=== PATIENT | female | born 1945 | race Caucasian/White ===

== ENCOUNTER 2019-04-06 12:36 | Outpatient (CLI) | payer MEDICARE, SELFPAY ==
--- NOTE | ~2019-04-06 | MM_ITS ---
EXAMINATION: MM screening cornell BI w noah HISTORY: Screening mammogram TECHNIQUE: Craniocaudal and mediolateral oblique 3-D tomosynthesis images were obtained and synthetic 2-D images were generated. CAD analysis was submitted and interpreted. COMPARISON: 09/08/2017, 09/05/2016, 07/05/2013 bilateral digital screening mammogram examinations BREAST PARENCHYMAL COMPOSITION: The breasts are heterogeneously dense, which may obscure small masses . FINDINGS: There is no evidence of suspicious mass, calcification, or architectural distortion to sugg est malignancy in either breast. There has been no suspicious interval change. IMPRESSION: 1. No mammographic evidence of malignancy. 2. Recommend routine screening mammography in one year. BI-RADS Category 1: Negative Reviewed, dictated and finalized at location A. [employer]ER
== END 2019-04-06 12:37 | disposition home or self-care (01) ==
LOC: CHSIMG 12:36
PROVIDERS: PCP Internal Medicine; Visit Provider Internal Medicine
DX: Z12.31 Encounter for screening mammogram for malignant neoplasm of breast (principal)
CPT/HCPCS: 77063; 77067

== ENCOUNTER 2019-04-14 10:18 | Outpatient (CLI) | payer MEDICARE, SELFPAY ==
[2019-04-14 10:40] LABS: Basophils Absolute Auto 0.08 K/mm3 (0.00-0.10); Basophils Percent Auto 1.3 % (0.0-1.0); Eosinophils Absolute Auto 0.52 K/mm3 (0.02-0.50); Eosinophils Percent Auto 8.5 % (1.0-6.0); Hematocrit 34.4 % (35.0-42.0); Immature Granulocyte Absolute 0.01 K/mm3 (0.00-0.00); Immature Granulocyte Percent A 0.2 % (0.0-0.0); Lymphocytes Absolute Auto 1.22 K/mm3 (1.10-4.50); Mean Corpuscular Hemoglobin 26.1 pg (27.0-31.0); Mean Corpuscular Volume 81.7 fL (78.0-102.0); Mean Platelet Volume 8.9 fl (9.2-11.8); Monocytes Absolute Auto 0.53 K/mm3 (0.10-0.90); Monocytes Percent Auto 8.7 % (2.0-11.0); Neutrophils Absolute Auto 3.7 K/mm3 (1.7-7.2); Neutrophils Percent Auto 61.3 % (50.0-70.0); Platelet Count Result 288 K/mm3 (150-420); Red Blood Count 4.21 M/mm3 (4.20-5.40); Red Cell Distribution Width 15.1 % (11.6-14.4); White Blood Count 6.1 K/mm3 (4.8-10.8)
[2019-04-14 12:36] LABS: Thyroid Stimulating Hormone 0.07 uIU/mL (0.36-3.74)
== END 2019-04-14 10:19 | disposition home or self-care (01) ==
LOC: CHSLAB 10:19
PROVIDERS: PCP Internal Medicine; Visit Provider Internal Medicine
DX: D64.9 Anemia, unspecified (principal); E03.9 Hypothyroidism, unspecified
CPT/HCPCS: 36415; 84443; 85025

== ENCOUNTER 2019-05-16 14:24 | Outpatient (CLI) | payer MEDICARE, SELFPAY ==
[2019-05-16 14:37] LABS: Basophils Absolute Auto 0.07 K/mm3 (0.00-0.10); Basophils Percent Auto 1.2 % (0.0-1.0); Eosinophils Absolute Auto 0.56 K/mm3 (0.02-0.50); Eosinophils Percent Auto 9.4 % (1.0-6.0); Hematocrit 32.3 % (35.0-42.0); Hemoglobin 10.6 g/dL (11.7-13.8); Immature Granulocyte Absolute 0.01 K/mm3 (0.00-0.00); Immature Granulocyte Percent A 0.2 % (0.0-0.0); Lymphocytes Absolute Auto 1.82 K/mm3 (1.10-4.50); Lymphocytes Percent Auto 30.6 % (18.0-42.0); Mean Corpuscular HGB Conc 32.8 g/dL (32.0-36.0); Mean Corpuscular Hemoglobin 26.4 pg (27.0-31.0); Mean Corpuscular Volume 80.3 fL (78.0-102.0); Mean Platelet Volume 8.6 fl (9.2-11.8); Monocytes Absolute Auto 0.52 K/mm3 (0.10-0.90); Monocytes Percent Auto 8.8 % (2.0-11.0); Neutrophils Percent Auto 49.8 % (50.0-70.0); Platelet Count Result 276 K/mm3 (150-420); Red Blood Count 4.02 M/mm3 (4.20-5.40); Red Cell Distribution Width 14.9 % (11.6-14.4); White Blood Count 5.9 K/mm3 (4.8-10.8)
[2019-05-16 15:25] LABS: CRP < 0.2 mg/dL (0.0-0.9)
[2019-05-16 15:38] LABS: Erythrocyte Sedimentation Rate 16 mm/hr (0-20)
== END 2019-05-16 14:25 | disposition home or self-care (01) ==
PROVIDERS: PCP Internal Medicine; Visit Provider Anesthesiology
DX: Z79.01 Long term (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 of 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 (principal); I25.10 Atherosclerotic heart disease of native coronary artery without angina pectoris; M54.16 Radiculopathy, lumbar region; R07.89 Other chest pain; Z00.00 Encounter for general adult medical examination without abnormal findings
CPT/HCPCS: 36415; 85025; 85652; 86140

== ENCOUNTER 2019-08-02 11:41 | Outpatient (CLI) | payer MEDICARE, SELFPAY ==
[2019-08-02 12:00] LABS: Basophils Percent Auto 1.5 % (0.0-1.0); Eosinophils Percent Auto 9.2 % (1.0-6.0); Hematocrit 30.7 % (35.0-42.0); Immature Granulocyte Absolute 0.03 K/mm3 (0.00-0.00); Immature Granulocyte Percent A 0.5 % (0.0-0.0); Lymphocytes Absolute Auto 1.82 K/mm3 (1.10-4.50); Mean Corpuscular HGB Conc 32.6 g/dL (32.0-36.0); Mean Corpuscular Volume 79.7 fL (78.0-102.0); Mean Platelet Volume 8.4 fl (9.2-11.8); Monocytes Absolute Auto 0.55 K/mm3 (0.10-0.90); Monocytes Percent Auto 8.5 % (2.0-11.0); Neutrophils Absolute Auto 3.4 K/mm3 (1.7-7.2); Neutrophils Percent Auto 52.3 % (50.0-70.0); Platelet Count Result 280 K/mm3 (150-420); Red Blood Count 3.85 M/mm3 (4.20-5.40); Red Cell Distribution Width 16.9 % (11.6-14.4); White Blood Count 6.5 K/mm3 (4.8-10.8)
[2019-08-02 12:05] LABS: Add Urine Microscopic? NO; Appearance Urine Clear (Clear); Bilirubin Urine Negative (Negative); Blood Urine Negative (Negative); Color Urine Yellow (Yellow); Glucose Urine UA Negative (Negative); Ketones Urine Negative (Negative); Leukocyte Esterase Ur Negative (Negative); Nitrate Urine Negative (Negative); Protein Urine Negative (Negative); Specific Grav Ur <= 1.005 (1.010-1.020); Urobilinogen Urine 0.2 mg/dL (0.2-1.0)
[2019-08-02 12:20] LABS: Partial Thromboplastin Time 29.3 SEC (22.3-31.6)
[2019-08-02 12:33] LABS: Anion Gap 11.8 mmol/L (7-16); Blood Urea Nitrogen 9 mg/dL (7-18); CRP < 0.2 mg/dL (0.0-0.9); Calcium 8.5 mg/dL (8.5-10.1); Carbon Dioxide 29 mmol/L (21-32); Chloride 93 mmol/L (98-108); Estimated Glomerular Filt Rate 48; Glucose 81 mg/dL (70-99); Osmolality Calculated 265 mOsm/kg (285-295); Potassium 4.8 mmol/L (3.5-5.1); Sodium 129 mmol/L (136-145)
[2019-08-02 13:02] LABS: Erythrocyte Sedimentation Rate 14 mm/hr (0-20)
== END 2019-08-02 11:42 | disposition home or self-care (01) ==
LOC: CHSLAB 11:44
PROVIDERS: PCP Internal Medicine; Visit Provider Anesthesiology
DX: Z79.01 Long term (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 of 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 (principal); I25.10 Atherosclerotic heart disease of native coronary artery without angina pectoris; M54.16 Radiculopathy, lumbar region; R07.89 Other chest pain; Z01.818 Encounter for other preprocedural examination
CPT/HCPCS: 36415; 80048; 81003; 85025; 85610; 85652; 85730; 86140

== ENCOUNTER 2019-08-12 10:37 | Outpatient (CLI) | payer MEDICARE, SELFPAY ==
--- NOTE | ~2019-08-12 | CT_ITS ---
EXAMINATION: CT lung screening DATE: 08/12/2019 11:05 INDICATION: Personal history of tobacco use, prior smoker with 35 pack year history TECHNIQUE: Computed tomography (CT) of the chest was performed without intravenous contrast. The dose -length product (DLP) was 59.69 mGy-cm. Automated exposure control and iterative reconstruction techn ique were employed. COMPARISON: 06/14/2010 FINDINGS: There is moderate emphysema. Nodules measuring 5 mm and 4 mm are present in the right upper lobe on image 48. The lungs are free of acute opacities. There is no pleural effusion or pneumothora x. No pathologically enlarged thoracic lymph nodes are identified. The heart size is normal. Calcifie d coronary artery atherosclerosis is noted. There is mild thoracic spondylosis. IMPRESSION: 1. Lung-RADS category 2: Benign appearance or behavior. Continue annual screening with noncontrast lo w-dose chest CT in 12 months. Reviewed, dictated and finalized at location A. IMPRESSION: 1. Lung-RADS category 2: Benign appearance or behavior. Continue annual screeni ng with noncontrast low-dose chest CT in 12 months.
== END 2019-08-12 10:38 | disposition home or self-care (01) ==
LOC: CHSIMG 10:38
PROVIDERS: PCP Internal Medicine; Visit Provider Internal Medicine
DX: Z12.2 Encounter for screening for malignant neoplasm of respiratory organs (principal); Z87.891 Personal history of nicotine dependence
CPT/HCPCS: G0297

== ENCOUNTER 2019-10-13 13:22 | Outpatient (CLI) | payer MEDICARE, SELFPAY ==
--- NOTE | 2019-10-13 13:26 | ECHO_ITS ---
Patient Info Name: aRdha Andrade Age: 74 years : 1945 Gender: Female Ht: 62 in Wt: 152 lbs BSA: 1.76 m2 HR: 63 bpm BP: 145 / 52 mmHg Heart Rhythm: Sinus Rhythm Technical Quality: Good Exam Date: 10/13/2019 1:35 PM Exam Location: [facility] Patient Status: Outpatient Admit Date: 10/13/2019 Staff Ordering Physician: Edgar Stephenson DO Director Telemetry: Vonnie Salgado RDCS Attending Provider: Edgar Stephenson DO Referring Physician: Sachin DUBON; Exam Type: CA echo dop color flow w con Study Info Indications I25.10 - Atherosclerotic heart disease of [place] coronary artery without angina pectoris Complete two-dimensional, color flow and Doppler transthoracic echocardiogram is performed. Strain analysis performed. History/Risk Factors Hypertension: Yes Dyslipidemia: Yes Congenital Heart Disease (CHD): No Peripheral Arterial Disease (PAD): No Myocardial Infarction (NE): No Chronic Lung Disease: No Obesity: No Renal Disease: No Coronary Artery Disease (CAD) Yes Congestive Heart Failure (CHF): No Cardiomyopathy/LV Systolic Dysfunction: No Diabetes Mellitus: No COPD: On Meds Tobacco Use: Former Cerebrovascular Disease: No Family History: Coronary Artery Disease Deep Vein Thrombosis (DVT): None Dialysis: None Frailty Scale (CSHA): 3: Managing Well Cardiac Arrest: No Summary 1. Left ventricular chamber dimension is normal. 2. Left ventricular systolic function is normal, estimated at 65-70%. 3. The left ventricular diastolic function is normal. 4. Tissue doppler is not performed. 5. There is mild mitral valve regurgitation. Left Ventricle Tissue doppler is not performed. Left ventricular chamber dimension is normal. Left ventricular systolic function is normal, estimated at 65-70%. The left ventricular diastolic function is normal. Right Ventricle Right ventricular chamber dimension is normal. Right ventricular systolic function is normal. Left Atria Left atrial chamber dimension is normal. Right Atria Right atrial chamber dimension is normal. Aortic Valve The aortic valve is trileaflet. There is no aortic valve stenosis. There is no aortic valve regurgitation. Pulmonic Valve There is no pulmonic regurgitation. Mitral Valve There is no mitral valve stenosis. There is mild mitral valve regurgitation. Tricuspid Valve There is no tricuspid valve regurgitation. Pericardium/Pleural There is no pericardial effusion. Inferior Vena Cava Normal inferior vena cava with >50% collapse upon inspiration consistent with normal right atrial pressure, 5 mmHg. Aorta The aortic root size at the sinus of Valsalva is normal. Left Ventricular Outflow Tract Name Value Normal LVOT 2D LVOT Diameter 1.78 cm LVOT Doppler LVOT Peak Velocity 95.88 cm/s LVOT Peak Gradient 4 mmHg LVOT Mean Gradient 2 mmHg LVOT VTI 26.53 cm LVOT VTI/AV VTI Ratio 0.76
== END 2019-10-13 13:23 | disposition home or self-care (01) ==
LOC: CHSIMG 13:23
PROVIDERS: PCP Internal Medicine; Visit Provider Internal Medicine Cardiovascular Disease
DX: I25.10 Atherosclerotic heart disease of native coronary artery without angina pectoris (principal)
CPT/HCPCS: C8929

== ENCOUNTER 2019-11-09 13:20 | Outpatient (CLI) | payer MEDICARE, SELFPAY ==
--- NOTE | ~2019-11-09 | DEXA_ITS ---
BMD(1) Young-Adult(2) Age-Matched(3) Region (g/cm2) T-score Z-score WHO Classification L1 1.430 2.4 4.0 Normal L2 1.584 3.1 4.8 Normal L3 1.749 4.3 5.9 Normal L4 1.581 2.8 4.5 Normal L1-L4 1.593 3.2 4.9 Normal Trend: L1-L4 Change vs Change vs Measured Age BMD(1) Baseline Previous Date (years) (g/cm2) (%) (%) 11/09/2019 [age] 1.593 10.9* 10.0* 09/05/2016 [age] 1.448 0.8 -0.3 10[age]24/2011 [age] 1.89 1.2 1.2 09/10/2009 [age] 1.436 baseline - * - Indicates significant change based on 95% confidence interval. 1 - Statistically 68% of repeat scans fall within 1SD (+- 0.010 g/cm2 for AP Spine L1-L4) 2 - [place] (Combined NHANES (ages 20-30) / PhishMe (ages 20-40)) AP Spine Reference Population (v112) 3 - Matched for Age, Weight (females 25-100 kg), Ethnic 11 - World Health Organization - Definition of Osteoporosis and Osteopenia for Women: Normal = T-score at or above -1.0 SD; Osteopenia = T-score between -1.0 and -2.5 SD; Osteoporosis = T-score at or below -2.5 SD; (WHO definitions only apply when a young healthy Women reference database is used to determine T-scores.) Printed: 11/09/2019 1:59:18 PM (13.60)76:3.00:50.00:12.0 0.00:9.54 0.60x1.05 19.7:%Fat=30.9% 0.00:0.00 0.00:0.00 Verify bone is centered and there is sufficient tissue next to bone. Filename: [id number].dfx Scan Mode: Standard;OneScan 37.0 Purple[employer] [id number] BMD(1) Young-Adult(2,7) Age-Matched(3) Region (g/cm2) T-score Z-score WHO Classification Neck Left 0.996 -0.3 1.6 Normal Right 1.010 -0.2 1.7 Normal Mean 1.003 -0.3 1.6 Normal Difference 0.014 0.1 0.1 - Total Left 1.082 0.6 2.3 Normal Right 1.097 0.7 2.4 Normal Mean 1.090 0.6 2.3 Normal Difference 0.014 0.1 0.1 - Hip [place] Length Comparison (mm) BAKARI chart results unavailable Trend: Total Mean Change vs Change vs Measured Age BMD(1) Baseline Previous Date (years) (g/cm2) (%) (%) 11/09/2019 [age] 1.090 1.2 2.3 10[age]24/2011 66.1 1.066 -1.0 -1.0 09/10/2009 [age] 1.077 baseline - 1 - Statistically 68% of repeat scans fall within 1SD (+- 0.010 g/cm2 for DualFemur Total) 2 - [place] (Combined NHANES (ages 20-30) / PhishMe (ages 20-40)) Femur Reference Population (v112) 3 - Matched for Age, Weight (females 25-100 kg), Ethnic 7 - DualFemur Total T-score difference is 0.1. Asymmetry is None. 11 - World Health Organization - Definition of Osteoporosis and Osteopenia for Women: Normal = T-score at or above -1.0 SD; Osteopenia = T-score between -1.0 and -2.5 SD; Osteoporosis = T-score at or below -2.5 SD; (WHO definitions only apply when a young healthy Women reference database is used to determine T-scores.) Printed: 11/09/2019 1:59:19 PM (13.60); Filename: [id number].dfx; Right Femur; 17.3:%Fat=35.0%; Neck Angle (deg)= 73; Scan Mode: Standard 37.0 uGy; Left Femur; 17.0:%Fat=35.5%; Neck Angle (deg)= 67; Scan Mode: Standard 37.0 uGy [employer] [id number] Dear Bhanu Hinojosa, Your patient Radha Andrade completed a BMD test on 11/09/2019 using the [employer] DXA System (analysis version: 13.60) manufactured by [employer]. The following summarizes the results of our evaluation. PATIENT BIOGRAPHICAL
== END 2019-11-09 13:21 | disposition home or self-care (01) ==
LOC: CHSIMG 13:22
PROVIDERS: PCP Internal Medicine; Visit Provider Internal Medicine
DX: M81.0 Age-related osteoporosis without current pathological fracture (principal)
CPT/HCPCS: 77080

== ENCOUNTER 2020-05-28 12:20 | Outpatient (CLI) | payer MEDICARE, SELFPAY ==
--- NOTE | ~2020-05-28 | CT_ITS ---
EXAMINATION: CT lumbar spine wo con EXAM DATE: 05/28/2020 12:38 INDICATION: Radiculopathy lumbar region Chronic LBP that radiates down both legs, surg 4 and 1 yrs ag o . TECHNIQUE: Spiral CT of the lumbar spine was performed without contrast. Axial, coronal and sagittal images were reviewed. The dose-length product (DLP) for this examination was 478.70 mGy-cm. The e xposure was tailored according to patient size (auto mA exposure control), and iterative reconstructi on (ASIR) was used as additional dose reduction technique. Correlation is made to lumbar spine MR 09/23. FINDINGS: There is spine stimulator pack, leads entering posterior epidural space at the L1-2 level. There is 5 mm anterolisthesis L4 on L5 without spondylolysis. The vertebral bodies are otherwise alig willie. Mild to moderate disc disease L3-4 and L4-5 otherwise only mild disc disease present. Minimal th oracolumbar dextroscoliosis. Sacroiliac joints are intact. Level by level evaluation: T12-L1: Disc does not extend beyond the endplate margin. Facet arthropathy: Minimal. Neural foraminal stenosis: No stenosis. Central canal stenosis: No stenosis. L1-L2: There is a mild diffuse disc bulge. Facet arthropathy: Mild. Neural foraminal stenosis: No stenosis. Central canal stenosis: No stenosis. L2-L3: There is a mild diffuse disc bulge. Facet arthropathy: Moderate. Neural foraminal stenosis: Mild to moderate left, mild right. Central canal stenosis: Moderate. L3-L4: There is a moderate diffuse disc bulge. Facet arthropathy: Severe left, moderate right. Neural foraminal stenosis: Mild to moderate bilateral. Central canal stenosis: Moderate. L4-L5: There is a moderate diffuse disc bulge. Facet arthropathy: Severe. Neural foraminal stenosis: Moderate bilateral, right greater than left. Central canal stenosis: Moderate. L5-S1: There is a mild diffuse disc bulge. Facet arthropathy: Severe. Neural foraminal stenosis: Mild bilateral. Central canal stenosis: Mild. IMPRESSION: 1. L4-5 grade 1 anterolisthesis. 2. Moderate central canal stenosis L2-L5 disc spaces. 3. Advanced facet arthropathy. Reviewed, dictated and finalized at location A.
== END 2020-05-28 12:21 | disposition home or self-care (01) ==
LOC: CHSIMG 12:21
PROVIDERS: PCP Internal Medicine; Visit Provider Anesthesiology
DX: M54.16 Radiculopathy, lumbar region (principal)
CPT/HCPCS: 72131

== ENCOUNTER 2020-07-24 12:20 | Outpatient (CLI) | payer MEDICARE, SELFPAY ==
--- NOTE | ~2020-07-24 | MM_ITS ---
EXAMINATION: MM screening cornell BI w noah HISTORY: Screening TECHNIQUE: Craniocaudal and mediolateral oblique 3-D tomosynthesis images were obtained and synthetic 2-D images were generated. CAD analysis was submitted and interpreted. COMPARISON: Comparison to multiple prior studies sequentially, with oldest reviewed study dated 08/2011. BREAST PARENCHYMAL COMPOSITION: The breasts are heterogeneously dense, which may obscure small masses . FINDINGS: There is no evidence of suspicious mass, calcification, or architectural distortion to sugg est malignancy in either breast. There has been no suspicious interval change. IMPRESSION: 1. No mammographic evidence of malignancy. 2. Recommend routine screening mammography in one year. BI-RADS Category 1: Negative Reviewed, dictated and finalized at location A.
== END 2020-07-24 12:21 | disposition home or self-care (01) ==
LOC: CHSIMG 12:22
PROVIDERS: PCP Internal Medicine; Visit Provider Internal Medicine
DX: Z12.31 Encounter for screening mammogram for malignant neoplasm of breast (principal)
CPT/HCPCS: 77063; 77067

== ENCOUNTER 2021-04-24 14:51 | Outpatient (CLI) | payer MEDICARE, SELFPAY ==
--- NOTE | ~2021-04-24 | CT_ITS ---
EXAMINATION: CT cervical spine wo con DATE: 04/24/2021 15:17 INDICATION: Left neck pain. TECHNIQUE: Computed tomography (CT) of the cervical spine was performed without intravenous contrast. Automated exposure control and iterative reconstruction technique were employed. The dose-length pro duct was 235.07 mGy-cm. COMPARISON: None FINDINGS: The visualized portions of the lung apices demonstrate emphysema and mild scarring. There i s kyphosis of cervical spine. There is 3 mm anterolisthesis of C3 and C4 and 2 mm anterolisthesis of C4 on C5. Vertebral body heights are normal. There is mildly decreased disc height at C3-C4, moderate ly decreased disc height at C4-C5, and severely decreased disc height at C5-C6 and C6-C7 with endplat e remodeling. The following disc levels are specifically discussed: C2-C3: There is mild bilateral uncovertebral joint osteoarthritis. There is mild right and severe lef t facet joint osteoarthritis. There is mild left neural foraminal stenosis. There is no central canal stenosis. C3-C4: There is mild right uncovertebral joint osteoarthritis. There is severe bilateral facet joint osteoarthritis. There is mild bilateral neural foraminal stenosis. There is mild central canal stenos is. C4-C5: There is mild bilateral uncovertebral joint osteoarthritis. There is severe bilateral facet shana int osteoarthritis. There is mild bilateral neural foraminal stenosis. There is mild central canal st enosis. C5-C6: There is severe bilateral uncovertebral joint osteoarthritis. There is severe bilateral facet joint osteoarthritis. There is mild bilateral neural foraminal stenosis. There is mild central canal stenosis. C6-C7: There is severe bilateral uncovertebral joint osteoarthritis. There is severe bilateral facet joint osteoarthritis. There is mild bilateral neural foraminal stenosis. There is mild central canal stenosis. C7-T1: There is no uncovertebral joint osteoarthritis. There is severe bilateral facet joint osteoart hritis. There is mild bilateral neural foraminal stenosis. There is no central canal stenosis. IMPRESSION: 1. Severe cervical spondylosis. Reviewed, dictated and finalized at location A. 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
[2021-04-24 15:32] LABS: Hematocrit 31.3 % (35.0-42.0); Hemoglobin 9.7 g/dL (11.7-13.8); Mean Corpuscular Volume 77.5 fL (78.0-102.0); Mean Platelet Volume 8.4 fl (9.2-11.8); Platelet Count Result 322 K/mm3 (150-420); Red Blood Count 4.04 M/mm3 (4.20-5.40); Red Cell Distribution Width 17.2 % (11.6-14.4); White Blood Count 8.2 K/mm3 (4.8-10.8)
[2021-04-24 16:08] LABS: Band Neutrophils Percent 0 % (0-6); Basophils Percent Manual 0 % (0-1); Eosinophils Absolute Manual 0.73 K/mm3 (0.02-0.5); Eosinophils Percent Manual 9 % (1-6); Lymphocytes Absolute Manual 1.88 K/mm3 (1.1-4.5); Lymphocytes Percent Manual 23 % (18-44); Monocytes Absolute Manual 0.82 K/mm3 (0.1-0.90); Monocytes Percent Manual 10 % (3-9); Neutrophils Absolute Manual 4.75 K/mm3 (1.7-7.2); Neutrophils Percent Manual 58 % (46-73); Platelet Estimate Adequate (Adequate); Total Cells Counted 100
[2021-04-24 16:19] LABS: Alanine Aminotransferase 29 U/L (14-59); Albumin Level 3.8 g/dL (3.4-5.0); Alkaline Phosphatase 90 U/L (46-116); Anion Gap 4 mmol/L (8-16); Aspartate Amino Transferase 17 U/L (15-37); Bilirubin,Total 0.3 mg/dL (0.00-1.00); Blood Urea Nitrogen 13 mg/dL (7-18); Calcium 8.8 mg/dL (8.5-10.1); Carbon Dioxide 32 mmol/L (21-32); Chloride 99 mmol/L (98-108); Estimated Glomerular Filt Rate 45; Glucose 96 mg/dL (70-99); Osmolality Calculated 280 mOsm/kg (285-295); Potassium 4.9 mmol/L (3.5-5.1); Sodium 135 mmol/L (136-145); Thyroid Stimulating Hormone 4.75 uIU/mL (0.36-3.74)
== END 2021-04-24 14:52 | disposition home or self-care (01) ==
PROVIDERS: PCP Internal Medicine; Visit Provider Anesthesiology
DX: E03.9 Hypothyroidism, unspecified (principal); I10 Essential (primary) hypertension; J44.9 Chronic obstructive pulmonary disease, unspecified; M54.12 Radiculopathy, cervical region
CPT/HCPCS: 36415; 72125; 80053; 84443; 85025

== ENCOUNTER 2021-05-10 09:19 | Outpatient (CLI) | payer MEDICARE, SELFPAY ==
[2021-05-10 09:31] LABS: Hematocrit 33.6 % (35.0-42.0); Hemoglobin 10.3 g/dL (11.7-13.8); Immature Reticulocyte Fraction 29.3 % (2.0-16.52); Mean Corpuscular HGB Conc 30.7 g/dL (32.0-36.0); Mean Corpuscular Hemoglobin 23.8 pg (27.0-31.0); Mean Corpuscular Volume 77.6 fL (78.0-102.0); Mean Platelet Volume 8.9 fl (9.2-11.8); Platelet Count Result 331 K/mm3 (150-420); Red Blood Count 4.33 M/mm3 (4.20-5.40); Red Cell Distribution Width 16.7 % (11.6-14.4); Reticulocyte Hemoglobin Conten 26.7 pg (28.0-35.0); Reticulocyte Percent 1.14 % (0.50-1.50); Reticulocytes Absolute 0.05 M/mm3 (0.02-0.1); White Blood Count 5.8 K/mm3 (4.8-10.8)
[2021-05-10 09:50] LABS: Band Neutrophils Percent 0 % (0-6); Basophils Absolute Manual 0.05 K/mm3 (0-0.1); Basophils Percent Manual 1 % (0-1); Eosinophils Absolute Manual 0.75 K/mm3 (0.02-0.5); Eosinophils Percent Manual 13 % (1-6); Lymphocytes Absolute Manual 2.26 K/mm3 (1.1-4.5); Lymphocytes Percent Manual 39 % (18-44); Monocytes Absolute Manual 0.17 K/mm3 (0.1-0.90); Monocytes Percent Manual 3 % (3-9); Neutrophils Absolute Manual 2.55 K/mm3 (1.7-7.2); Neutrophils Percent Manual 44 % (46-73); Platelet Estimate Adequate (Adequate); Total Cells Counted 100
[2021-05-10 10:27] LABS: Cholesterol 163 mg/dL (0-200); Ferritin 7 ng/mL (8-252); HDL Direct 92 mg/dL (40-60); Iron 34 ug/dL (50-170); LDL Cholesterol Calculated 56 mg/dL (<130); Percent Iron Saturation 7 % (12-57); Triglycerides 73 mg/dL (0-150)
== END 2021-05-10 09:20 | disposition home or self-care (01) ==
LOC: CHSLAB 09:22
PROVIDERS: PCP Internal Medicine; Visit Provider Internal Medicine Cardiovascular Disease
DX: E78.5 Hyperlipidemia, unspecified (principal); D50.9 Iron deficiency anemia, unspecified
CPT/HCPCS: 36415; 80061; 82728; 83540; 83550; 85025; 85046

== ENCOUNTER 2021-07-15 00:33 | Day surgery (SDC) | payer MEDICARE, SELFPAY ==
[2021-07-01 15:14] VITALS: BMI 28.4
--- NOTE | 2021-07-15 06:54 | WPDANESEPPF ---
Anes - Initial Pre Proc Eval Procedure: Operation Date: 07/15/21 08:00 Proposed Procedures p Esophagogastroduodenoscopy & Colonoscopy - William Wells MD Date/Time: 07/15/21 06:54 Surgeon: William Wells MD Pre Op Diagnosis: microcytic anemia Patient Data Age: 75 Gender: F Height: 1.57 m Weight: 70.45 kg Allergies Allergy/AdvReac Type Severity Reaction Status Date / Time iodine Allergy Severe Hives / Verified 07/15/21 07:01 Red Face amlodipine Allergy Unknown Unknown Verified 07/15/21 07:01 clindamycin Allergy Unknown Nausea Verified 07/15/21 07:01 diltiazem Allergy Unknown Unknown Verified 07/15/21 07:01 Iodine and Iodide Containing Allergy Unknown Unknown Verified 07/15/21 07:01 Produc nickel Allergy Unknown Rash Verified 07/15/21 07:01 Penicillins Allergy Unknown Unknown Verified 07/15/21 07:01 SHELLFISH Allergy Severe Vomiting Uncoded 05/06/21 13:27 Home Medications Medication Instructions Recorded Confirmed Type albuterol sulfate 90 mcg/actuation 2 puff inhalation Q4H PRN 04/01/19 07/01/21 History aerosol inhaler (Ventolin HFA) Shortness Of Breath aspirin 325 mg tablet 325 mg PO DAILY 04/01/19 07/01/21 History cholecalciferol (vitamin D3) 25 25 mcg PO DAILY 04/01/19 07/01/21 History mcg (1,000 unit) tablet esomeprazole magnesium 40 mg 40 mg PO DAILY 04/01/19 07/01/21 History capsule,delayed release evening primrose oil-linoleic 1 cap PO DAILY 04/01/19 07/01/21 History acid-gamolenic acid 1,000 mg capsule (Sutter Oil) levothyroxine 50 mcg tablet 75 mcg PO DAILY 04/01/19 07/01/21 History meclizine 25 mg tablet 25 mg PO TID PRN Vertigo 04/01/19 07/01/21 History nitroglycerin 0.4 mg sublingual 0.4 mg sublingual Q5M PRN Chest 04/01/19 07/01/21 History tablet Pain umeclidinium 62.5 mcg-vilanterol 1 inhalation inhalation DAILY 04/01/19 07/01/21 History 25 mcg/actuation powdr for inhalation (Anoro Ellipta) valacyclovir 500 mg tablet 500 mg PO DAILY PRN Rash 04/04/19 07/01/21 History oxycodone-acetaminophen 10 mg-325 1 tablet PO Q6H PRN Pain 10/03/19 07/01/21 History mg tablet hydralazine 25 mg tablet 25 mg PO BID #60 tabs 10/07/19 07/01/21 Rx omega-3 acid ethyl esters 1 gram See Rx Instructions .Route 02/09/20 07/01/21 Rx capsule .COMPLEX #180 caps ramipril 10 mg capsule See Rx Instructions .Route 05/25/20 07/01/21 Rx .COMPLEX #180 caps fluoxetine 10 mg capsule 20 mg PO DAILY 11/05/20 07/01/21 History propranolol 60 mg capsule,24 See Rx Instructions .Route 11/13/20 07/01/21 Rx hr,extended release .COMPLEX #180 caps rosuvastatin 20 mg tablet See Rx Instructions .Route 01/08/21 07/01/21 Rx .COMPLEX #90 tabs Patient hx anesthesia problems: none Family hx anesthesia problems: none Results Review: All pre-operative results and documents have been reviewed as part of the pre-operative evaluation. [facility] Past Medical History Medical History (Updated 07/15/21 @ 07:53 by William Wells MD) CAD in [place] artery Chest pain at rest Chronic obstructive pulmonary disease, unspecified Chronic, continuous use of opioids Dyslipidemia Essential hypertension Family history of colon cancer in mother Hypothyroidism Iron deficiency anemia Surgical History Surgical History History of appendectomy History of hysterectomy History of tonsillectomy Hx of heart artery stent Status post insertion of spinal cord stimulator Family History Family History Father Family history of coronary artery disease Family history of sudden Social History Social History Smoking status: Former smoker Tobacco type: cigarettes Alcohol intake: never Substance use: never Substance use type: does not use Living arrangements: alone Spiritual care concerns:
[2021-07-15 07:01] VITALS: BP 152/65; PULSE 80; RESP 20; TEMP 36.3; O2SAT 93; BMI 27.6
[2021-07-15] MEDS: LACTATED RINGERS 1,000 ML 150 ML IV CONT (07:17)
--- NOTE | 2021-07-15 07:52 | PM.HPGS ---
History of Present Illness History of Present Illness Consent: Risks, benefits, and alternatives have been discussed and questions answered. Patient agrees to proceed with procedure. Chief complaint: microcytic anemia Narrative: Radha Andrade is a 75 year old female with [place], hb ~ 10, denies overt gib, never had EGD but uses nexium. Her last colonoscopy about 10 years ago, mother had colon cancer. Review of Systems Constitutional: Constitutional: Denies headache(s) and Denies weakness Eyes: Eyes: Denies blurry vision ENT: Reports Normal hearing present, Denies headache(s) and Denies neck pain Cardiovascular: Cardiovascular: Denies chest pain and Denies dyspnea Respiratory: Respiratory: Denies dyspnea Gastrointestinal: Gastrointestinal: Reports no additional gastrointestinal complaints Genitourinary: Genitourinary: Denies dysuria Musculoskeletal: Musculoskeletal: Denies neck pain Integumentary/Breasts: Skin/Breast: Denies dry skin Neurologic: Reports Normal hearing present, Denies headache(s) and Denies weakness Psychiatric: Psychiatric: Denies anxiety Endocrine: Endocrine: Denies change in body appearance Hematologic/Lymphatic: Hematologic/Lymphatic: Denies easy bleeding Allergic/Immunologic: Allergic/Immunologic: Denies urticaria PMFSH Past Medical History Medical History (Updated 07/15/21 @ 07:53 by William Wells MD) CAD in [place] artery Chest pain at rest Chronic obstructive pulmonary disease, unspecified Chronic, continuous use of opioids Dyslipidemia Essential hypertension Family history of colon cancer in mother Hypothyroidism Iron deficiency anemia Surgical History Surgical History History of appendectomy History of hysterectomy History of tonsillectomy Hx of heart artery stent Status post insertion of spinal cord stimulator Family History Family History Father Family history of coronary artery disease Family history of sudden Social History Social History Smoking status: Former smoker Tobacco type: cigarettes Alcohol intake: never Substance use: never Substance use type: does not use Living arrangements: alone Spiritual care concerns: No Meds Home Medications and Allergies Home Medications Medication Instructions Recorded Confirmed Type albuterol sulfate 90 mcg/actuation 2 puff INHALATION Q4H PRN gm 04/01/19 07/01/21 History aerosol inhaler aspirin 325 mg tablet 325 mg PO DAILY 04/01/19 07/01/21 History cholecalciferol (vitamin D3) 25 25 mcg PO DAILY 04/01/19 07/01/21 History mcg (1,000 unit) tablet esomeprazole magnesium 40 mg 40 mg PO DAILY 04/01/19 07/01/21 History capsule,delayed release evening primrose oil-linoleic 1 cap PO DAILY cap 04/01/19 07/01/21 History acid-gamolenic acid 1,000 mg capsule levothyroxine 50 mcg tablet 75 mcg PO DAILY 04/01/19 07/01/21 History meclizine 25 mg tablet 25 mg PO TID PRN 04/01/19 07/01/21 History nitroglycerin 0.4 mg sublingual 0.4 mg SUBLINGUAL Q5M PRN 04/01/19 07/01/21 History tablet umeclidinium 62.5 mcg-vilanterol 1 inhalation INHALATION DAILY 04/01/19 07/01/21 History 25 mcg/actuation powdr for inhalation valacyclovir 500 mg tablet 500 mg PO DAILY PRN 04/04/19 07/01/21 History oxycodone-acetaminophen 10 mg-325 1 tablet PO Q6H PRN tablet 10/03/19 07/01/21 History mg tablet hydralazine 25 mg tablet 25 mg PO BID #60 tablet 10/07/19 07/01/21 Rx omega-3 acid ethyl esters 1 gram See Rx Instructions .ROUTE 02/09/20 07/01/21 Rx capsule .COMPLEX #180 cap ramipril 10 mg capsule See Rx Instructions .ROUTE 05/25/20 07/01/21 Rx .COMPLEX #180 cap fluoxetine 10 mg capsule 20 mg PO DAILY cap 11/05/20 07/01/21 History propranolol 60 mg capsule,24 See Rx Instructions .ROUTE 11/13/20 07/01/21 Rx hr,extende
--- NOTE | 2021-07-15 08:22 | SUR.OPER ---
EGD START 801, END 805 COLONOSCOPY START 809, END 821
[2021-07-15 08:24] VITALS: BP 133/57; PULSE 62; RESP 20; O2SAT 100
[2021-07-15 08:34] VITALS: BP 121/57; PULSE 62; RESP 20; O2SAT 100
[2021-07-15 08:44] VITALS: BP 130/78; PULSE 73; RESP 20; O2SAT 100
== END 2021-07-15 08:51 | disposition home or self-care (01) ==
PROVIDERS: PCP Internal Medicine; Visit Provider Internal Medicine Gastroenterology
PROC: 0DJ08ZZ Inspection of Upper Intestinal Tract, Via Natural or Artificial Opening Endoscopic (ICD-10-PCS; CPT 43235; principal; 2021-07-15 08:00)
DX: D50.9 Iron deficiency anemia, unspecified (principal); K64.8 Other hemorrhoids; K62.3 Rectal prolapse; Z80.0 Family history of malignant neoplasm of digestive organs; K21.9 Gastro-esophageal reflux disease without esophagitis; K29.70 Gastritis, unspecified, without bleeding; I25.10 Atherosclerotic heart disease of native coronary artery without angina pectoris; J44.9 Chronic obstructive pulmonary disease, unspecified; I10 Essential (primary) hypertension; E78.5 Hyperlipidemia, unspecified; E03.9 Hypothyroidism, unspecified; Z79.891 Long term (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 of opiate analgesic; Z87.891 Personal history of nicotine dependence; Z79.51 Long term (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 of inhaled steroids; Z79.82 Long term (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 of aspirin; Z95.5 Presence of coronary angioplasty implant and graft
CPT/HCPCS: 45378; 43239; 88305; J2704; J7120

== ENCOUNTER 2021-07-29 11:52 | Outpatient (CLI) | payer MEDICARE, SELFPAY ==
--- NOTE | ~2021-07-29 | MM_ITS ---
EXAMINATION: MM screening cornell BI w noah HISTORY: Screening mammogram, family history of breast cancer in her daughter. TECHNIQUE: Craniocaudal and mediolateral oblique 3-D tomosynthesis images were obtained and synthetic 2-D images were generated. CAD analysis was submitted and interpreted. COMPARISON: 07/24/2020, 04/06/2019, 09/08/2017 BREAST PARENCHYMAL COMPOSITION: The breasts are heterogeneously dense, which may obscure small masses . FINDINGS: There is no suspicious mass, calcification, or architectural distortion to suggest malignan cy in either breast. There has been no suspicious interval change. IMPRESSION: 1. No mammographic evidence of malignancy. 2. Recommend routine screening mammography in one year. BI-RADS Category 1: Negative Reviewed, dictated and finalized at location A.
== END 2021-07-29 11:53 | disposition home or self-care (01) ==
LOC: CHSIMG 11:54
PROVIDERS: PCP Internal Medicine; Visit Provider Internal Medicine
DX: Z12.31 Encounter for screening mammogram for malignant neoplasm of breast (principal)
CPT/HCPCS: 77063; 77067

== ENCOUNTER 2021-11-04 13:37 | Emergency (ER) | payer MEDICARE, SELFPAY ==
--- NOTE | ~2021-11-04 | XR_ITS ---
EXAMINATION: XR chest 1V portable Exam Date/Time: 11/04/2021 14:00 CDT HISTORY: epigastric chest pain/ indigestion/ pressure x 3days Comparison: 02/03/2019. RESULT: Lines, tubes, and devices: Stimulator leads project over the mid thoracic spine. Lungs and pleura: No focal consolidation. Senescent changes. Bibasilar atelectasis/scar. Cardiomediastinal silhouette: Stable. Other: No acute osseous or upper abdominal finding. IMPRESSION: No acute cardiopulmonary process. Reviewed, dictated and finalized at location K.
--- NOTE | 2021-11-04 13:45 | ECG_ITS ---
Measurements Intervals [place] Rate: 72 P: 85 NV: 172 QRS: 83 QRSD: 157 T: 52 QT: 419 QTc: 459 Interpretive Statements SINUS RHYTHM RIGHT BUNDLE BRANCH BLOCK BASELINE ARTIFACT- I, II, III, AVR, AVL, AVF, V3-V6 ABNORMAL ECG COMPARED TO ECG 02/03/2019 08:25:47 NO SIGNIFICANT CHANGES Electronically Signed On 11-04-2021 14:30:34 CDT by Edgar Stephenson D.O.
[2021-11-04 13:53] VITALS: BP 172/79; PULSE 77; RESP 16; TEMP 36.1; O2SAT 94
--- NOTE | 2021-11-04 13:53 | ED.CHESTPAIN ---
HPI - Chest Pain General Chief Complaint: Chest Pain Stated Complaint: chest pain, high BP, sent by Dr. Stephenson Time Seen by Provider: 11/04/21 13:52 Source: patient History of Present Illness HPI narrative: 76-year-old female ex-smoker with history of hypertension, dyslipidemia, hypothyroidism, COPD, coronary artery disease status post stent in the proximal RCA in 2007, negative stress test on 05/12/2016 presented to her [employer] this morning for -- hypertension -- anterior chest pain. the pain is lower substernal in location and radiates to the neck. The pain is intermittent and lasts 5 minutes with spontaneous resolution. this pain is similar to her prior episode of chest pain when she had a stent placement. this pain came on at rest. No worsening shortness of breath. No lightheadedness. -- Chronic low back pain. MD complaint: chest pain Pertinent past history: coronary artery disease Onset (ago): day(s) ( Started 2 days ago) Timing of current episode: episodic Prior episodes: Yes Onset: during rest Pain location: substernal Pain radiation: neck Severity: mild Quality: aching Relieving factors: nothing Exacerbating factors: nothing Associated symptoms: nausea Treatment prior to arrival: none Risk Factors Coronary artery disease risk factors: smoking history, hyperlipidemia and hypertension Thoracic aortic dissection risk factors: longstanding hypertension Related Data On Oral Contraceptives: No Home Medications Medication Instructions Recorded Confirmed albuterol sulfate 90 mcg/actuation 2 puff inhalation Q4H PRN 04/01/19 11/04/21 aerosol inhaler (Ventolin HFA) Shortness Of Breath aspirin 325 mg tablet 325 mg PO DAILY 04/01/19 11/04/21 cholecalciferol (vitamin D3) 25 25 mcg PO DAILY 04/01/19 11/04/21 mcg (1,000 unit) tablet esomeprazole magnesium 40 mg 40 mg PO DAILY 04/01/19 11/04/21 capsule,delayed release evening primrose oil-linoleic 1 cap PO DAILY 04/01/19 11/04/21 acid-gamolenic acid 1,000 mg capsule ([place] Oil) levothyroxine 50 mcg tablet 75 mcg PO DAILY 04/01/19 11/04/21 meclizine 25 mg tablet 25 mg PO TID PRN Vertigo 04/01/19 11/04/21 nitroglycerin 0.4 mg sublingual 0.4 mg sublingual Q5M PRN Chest 04/01/19 11/04/21 tablet Pain valacyclovir 500 mg tablet 500 mg PO DAILY PRN Rash 04/04/19 11/04/21 oxycodone-acetaminophen 10 mg-325 1 tablet PO Q6H PRN Pain 10/03/19 11/04/21 mg tablet fluoxetine 10 mg capsule 40 mg PO DAILY 11/05/20 11/04/21 fluticasone fur. 100 mcg-umeclid 1 inh inhalation DAILY 11/04/21 11/04/21 62.5 mcg-vilant 25 mcg inhalat.powder (Trelegy Ellipta) Allergies Allergy/AdvReac Type Severity Reaction Status Date / Time iodine Allergy Severe Hives / Verified 11/04/21 13:57 Red Face amlodipine Allergy Unknown Unknown Verified 11/04/21 13:57 clindamycin Allergy Unknown Nausea Verified 11/04/21 13:57 diltiazem Allergy Unknown Unknown Verified 11/04/21 13:57 Iodine and Iodide Containing Allergy Unknown Unknown Verified 11/04/21 13:57 Produc nickel Allergy Unknown Rash Verified 11/04/21 13:57 Penicillins Allergy Unknown Unknown Verified 11/04/21 13:57 SHELLFISH Allergy Severe Vomiting Uncoded 11/04/21 13:57 Review of Systems Review of Systems: All systems reviewed & are unremarkable except as noted in HPI and below Constitutional: Constitutional: Reports as per HPI and Reports no additional constitutional complaints Eyes: Eyes: Reports as per HPI and Reports no additional eye complaints ENT: Reports system reviewed and no additional complaints, except as documented and Reports as per HPI Cardiovascular: Cardiovascular: Reports as per HPI, Reports no additional cardiovascular complaints and Reports chest pain Respiratory: Respiratory: Reports as per HPI and Reports no additional respiratory complaints Gastrointestinal: Gastrointestinal: Reports as per HPI, Reports no additional gastrointestinal complaints and Reports nausea Genitourinary: Genitourinary:
[2021-11-04 14:19] LABS: Basophils Absolute Auto 0.07 K/mm3 (0.00-0.10); Eosinophils Absolute Auto 0.39 K/mm3 (0.02-0.50); Eosinophils Percent Auto 5.7 % (1.0-6.0); Hematocrit 29.1 % (35.0-42.0); Hemoglobin 8.9 g/dL (11.7-13.8); Immature Granulocyte Absolute 0.02 K/mm3 (0.00-0.00); Immature Granulocyte Percent A 0.3 % (0.0-0.0); Lymphocytes Absolute Auto 0.97 K/mm3 (1.10-4.50); Lymphocytes Percent Auto 14.2 % (18.0-42.0); Mean Corpuscular HGB Conc 30.6 g/dL (32.0-36.0); Mean Corpuscular Hemoglobin 22.3 pg (27.0-31.0); Mean Corpuscular Volume 72.8 fL (78.0-102.0); Mean Platelet Volume 8.4 fl (9.2-11.8); Monocytes Absolute Auto 0.49 K/mm3 (0.10-0.90); Monocytes Percent Auto 7.2 % (2.0-11.0); Neutrophils Absolute Auto 4.9 K/mm3 (1.7-7.2); Neutrophils Percent Auto 71.6 % (50.0-70.0); Platelet Count Result 417 K/mm3 (150-420); Red Cell Distribution Width 17.5 % (11.6-14.4); White Blood Count 6.8 K/mm3 (4.8-10.8)
[2021-11-04 14:32] LABS: INR 0.9; Partial Thromboplastin Time 34.5 SEC (23.90-30.70); Prothrombin Time 10.4 Seconds (9.50-12.10)
[2021-11-04] MEDS: ALBUTEROL SULFATE NEB 2.5 MG/3 ML INH INHALATION (14:36)
[2021-11-04 14:37] VITALS: PULSE 65; RESP 20; O2SAT 88
[2021-11-04 14:42] LABS: Alanine Aminotransferase 15 U/L (14-59); Albumin Level 3.5 g/dL (3.4-5.0); Alkaline Phosphatase 106 U/L (46-116); Anion Gap 10 mmol/L (8-16); Aspartate Amino Transferase 18 U/L (15-37); Bilirubin,Total 0.3 mg/dL (0.00-1.00); Blood Urea Nitrogen 6 mg/dL (7-18); Calcium 9.1 mg/dL (8.5-10.1); Carbon Dioxide 25 mmol/L (21-32); Chloride 92 mmol/L (98-108); Estimated Glomerular Filt Rate 59; Glucose 99 mg/dL (70-99); NT Pro B Type Natriuretic Pept 214 pg/mL (0-450); Osmolality Calculated 261 mOsm/kg (285-295); Potassium 3.9 mmol/L (3.5-5.1); Sodium 127 mmol/L (136-145); Total Protein 7.5 g/dL (6.4-8.2); Troponin I 6.9 ng/L (0.00-60.4)
[2021-11-04 14:51] VITALS: PULSE 66; RESP 18; O2SAT 100
[2021-11-04 15:43] VITALS: BP 155/79; PULSE 70; RESP 16; TEMP 36.2; O2SAT 90
== END 2021-11-04 15:47 | disposition home or self-care (01) ==
PROVIDERS: Emergency Provider Internal Medicine Critical Care Medicine; PCP Internal Medicine
DX: R07.9 Chest pain, unspecified (principal); D50.9 Iron deficiency anemia, unspecified; E87.1 Hypo-osmolality and hyponatremia; E78.5 Hyperlipidemia, unspecified; I10 Essential (primary) hypertension; E03.9 Hypothyroidism, unspecified; Z87.891 Personal history of nicotine dependence
CPT/HCPCS: 36415; 71045; 80053; 83880; 84484; 85025; 85610; 85730; 93005; 94640; 99284

== ENCOUNTER 2021-11-20 14:13 | Outpatient (CLI) | payer MEDICARE, SELFPAY ==
[2021-11-20 14:27] LABS: Basophils Absolute Auto 0.03 K/mm3 (0.00-0.10); Basophils Percent Auto 0.3 % (0.0-1.0); Eosinophils Absolute Auto 0.18 K/mm3 (0.02-0.50); Eosinophils Percent Auto 1.8 % (1.0-6.0); Hematocrit 27.9 % (35.0-42.0); Hemoglobin 8.8 g/dL (11.7-13.8); Immature Granulocyte Absolute 0.03 K/mm3 (0.00-0.00); Immature Granulocyte Percent A 0.3 % (0.0-0.0); Immature Reticulocyte Fraction 31.7 % (2.0-16.52); Lymphocytes Absolute Auto 1.88 K/mm3 (1.10-4.50); Lymphocytes Percent Auto 18.7 % (18.0-42.0); Mean Corpuscular HGB Conc 31.5 g/dL (32.0-36.0); Mean Corpuscular Hemoglobin 22.3 pg (27.0-31.0); Mean Corpuscular Volume 70.6 fL (78.0-102.0); Mean Platelet Volume 8.4 fl (9.2-11.8); Monocytes Absolute Auto 0.72 K/mm3 (0.10-0.90); Monocytes Percent Auto 7.2 % (2.0-11.0); Neutrophils Absolute Auto 7.2 K/mm3 (1.7-7.2); Neutrophils Percent Auto 71.7 % (50.0-70.0); Platelet Count Result 327 K/mm3 (150-420); Red Blood Count 3.95 M/mm3 (4.20-5.40); Red Cell Distribution Width 17.4 % (11.6-14.4); Reticulocyte Hemoglobin Conten 24.2 pg (28.0-35.0); Reticulocyte Percent 1.62 % (0.50-1.50); Reticulocytes Absolute 0.06 M/mm3 (0.02-0.1)
[2021-11-20 15:01] LABS: Ferritin 6 ng/mL (8-252); Iron 15 ug/dL (50-170); Lactate Dehydrogenase 234 U/L (81-234); NT Pro B Type Natriuretic Pept 652 pg/mL (0-450); Percent Iron Saturation 3 % (12-57)
== END 2021-11-20 14:14 | disposition home or self-care (01) ==
LOC: CHSLAB 14:15
PROVIDERS: PCP Internal Medicine; Visit Provider Internal Medicine
DX: D50.9 Iron deficiency anemia, unspecified (principal); R06.00 Dyspnea, unspecified
CPT/HCPCS: 36415; 82728; 83540; 83550; 83615; 83880; 85025; 85046

== ENCOUNTER 2021-11-28 13:04 | Outpatient (CLI) | payer MEDICARE, SELFPAY ==
[2021-11-28] MEDS: IRON SUCROSE COMPLEX 250 MG in SODIUM CHLORIDE 0.9% IV 250 ML 125 MG IVPB (13:10)
[2021-11-28 13:20] VITALS: BP 122/56; PULSE 68; RESP 14; TEMP 36.4; O2SAT 92; BMI 27.4
--- NOTE | 2021-11-28 15:14 | PC.NURSE ---
Patient here for #1 of 4 IV Venofer infusions. Education given. No concerns voiced. IV Venofer administered. Tolerated well. Will return 12/05/21 at 1300 for #2. Safe exit of hospital.
== END 2021-11-28 13:05 | disposition home or self-care (01) ==
LOC: CHSTREATRM 13:06
PROVIDERS: PCP Internal Medicine; Visit Provider Internal Medicine
DX: D50.9 Iron deficiency anemia, unspecified (principal)
CPT/HCPCS: 96365; 96366; J1756; J7050

== ENCOUNTER 2021-12-05 12:59 | Outpatient (CLI) | payer MEDICARE, SELFPAY ==
[2021-12-05] MEDS: IRON SUCROSE COMPLEX 250 MG in SODIUM CHLORIDE 0.9% IV 250 ML 166.67 MG IVPB (13:05)
[2021-12-05 13:16] VITALS: BP 104/50; PULSE 70; RESP 14; TEMP 36.5; O2SAT 94
[2021-12-05 13:18] VITALS: BMI 27.4
--- NOTE | 2021-12-05 14:43 | PC.NURSE ---
Patient here for #2 of 4 IV Venofer infusion. Education given. No concerns voiced. Reports did ok with last weeks. IV Venofer administered. SEE MAR. Tolerated well. Safe exit of hospital. Will return 12/12/21 at 1300.
== END 2021-12-05 13:00 | disposition home or self-care (01) ==
LOC: CHSTREATRM 13:01
PROVIDERS: PCP Internal Medicine; Visit Provider Internal Medicine
DX: D50.9 Iron deficiency anemia, unspecified (principal)
CPT/HCPCS: 96365; 96366; J1756; J7050

== ENCOUNTER 2021-12-12 12:59 | Outpatient (CLI) | payer MEDICARE, SELFPAY ==
--- NOTE | 2021-12-12 13:20 | PC.NURSE ---
Pt to OP infusion amb per self. A&Ox3. Plan of care discussed. Pt has no questions or complaints. Oriented to area. Call oliveira in reach. Reminded to make needs known.
[2021-12-12] MEDS: IRON SUCROSE COMPLEX 250 MG in SODIUM CHLORIDE 0.9% IV 250 ML 166.67 MG IVPB (13:27)
--- NOTE | 2021-12-12 15:15 | PC.NURSE ---
Medication infused without difficulty. Pt tolerated well. Discharged to home amb per self.
== END 2021-12-12 13:00 | disposition home or self-care (01) ==
PROVIDERS: PCP Internal Medicine; Visit Provider Internal Medicine
DX: D50.9 Iron deficiency anemia, unspecified (principal)
CPT/HCPCS: 96365; J1756; J7050

== ENCOUNTER 2021-12-19 12:57 | Outpatient (CLI) | payer MEDICARE, SELFPAY ==
[2021-12-19] MEDS: IRON SUCROSE COMPLEX 250 MG in SODIUM CHLORIDE 0.9% IV 250 ML 166.67 MG IVPB (13:45)
[2021-12-19 13:52] VITALS: BP 131/70; PULSE 60; RESP 16; TEMP 36.3; O2SAT 97
--- NOTE | 2021-12-19 15:12 | PC.NURSE ---
Patient here for #4 of 4 IV Venofer infusion. No concerns voiced. Education given. IV Venofer administered. See MAR. Tolerated well. Safe exit of hospital. Will follow up with labs in few weeks and with Dr. Hinojosa.
== END 2021-12-19 12:58 | disposition home or self-care (01) ==
LOC: CHSTREATRM 13:01
PROVIDERS: PCP Internal Medicine; Visit Provider Internal Medicine
DX: D50.9 Iron deficiency anemia, unspecified (principal)
CPT/HCPCS: 96365; 96366; J1756; J7050

== ENCOUNTER 2022-01-23 13:42 | Outpatient (CLI) | payer MEDICARE, SELFPAY ==
[2022-01-23 13:57] LABS: Basophils Absolute Auto 0.06 K/mm3 (0.00-0.10); Eosinophils Absolute Auto 0.38 K/mm3 (0.02-0.50); Eosinophils Percent Auto 6.4 % (1.0-6.0); Hematocrit 36.7 % (35.0-42.0); Hemoglobin 11.7 g/dL (11.7-13.8); Immature Granulocyte Absolute 0.02 K/mm3 (0.00-0.00); Immature Granulocyte Percent A 0.3 % (0.0-0.0); Immature Platelet Fraction Pct 1.1 % (1.0-7.0); Immature Reticulocyte Fraction 15.8 % (2.0-16.52); Lymphocytes Percent Auto 21.9 % (18.0-42.0); Mean Corpuscular HGB Conc 31.9 g/dL (32.0-36.0); Mean Corpuscular Volume 81.6 fL (78.0-102.0); Mean Platelet Volume 8.7 fl (9.2-11.8); Monocytes Absolute Auto 0.52 K/mm3 (0.10-0.90); Monocytes Percent Auto 8.8 % (2.0-11.0); Neutrophils Absolute Auto 3.7 K/mm3 (1.7-7.2); Neutrophils Percent Auto 61.6 % (50.0-70.0); Platelet Count Result 338 K/mm3 (150-420); Reticulocyte Hemoglobin Conten 32.8 pg (28.0-35.0); Reticulocyte Percent 1.41 % (0.50-1.50); Reticulocytes Absolute 0.06 M/mm3 (0.02-0.1); White Blood Count 5.9 K/mm3 (4.8-10.8)
[2022-01-23 13:58] LABS: Occult Blood Negative (Negative)
[2022-01-23 15:19] LABS: Ferritin 120 ng/mL (8-252)
== END 2022-01-23 13:43 | disposition home or self-care (01) ==
LOC: CHSLAB 13:43
PROVIDERS: PCP Internal Medicine; Visit Provider Internal Medicine
DX: D50.9 Iron deficiency anemia, unspecified (principal)
CPT/HCPCS: 36415; 82728; 85025; 85046; 85055

== ENCOUNTER 2022-06-29 08:50 | Emergency (ER) | payer MEDICARE, SELFPAY ==
--- NOTE | ~2022-06-29 | CT_ITS ---
EXAMINATION: CT cervical spine wo con DATE: 06/29/2022 09:51 INDICATION: Neck pain. TECHNIQUE: Computed tomography (CT) of the cervical spine was performed without intravenous contrast. Automated exposure control and iterative reconstruction technique were employed. The dose-length pro duct was 196.71 mGy-cm. COMPARISON: CT cervical spine 04/24/2021, chest CT 08/12/2019 FINDINGS: The visualized portions of the lung apices demonstrate emphysema. There are airspace opacit ies in the upper lobes, left worse than right. There is kyphosis of cervical spine. There is 3 mm ant erolisthesis of C3 on C4. Vertebral body heights are normal. There is moderately decreased disc heigh t at C3-C4 and C4 on C5 and severely decreased disc height at C5-C6 and C6-C7 with endplate remodelin g. The following disc levels are specifically discussed: C2-C3: There is mild bilateral uncovertebral joint osteoarthritis. There is moderate right and severe left facet joint osteoarthritis. There is mild left neural foraminal stenosis. There is no central c anal stenosis. C3-C4: There is mild bilateral uncovertebral joint osteoarthritis. There is severe bilateral facet shana int osteoarthritis. There is mild bilateral neural foraminal stenosis. There is mild central canal st enosis. C4-C5: There is mild bilateral uncovertebral joint osteoarthritis. There is severe bilateral facet shana int osteoarthritis. There is mild bilateral neural foraminal stenosis. There is mild central canal st enosis. C5-C6: There is severe bilateral uncovertebral joint osteoarthritis. There is severe bilateral facet joint osteoarthritis. There is mild bilateral neural foraminal stenosis. There is mild central canal stenosis. C6-C7: There is severe bilateral uncovertebral joint osteoarthritis. There is severe bilateral facet joint osteoarthritis. There is mild bilateral neural foraminal stenosis. There is mild central canal stenosis. C7-T1: There is no uncovertebral joint osteoarthritis. There is severe bilateral facet joint osteoart hritis. There is mild bilateral neural foraminal stenosis. There is no central canal stenosis. IMPRESSION: 1. No fracture. 2. Severe cervical spondylosis. 3. Emphysema. 4. Airspace opacities in the upper lobes, left worse than right, consistent with pneumonia. Reviewed, dictated and finalized at location A. IMPRESSION: 1. No fracture. 2. Severe cervical spondylosis. 3. Emphysema. 4. Airspace opacities in the upper lobes, left worse than right, consistent wit h pneumonia.
--- NOTE | ~2022-06-29 | CT_ITS ---
EXAMINATION: CT brain wo con DATE: 06/29/2022 09:51 INDICATION: Right hemiparesis. TECHNIQUE: Computed tomography (CT) of the head was performed without intravenous contrast. The mA wa s adjusted according to patient size. Iterative reconstruction technique was employed. The dose-lengt h product was 605.33 mGy-cm. COMPARISON: None FINDINGS: There are scattered areas of low attenuation in the cerebral white matter. There is no intr acranial hemorrhage, acute infarction, or abnormal intracranial mass lesion. The ventricles are kai l in size. The orbits are normal. There is near complete opacification of right sphenoid sinus with t hickening and sclerosis of the sinus araujo, consistent with chronic sinusitis. There is a trace left mastoid effusion. IMPRESSION: 1. Moderate nonspecific cerebral white matter disease, which likely represents chronic small vessel i schemic disease. 2. Chronic sinusitis. Reviewed, dictated and finalized at location A. IMPRESSION: 1. Moderate nonspecific cerebral white matter disease, which likely represents chronic small vessel ischemic disease. 2. Chronic sinusitis.
[2022-06-29 09:10] VITALS: BP 167/80; PULSE 75; RESP 19; TEMP 36.3; O2SAT 92
--- NOTE | 2022-06-29 09:18 | ECG_ITS ---
Measurements Intervals [place] Rate: 70 P: 82 IL: 178 QRS: 92 QRSD: 153 T: 60 QT: 403 QTc: 437 Interpretive Statements SINUS RHYTHM RIGHT BUNDLE BRANCH BLOCK BASELINE ARTIFACT- I, II, III, AVR, AVL ABNORMAL ECG COMPARED TO ECG 11/04/2021 13:59:24 NO SIGNIFICANT CHANGES Electronically Signed On 06-29-2022 13:00:28 CDT by Edgar Stephenson D.O.
--- NOTE | 2022-06-29 09:19 | ED.GENADULT ---
HPI - General Adult General Chief complaint: Weakness Stated complaint: stroke symptoms pain in neck and shoulders Time Seen by Provider: 06/29/22 09:15 History of Present Illness HPI narrative: Radha is a 76F with a PMH of chronic low back pain, HLD, HTN, and CAD that presented to the ED with right sided weakness for 6 days. It waxes and wanes but it is generally worse in the evening. It has caused her to have multiple falls. There was no reported slurred speech or head trauma. There is no CP, lightheadedness, N/V or abdominal pain. Related Data Home Medications Medication Instructions Recorded Confirmed albuterol sulfate 90 mcg/actuation 2 puff inhalation Q4H PRN 04/01/19 06/29/22 aerosol inhaler (Ventolin HFA) Shortness Of Breath aspirin 325 mg tablet 325 mg PO DAILY 04/01/19 06/29/22 cholecalciferol (vitamin D3) 25 25 mcg PO DAILY 04/01/19 06/29/22 mcg (1,000 unit) tablet esomeprazole magnesium 40 mg 40 mg PO DAILY 04/01/19 06/29/22 capsule,delayed release evening primrose oil-linoleic 1 cap PO DAILY 04/01/19 06/29/22 acid-gamolenic acid 1,000 mg capsule ([place] Oil) levothyroxine 50 mcg tablet 75 mcg PO DAILY 04/01/19 06/29/22 meclizine 25 mg tablet 25 mg PO TID PRN Vertigo 04/01/19 06/29/22 nitroglycerin 0.4 mg sublingual 0.4 mg sublingual Q5M PRN Chest 04/01/19 06/29/22 tablet Pain valacyclovir 500 mg tablet 500 mg PO DAILY PRN Rash 04/04/19 06/29/22 oxycodone-acetaminophen 10 mg-325 1 tablet PO Q6H PRN Pain 10/03/19 06/29/22 mg tablet fluoxetine 10 mg capsule 40 mg PO DAILY 11/05/20 06/29/22 fluticasone fur. 100 mcg-umeclid 1 inh inhalation DAILY 11/04/21 06/29/22 62.5 mcg-vilant 25 mcg inhalat.powder (Trelegy Ellipta) Allergies Allergy/AdvReac Type Severity Reaction Status Date / Time iodine Allergy Severe Hives / Verified 06/29/22 09:18 Red Face amlodipine Allergy Unknown Unknown Verified 06/29/22 09:18 clindamycin Allergy Unknown Nausea Verified 06/29/22 09:18 diltiazem Allergy Unknown Unknown Verified 06/29/22 09:18 Iodine and Iodide Containing Allergy Unknown Unknown Verified 06/29/22 09:18 Produc nickel Allergy Unknown Rash Verified 06/29/22 09:18 Penicillins Allergy Unknown Unknown Verified 06/29/22 09:18 SHELLFISH Allergy Severe Vomiting Uncoded 06/29/22 09:18 Review of Systems Review of Systems: All systems reviewed & are unremarkable except as noted in HPI and below Constitutional: Constitutional: Reports no additional constitutional complaints Eyes: Eyes: Reports no additional eye complaints ON LICENSE OF [facility] Past Medical History Medical History CAD in [place] artery Chest pain at rest Chronic obstructive pulmonary disease, unspecified Chronic, continuous use of opioids Dyslipidemia Essential hypertension Family history of colon cancer in mother Hypothyroidism Iron deficiency anemia Surgical History Surgical History History of appendectomy History of hysterectomy History of tonsillectomy Hx of heart artery stent Status post insertion of spinal cord stimulator Family History Family History Father Family history of coronary artery disease Family history of sudden Social History Social History Smoking status: Former smoker Tobacco type: cigarettes Alcohol intake: never Substance use: never Substance use type: does not use Living arrangements: alone Spiritual care concerns: No Exam Const: General: healthy appearing and no acute distress Nutritional Appearance: well nourished Orientation/consciousness: patient oriented x3 Limitations: no limitations HENMT: Head: normal to inspection Ears: external ears normal Face/Nose/Sinus: Normal external nose present Eyes: Conjunctivae: conjunctivae normal Pupils: Equal, round
--- NOTE | 2022-06-29 09:39 | PC.NURSE ---
Pt ambulatory to exam room with a walker, no neuro deficits observed, pt's main complaint is pain to her neck and shoulders, states she has chronic back pain.
[2022-06-29 10:26] VITALS: BP 158/73; PULSE 72; RESP 18; O2SAT 93
[2022-06-29 10:28] LABS: Basophils Absolute Auto 0.04 K/mm3 (0.00-0.10); Basophils Percent Auto 0.5 % (0.0-1.0); Eosinophils Percent Auto 4.1 % (1.0-6.0); Hematocrit 41.6 % (35.0-42.0); Hemoglobin 13.5 g/dL (11.7-13.8); Immature Granulocyte Absolute 0.03 K/mm3 (0.00-0.00); Immature Granulocyte Percent A 0.4 % (0.0-0.0); Lymphocytes Percent Auto 13.7 % (18.0-42.0); Mean Corpuscular HGB Conc 32.5 g/dL (32.0-36.0); Mean Corpuscular Hemoglobin 28.7 pg (27.0-31.0); Mean Corpuscular Volume 88.3 fL (78.0-102.0); Mean Platelet Volume 8.5 fl (9.2-11.8); Monocytes Absolute Auto 0.51 K/mm3 (0.10-0.90); Neutrophils Absolute Auto 5.4 K/mm3 (1.7-7.2); Neutrophils Percent Auto 74.3 % (50.0-70.0); Platelet Count Result 233 K/mm3 (150-420); Red Blood Count 4.71 M/mm3 (4.20-5.40); Red Cell Distribution Width 14.2 % (11.6-14.4); White Blood Count 7.3 K/mm3 (4.8-10.8)
[2022-06-29 10:38] LABS: Amphetamine Screen Urine Negative (Negative); Barbiturate Screen Urine Negative (Negative); Benzodiazepines Screen Urine Negative (Negative); Cannabinoid Screen Urine Negative (Negative); Cocaine Screen Urine Negative (Negative); Methadone Screen Urine Negative (Negative); Opiate Screen Urine Positive (Negative); Phencyclidine Screen Urine Negative (Negative)
[2022-06-29 10:40] LABS: Prothrombin Time 10.6 Seconds (9.50-12.10)
[2022-06-29 10:42] LABS: Appearance Urine Clear (Clear); Bilirubin Urine Negative (Negative); Blood Urine Negative (Negative); Color Urine Light Yellow (Yellow); Glucose Urine UA Negative (Negative); Ketones Urine Negative (Negative); Leukocyte Esterase Ur 1+ LEU/UL (Negative); Nitrate Urine Negative (Negative); Protein Urine Negative (Negative); Urobilinogen Urine 0.2 mg/dL (0.2-1.0); pH Urine 6.5 (5.0-8.0)
[2022-06-29 10:43] LABS: Add Urine Microscopic? YES
[2022-06-29 10:45] LABS: Alanine Aminotransferase 22 U/L (14-59); Albumin Level 3.8 g/dL (3.4-5.0); Alkaline Phosphatase 111 U/L (46-116); Anion Gap 9 mmol/L (8-16); Aspartate Amino Transferase 21 U/L (15-37); Bilirubin,Total 0.6 mg/dL (0.00-1.00); Blood Urea Nitrogen 10 mg/dL (7-18); Calcium 9.1 mg/dL (8.5-10.1); Carbon Dioxide 31 mmol/L (21-32); Chloride 92 mmol/L (98-108); Estimated Glomerular Filt Rate 60; Ethanol < 3 mg/dL (0-6); Glucose 104 mg/dL (70-99); Magnesium 1.4 mg/dL (1.8-2.4); Osmolality Calculated 273 mOsm/kg (285-295); Potassium 3.9 mmol/L (3.5-5.1); Sodium 132 mmol/L (136-145); Total Protein 8.4 g/dL (6.4-8.2); Troponin I 6.2 ng/L (0.00-60.4)
[2022-06-29 10:50] LABS: Amorphous Sediment Urine Few; Bacteria Urine 2+ /hpf; Squamous Epithelial Cell Urine Moderate /hpf (Few); WBC Clumps Urine Present /hpf
[2022-06-29 11:16] LABS: Influenza A QL RT-PCR Negative (Negative); Influenza B QL RT-PCR Negative (Negative); RSV RNA, RT-PCR Negative (Negative); SARS-CoV-2 RNA PCR Negative (Negative)
[2022-06-29] MEDS: MAGNESIUM OXIDE 400 MG TABLET PO (11:37)
[2022-06-29 11:43] VITALS: BP 182/74; PULSE 75; RESP 18; O2SAT 92
--- NOTE | 2022-07-01 14:39 | PC.NURSE ---
DR MEEHAN CONTACTED PT AND ORDERED MACROBID FOR FINAL URINE CULTURE RESULT OF ISOLATE 1: GREATER THAN 100,000 CFU/ML E COLI.
== END 2022-06-29 11:47 | disposition home or self-care (01) ==
PROVIDERS: Emergency Provider Family Medicine; PCP Internal Medicine
DX: E83.42 Hypomagnesemia (principal); E87.1 Hypo-osmolality and hyponatremia; I25.10 Atherosclerotic heart disease of native coronary artery without angina pectoris; E78.5 Hyperlipidemia, unspecified; Z79.82 Long term (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 of aspirin; E03.9 Hypothyroidism, unspecified; I10 Essential (primary) hypertension; Z87.891 Personal history of nicotine dependence; Z20.822 Contact with and (suspected) exposure to COVID-19; Z79.899 Other long term (current) drug therapy
CPT/HCPCS: 36415; 70450; 72125; 80053; 80307; 81001; 83735; 84484; 85025; 85610; 87077; 87086; 87088; 87186; 87637; 93005; 99284; A9270

== ENCOUNTER 2022-08-11 19:41 | Observation (INO) | payer MEDICARE, SELFPAY ==
[2022-08-11] VITALS (7 sets, daily range): BP systolic 151–173; BP diastolic 73–90; PULSE 75–101; RESP 16–19; TEMP 37; O2SAT 89–96
--- NOTE | ~2022-08-11 | XR_ITS ---
XR abdomen/kub 1V 08/13/2022 10:19 INDICATION: Constipation TECHNIQUE: KUB COMPARISON: None FINDINGS: Bowel gas pattern is normal. There is no evidence of free air, mass, organomegaly, ascites or obstruction. No abnormal calculi are seen. The bones appear intact. There is a stimulator devic e overlying the pelvis with leads extending into the thoracic spine, partially visualized. IMPRESSION: 1: No acute abdominal abnormality identified. Reviewed, dictated and finalized at location []
--- NOTE | ~2022-08-11 | CT_ITS ---
EXAMINATION: CT chest abdomen pelvis wo con DATE: 08/11/2022 22:03 INDICATION: urinary retention, vaginal wall nodule . TECHNIQUE: Computed tomography (CT) of the chest, abdomen, and pelvis was performed with 100 mL Omnip aque-350 intravenous contrast. Automated exposure control and iterative reconstruction technique were employed. The dose-length product was 441.81 mGy-cm. COMPARISON: CT lung screening 08/12/2019 FINDINGS: CHEST: Thoracic aorta: No significant dilation or calcification. Lung parenchyma and airways: Increased biapical scarring. Multiple, spiculated nodular opacities in t he left upper lobe, largest measuring 1.8 cm, new since the prior study. Emphysematous change. Lingul ar and bibasilar scar/atelectasis increased since the prior study. Intraoperative septal thickening. Small focus of infectious/inflammatory change in the medial right lower lobe. Thoracic inlet, axillae and chest wall: No thyroid or soft tissue mass. No axillary lymphadenopathy. Mediastinum: No mass. Enlarged pretracheal lymph node. Prominent central pulmonary arteries as can be seen with pulmonary arterial hypertension. Heart and pericardium: Normal heart size. No pericardial effusion. Coronary artery calcifications: Moderate. Pleura: No effusion or mass. Thoracic bones: No acute osseous finding in the chest. ABDOMEN/PELVIS: Liver: Normal. Biliary/Gallbladder: Gallbladder is normal. No bile duct dilation. Pancreas: No mass or duct dilation. Spleen: Normal. Adrenals:No mass. Kidneys: No mass, stone, or hydronephrosis. GI tract: The rectum is dilated to 6.1 cm by formed stool, with adjacent wall thickening and inflamma tory change/fluid involving the rectum and distal sigmoid. No small bowel dilation. Appendix not visu alized. Mesentery/Peritoneum: No ascites, mass, or free air. Retroperitoneum: No mass Atherosclerotic abdominal aortic and/or arterial calcifications. Pelvis: Absent uterus. Urinary bladder decompressed by a Carter catheter. Soft Tissues: Soft tissues and body wall unremarkable. Right-sided stimulator pack with leads termina ting over the midthoracic spine. Abdominopelvic bones: No acute osseous finding in the abdomen/pelvis. IMPRESSION: 1. Multiple spiculated pulmonary nodules in the left upper lobe, largest measuring up to 1.8 cm, nabeel mmend follow-up low-dose noncontrast CT of the chest in 3 months, PET/CT, or tissue sampling. 2. Small infectious/inflammatory focus in the right medial lower lobe. 3. Mild pulmonary edema overlying moderate emphysematous change. 4. Mediastinal lymphadenopathy. 5. Fecal impaction with findings concerning for stercoral colitis of the distal sigmoid and rectum. Reviewed, dictated and finalized at [facility] K. IMPRESSION: 1. Multiple spiculated pulmonary nodules in the left upper lobe, largest measur ing up to 1.8 cm, recommend follow-up low-dose noncontrast CT of the chest in 3 months, PET/CT, or tissue sampling. 2. Small infectious/inflammatory focus in the right medial lower lobe. 3. Mild pulmonary edema overlying moderate emphysematous change. 4. Mediastinal lymphadenopathy. 5. Fecal impaction with findings concerning for stercoral colitis of the distal sigmoid and rectum.
--- NOTE | 2022-08-11 21:40 | PC.NURSE ---
pt received 1000ml NS that was started by [facility].
--- NOTE | 2022-08-11 22:11 | ED.GENADULT ---
HPI - General Adult General Chief complaint: Weakness Stated complaint: Weakness Source: patient and family Mode of arrival: ambulatory Limitations: no limitations History of Present Illness HPI narrative: 76-year-old white female presents with difficulty passing her urine intermittently over the past couple of weeks. She has now been having able to pass any significant urine at 1 time, reports she discounted dribbles some, sits, has to strain, just gets a little out, and yet she has intense feeling of her bladder being too full and intensely painful. Two weeks ago she was diagnosis have any UTI, was on antibiotics for about 1 week. That really did not help. She denies any high fever, chills, sinus drainage, sore throat, cough, chest pain, shortness a breath, palpitations, near-syncope or syncope. Denies nausea vomiting, diarrhea, does report long history of constipation, and reports that has been getting worse over the past few weeks, and she has not passed any significant stool for 5 days. Related Data Home Medications Medication Instructions Recorded Confirmed albuterol sulfate 90 mcg/actuation 2 puff inhalation Q4H PRN 04/01/19 08/11/22 aerosol inhaler (Ventolin HFA) Shortness Of Breath aspirin 325 mg tablet 325 mg PO DAILY 04/01/19 08/11/22 cholecalciferol (vitamin D3) 25 25 mcg PO DAILY 04/01/19 08/11/22 mcg (1,000 unit) tablet esomeprazole magnesium 40 mg 40 mg PO DAILY 04/01/19 08/11/22 capsule,delayed release evening primrose oil-linoleic 1 cap PO DAILY 04/01/19 08/11/22 acid-gamolenic acid 1,000 mg capsule ([place] Oil) levothyroxine 50 mcg tablet 75 mcg PO DAILY 04/01/19 08/11/22 meclizine 25 mg tablet 25 mg PO TID PRN Vertigo 04/01/19 08/11/22 valacyclovir 500 mg tablet 500 mg PO DAILY PRN Rash 04/04/19 08/11/22 oxycodone-acetaminophen 10 mg-325 1 tablet PO Q6H PRN Pain 10/03/19 08/11/22 mg tablet fluoxetine 10 mg capsule 40 mg PO DAILY 11/05/20 08/11/22 fluticasone fur. 100 mcg-umeclid 1 inh inhalation DAILY 11/04/21 08/11/22 62.5 mcg-vilant 25 mcg inhalat.powder (Trelegy Ellipta) hydroxyzine HCl 25 mg tablet 25 mg PO TID PRN Allergy Symptoms 07/31/22 08/11/22 montelukast 10 mg tablet 10 mg PO DAILY 07/31/22 08/11/22 omega-3 acid ethyl esters 1 gram 1 cap PO DAILY 07/31/22 08/11/22 capsule Allergies Allergy/AdvReac Type Severity Reaction Status Date / Time iodine Allergy Severe Hives / Verified 08/11/22 21:47 Red Face amlodipine Allergy Unknown Unknown Verified 08/11/22 21:47 clindamycin Allergy Unknown Nausea Verified 08/11/22 21:47 diltiazem Allergy Unknown Unknown Verified 08/11/22 21:47 Iodine and Iodide Containing Allergy Unknown Unknown Verified 08/11/22 21:47 Produc nickel Allergy Unknown Rash Verified 08/11/22 21:47 Penicillins Allergy Unknown Unknown Verified 08/11/22 21:47 SHELLFISH Allergy Severe Vomiting Uncoded 07/31/22 14:54 Review of Systems Review of Systems: All systems reviewed & are unremarkable except as noted in HPI and below (HPI) [facility] Past Medical History Medical History CAD in [place] artery Chest pain at rest Chronic obstructive pulmonary disease, unspecified Chronic, continuous use of opioids Dyslipidemia Essential hypertension Family history of colon cancer in mother Hypothyroidism Iron deficiency anemia Surgical History Surgical History History of appendectomy History of hysterectomy History of tonsillectomy Hx of heart artery stent Status post insertion of spinal cord stimulator Family History Family History Father Family history of coronary artery disease Family history of sudden Social History Social History Smoking status: Former smoker Tobacco type: cigarettes Second hand tobacco smoke exposure
[2022-08-11 23:56] LABS: Basophils Absolute Auto 0.05 K/mm3 (0.00-0.10); Basophils Percent Auto 0.5 % (0.0-1.0); Eosinophils Absolute Auto 0.39 K/mm3 (0.02-0.50); Eosinophils Percent Auto 3.6 % (1.0-6.0); Hematocrit 38.5 % (35.0-42.0); Hemoglobin 12.7 g/dL (11.7-13.8); Immature Granulocyte Absolute 0.03 K/mm3 (0.00-0.00); Immature Granulocyte Percent A 0.3 % (0.0-0.0); Lymphocytes Absolute Auto 0.96 K/mm3 (1.10-4.50); Mean Corpuscular Hemoglobin 28.5 pg (27.0-31.0); Mean Corpuscular Volume 86.3 fL (78.0-102.0); Mean Platelet Volume 8.7 fl (9.2-11.8); Monocytes Percent Auto 4.7 % (2.0-11.0); Neutrophils Absolute Auto 8.8 K/mm3 (1.7-7.2); Neutrophils Percent Auto 81.9 % (50.0-70.0); Platelet Count Result 264 K/mm3 (150-420); Red Blood Count 4.46 M/mm3 (4.20-5.40); Red Cell Distribution Width 14.6 % (11.6-14.4); White Blood Count 10.7 K/mm3 (4.8-10.8)
[2022-08-11 23:57] LABS: Appearance Urine Clear (Clear); Bilirubin Urine Negative (Negative); Blood Urine Negative (Negative); Color Urine Yellow (Yellow); Glucose Urine UA Negative (Negative); Ketones Urine Trace (Negative); Leukocyte Esterase Ur Negative LEU/UL (Negative); Nitrate Urine Positive (Negative); Protein Urine Negative (Negative); Urobilinogen Urine 0.2 mg/dL (0.2-1.0); pH Urine 6.5 (5.0-8.0)
[2022-08-12] VITALS: BP 151/71; PULSE 80; RESP 16; O2SAT 94
[2022-08-12 00:03] LABS: Add Urine Microscopic? YES; Bacteria Urine 2+ /hpf; RBC Urine 0-2 /hpf (0-2); Squamous Epithelial Cell Urine None seen /hpf (Few); WBC Urine 0-3 /hpf (0-3)
[2022-08-12 00:13] LABS: Alanine Aminotransferase 20 U/L (14-59); Albumin Level 2.9 g/dL (3.4-5.0); Alkaline Phosphatase 93 U/L (46-116); Anion Gap 9 mmol/L (8-16); Aspartate Amino Transferase 22 U/L (15-37); Bilirubin Direct 0.2 mg/dL (0-0.2); Bilirubin,Total 0.6 mg/dL (0.00-1.00); Blood Urea Nitrogen 7 mg/dL (7-18); Calcium 8.6 mg/dL (8.5-10.1); Carbon Dioxide 27 mmol/L (21-32); Chloride 97 mmol/L (98-108); Estimated CRCL calculation 56 ml/min; Estimated Glomerular Filt Rate > 60; Glucose 122 mg/dL (70-99); Lipase 36 U/L (16-77); Osmolality Calculated 275 mOsm/kg (285-295); Potassium 3.6 mmol/L (3.5-5.1); Sodium 133 mmol/L (136-145); Total Protein 6.6 g/dL (6.4-8.2)
--- NOTE | 2022-08-12 00:45 | PC.NURSE ---
Message left for ALLI Venegas concerning pt admission.
[2022-08-12 01:00] VITALS: BP 161/72; PULSE 73; RESP 17; O2SAT 94
--- NOTE | 2022-08-12 01:38 | PC.NURSE ---
pt to be admitted as observation pt into room 210
[2022-08-12 01:39] VITALS: BP 163/68; PULSE 73; RESP 17; TEMP 37.9; O2SAT 95
--- NOTE | 2022-08-12 01:54 | PC.NURSE ---
Patient admitted to room 210 per stretcher from the ER, is alert and oriented and no complaints of pain.
[2022-08-12 01:57] VITALS: BMI 25.2
[2022-08-12] MEDS: DEXTROSE 5%/LACTATED RINGERS 1,000 ML 100 ML IV CONT ×2 (02:49→16:58)
[2022-08-12] MEDS: HYDROcodone/acetaminophen (*CRX) 5-325 MG TABLET 1 TAB PO ×2 (02:49→19:40)
[2022-08-12] MEDS: metroNIDAZOLE 500 MG/ISO 100ML 500 MG/100 ML BAG 100 MG IVPB ×2 (02:50→08:43)
[2022-08-12] MEDS: GENTAMICIN SULFATE INJ 315 MG in DEXTROSE 5% 100 ML 99.65 MG IVPB (04:24)
[2022-08-12 05:34] VITALS: O2SAT 92
[2022-08-12 07:18] LABS: Basophils Absolute Auto 0.05 K/mm3 (0.00-0.10); Basophils Percent Auto 0.6 % (0.0-1.0); Eosinophils Percent Auto 5.6 % (1.0-6.0); Hematocrit 37.9 % (35.0-42.0); Hemoglobin 12.5 g/dL (11.7-13.8); Immature Granulocyte Absolute 0.03 K/mm3 (0.00-0.00); Immature Granulocyte Percent A 0.3 % (0.0-0.0); Lymphocytes Absolute Auto 1.27 K/mm3 (1.10-4.50); Lymphocytes Percent Auto 14.2 % (18.0-42.0); Mean Corpuscular Hemoglobin 28.3 pg (27.0-31.0); Mean Corpuscular Volume 85.9 fL (78.0-102.0); Mean Platelet Volume 8.7 fl (9.2-11.8); Monocytes Absolute Auto 0.59 K/mm3 (0.10-0.90); Monocytes Percent Auto 6.6 % (2.0-11.0); Neutrophils Absolute Auto 6.5 K/mm3 (1.7-7.2); Neutrophils Percent Auto 72.7 % (50.0-70.0); Platelet Count Result 242 K/mm3 (150-420); Red Blood Count 4.41 M/mm3 (4.20-5.40); Red Cell Distribution Width 14.7 % (11.6-14.4)
[2022-08-12 07:27] LABS: Anion Gap 9 mmol/L (8-16); Blood Urea Nitrogen 6 mg/dL (7-18); Calcium 8.6 mg/dL (8.5-10.1); Carbon Dioxide 27 mmol/L (21-32); Chloride 99 mmol/L (98-108); Estimated CRCL calculation 50 ml/min; Estimated Glomerular Filt Rate > 60; Glucose 137 mg/dL (70-99); Osmolality Calculated 279 mOsm/kg (285-295); Potassium 3.4 mmol/L (3.5-5.1); Sodium 135 mmol/L (136-145)
[2022-08-12] MEDS: ENOXAPARIN 40 MG/0.4 ML SYRINGE SUB-Q (08:40)
--- NOTE | 2022-08-12 09:44 | PM.IMHP ---
H&P: HPI History of Present Illness Date/Time: 08/12/22 09:44 Chief Complaint: Dysuria Narrative: Patient is a 76-year-old female with a past medical history of COPD, hypothyroidism, hypertension, hyperlipidemia, CAD who presented to the ED with complaints of inability to pass urine. Patient is noted to have multiple and frequent UTIs. patient stated all of this started about 3-4 months ago. She had fallen and Was noted to have a low sodium low magnesium. Patient was treated and was recovering. Later on then she developed some abnormal swelling in bilateral lower extremities. 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 Stephenson who was going to put her on a water pill however she could Not have it due to her sodium being so low. patient stated that she had fallen again. when she followed up with her physician she was noted to have a UTI. She was placed on antibiotics and took them however when she went to follow-up with her primary care provider they said that she still had UTI any put her back on antibiotics. She stated she has never really had any symptoms of a UTI until recently. She stated that she was having some urgency and frequency however when she was sit on the toilet she was unable to go. She stated that she would strain to try to get it to come out however would take some time. When she came in she was noted to have fecal impaction along with colitis along with urinary tension. She stated that her urinary tension all started 2 days ago and the constipation started about 4 days ago. She did state that she has been on her pain medications for greater than 10 years and that she has never had constipation in the past from her pain medicine. Currently she does have some chronic pain and she know she needs back surgery however she is awaiting further suggestions from that. Right now she is comfortable and denies any chest pain, shortness of breath, nausea, vomiting, diarrhea constipation. CT of the chest abdomen and pelvis did show that the patient was fluid overloaded with pulmonary edema, right middle lobe pneumonia, colitis, fecal impaction. WBCs 9.0 today H&H is stable. Renal function is 6/0.64. Sodium and potassium are 135/134. Blood pressure seems to be a little elevated 163/68 and fever 100.3 Blood cultures have been ordered and obtained. Will continue trend labs. patient is being admitted to the hospitalist service under observation Review of Systems Review of Systems: 12 systems reviewed and are negative unless otherwise noted in the HPI [facility] Past Medical History Medical History CAD in [place] artery Chest pain at rest Chronic obstructive pulmonary disease, unspecified Chronic, continuous use of opioids Dyslipidemia Essential hypertension Family history of colon cancer in mother Hypothyroidism Iron deficiency anemia Surgical History Surgical History History of appendectomy History of hysterectomy History of tonsillectomy Hx of heart artery stent Status post insertion of spinal cord stimulator Family History Family History Father Family history of coronary artery disease Family history of sudden Social History Social History Social History: Patient elects her daughter to be her surrogate. 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
[2022-08-12] MEDS: DOCUSATE SODIUM 100 MG CAPSULE PO ×2 (09:50→16:46)
[2022-08-12] MEDS: TAMSULOSIN HCL 0.4 MG CAPSULE PO (09:50)
[2022-08-12 10:50] LABS: NT Pro B Type Natriuretic Pept 1599 pg/mL (0-450)
[2022-08-12] MEDS: FLUTICASONE/UMECLIDIN/VILANTER 100-62.5-25 MCG ELLIPTA 1 PUFF INHALATION (12:12)
[2022-08-12] MEDS: METHYLNALTREXONE 12 MG/0.6 ML VIAL SUB-Q (12:12)
[2022-08-12 12:13] VITALS: PULSE 78
[2022-08-12] MEDS: PROPRANOLOL HCL 60 MG CAPSULE CR PO (12:13)
[2022-08-12] MEDS: FLUoxetine HCL 10 MG CAPSULE 40 MG PO (12:14)
[2022-08-12] MEDS: hydrALAZINE HCL 25 MG TABLET PO ×2 (12:15→16:46)
[2022-08-12] MEDS: LEVOTHYROXINE SODIUM 75 MCG TABLET PO (12:15)
[2022-08-12] MEDS: CHOLECALCIFEROL 1,000 UNITS TABLET 1000 UNITS PO (12:15)
[2022-08-12] MEDS: MONTELUKAST SODIUM 10 MG TABLET PO (12:15)
[2022-08-12] MEDS: oxyCODONE/ACETAMINOPHEN (*CRX) 10-325 MG TABLET 1 TAB PO ×2 (12:56→21:28)
[2022-08-12] MEDS: metroNIDAZOLE 250 MG TABLET 500 MG PO ×2 (12:57→21:28)
--- NOTE | 2022-08-12 14:13 | PC.NURSE ---
1000 patient c/o she is unable to defecate. manually checked and large hard formed removed before first and 2nd sse. 2 sse given. will not retain. lg amt liquid brown. did have large hard stool on the to bsc.
[2022-08-12 16:09] VITALS: BP 100/46; PULSE 70; RESP 20; TEMP 36.3; O2SAT 91
[2022-08-12] MEDS: polyethylene glycoL 3350 17 GM POWD.PACK PO (16:46)
[2022-08-12] MEDS: NYSTATIN 100,000 UNITS/ML SUSP 5 ML ORAL.SUSP 1 ML PO ×2 (16:47→21:28)
[2022-08-13] VITALS: BP 120/59; PULSE 68; RESP 20; TEMP 36.4; O2SAT 92
--- NOTE | 2022-08-13 00:05 | PC.NURSE ---
Pt resting quietly in bed and doesnt voice any c/o discomfort at this time. Oxygen placed on pt at 2 liters per nasal cannula due to SAO2 being 85% on room air. SAO2 increased to 92% with oxygen on at 2 liters; Pt denies c/o shortness of breath.
--- NOTE | 2022-08-13 01:13 | PC.NURSE ---
Pt asleep and no signs of discomfort noted.
--- NOTE | 2022-08-13 03:15 | PC.NURSE ---
New bag of IV fluid infusing as ordered. Pt asleep and no signs of discomfort noted.
[2022-08-13] MEDS: DEXTROSE 5%/LACTATED RINGERS 1,000 ML 100 ML IV CONT (03:26)
[2022-08-13 05:30] VITALS: O2SAT 92
[2022-08-13 05:36] LABS: Basophils Absolute Auto 0.02 K/mm3 (0.00-0.10); Basophils Percent Auto 0.3 % (0.0-1.0); Eosinophils Absolute Auto 0.62 K/mm3 (0.02-0.50); Eosinophils Percent Auto 8.9 % (1.0-6.0); Hematocrit 35.9 % (35.0-42.0); Hemoglobin 11.9 g/dL (11.7-13.8); Immature Granulocyte Absolute 0.02 K/mm3 (0.00-0.00); Immature Granulocyte Percent A 0.3 % (0.0-0.0); Lymphocytes Absolute Auto 0.98 K/mm3 (1.10-4.50); Mean Corpuscular HGB Conc 33.1 g/dL (32.0-36.0); Mean Corpuscular Hemoglobin 28.4 pg (27.0-31.0); Mean Corpuscular Volume 85.7 fL (78.0-102.0); Monocytes Absolute Auto 0.53 K/mm3 (0.10-0.90); Monocytes Percent Auto 7.6 % (2.0-11.0); Neutrophils Absolute Auto 4.8 K/mm3 (1.7-7.2); Neutrophils Percent Auto 68.9 % (50.0-70.0); Platelet Count Result 237 K/mm3 (150-420); Red Blood Count 4.19 M/mm3 (4.20-5.40); Red Cell Distribution Width 14.9 % (11.6-14.4)
[2022-08-13 05:51] LABS: Alanine Aminotransferase 15 U/L (14-59); Albumin Level 2.4 g/dL (3.4-5.0); Alkaline Phosphatase 77 U/L (46-116); Anion Gap 7 mmol/L (8-16); Aspartate Amino Transferase 13 U/L (15-37); Bilirubin,Total 0.6 mg/dL (0.00-1.00); Blood Urea Nitrogen 6 mg/dL (7-18); Calcium 8.6 mg/dL (8.5-10.1); Carbon Dioxide 29 mmol/L (21-32); Chloride 99 mmol/L (98-108); Estimated CRCL calculation 48 ml/min; Estimated Glomerular Filt Rate > 60; Glucose 132 mg/dL (70-99); Magnesium 1.3 mg/dL (1.8-2.4); Osmolality Calculated 279 mOsm/kg (285-295); Potassium 3.3 mmol/L (3.5-5.1); Sodium 135 mmol/L (136-145); Total Protein 5.8 g/dL (6.4-8.2)
[2022-08-13] MEDS: metroNIDAZOLE 250 MG TABLET 500 MG PO ×3 (05:54→21:21)
--- NOTE | 2022-08-13 06:00 | PC.NURSE ---
Pt given flagyl 500 mg PO as ordered.
[2022-08-13 08:00] VITALS: BP 155/59; PULSE 72; RESP 16; TEMP 36.5; O2SAT 91
[2022-08-13] MEDS: ENOXAPARIN 40 MG/0.4 ML SYRINGE SUB-Q (09:08)
[2022-08-13] MEDS: ROSUVASTATIN 10 MG TABLET 20 MG PO (09:14)
[2022-08-13] MEDS: SENNA/DOCUSATE SODIUM TABLET 1 TAB PO (09:15)
[2022-08-13] MEDS: TAMSULOSIN HCL 0.4 MG CAPSULE PO (09:15)
[2022-08-13] MEDS: ASPIRIN 325 MG ENTERIC TABLET PO (09:15)
[2022-08-13] MEDS: DOCUSATE SODIUM 100 MG CAPSULE PO (09:15)
[2022-08-13] MEDS: HYDROcodone/acetaminophen (*CRX) 5-325 MG TABLET 1 TAB PO ×2 (09:16→17:12)
[2022-08-13] MEDS: MONTELUKAST SODIUM 10 MG TABLET PO (09:16)
[2022-08-13] MEDS: hydrALAZINE HCL 25 MG TABLET PO ×2 (09:17→17:12)
[2022-08-13] MEDS: CHOLECALCIFEROL 1,000 UNITS TABLET 1000 UNITS PO (09:17)
[2022-08-13] MEDS: LEVOTHYROXINE SODIUM 75 MCG TABLET PO (09:17)
[2022-08-13] MEDS: FLUoxetine HCL 10 MG CAPSULE 40 MG PO (09:18)
[2022-08-13 09:19] VITALS: PULSE 76
[2022-08-13] MEDS: PROPRANOLOL HCL 60 MG CAPSULE CR PO (09:19)
[2022-08-13] MEDS: ramipriL 5 MG CAPSULE 10 MG PO (09:19)
[2022-08-13] MEDS: FLUTICASONE/UMECLIDIN/VILANTER 100-62.5-25 MCG ELLIPTA 1 PUFF INHALATION (09:20)
[2022-08-13] MEDS: NYSTATIN 100,000 UNITS/ML SUSP 5 ML ORAL.SUSP 1 ML PO ×4 (09:21→21:22)
--- NOTE | 2022-08-13 11:45 | WPDPN ---
Progress Note: A&P Assessment and Plan (1) Pneumonia: Qualifiers: Pneumonia type: due to unspecified organism Laterality: right Lung location: middle lobe of lung Qualified Code(s): J18.9 - Pneumonia, unspecified organism Code(s): J18.9 - Pneumonia, unspecified organism Status: Acute Assessment and Plan: IV antibiotic Oxygen as indicated check Pulse ox breathing treatment as indicated (2) Congestive heart failure: Qualifiers: Heart failure type: diastolic Heart failure chronicity: acute on chronic Qualified Code(s): I50.33 - Acute on chronic diastolic (congestive) heart failure Code(s): I50.9 - Heart failure, unspecified Status: Acute Assessment and Plan: monitor daily weights monitor BNP Discontinue IVFs (3) Fecal impaction in rectum: Code(s): K56.41 - Fecal impaction Status: Acute Assessment and Plan: Stool softners Enemas yesterday Manual disimpaction yesterday KUB - negative today for impaction Plenty of fluids (4) Chronic obstructive pulmonary disease, unspecified: Qualifiers: COPD type: COPD with acute lower respiratory infection Qualified Code(s): J44.0 - Chronic obstructive pulmonary disease with (acute) lower respiratory infection Code(s): J44.9 - Chronic obstructive pulmonary disease, unspecified Status: Acute Assessment and Plan: monitor for symptoms Apply oxygen as indciated IV antibiotic for Pneumonia tomorrow a walk study Subjective Date/time seen: 08/13/22 11:45 Interval history: Patient had enema and was manually disimpacted yesterday with Today KUB showing no impaction. Patient is showing improvement and we will continue to monitor. Patient is getting IVF that will be discontinued. We will discontinue carrillo to see if patient is able to urinate on her own. Patient denies having much pain but states she is feeling better than yesterday but not her normal self. Patient had a low saturation we will plan on a home walk study to be completed. Exam Const: General: cooperative, healthy appearing, comfortable, alert, awake and Physically active HENMT: Head: normal to inspection Eyes: General: appearance normal, both eyes and all related structures GI: Inspection: normal to inspection Urinary Catheter: Urinary Catheter: patent and draining Back/Spine/Pelvis: Back: no CVA tenderness Neuro: General: oriented to person, oriented to place, oriented to time and patient oriented x3 Extrem: General: normal to inspection Psych: Appearance: well kempt Speech and movement: Normal speech and movement present Affect: normal affect Objective Data Vital Signs Vital Signs: Vital Signs - 24 hr 08/12/22 12:13 08/12/22 16:09 08/13/22 00:00 Temperature 97.3 F L 97.6 F Pulse Rate 78 70 68 Respiratory Rate 20 20 Blood Pressure 100/46 L 120/59 L Pulse Oximetry 91 92 Oxygen Delivery Room Air Nasal Cannula Oxygen Flow Rate 2 08/13/22 08:00 08/13/22 09:19 Temperature 97.7 F Pulse Rate 72 76 Respiratory Rate 16 Blood Pressure 155/59 H Pulse Oximetry 91 Oxygen Delivery Room Air Oxygen Flow Rate Intake/Output Intake/Output: Intake & Output 08/10/22 08/11/22 08/12/22 08/13/22 23:59 23:59 23:59 23:59 Intake Total 5496.013 9120.700 Output Total 900 1525 550 Balance -900 731.949 5320.700 Meds/Results Medications: Active Medications Generic Name Dose Route Start Last Admin Trade Name Freq PRN Reason Stop Dose Admin Acetaminophen 650 mg 08/12/22 01:14 Acetaminophen 325 Mg Tablet PO Q4H PRN Mild Pain (1-3) or Fever Hydrocodone Bitart/Acetaminophen 1 tab 08/12/22 02:33 08/13/22 09:16 Hydrocodone/Acetaminophen (*Crx) 5-325 Mg Tablet PO 1 tab Q4H PRN Administration Moderate Pain (4-6) Al Hydrox/Mg Hydrox/Simethicone 30 ml 08/12/22 01:14 Mag Hydrox/Al Hydrox/Simeth 30 Ml Udc PO QID
[2022-08-13] MEDS: oxyCODONE/ACETAMINOPHEN (*CRX) 10-325 MG TABLET 1 TAB PO ×2 (13:18→21:22)
[2022-08-13] MEDS: MAGNESIUM SULF 4 GM/WATER100ML 4 GM/100 ML BAG IVPB (15:23)
[2022-08-13 16:00] VITALS: BP 122/58; PULSE 66; RESP 16; TEMP 36.6; O2SAT 93
--- NOTE | 2022-08-13 18:42 | PC.NURSE ---
Patient has not urinated since bladder scan at 1100. bladder scan shows 73 ml present
[2022-08-13 23:04] VITALS: BP 142/66; PULSE 66; RESP 17; TEMP 36.6; O2SAT 92
[2022-08-14] MEDS: HYDROcodone/acetaminophen (*CRX) 5-325 MG TABLET 1 TAB PO (02:44)
[2022-08-14 05:16] LABS: Mean Corpuscular HGB Conc 32.4 g/dL (32.0-36.0); Mean Corpuscular Hemoglobin 28.6 pg (27.0-31.0); Mean Corpuscular Volume 88.5 fL (78.0-102.0); Platelet Count Result 237 K/mm3 (150-420); Red Blood Count 3.84 M/mm3 (4.20-5.40); Red Cell Distribution Width 15.1 % (11.6-14.4)
[2022-08-14 05:26] LABS: Anion Gap 6 mmol/L (8-16); Blood Urea Nitrogen 5 mg/dL (7-18); Calcium 8.2 mg/dL (8.5-10.1); Carbon Dioxide 27 mmol/L (21-32); Chloride 99 mmol/L (98-108); Estimated CRCL calculation 50 ml/min; Estimated Glomerular Filt Rate > 60; Glucose 113 mg/dL (70-99); Osmolality Calculated 272 mOsm/kg (285-295); Potassium 3.2 mmol/L (3.5-5.1); Sodium 132 mmol/L (136-145)
[2022-08-14 05:49] LABS: Magnesium 1.8 mg/dL (1.8-2.4)
[2022-08-14] MEDS: POTASSIUM CHLORIDE 20 MEQ ER TABLET 40 MEQ PO (06:06)
[2022-08-14] MEDS: metroNIDAZOLE 250 MG TABLET 500 MG PO (06:06)
[2022-08-14 08:00] VITALS: BP 135/57; PULSE 72; RESP 18; TEMP 36.3; O2SAT 91
[2022-08-14] MEDS: ramipriL 5 MG CAPSULE 10 MG PO (09:40)
[2022-08-14] MEDS: NYSTATIN 100,000 UNITS/ML SUSP 5 ML ORAL.SUSP 1 ML PO (09:40)
[2022-08-14] MEDS: PROPRANOLOL HCL 60 MG CAPSULE CR PO (09:40)
[2022-08-14] MEDS: ENOXAPARIN 40 MG/0.4 ML SYRINGE SUB-Q (09:40)
[2022-08-14] MEDS: oxyCODONE/ACETAMINOPHEN (*CRX) 10-325 MG TABLET 1 TAB PO (09:41)
[2022-08-14] MEDS: MONTELUKAST SODIUM 10 MG TABLET PO (09:41)
[2022-08-14] MEDS: FLUoxetine HCL 10 MG CAPSULE 40 MG PO (09:41)
[2022-08-14] MEDS: CHOLECALCIFEROL 1,000 UNITS TABLET 1000 UNITS PO (09:41)
[2022-08-14] MEDS: ASPIRIN 325 MG ENTERIC TABLET PO (09:41)
[2022-08-14] MEDS: FLUTICASONE/UMECLIDIN/VILANTER 100-62.5-25 MCG ELLIPTA 1 PUFF INHALATION (09:42)
[2022-08-14] MEDS: LEVOTHYROXINE SODIUM 75 MCG TABLET PO (09:42)
[2022-08-14] MEDS: TAMSULOSIN HCL 0.4 MG CAPSULE PO (09:42)
[2022-08-14] MEDS: ROSUVASTATIN 10 MG TABLET 20 MG PO (09:42)
[2022-08-14] MEDS: hydrALAZINE HCL 25 MG TABLET PO (09:42)
--- NOTE | 2022-08-14 09:49 | PM.DS ---
DS: Admitting Diagnosis Discharge Date 08/14/2022 Admitting Diagnosis UTI, WEakness, Constipation DS: Discharge Diagnosis Discharge Diagnosis (1) Pneumonia: Qualifiers: Pneumonia type: due to unspecified organism Laterality: right Lung location: middle lobe of lung Qualified Code(s): J18.9 - Pneumonia, unspecified organism Code(s): J18.9 - Pneumonia, unspecified organism Status: Acute Assessment and Plan: IV antibiotic Oxygen as indicated check Pulse ox breathing treatment as indicated (2) Congestive heart failure: Qualifiers: Heart failure type: diastolic Heart failure chronicity: acute on chronic Qualified Code(s): I50.33 - Acute on chronic diastolic (congestive) heart failure Code(s): I50.9 - Heart failure, unspecified Status: Acute Assessment and Plan: monitor daily weights monitor BNP Discontinue IVFs (3) Fecal impaction in rectum: Code(s): K56.41 - Fecal impaction Status: Acute Assessment and Plan: Stool softners Enemas yesterday Manual disimpaction yesterday KUB - negative today for impaction Plenty of fluids (4) Chronic obstructive pulmonary disease, unspecified: Qualifiers: COPD type: COPD with acute lower respiratory infection Qualified Code(s): J44.0 - Chronic obstructive pulmonary disease with (acute) lower respiratory infection Code(s): J44.9 - Chronic obstructive pulmonary disease, unspecified Status: Acute Assessment and Plan: monitor for symptoms Apply oxygen as indciated IV antibiotic for Pneumonia tomorrow a walk study Plan UTI - Last dose of antibiotic today Weakness will transition to swing bed. DS: Summary Hospital Course Reason for hospitalization: UTI, weakness, constipatio,pneumonia Hospital Course: this is a 76-year-old female comes in who was admitted for urinary tract infection was found to have some constipation who needed to be impacted with some stool softeners she had not cardiac induced impaction. Patient was treated with IV Rocephin, IV fluids was given some MiraLax, some Colace with senna Carter catheter was initially paced due to retention. Patient received some IV antibiotics after the impaction was removed patient the Carter catheter was removed and patient was able to urinate without any difficulty T she received 3 days worth of IV Rocephin and although she is feeling somewhat better we will go ahead and transition her to a swing bed. We will discontinue all IV medication and follow-up patient to discharge patient still is requiring 2 L of oxygen I will go ahead and put her on some oral antibiotics due to possible pneumonia in the lungs. Time Spent with Patient Time attestation: Total time spent providing and/or coordinating discharge services: Exam Narrative: patient appears uncomfortable, pleasant, well-oriented, looks younger than his stated age, does not appear toxic Const: General: cooperative, healthy appearing, comfortable, no acute distress, alert, awake, Physically active and well nourished Nutritional Appearance: well nourished Orientation/consciousness: oriented to person, oriented to place, oriented to time and patient oriented x3 Limitations: no limitations HENMT: Head: normal to inspection Ears: external ears normal Face/Nose/Sinus: Normal external nose present and normal facial exam Face and sinus: normal facial exam Mouth: Yes Normal oral and palatal mucosa present Teeth and gingiva: dentition normal Throat: posterior oropharynx normal Eyes: General: appearance normal, both eyes and all related structures Conjunctivae: conjunctivae normal Pupils: Equal, round and reactive pupils present EOM: EOMs intact bilaterally Neck: Neck: normal visual inspection and no meningeal signs Chest: Chest palpation & inspection: normal inspection of the chest Resp: Effort & Inspection: normal respiratory effort Au
--- NOTE | 2022-08-14 10:50 | PC.NURSE ---
Pt transitioning to swing bed.
== END 2022-08-14 10:49 | disposition swing bed (61) ==
LOC: CHSED 08-12 01:06 → CHS2ND 08-12 01:21
PROVIDERS: Nurse Practitioner; Nurse Practitioner Family; Admitting Provider Internal Medicine; Emergency Provider Emergency Medicine; PCP Internal Medicine; Visit Provider Internal Medicine
DX: K56.41 Fecal impaction (principal); K52.89 Other specified noninfective gastroenteritis and colitis; N39.0 Urinary tract infection, site not specified; J44.0 Chronic obstructive pulmonary disease with (acute) lower respiratory infection; J18.9 Pneumonia, unspecified organism; I25.10 Atherosclerotic heart disease of native coronary artery without angina pectoris; I10 Essential (primary) hypertension; D50.9 Iron deficiency anemia, unspecified; E78.5 Hyperlipidemia, unspecified; E03.9 Hypothyroidism, unspecified; R91.1 Solitary pulmonary nodule; R33.9 Retention of urine, unspecified; Z79.891 Long term (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 of opiate analgesic; Z80.0 Family history of malignant neoplasm of digestive organs; Z87.891 Personal history of nicotine dependence
CPT/HCPCS: 36415; 71250; 74018; 74176; 80048; 80053; 81001; 82248; 83690; 83735; 83880; 85025; 85027; 87040; 87086; 96361; 96365; 96366; 96367; 96372; 97110; 97161; 97165; 97535; 99285; A9270; G0378; J0696; J1650; J2212; J3475; J7121

== ENCOUNTER 2022-08-14 10:50 | Inpatient (IN) | payer MEDICARE, SELFPAY ==
--- NOTE | 2022-08-14 10:50 | ADMGEN ---
This patient, Radha Andrade, was admitted to 2nd Floor Room 210-2 as a skilled swing bed patient from inpatient status. Patient/family oriented to hospital policies and general routines including ID bracelet, bed and alarms, visiting hours, pain management, procedures, bathroom and other care routines, personal items, smoking policy, room service/diet, and visiting hours. Information on how to activate the Rapid Response Team has been discussed. Patient/Family are encouraged to report perceived risks to care and to ask questions if they do not understand what they are told or what they should do.
[2022-08-14 11:35] VITALS: O2SAT 98; BMI 25.9
--- NOTE | 2022-08-14 11:40 | PM.IMHP ---
H&P: HPI History of Present Illness Date/Time: 08/14/22 11:40 Chief Complaint: Weakness, UTI , Constipation , Chronic pain Narrative: This is a 76-year-old that was admitted previously with constipation or impaction a urinary tract infection as the impaction was blocking or pressing against her kidney and weakness. Patient was treated with a manual disimpaction IV fluids electrolytes replenished stool softeners IV antibiotics for 3 days and she was seen by Physical therapy currently at this time patient will swing have rehab for a few days and then plan on discharging back to home we will continue to monitor her lecture life labs and vitals at this time. Patient has remained afebrile eating and drinking without any difficulties no diarrhea no nausea no vomiting. Review of Systems Review of Systems: weakness, back pain All systems reviewed & are unremarkable except as noted in HPI and below PMFSH Past Medical History Medical History CAD in [place] artery Chest pain at rest Chronic obstructive pulmonary disease, unspecified Chronic, continuous use of opioids Dyslipidemia Essential hypertension Family history of colon cancer in mother Hypothyroidism Iron deficiency anemia Surgical History Surgical History History of appendectomy History of hysterectomy History of tonsillectomy Hx of heart artery stent Status post insertion of spinal cord stimulator Family History Family History Father Family history of coronary artery disease Family history of sudden Social History Social History Social History: Patient elects her daughter to be her surrogate. 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 Smoking packs per day: 1 Smoking cigarettes per day: 20.0 Years smoked: 40 Smoking pack-years: 40.00 Smoking status: Never smoker Tobacco type: cigarettes Second hand tobacco smoke exposure: No Alcohol intake: never Substance use: never Substance use type: does not use Lack of Transportation: No Lack of Food: Never True Current Housing: I Have Housing Concerned About Future Housing: No Difficulty Paying Gas/Electric Bills: No Difficulty Paying for Meds: No Currently Unemployed: No Education: Decline to Answer Difficulty w/ Childcare or Family Care: No Living arrangements: alone 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 Gender identity (if verbalized by the patient): Female Sexual Orientation (if Verbalized by the Patient): Straight or Heterosexual Spiritual care concerns: No Agree to blood products: Yes Meds Home Medications and Allergies Home Medications Medication Instructions Recorded Confirmed Type albuterol sulfate 90 mcg/actuation 2 puff inhalation Q4H PRN 04/01/19 08/14/22 History aerosol inhaler (Ventolin HFA) Shortness Of Breath aspirin 325 mg tablet 325 mg PO DAILY 04/01/19 08/14/22 History cholecalciferol (vitamin D3) 25 25 mcg PO DAILY 04/01/19 08/14/22 History mcg (1,000 unit) tablet esomeprazole magnesium 40 mg 40 mg PO DAILY 04/01/19 08/14/22 History capsule,delayed release evening primrose oil-linoleic 1 cap PO DAILY 04/01/19 08/14/22 History acid-gamolenic acid 1,000 mg capsule (Delphia Oil) levothyroxine 50 mcg tablet 75 mcg PO DAILY 04/01/19 08/14/22 History meclizine 25 mg tablet 25 mg PO TID PRN Vertigo 04/01/19 08/14/22 History valacyclovir 500 mg tablet 500 mg PO DAILY PRN Rash 04/04/19 08/14/22 History oxycodone-acetaminophen 10 mg-325 1 tablet PO Q6H PRN Pain 10/03/19 08/14/22 History mg tablet fluoxetine 10 mg capsule 40 mg PO DAILY 11/05/20 08/14/22 History omega-3 acid ethyl esters 1 gram See Rx Instructions .Route 08/25/21 08/14/22 Rx
[2022-08-14] MEDS: traMADol HCL (*CRX) 50 MG TABLET PO ×2 (13:29→20:20)
[2022-08-14] MEDS: metroNIDAZOLE 250 MG TABLET 500 MG PO ×2 (13:29→21:05)
[2022-08-14 16:00] VITALS: BP 156/64; PULSE 67; RESP 17; TEMP 36.4; O2SAT 93
[2022-08-14] MEDS: hydrALAZINE HCL 25 MG TABLET PO (17:01)
[2022-08-14] MEDS: oxyCODONE/ACETAMINOPHEN (*CRX) 10-325 MG TABLET 1 TAB PO (17:01)
[2022-08-14 23:02] VITALS: BP 142/64; PULSE 62; RESP 17; TEMP 36.2; O2SAT 90
[2022-08-15] MEDS: oxyCODONE/ACETAMINOPHEN (*CRX) 10-325 MG TABLET 1 TAB PO ×4 (00:30→19:33)
[2022-08-15] MEDS: metroNIDAZOLE 250 MG TABLET 500 MG PO ×3 (06:14→22:14)
[2022-08-15] MEDS: LEVOTHYROXINE SODIUM 75 MCG TABLET PO (06:14)
[2022-08-15 08:00] VITALS: BP 145/60; PULSE 64; RESP 14; TEMP 36.6; O2SAT 94
[2022-08-15] MEDS: FLUTICASONE/UMECLIDIN/VILANTER 100-62.5-25 MCG ELLIPTA 1 PUFF INHALATION (09:31)
[2022-08-15] MEDS: FLUoxetine HCL 10 MG CAPSULE 40 MG PO (09:31)
[2022-08-15] MEDS: ASPIRIN 325 MG ENTERIC TABLET PO (09:31)
[2022-08-15] MEDS: CHOLECALCIFEROL 1,000 UNITS TABLET 1000 UNITS PO (09:31)
[2022-08-15] MEDS: ROSUVASTATIN 10 MG TABLET 20 MG BY MOUTH (09:32)
[2022-08-15] MEDS: TAMSULOSIN HCL 0.4 MG CAPSULE PO (09:32)
[2022-08-15] MEDS: PANTOPRAZOLE 40 MG TABLET PO (09:32)
[2022-08-15 09:33] VITALS: PULSE 65
[2022-08-15] MEDS: PROPRANOLOL HCL 60 MG CAPSULE CR BY MOUTH (09:33)
[2022-08-15] MEDS: ramipriL 5 MG CAPSULE 10 MG BY MOUTH (09:33)
[2022-08-15] MEDS: MONTELUKAST SODIUM 10 MG TABLET PO (09:33)
[2022-08-15] MEDS: hydrALAZINE HCL 25 MG TABLET PO ×2 (09:33→17:22)
[2022-08-15 16:30] VITALS: BP 164/59; PULSE 66; RESP 18; TEMP 36.3; O2SAT 99
[2022-08-16] VITALS: BP 149/62; PULSE 69; RESP 16; TEMP 36.4; O2SAT 98
[2022-08-16] MEDS: metroNIDAZOLE 250 MG TABLET 500 MG PO ×3 (06:21→21:46)
[2022-08-16] MEDS: LEVOTHYROXINE SODIUM 75 MCG TABLET PO (06:22)
[2022-08-16 08:00] VITALS: BP 180/72; PULSE 94; RESP 16; TEMP 36.4; O2SAT 90
[2022-08-16] MEDS: ACETAMINOPHEN 325 MG TABLET 650 MG PO (09:00)
[2022-08-16] MEDS: FLUoxetine HCL 10 MG CAPSULE 40 MG PO (09:01)
[2022-08-16] MEDS: FLUTICASONE/UMECLIDIN/VILANTER 100-62.5-25 MCG ELLIPTA 1 PUFF INHALATION (09:02)
[2022-08-16] MEDS: TAMSULOSIN HCL 0.4 MG CAPSULE PO (09:03)
[2022-08-16] MEDS: ROSUVASTATIN 10 MG TABLET 20 MG BY MOUTH (09:03)
[2022-08-16] MEDS: MONTELUKAST SODIUM 10 MG TABLET PO (09:03)
[2022-08-16] MEDS: CHOLECALCIFEROL 1,000 UNITS TABLET 1000 UNITS PO (09:03)
[2022-08-16] MEDS: PANTOPRAZOLE 40 MG TABLET PO (09:04)
[2022-08-16] MEDS: hydrALAZINE HCL 25 MG TABLET PO ×2 (09:04→17:00)
[2022-08-16] MEDS: ASPIRIN 325 MG ENTERIC TABLET PO (09:04)
[2022-08-16 09:05] VITALS: PULSE 94
[2022-08-16] MEDS: PROPRANOLOL HCL 60 MG CAPSULE CR BY MOUTH (09:05)
[2022-08-16] MEDS: ramipriL 5 MG CAPSULE 10 MG BY MOUTH (09:06)
[2022-08-16] MEDS: oxyCODONE/ACETAMINOPHEN (*CRX) 10-325 MG TABLET 1 TAB PO ×3 (10:05→22:54)
[2022-08-16 16:00] VITALS: BP 139/65; PULSE 71; RESP 16; TEMP 36.4; O2SAT 93
[2022-08-16 20:00] VITALS: PULSE 68; RESP 18; O2SAT 95
--- NOTE | 2022-08-16 20:00 | PC.NURSE ---
Upon assessment, pt sitting in chair watching TV, she is A&O x3. Pt assisted c walker and gait belt X1 c SBA to walk to BR. Pt walked back to her chair s difficulty. She reports minimal pain in her back, call oliveira at pt side, she states she will call when she is ready for bed.
[2022-08-16 23:43] VITALS: BP 137/60; PULSE 68; RESP 20; TEMP 36.6; O2SAT 95
[2022-08-17] MEDS: metroNIDAZOLE 250 MG TABLET 500 MG PO ×3 (05:37→21:04)
[2022-08-17] MEDS: oxyCODONE/ACETAMINOPHEN (*CRX) 10-325 MG TABLET 1 TAB PO ×3 (05:37→17:45)
[2022-08-17] MEDS: LEVOTHYROXINE SODIUM 75 MCG TABLET PO (06:27)
[2022-08-17 08:00] VITALS: BP 148/69; PULSE 77; RESP 18; TEMP 36.6; O2SAT 90
[2022-08-17] MEDS: FLUTICASONE/UMECLIDIN/VILANTER 100-62.5-25 MCG ELLIPTA 1 PUFF INHALATION (08:28)
[2022-08-17] MEDS: ramipriL 5 MG CAPSULE 10 MG BY MOUTH (08:29)
[2022-08-17] MEDS: ROSUVASTATIN 10 MG TABLET 20 MG BY MOUTH (08:30)
[2022-08-17] MEDS: ASPIRIN 325 MG ENTERIC TABLET PO (08:31)
[2022-08-17] MEDS: CHOLECALCIFEROL 1,000 UNITS TABLET 1000 UNITS PO (08:31)
[2022-08-17] MEDS: FLUoxetine HCL 10 MG CAPSULE 40 MG PO (08:31)
[2022-08-17] MEDS: TAMSULOSIN HCL 0.4 MG CAPSULE PO (08:31)
[2022-08-17] MEDS: hydrALAZINE HCL 25 MG TABLET PO ×2 (08:32→17:46)
[2022-08-17] MEDS: PANTOPRAZOLE 40 MG TABLET PO (08:32)
[2022-08-17] MEDS: MONTELUKAST SODIUM 10 MG TABLET PO (08:32)
[2022-08-17 09:00] VITALS: PULSE 77
[2022-08-17] MEDS: PROPRANOLOL HCL 60 MG CAPSULE CR BY MOUTH (09:00)
--- NOTE | 2022-08-17 13:16 | PC.NURSE ---
Property Staff Accountant noticed two separate times when patient got back from the bathroom, that she looks out of breath. Property Staff Accountant checked SPO2 and found patient's O2 was at 86% the first time and 87% the second time she ambulated back from the bathroom. Patient's SPO2 quickly recovered to 90% with rest and a few deep breaths.
[2022-08-17 16:00] VITALS: BP 170/74; PULSE 68; RESP 16; TEMP 36.2; O2SAT 91
[2022-08-17 20:00] VITALS: PULSE 68; RESP 16; O2SAT 91
[2022-08-17] MEDS: traMADol HCL (*CRX) 50 MG TABLET PO (21:04)
[2022-08-18] VITALS: BP 149/63; PULSE 65; RESP 17; TEMP 36.4; O2SAT 93
[2022-08-18] MEDS: oxyCODONE/ACETAMINOPHEN (*CRX) 10-325 MG TABLET 1 TAB PO ×4 (02:50→21:04)
[2022-08-18] MEDS: metroNIDAZOLE 250 MG TABLET 500 MG PO ×3 (06:14→21:04)
[2022-08-18] MEDS: LEVOTHYROXINE SODIUM 75 MCG TABLET PO (06:14)
[2022-08-18] MEDS: traMADol HCL (*CRX) 50 MG TABLET PO (06:15)
[2022-08-18 08:00] VITALS: BP 175/73; PULSE 75; RESP 16; TEMP 36.4; O2SAT 93
[2022-08-18] MEDS: ROSUVASTATIN 10 MG TABLET 20 MG BY MOUTH (08:58)
[2022-08-18] MEDS: hydrALAZINE HCL 25 MG TABLET PO ×2 (08:59→16:43)
[2022-08-18] MEDS: PANTOPRAZOLE 40 MG TABLET PO (08:59)
[2022-08-18] MEDS: TAMSULOSIN HCL 0.4 MG CAPSULE PO (09:00)
[2022-08-18] MEDS: FLUoxetine HCL 10 MG CAPSULE 40 MG PO (09:00)
[2022-08-18] MEDS: MONTELUKAST SODIUM 10 MG TABLET PO (09:00)
[2022-08-18] MEDS: ASPIRIN 325 MG ENTERIC TABLET PO (09:01)
[2022-08-18] MEDS: FLUTICASONE/UMECLIDIN/VILANTER 100-62.5-25 MCG ELLIPTA 1 PUFF INHALATION (09:01)
[2022-08-18] MEDS: CHOLECALCIFEROL 1,000 UNITS TABLET 1000 UNITS PO (09:01)
[2022-08-18 09:02] VITALS: PULSE 74
[2022-08-18] MEDS: ramipriL 5 MG CAPSULE 10 MG BY MOUTH (09:02)
[2022-08-18] MEDS: PROPRANOLOL HCL 60 MG CAPSULE CR BY MOUTH (09:02)
--- NOTE | 2022-08-18 09:35 | PM.EVENT ---
Event Note Event Note Event Note: Ms. Lupe barger currently is not needing anything at this time we have canceled patient's echocardiogram in which she will have done as outpatient on September 01 at 3:00 p.m. patient is aware order has been placed on her discharge. Patient denies any pain or needing anything she has remained afebrile no nausea vomiting and/or diarrhea at this time.
[2022-08-18 16:00] VITALS: BP 132/73; PULSE 64; RESP 16; TEMP 36.4; O2SAT 92
[2022-08-18 20:00] VITALS: PULSE 64; RESP 16; O2SAT 92
[2022-08-18] MEDS: DOCUSATE SODIUM 100 MG CAPSULE PO (21:04)
[2022-08-19] VITALS: BP 146/63; PULSE 65; RESP 17; TEMP 36.3; O2SAT 93
[2022-08-19] MEDS: oxyCODONE/ACETAMINOPHEN (*CRX) 10-325 MG TABLET 1 TAB PO ×4 (03:41→22:18)
[2022-08-19] MEDS: metroNIDAZOLE 250 MG TABLET 500 MG PO ×3 (05:30→22:18)
[2022-08-19] MEDS: LEVOTHYROXINE SODIUM 75 MCG TABLET PO (05:31)
[2022-08-19] MEDS: traMADol HCL (*CRX) 50 MG TABLET PO ×2 (05:31→13:49)
[2022-08-19 08:00] VITALS: BP 136/63; PULSE 81; RESP 17; TEMP 36; O2SAT 93
[2022-08-19] MEDS: FLUTICASONE/UMECLIDIN/VILANTER 100-62.5-25 MCG ELLIPTA 1 PUFF INHALATION (09:50)
[2022-08-19] MEDS: ramipriL 5 MG CAPSULE 10 MG BY MOUTH (09:50)
[2022-08-19 09:51] VITALS: PULSE 88
[2022-08-19] MEDS: FLUoxetine HCL 10 MG CAPSULE 40 MG PO (09:51)
[2022-08-19] MEDS: ASPIRIN 325 MG ENTERIC TABLET PO (09:51)
[2022-08-19] MEDS: PANTOPRAZOLE 40 MG TABLET PO (09:51)
[2022-08-19] MEDS: PROPRANOLOL HCL 60 MG CAPSULE CR BY MOUTH (09:51)
[2022-08-19] MEDS: hydrALAZINE HCL 25 MG TABLET PO ×2 (09:52→16:15)
[2022-08-19] MEDS: CHOLECALCIFEROL 1,000 UNITS TABLET 1000 UNITS PO (09:52)
[2022-08-19] MEDS: MONTELUKAST SODIUM 10 MG TABLET PO (09:52)
[2022-08-19] MEDS: TAMSULOSIN HCL 0.4 MG CAPSULE PO (09:52)
[2022-08-19] MEDS: ROSUVASTATIN 10 MG TABLET 20 MG BY MOUTH (09:52)
[2022-08-19 16:00] VITALS: BP 157/73; PULSE 72; RESP 17; TEMP 36.2; O2SAT 93
--- NOTE | 2022-08-19 17:07 | PC.NURSE ---
Patient states pain medication is helping and her level of pain has decreased.
--- NOTE | 2022-08-19 18:02 | PC.NURSE ---
Patient up in chair, fed self supper. Call light and belongings within reach. Denies pain.
--- NOTE | 2022-08-19 18:37 | PC.NURSE ---
Patient up to bathroom with gait belt, walker and stand by assist. Gait steady. Patient urinated clear yellow urine.
[2022-08-20] VITALS: BP 155/71; PULSE 68; RESP 20; TEMP 36.1; O2SAT 94
[2022-08-20] MEDS: LEVOTHYROXINE SODIUM 75 MCG TABLET PO (05:31)
[2022-08-20] MEDS: metroNIDAZOLE 250 MG TABLET 500 MG PO ×3 (05:31→21:42)
[2022-08-20] MEDS: oxyCODONE/ACETAMINOPHEN (*CRX) 10-325 MG TABLET 1 TAB PO ×4 (05:31→23:55)
--- NOTE | 2022-08-20 06:30 | PM.IMPN ---
Progress Note: A&P Assessment and Plan (1) Congestive heart failure: Qualifiers: Heart failure type: diastolic Heart failure chronicity: acute on chronic Qualified Code(s): I50.33 - Acute on chronic diastolic (congestive) heart failure Code(s): I50.9 - Heart failure, unspecified Status: Acute Assessment and Plan: Oral lasix monitor BNP K noted to be 3.2 on the repeat labs ordered Daily weights trend I&Os (2) Acute urinary retention: Code(s): R33.8 - Other retention of urine Status: Acute Assessment and Plan: resolved urinating without difficulties yellow urine Continue tamsulosin Trend urine output (3) Fecal impaction in rectum: Code(s): K56.41 - Fecal impaction Status: Acute Assessment and Plan: resolved stool softner KUB states resolved (4) Essential hypertension: Code(s): I10 - Essential (primary) hypertension Status: Acute Assessment and Plan: continue home medication monitor blood pressure BP stable at 155/71 (5) Weakness: Code(s): R53.1 - Weakness Status: Acute Assessment and Plan: physical therapy Doing well DC home Thursday Time Spent With Patient Time: 36 minutes Time with patient: Greater than 35 minutes Subjective Date/time seen: 08/20/22 0630 Interval history: Doing well sitting in the chair. No complaints, and stated that she feels good. She stated that she is ready to go home, and has the equipment to be successful. Denies any pain, chest pain, shortness of breath, fevers, sweats, and chills. She did state that she is having regular BMs, and is eating well. Plan is for DC home on Thursday. Review of Systems Review of Systems: All systems reviewed & are unremarkable except as noted in HPI and below Exam Narrative: General: well-nourished, well-appearing 76-year-old female, sitting up in bed, comfortable, NARD Neuro: awake, alert and oriented x4, speech clear, no focal neuro deficits noted HEENMT: normocephalic, atraumatic, EOMI, sclerae anicteric, moist oral mucosa Respiratory: Clear to auscultation bilaterally without crackles, rhonchi or wheezes, nonlabored breathing Cardio: regular rate, regular rhythm with S1-S2 Abdomen: nondistended, normoactive bowel sounds, soft, nontender to palpation Extremities: 2+ pitting edema bilateral lower extremities, No erythema, or tenderness to palpation, DP pulses 2+ bilaterally Skin: no rashes or lesions, warm and dry Psych: appropriate mood and affect, judgment and insight intact Objective Data Vital Signs Vital Signs: Vital Signs - 24 hr 08/19/22 08:00 08/19/22 08:00 08/19/22 09:51 Temperature 96.8 F L Pulse Rate 81 88 Respiratory Rate 17 Blood Pressure 136/63 Pulse Oximetry 93 Oxygen Delivery Room Air Room Air 08/19/22 16:00 08/20/22 00:00 Temperature 97.2 F L 97.0 F L Pulse Rate 72 68 Respiratory Rate 17 20 Blood Pressure 157/73 H 155/71 H Pulse Oximetry 93 94 Oxygen Delivery Room Air Room Air Intake/Output Intake/Output: Intake & Output 08/17/22 08/18/22 08/19/22 08/20/22 23:59 23:59 23:59 23:59 Intake Total 2430 1730 1750 500 Balance 2430 1730 1750 500 Meds/Results Medications: Active Medications Generic Name Dose Route Start Last Admin Trade Name Freq PRN Reason Stop Dose Admin Acetaminophen 650 mg 08/14/22 11:33 08/16/22 09:00 Acetaminophen 325 Mg Tablet PO 650 mg Q4H PRN Administration Mild Pain (1-3) or Fever Albuterol 2 puff 08/14/22 11:36 Albuterol Sulfate (*Sp) Inhaler INHALATION Q4H PRN Shortness Of Breath Aspirin 325 mg 08/15/22 09:00 08/19/22 09:51 Aspirin 325 Mg Enteric Tablet PO 325 mg QAM PASCUAL Administration Docusate Sodium 100 mg 08/14/22 11:40 08/18/22 21:04 Docusate Sodium 100 Mg Capsu
[2022-08-20] MEDS: traMADol HCL (*CRX) 50 MG TABLET PO ×2 (07:47→14:05)
[2022-08-20 07:57] VITALS: BP 156/65; PULSE 68; RESP 16; TEMP 36.2; O2SAT 93
[2022-08-20 08:08] LABS: Anion Gap 7 mmol/L (8-16); Blood Urea Nitrogen 10 mg/dL (7-18); Calcium 8.9 mg/dL (8.5-10.1); Carbon Dioxide 28 mmol/L (21-32); Chloride 100 mmol/L (98-108); Estimated CRCL calculation 45 ml/min; Estimated Glomerular Filt Rate > 60; Glucose 105 mg/dL (70-99); Osmolality Calculated 279 mOsm/kg (285-295); Potassium 3.9 mmol/L (3.5-5.1); Sodium 135 mmol/L (136-145)
[2022-08-20 09:51] VITALS: PULSE 70
[2022-08-20] MEDS: FLUoxetine HCL 10 MG CAPSULE 40 MG PO (09:51)
[2022-08-20] MEDS: PROPRANOLOL HCL 60 MG CAPSULE CR BY MOUTH (09:51)
[2022-08-20] MEDS: CHOLECALCIFEROL 1,000 UNITS TABLET 1000 UNITS PO (09:51)
[2022-08-20] MEDS: FLUTICASONE/UMECLIDIN/VILANTER 100-62.5-25 MCG ELLIPTA 1 PUFF INHALATION (09:51)
[2022-08-20] MEDS: ramipriL 5 MG CAPSULE 10 MG BY MOUTH (09:51)
[2022-08-20] MEDS: ROSUVASTATIN 10 MG TABLET 20 MG BY MOUTH (09:52)
[2022-08-20] MEDS: MONTELUKAST SODIUM 10 MG TABLET PO (09:52)
[2022-08-20] MEDS: PANTOPRAZOLE 40 MG TABLET PO (09:52)
[2022-08-20] MEDS: TAMSULOSIN HCL 0.4 MG CAPSULE PO (09:52)
[2022-08-20] MEDS: hydrALAZINE HCL 25 MG TABLET PO ×2 (09:52→17:32)
[2022-08-20] MEDS: ASPIRIN 325 MG ENTERIC TABLET PO (09:52)
[2022-08-20 16:00] VITALS: BP 143/72; PULSE 67; RESP 18; TEMP 35.6; O2SAT 94
[2022-08-21] VITALS: BP 159/82; PULSE 74; RESP 18; TEMP 36.1; O2SAT 93
[2022-08-21] MEDS: LEVOTHYROXINE SODIUM 75 MCG TABLET PO (05:58)
[2022-08-21] MEDS: oxyCODONE/ACETAMINOPHEN (*CRX) 10-325 MG TABLET 1 TAB PO ×3 (05:58→17:48)
[2022-08-21 08:00] VITALS: BP 117/67; PULSE 76; RESP 16; TEMP 36.4; O2SAT 93
[2022-08-21] MEDS: FLUoxetine HCL 10 MG CAPSULE 40 MG PO (08:30)
[2022-08-21] MEDS: CHOLECALCIFEROL 1,000 UNITS TABLET 1000 UNITS PO (08:31)
[2022-08-21] MEDS: MONTELUKAST SODIUM 10 MG TABLET PO (08:32)
[2022-08-21] MEDS: ROSUVASTATIN 10 MG TABLET 20 MG BY MOUTH (08:32)
[2022-08-21] MEDS: ASPIRIN 325 MG ENTERIC TABLET PO (08:32)
[2022-08-21] MEDS: TAMSULOSIN HCL 0.4 MG CAPSULE PO (08:32)
[2022-08-21] MEDS: hydrALAZINE HCL 25 MG TABLET PO ×2 (08:32→16:58)
[2022-08-21] MEDS: PANTOPRAZOLE 40 MG TABLET PO (08:32)
[2022-08-21 08:33] VITALS: PULSE 76
[2022-08-21] MEDS: ramipriL 5 MG CAPSULE 10 MG BY MOUTH (08:33)
[2022-08-21] MEDS: PROPRANOLOL HCL 60 MG CAPSULE CR BY MOUTH (08:33)
[2022-08-21] MEDS: FLUTICASONE/UMECLIDIN/VILANTER 100-62.5-25 MCG ELLIPTA 1 PUFF INHALATION (08:34)
--- NOTE | 2022-08-21 09:00 | PM.IMPN ---
Progress Note: A&P Assessment and Plan (1) Congestive heart failure: Qualifiers: Heart failure type: diastolic Heart failure chronicity: acute on chronic Qualified Code(s): I50.33 - Acute on chronic diastolic (congestive) heart failure Code(s): I50.9 - Heart failure, unspecified Status: Acute Assessment and Plan: Oral lasix monitor BNP K noted to be 3.2 on the nd Repeat was 3.9 repeat labs ordered Daily weights trend I&Os Stuart hose (2) Acute urinary retention: Code(s): R33.8 - Other retention of urine Status: Acute Assessment and Plan: resolved urinating without difficulties yellow urine Continue tamsulosin Trend urine output resolved (3) Fecal impaction in rectum: Code(s): K56.41 - Fecal impaction Status: Acute Assessment and Plan: resolved stool softner KUB states resolved (4) Essential hypertension: Code(s): I10 - Essential (primary) hypertension Status: Acute Assessment and Plan: continue home medication monitor blood pressure BP stable at 117/67 (5) Weakness: Code(s): R53.1 - Weakness Status: Acute Assessment and Plan: physical therapy Doing well DC home Thursday Time Spent With Patient Time: 39 minutes Time with patient: Greater than 35 minutes Subjective Date/time seen: 08/21/22 09:00 Interval history: patient is doing well this morning. She is sitting up in the chair. Patient denies any current chest pain, shortness of breath, nausea, vomiting, diarrhea constipation. Patient is stable at this time per labs and vital signs. Patient is stable for discharge in the a.m.. Review of Systems Review of Systems: All systems reviewed & are unremarkable except as noted in HPI and below Exam Narrative: General: well-nourished, well-appearing 76-year-old female, sitting up in bed, comfortable, NARD Neuro: awake, alert and oriented x4, speech clear, no focal neuro deficits noted HEENMT: normocephalic, atraumatic, EOMI, sclerae anicteric, moist oral mucosa Respiratory: Clear to auscultation bilaterally without crackles, rhonchi or wheezes, nonlabored breathing Cardio: regular rate, regular rhythm with S1-S2 Abdomen: nondistended, normoactive bowel sounds, soft, nontender to palpation Extremities: 2+ pitting edema bilateral ankles, No erythema, or tenderness to palpation, DP pulses 2+ bilaterally Skin: no rashes or lesions, warm and dry Psych: appropriate mood and affect, judgment and insight intact Objective Data Vital Signs Vital Signs: Vital Signs - 24 hr 08/20/22 09:51 08/20/22 16:00 08/21/22 00:00 Temperature 96.1 F L 96.9 F L Pulse Rate 70 67 74 Respiratory Rate 18 18 Blood Pressure 143/72 H 159/82 H Pulse Oximetry 94 93 Oxygen Delivery Room Air Room Air 08/21/22 08:33 08/21/22 08:00 Temperature 97.6 F Pulse Rate 76 76 Respiratory Rate 16 Blood Pressure 117/67 Pulse Oximetry 93 Oxygen Delivery Room Air Intake/Output Intake/Output: Intake & Output 08/18/22 08/19/22 08/20/22 08/21/22 23:59 23:59 23:59 23:59 Intake Total 1730 1750 1950 640 Balance 1730 1750 1950 640 Meds/Results Medications: Active Medications Generic Name Dose Route Start Last Admin Trade Name Jagdishq PRN Reason Stop Dose Admin Acetaminophen 650 mg 08/14/22 11:33 08/16/22 09:00 Acetaminophen 325 Mg Tablet PO 650 mg Q4H PRN Administration Mild Pain (1-3) or Fever Albuterol 2 puff 08/14/22 11:36 Albuterol Sulfate (*Sp) Inhaler INHALATION Q4H PRN Shortness Of Breath Aspirin 325 mg 08/15/22 09:00 08/21/22 08:32 Aspirin 325 Mg Enteric Tablet PO 325 mg QAM PASCUAL Administration Docusate Sodium 100 mg 08/14/22 11:40 08/18/22 21:04 Docusate Sodium 100 Mg Capsule PO 100 mg Q12H PRN Administration
--- NOTE | 2022-08-21 09:16 | PM.DS ---
DS: Admitting Diagnosis Discharge Date 08/22/22 Admitting Diagnosis Swing bed admission for strengthen, gait stability, better mobility and further management of severe constipation and CHF DS: Discharge Diagnosis Discharge Diagnosis (1) Congestive heart failure: Qualifiers: Heart failure type: diastolic Heart failure chronicity: acute on chronic Qualified Code(s): I50.33 - Acute on chronic diastolic (congestive) heart failure Code(s): I50.9 - Heart failure, unspecified Status: Acute Assessment and Plan: Oral lasix monitor BNP K noted to be 3.2 on the repeat labs ordered Daily weights trend I&Os (2) Acute urinary retention: Code(s): R33.8 - Other retention of urine Status: Acute Assessment and Plan: resolved urinating without difficulties yellow urine Continue tamsulosin Trend urine output (3) Fecal impaction in rectum: Code(s): K56.41 - Fecal impaction Status: Acute Assessment and Plan: resolved stool softner KUB states resolved (4) Essential hypertension: Code(s): I10 - Essential (primary) hypertension Status: Acute Assessment and Plan: continue home medication monitor blood pressure BP stable at 155/71 (5) Weakness: Code(s): R53.1 - Weakness Status: Acute Assessment and Plan: physical therapy Doing well DC home Thursday DS: Summary Hospital Course Hospital Course: patient is a 76-year-old female with a past medical history of urinary retention, hypertension, hyperlipidemia, COPD, who presented scented to the ED at [place] with complaints of urinary retention. Urinary catheter was inserted at time of admission with lots of drainage. Patient was also noted to have a UTI and to be impacted. Patient had stool softeners which did help relieve her impaction. She was also given IV and oral antibiotics. Patient did undergo a voiding trial and was able to urinate. She had been readmitted is a swing patient for further strengthening, mobility, gait training. Patient has done well with her PT OT and is stable for discharge at this time. Currently patient is not require any and oxygen. She is urinating okay and having regular bowel movements. She denies any current chest pain, shortness of breath, nausea, vomiting, diarrhea constipation. Did talk to her about needs at home which she denies any needs that she does have a walker, Rollator, and toilet riser. Patient is excited about being discharged and has done well through admission. Currently labs, vital signs are stable. Patient stated for discharge at this time. Status at Discharge Functional status at discharge: uses cane/walker Overall status at discharge: patient is progressing back to baseline Time Spent with Patient Time attestation: Total time spent providing and/or coordinating discharge services: 39 minutes Time spent: Greater than 30 minutes Specific discharge activities: Diagnostic testing, chart review, developing a treatment plan, education, care coordination documentation, physical exam, result review Exam Narrative: General: well-nourished, well-appearing 76-year-old female, sitting up in bed, comfortable, NARD Neuro: awake, alert and oriented x4, speech clear, no focal neuro deficits noted HEENMT: normocephalic, atraumatic, EOMI, sclerae anicteric, moist oral mucosa Respiratory: Clear to auscultation bilaterally without crackles, rhonchi or wheezes, nonlabored breathing Cardio: regular rate, regular rhythm with S1-S2 Abdomen: nondistended, normoactive bowel sounds, soft, nontender to palpation Extremities: 2+ pitting edema bilateral ankles, No erythema, or tenderness to palpation, DP pulses 2+ bilaterally Skin: no rashes or lesions, warm and dry Psych: appropriate mood and affect, judgment and i
[2022-08-21 16:00] VITALS: BP 166/70; PULSE 77; RESP 14; TEMP 36.4; O2SAT 90
[2022-08-21] MEDS: traMADol HCL (*CRX) 50 MG TABLET PO (19:59)
[2022-08-21 20:00] VITALS: PULSE 77; RESP 14; O2SAT 90
[2022-08-22] VITALS: BP 141/73; PULSE 75; RESP 16; TEMP 36.1; O2SAT 92
[2022-08-22] MEDS: oxyCODONE/ACETAMINOPHEN (*CRX) 10-325 MG TABLET 1 TAB PO ×2 (00:36→07:36)
[2022-08-22] MEDS: LEVOTHYROXINE SODIUM 75 MCG TABLET PO (06:02)
[2022-08-22 07:38] VITALS: BP 148/98; PULSE 78; RESP 18; TEMP 36.6; O2SAT 94
[2022-08-22] MEDS: CHOLECALCIFEROL 1,000 UNITS TABLET 1000 UNITS PO (08:40)
[2022-08-22] MEDS: ROSUVASTATIN 10 MG TABLET 20 MG BY MOUTH (08:40)
[2022-08-22 08:41] VITALS: PULSE 86
[2022-08-22] MEDS: ramipriL 5 MG CAPSULE 10 MG BY MOUTH (08:41)
[2022-08-22] MEDS: PROPRANOLOL HCL 60 MG CAPSULE CR BY MOUTH (08:41)
[2022-08-22] MEDS: hydrALAZINE HCL 25 MG TABLET PO (08:42)
[2022-08-22] MEDS: ASPIRIN 325 MG ENTERIC TABLET PO (08:42)
[2022-08-22] MEDS: PANTOPRAZOLE 40 MG TABLET PO (08:42)
[2022-08-22] MEDS: FLUoxetine HCL 10 MG CAPSULE 40 MG PO (08:42)
[2022-08-22] MEDS: TAMSULOSIN HCL 0.4 MG CAPSULE PO (08:42)
[2022-08-22] MEDS: FLUTICASONE/UMECLIDIN/VILANTER 100-62.5-25 MCG ELLIPTA 1 PUFF INHALATION (08:43)
[2022-08-22] MEDS: MONTELUKAST SODIUM 10 MG TABLET PO (08:43)
--- NOTE | 2022-08-22 09:26 | PM.DS ---
DS: Admitting Diagnosis Discharge Date 08/22/2022 Admitting Diagnosis REhab, weakness, Constipation, UTI DS: Summary Hospital Course Reason for hospitalization: urinary retention, impaction, UTI Hospital Course: this 76-year-old patient was initially going to be discharged previous day but stated the dish in a day to be monitored. Patient's urinary retention has since resolved due to the impaction has been relieved patient was being treated by physical therapy vitals upon discharge was 148/98, pulse was 86, respirations 18, temperature was 98?, patient is 94% on room air. Patient currently on 80 without any difficulties have regular bowel movements and she is anticipating discharge as she is back to her normal state and feeling a lot better. Below is previous discharge summary. ?patient is a 76-year-old female with a past medical history of urinary retention, hypertension, hyperlipidemia, COPD, who presented scented to the ED at [place] with complaints of urinary retention.? Urinary catheter was inserted at time of admission with lots of drainage.? Patient was also noted to have a UTI and to be impacted.? Patient had stool softeners which did help relieve her impaction.? She was also given IV and oral antibiotics.? Patient did undergo a voiding trial and was able to urinate.? She had been readmitted is a swing patient for further strengthening, mobility, gait training.? Patient has done well with her PT OT and is stable for discharge at this time.? Currently patient is not require any and oxygen.? She is urinating okay and having regular bowel movements.? She denies any current chest pain, shortness of breath, nausea, vomiting, diarrhea constipation.? Did talk to her about needs at home which she denies any needs that she does have a walker, Rollator, and toilet riser.? Patient is excited about being discharged and has done well through admission.? Currently labs, vital signs are stable.? Patient stated for discharge at this time. Time Spent with Patient Time attestation: Total time spent providing and/or coordinating discharge services: Exam Narrative: General: well-nourished, well-appearing 76-year-old female, sitting up in bed, comfortable, NARD Neuro: awake, alert and oriented x4, speech clear, no focal neuro deficits noted HEENMT: normocephalic, atraumatic, EOMI, sclerae anicteric, moist oral mucosa Respiratory: Clear to auscultation bilaterally without crackles, rhonchi or wheezes, nonlabored breathing Cardio: regular rate, regular rhythm with S1-S2 Abdomen: nondistended, normoactive bowel sounds, soft, nontender to palpation Extremities: 2+ pitting edema bilateral ankles, No erythema, or tenderness to palpation, DP pulses 2+ bilaterally Skin: no rashes or lesions, warm and dry Psych: appropriate mood and affect, judgment and insight intact Discharge Plan Discharge Attending physician on discharge: Tremayne Morales Consulting providers: Oj Venegas; Edgar Esquivel Discharging Clinician: Oj Venegas Patient Disposition: Home Health Service Activity: may shower, unlimited and as tolerated Diet: heart healthy Discharge Instructions: Take medications as prescribed Maintain a cardiac diet, 2 g sodium, do not over hydrate Remain active Monitor urine output Daily weights, if you gain more than 3 lb within 1 day or 5 lb in 1 week notify your primary care provider If you develop chest pain, shortness breath, fever greater than 101, nausea, or vomiting notify a clinician or come to the emergency department Follow-up with primary care provider within 1-2 weeks Echocardiogram scheduled for September 01 at 3pm, if you cannot keep this appointment please call [phone] Trend urine output Avoid use of diapers and pads perform regular merrick care to avoid UTI Thank you for choosing [facility] for your healthcare needs. [facility] will provide you
--- NOTE | 2022-08-22 11:23 | PC.NURSE ---
1030 family here and dc instructions went over. both family and patient vocalizes an understanding. taken per wc to family auto.
--- NOTE | 2022-09-01 15:09 | PC.NURSE ---
Pt states she received and understood her discharge instructions. Pt states her care was wonderful .
== END 2022-08-22 10:30 | disposition home health service (06) | DRG 948 ==
PROVIDERS: Nurse Practitioner; Admitting Provider Internal Medicine; PCP Internal Medicine; Visit Provider Internal Medicine
DX: R53.1 Weakness (principal); I11.0 Hypertensive heart disease with heart failure; I50.9 Heart failure, unspecified; I25.10 Atherosclerotic heart disease of native coronary artery without angina pectoris; J44.9 Chronic obstructive pulmonary disease, unspecified; D50.9 Iron deficiency anemia, unspecified; E78.5 Hyperlipidemia, unspecified; E03.9 Hypothyroidism, unspecified; Z80.0 Family history of malignant neoplasm of digestive organs; Z79.891 Long term (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 of opiate analgesic; Z95.5 Presence of coronary angioplasty implant and graft; Z96.82 Presence of neurostimulator; Z79.82 Long term (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 of aspirin
CPT/HCPCS: 36415; 80048; 97110; 97161; 97165; 97530; 97535; A9270

== ENCOUNTER 2022-09-01 14:56 | Outpatient (CLI) | payer MEDICARE, SELFPAY ==
--- NOTE | 2022-09-01 15:04 | ECHO_ITS ---
Patient Info Name: Radha Andrade Age: 77 years : 1945 Gender: Female Ht: 62 in Wt: 135 lbs BSA: 1.65 m2 HR: 68 bpm BP: 140 / 72 mmHg Heart Rhythm: Sinus Rhythm Technical Quality: Good Exam Date: 09/01/2022 2:54 PM Exam Location: [facility] Patient Status: Outpatient Admit Date: 09/01/2022 Staff Ordering Physician: Edgar Stephenson DO Memory [facility] Program Director: Tasia Silva RDCS Attending Provider: Edgar Stephenson DO Referring Physician: Sachin DUBON; Exam Type: CA echo doppler color flow Study Info Complete two-dimensional, color flow and Doppler transthoracic echocardiogram is performed. History/Risk Factors Hypertension: Yes Dyslipidemia: Yes Congenital Heart Disease (CHD): No Peripheral Arterial Disease (PAD): No Myocardial Infarction (NM): No Chronic Lung Disease: No Obesity: No Renal Disease: No Coronary Artery Disease (CAD) Yes Congestive Heart Failure (CHF): No Cardiomyopathy/LV Systolic Dysfunction: No Diabetes Mellitus: No COPD: On Meds Tobacco Use: Former Cerebrovascular Disease: No Family History: Coronary Artery Disease Deep Vein Thrombosis (DVT): None Dialysis: None Frailty Scale (CSHA): 3: Managing Well Cardiac Arrest: No Summary 1. Complete two-dimensional, color flow and Doppler transthoracic echocardiogram is performed. 2. Left ventricular chamber dimension is normal. 3. Left ventricular systolic function is normal, estimated at 65-70%. 4. The left ventricular diastolic function is abnormal. 5. E/e' 15 is elevated. 6. There is mild aortic valve sclerosis. 7. There is mild mitral valve regurgitation. 8. There is trace tricuspid valve regurgitation. 9. No pulmonary hypertension, estimated pulmonary arterial systolic pressure is 17 mmHg. 10. There is trace pulmonic regurgitation. Left Ventricle E/e' 15 is elevated. Left ventricular chamber dimension is normal. Left ventricular systolic function is normal, estimated at 65-70%. The left ventricular diastolic function is abnormal. Right Ventricle Right ventricular systolic function is normal and with normal TAPSE 3.3 cm. Right ventricular chamber dimension is normal. Left Atria Left atrial chamber dimension is normal. Right Atria Right atrial chamber dimension is normal. Aortic Valve The aortic valve is trileaflet. There is mild aortic valve sclerosis. There is no aortic valve stenosis. There is no aortic valve regurgitation. Pulmonic Valve There is trace pulmonic regurgitation. Mitral Valve There is no mitral valve stenosis. There is mild mitral valve regurgitation. Tricuspid Valve There is trace tricuspid valve regurgitation. No pulmonary hypertension, estimated pulmonary arterial systolic pressure is 17 mmHg. Pericardium/Pleural There is no pericardial effusion. Inferior Vena Cava Normal inferior vena cava with >50% collapse upon inspiration consistent with normal right atrial pressure, 5 mmHg. Aorta The aortic root size at the sinus of Valsalva is normal. Left Ventricular Outflow Tract Name Value Normal LVOT 2D LVOT Diameter 2.0 cm LVOT Doppler LVOT Peak Velocity 107 cm/s LVOT Peak Gradient
== END 2022-09-01 14:57 | disposition home or self-care (01) ==
LOC: CHSIMG 14:57
PROVIDERS: PCP Internal Medicine; Visit Provider Internal Medicine Cardiovascular Disease
DX: R60.0 Localized edema (principal); I08.3 Combined rheumatic disorders of mitral, aortic and tricuspid valves
CPT/HCPCS: 93306

== ENCOUNTER 2022-09-15 11:24 | Outpatient (NON) | payer MEDICARE, SELFPAY ==
[2022-09-15 12:03] LABS: Alanine Aminotransferase 27 U/L (14-59); Albumin Level 3.6 g/dL (3.4-5.0); Alkaline Phosphatase 87 U/L (46-116); Anion Gap 7 mmol/L (8-16); Aspartate Amino Transferase 32 U/L (15-37); Bilirubin,Total 0.5 mg/dL (0.00-1.00); Blood Urea Nitrogen 14 mg/dL (7-18); Calcium 9.3 mg/dL (8.5-10.1); Carbon Dioxide 30 mmol/L (21-32); Chloride 92 mmol/L (98-108); Estimated Glomerular Filt Rate > 60; Glucose 112 mg/dL (70-99); Magnesium 1.6 mg/dL (1.8-2.4); NT Pro B Type Natriuretic Pept 198 pg/mL (0-450); Osmolality Calculated 269 mOsm/kg (285-295); Phosphorus 4.2 mg/dL (2.6-4.7); Potassium 4.2 mmol/L (3.5-5.1); Sodium 129 mmol/L (136-145); Total Protein 7.2 g/dL (6.4-8.2)
== END 2022-09-15 11:25 | disposition home or self-care (01) ==
LOC: CHSLAB 11:25
PROVIDERS: Visit Provider Internal Medicine
DX: I50.9 Heart failure, unspecified (principal); E87.6 Hypokalemia
CPT/HCPCS: 36415; 80053; 83735; 83880; 84100

== ENCOUNTER 2022-09-22 09:49 | Outpatient (NON) | payer MEDICARE, SELFPAY ==
[2022-09-22 10:20] LABS: Alanine Aminotransferase 26 U/L (14-59); Albumin Level 3.3 g/dL (3.4-5.0); Alkaline Phosphatase 104 U/L (46-116); Anion Gap 8 mmol/L (8-16); Aspartate Amino Transferase 23 U/L (15-37); Bilirubin,Total 0.5 mg/dL (0.00-1.00); Blood Urea Nitrogen 9 mg/dL (7-18); Calcium 8.9 mg/dL (8.5-10.1); Carbon Dioxide 28 mmol/L (21-32); Chloride 94 mmol/L (98-108); Estimated Glomerular Filt Rate > 60; Glucose 101 mg/dL (70-99); Osmolality Calculated 268 mOsm/kg (285-295); Potassium 4.2 mmol/L (3.5-5.1); Sodium 130 mmol/L (136-145); Total Protein 7.2 g/dL (6.4-8.2)
== END 2022-09-22 09:50 | disposition home or self-care (01) ==
LOC: CHSLAB 09:51
PROVIDERS: PCP Internal Medicine; Visit Provider Internal Medicine
DX: I11.0 Hypertensive heart disease with heart failure (principal); I50.33 Acute on chronic diastolic (congestive) heart failure; I50.31 Acute diastolic (congestive) heart failure; I10 Essential (primary) hypertension
CPT/HCPCS: 36415; 80053

== ENCOUNTER 2022-10-06 13:41 | Outpatient (CLI) | payer MEDICARE, SELFPAY ==
--- NOTE | 2022-10-09 14:07 | WPDPFTINT ---
PFT Procedure Performed PFT Procedure Performed Spirometry with Pre/Post Bronchodilator Plethysmography (Lung Vol) Diffusing Cap (DLCO) Flow Vol Loop PFT Interpretation DOS: 10/06/2022 REQUESTING: Lynette Garvey. REASON FOR TESTING: COPD PULMONARY FUNCTION TESTS Results are reliable and reproducible. Spirometry: FEV1 is 0.87 L, 47% predicted, severely decreased. FVC is 1.99 L, 85%, normal. FEV1/ FVC ratio was 44%, reduced consistent with airflow obstruction. After bronchodilator, there is a 1% increase in the FEV1 and a 5% increase in the FVC, not statistically significant. Post bronchodilator FEV1/ FVC ratio is 42%, severely reduced. Lung volumes: Total lung capacity is 5.5 L, 127% consistent with mild hyperinflation. Residual volume is 2.98 L, 162% consistent with severe air trapping RV/TLC is 54%, elevated consistent with air trapping. Elevated airway resistance, 7.33 cm H20/L/second, 496% predicted. Diffusion: DLCO is 8.1, 50%, moderately decreased. DLCO/VA is 2.43, 72%, corrects for alveolar volume. Flow volume loop: Severe coving of the expiratory limb consistent with obstruction. IMPRESSION: This study shows a severe obstructive ventilatory impairment without response to bronchodilator, mild hyperinflation, severe air trapping, moderate diffusion impairment with partial correction when adjusted for alveolar volume. Lack of response to bronchodilator should not preclude use if clinically indicated. No prior study is available for comparison Lynette Garvey MD
== END 2022-10-06 13:42 | disposition home or self-care (01) ==
LOC: CHSCARD 13:43
PROVIDERS: PCP Internal Medicine; Visit Provider Internal Medicine Critical Care Medicine
DX: J44.9 Chronic obstructive pulmonary disease, unspecified (principal)
CPT/HCPCS: 94060; 94726; 94729

== ENCOUNTER 2022-10-10 20:38 | Inpatient (IN) | payer MEDICARE, SELFPAY ==
[2022-10-10] VITALS (11 sets, daily range): BP systolic 134–156; BP diastolic 60–78; PULSE 77–98; RESP 20–32; TEMP 38.8–39.3; O2SAT 88–94
--- NOTE | ~2022-10-10 | CT_ITS ---
EXAMINATION: CTA chest PE protocol DATE: 10/11/2022 23:41 INDICATION: Hypoxia. TECHNIQUE: Computed tomography angiography (CTA) of the chest was performed with 100 mL Omnipaque-350 intravenous contrast timed to evaluate the pulmonary arteries. Coronal maximum intensity projection 3D-reconstructions were created by the technologist. Automated exposure control and iterative reconst ruction technique were employed. The dose-length product was 194.48 mGy-cm. COMPARISON: Chest CT 08/11/2022, 08/12/19 FINDINGS: There is mild emphysema. There is mild atelectasis bilaterally. There is mild scarring at t he lung apices. There are nodules in the upper lobes. There are peripheral airspace opacities in left lower lobe with heterogeneous enhancement, consistent with pneumonia. There is mucous plugging in le ft lower lobe. Cardiomegaly is noted. There are calcifications of the coronary arteries. No pericardi al effusion. There is no pulmonary embolus. There is mild mediastinal and bilateral hilar lymphadenop athy. Calcified mediastinal lymph nodes are consistent with old granulomatous disease. Aortic atheros clerosis is noted. There are epicardial electrodes in thoracic spine. There is severe thoracic spondy losis. IMPRESSION: 1. No pulmonary embolus. 2. Left lower lobe pneumonia. 3. Nodules in the upper lobes with worsening on the right and improvement on the left, likely infecti on. Noncontrast low-dose chest CT is recommended in 3 months. 4. Mild mediastinal and bilateral hilar lymphadenopathy, likely reactive. Reviewed, dictated and finalized at location A. IMPRESSION: 1. No pulmonary embolus. 2. Left lower lobe pneumonia. 3. Nodules in the upper lobes with worsening on the right and improvement on th e left, likely infection. Noncontrast low-dose chest CT is recommended in 3 mon ths. 4. Mild mediastinal and bilateral hilar lymphadenopathy, likely reactive.
--- NOTE | ~2022-10-10 | XR_ITS ---
EXAMINATION: XR chest 2V Exam Date/Time: 10/10/2022 21:30 CDT HISTORY: SHORTNESS OF BREATH. Comparison: 11/04/2021; CT CAP 08/11/2022. RESULT: Lines, tubes, and devices: Stimulator leads terminate over the midthoracic spine. Lungs and pleura: Biapical pleural scarring. Senescent and emphysematous changes. Increased mild dif fuse reticular opacities. Cuffing. Bibasilar scar/atelectasis. Cardiomediastinal silhouette: Stable. Other: No acute osseous or upper abdominal finding. IMPRESSION: Mild interstitial edema. Reviewed, dictated and finalized at location K. IMPRESSION: Mild interstitial edema.
--- NOTE | 2022-10-10 20:53 | ED.SOB ---
HPI - SOB/Dyspnea General Chief Complaint: Shortness of Breath/Dyspnea Stated Complaint: SOB Time Seen by Provider: 10/10/22 20:53 Source: patient, EMS and RN notes reviewed Mode of arrival: EMS Limitations: no limitations History of Present Illness MD elicited complaint: shortness of breath and cough Pertinent past history: COPD Onset (ago): week(s) (1) Timing: constant and progressively worsening Exacerbating factors: exertion and coughing Relieving factors: oxygen Known history of: COPD and congestive heart failure Associated symptoms: fever Related Data Home oxygen amount: none Home Medications Medication Instructions Recorded Confirmed albuterol sulfate 90 mcg/actuation 2 puff inhalation Q4H PRN 04/01/19 10/10/22 aerosol inhaler (Ventolin HFA) Shortness Of Breath aspirin 325 mg tablet 325 mg PO DAILY 04/01/19 10/10/22 esomeprazole magnesium 40 mg 40 mg PO DAILY 04/01/19 10/10/22 capsule,delayed release evening primrose oil-linoleic 1 cap PO DAILY 04/01/19 10/10/22 acid-gamolenic acid 1,000 mg capsule ([employer] Oil) levothyroxine 50 mcg tablet 75 mcg PO DAILY 04/01/19 10/10/22 meclizine 25 mg tablet 25 mg PO TID PRN Vertigo 04/01/19 10/10/22 oxycodone-acetaminophen 10 mg-325 1 tablet PO Q6H PRN Pain 10/03/19 10/10/22 mg tablet fluoxetine 10 mg capsule 40 mg PO DAILY 11/05/20 10/10/22 fluticasone fur. 100 mcg-umeclid 1 inh inhalation DAILY 11/04/21 10/10/22 62.5 mcg-vilant 25 mcg inhalat.powder (Trelegy Ellipta) hydroxyzine HCl 25 mg tablet 25 mg PO TID PRN Allergy Symptoms 07/31/22 10/10/22 montelukast 10 mg tablet 10 mg PO DAILY 07/31/22 10/10/22 cholecalciferol (vitamin D3) 25 25 mcg PO DAILY 10/10/22 10/10/22 mcg (1,000 unit) tablet (Vitamin D3) multivitamin 1 tablet PO DAILY 10/10/22 10/10/22 oxycodone-acetaminophen 10 mg-325 1 tablet PO PRN PRN Pain 10/10/22 10/10/22 mg tablet rosuvastatin 20 mg tablet 20 mg PO DAILY 10/10/22 10/10/22 Allergies Allergy/AdvReac Type Severity Reaction Status Date / Time iodine Allergy Severe Hives / Verified 09/22/22 13:10 Red Face amlodipine Allergy Unknown Unknown Verified 09/22/22 13:10 clindamycin Allergy Unknown Nausea Verified 09/22/22 13:10 diltiazem Allergy Unknown Unknown Verified 09/22/22 13:10 Iodine and Iodide Containing Allergy Unknown Unknown Verified 09/22/22 13:10 Produc nickel Allergy Unknown Rash Verified 09/22/22 13:10 Penicillins Allergy Unknown Unknown Verified 09/22/22 13:10 SHELLFISH Allergy Severe Vomiting Uncoded 09/22/22 13:10 [facility] Past Medical History Medical History (Updated 10/10/22 @ 22:10 by Vick Witt MD) CAD in tunica[place]biloxi artery Chest pain at rest Chronic obstructive pulmonary disease, unspecified Chronic, continuous use of opioids Congestive heart failure Dyslipidemia Essential hypertension Family history of colon cancer in mother Hypothyroidism Iron deficiency anemia Pneumonia Surgical History Surgical History History of appendectomy History of hysterectomy History of tonsillectomy Hx of heart artery stent Status post insertion of spinal cord stimulator Family History Family History (Updated 09/22/22 @ 13:16 by Carmel Foley [facility]) Father , Heart attack @ 74 Family history of coronary artery disease Family history of sudden Mother , Cancer @ 74 Colon cancer Liver cancer Uterine cancer Unknown , Maternal family long line of cancer Paternal family long line of heart disease No problems noted. Social History Social History (Updated 10/10/22 @ 21:01 by Vick Witt MD) Social History: Patient elects her daughter to be her surrogate. 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
[2022-10-10] MEDS: IBUPROFEN 600 MG TABLET PO (21:06)
[2022-10-10 21:20] LABS: Basophils Absolute Auto 0.04 K/mm3 (0.00-0.10); Basophils Percent Auto 0.3 % (0.0-1.0); Eosinophils Absolute Auto 0.06 K/mm3 (0.02-0.50); Eosinophils Percent Auto 0.5 % (1.0-6.0); Hematocrit 38.5 % (35.0-42.0); Hemoglobin 12.9 g/dL (11.7-13.8); Immature Granulocyte Absolute 0.09 K/mm3 (0.00-0.00); Immature Granulocyte Percent A 0.7 % (0.0-0.0); Lymphocytes Absolute Auto 0.79 K/mm3 (1.10-4.50); Lymphocytes Percent Auto 6.2 % (18.0-42.0); Mean Corpuscular HGB Conc 33.5 g/dL (32.0-36.0); Mean Corpuscular Hemoglobin 28.5 pg (27.0-31.0); Mean Corpuscular Volume 85.2 fL (78.0-102.0); Mean Platelet Volume 8.6 fl (9.2-11.8); Monocytes Absolute Auto 0.41 K/mm3 (0.10-0.90); Monocytes Percent Auto 3.2 % (2.0-11.0); Neutrophils Absolute Auto 11.4 K/mm3 (1.7-7.2); Neutrophils Percent Auto 89.1 % (50.0-70.0); Platelet Count Result 258 K/mm3 (150-420); Red Blood Count 4.52 M/mm3 (4.20-5.40); Red Cell Distribution Width 15.2 % (11.6-14.4); White Blood Count 12.8 K/mm3 (4.8-10.8)
[2022-10-10 21:39] LABS: Alanine Aminotransferase 17 U/L (14-59); Albumin Level 3.6 g/dL (3.4-5.0); Alkaline Phosphatase 122 U/L (46-116); Anion Gap 12 mmol/L (8-16); Aspartate Amino Transferase 19 U/L (15-37); Bilirubin,Total 0.9 mg/dL (0.00-1.00); Blood Urea Nitrogen 17 mg/dL (7-18); Calcium 9.4 mg/dL (8.5-10.1); Carbon Dioxide 26 mmol/L (21-32); Chloride 93 mmol/L (98-108); Estimated CRCL calculation 35 ml/min; Estimated Glomerular Filt Rate 52; Glucose 133 mg/dL (70-99); Magnesium 1.3 mg/dL (1.8-2.4); NT Pro B Type Natriuretic Pept 826 pg/mL (0-450); Osmolality Calculated 275 mOsm/kg (285-295); Potassium 3.5 mmol/L (3.5-5.1); Sodium 131 mmol/L (136-145); Total Protein 7.7 g/dL (6.4-8.2)
[2022-10-10] MEDS: IPRATROPIUM 0.5 MG/ALBUTEROL SULFATE 2.5 MG AMPUL.NEB 3 ML INHALATION ×2 (21:50→23:48)
--- NOTE | 2022-10-10 22:01 | PC.NURSE ---
Pt is resting comfortably p neb tx, RR even anon nonlabored, she is still on 5-6 L NC O2 and SPO2 is at 91%. Cough present at times is loose and nonproductive. She is resting c eyes closed, call oliveira at side awaiting return of some pending labs. Family informed on wait time for covid testing.
[2022-10-10 22:03] LABS: Influenza A QL RT-PCR Negative (Negative); Influenza B QL RT-PCR Negative (Negative); SARS-CoV-2 RNA PCR Negative (Negative)
[2022-10-10 22:04] LABS: RSV RNA, RT-PCR Negative (Negative)
--- NOTE | 2022-10-10 22:31 | PC.NURSE ---
Pt resting c eyes closed, family at bedside, POC discussed for 23 hr obs. Pt will go to Rm 207.
[2022-10-10] MEDS: FUROSEMIDE INJ 40 MG/4 ML VIAL IV PUSH (22:41)
[2022-10-10] MEDS: MAGNESIUM SULF 2 GM/WATER 50ML 2 GM/50 ML BAG IVPB (22:42)
--- NOTE | 2022-10-10 23:58 | PC.NURSE ---
Patient admitted to room 206, is alert and oriented, very weak, no c/o pain, declines carrillo catheter at this time.
[2022-10-11] VITALS (17 sets, daily range): BP systolic 113–136; BP diastolic 42–76; PULSE 65–79; RESP 16–20; TEMP 36.1–36.8; O2SAT 90–97; BMI 24.1
--- NOTE | 2022-10-11 00:31 | PC.NURSE ---
On 10/11/22, the BRIM STITCHER, [Marlin Gilman ], provided care and completed [employer] documentation on this patient. I have reviewed the BRIM STITCHER's documentation and agree with the findings.
[2022-10-11] MEDS: ACETAMINOPHEN 325 MG TABLET 650 MG PO (02:43)
[2022-10-11 05:19] LABS: Basophils Absolute Auto 0.03 K/mm3 (0.00-0.10); Basophils Percent Auto 0.2 % (0.0-1.0); Hematocrit 37.7 % (35.0-42.0); Hemoglobin 12.7 g/dL (11.7-13.8); Immature Granulocyte Absolute 0.13 K/mm3 (0.00-0.00); Immature Granulocyte Percent A 0.7 % (0.0-0.0); Lymphocytes Absolute Auto 0.85 K/mm3 (1.10-4.50); Lymphocytes Percent Auto 4.3 % (18.0-42.0); Mean Corpuscular HGB Conc 33.7 g/dL (32.0-36.0); Mean Corpuscular Hemoglobin 28.6 pg (27.0-31.0); Mean Corpuscular Volume 84.9 fL (78.0-102.0); Mean Platelet Volume 8.9 fl (9.2-11.8); Neutrophils Absolute Auto 18.6 K/mm3 (1.7-7.2); Neutrophils Percent Auto 92.8 % (50.0-70.0); Platelet Count Result 252 K/mm3 (150-420); Red Blood Count 4.44 M/mm3 (4.20-5.40); Red Cell Distribution Width 15.4 % (11.6-14.4)
--- NOTE | 2022-10-11 05:22 | PC.NURSE ---
Lab called to report a critical WBC of 20.0.
[2022-10-11 05:25] LABS: Anion Gap 13 mmol/L (8-16); Blood Urea Nitrogen 17 mg/dL (7-18); Calcium 9.1 mg/dL (8.5-10.1); Carbon Dioxide 28 mmol/L (21-32); Chloride 92 mmol/L (98-108); Estimated CRCL calculation 31 ml/min; Estimated Glomerular Filt Rate 51; Glucose 177 mg/dL (70-99); Magnesium 1.8 mg/dL (1.8-2.4); Osmolality Calculated 281 mOsm/kg (285-295); Potassium 2.9 mmol/L (3.5-5.1); Sodium 133 mmol/L (136-145)
[2022-10-11] MEDS: IPRATROPIUM 0.5 MG/ALBUTEROL SULFATE 2.5 MG AMPUL.NEB 3 ML INHALATION ×4 (05:33→23:47)
--- NOTE | 2022-10-11 07:35 | PM.IMHP ---
H&P: HPI History of Present Illness Date/Time: 10/11/22 07:35 Chief Complaint: weakness and dyspnea Narrative: A 77-year-old female patient with history of COPD and CHF who presented to the emergency department via EMS last night due to profound weakness and found to be in respiratory distress. Patient noted to require significant amount of supplemental oxygenation and was saturating 88% on 6 L nasal cannula. Since diuresis, IV steroids and IV magnesium patient is now on 4.5 liters/minute. Patient found to be febrile in the emergency department which improved with Tylenol. Blood cultures were drawn and patient was started on ceftriaxone but urine sample was never collected before initiation of antibiotics. Patient has a past history of urinary tract infections. Renal function remains preserved. Patient reports severe low back pain and bilateral leg pain related to chronic severe spinal stenosis. She takes 10 mg hydrocodone Q6H at home and has missed several doses. She reports her pain is 10/10 right now. Patient denies chest pain, abdominal pain, nausea, vomiting, diarrhea, constipation or any bleeding. Review of Systems Review of Systems: All systems reviewed & are unremarkable except as noted in HPI and below PMFSH Past Medical History Medical History CAD in [place] artery Chest pain at rest Chronic obstructive pulmonary disease, unspecified Chronic, continuous use of opioids Congestive heart failure Dyslipidemia Essential hypertension Family history of colon cancer in mother Hypothyroidism Iron deficiency anemia Pneumonia Surgical History Surgical History History of appendectomy History of hysterectomy History of tonsillectomy Hx of heart artery stent Status post insertion of spinal cord stimulator Family History Family History Father , Heart attack @ 74 Family history of coronary artery disease Family history of sudden Mother , Cancer @ 74 Colon cancer Liver cancer Uterine cancer Unknown , Maternal family long line of cancer Paternal family long line of heart disease No problems noted. Social History Social History Social History: Patient elects her daughter to be her surrogate. 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cco smoke exposure: No Smoking end date: 04/24/07 Alcohol intake: never Substance use: never Substance use type: does not use Lack of Transportation: No Lack of Food: Never True Current Housing: I Have Housing Concerned About Future Housing: No Difficulty Paying Gas/Electric Bills: No Difficulty Paying for Meds: No Currently Unemployed: No Education: Associate Degree Difficulty w/ Childcare or Family Care: No Living arrangements: alone 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 Gender identity (if verbalized by the patient): Female Sexual Orientation (if Verbalized by the Patient): Straight or Heterosexual Spiritual care concerns: No Agree to blood products: Yes Meds Home Medications and Allergies Home Medications Medication Instructions Recorded Confirmed Type albuterol sulfate 90 mcg/actuation 2 puff inhalation Q4H PRN 04/01/19 10/10/22 History aerosol inhaler (Ventolin HFA) Shortness Of Breath aspirin 325 mg tablet 325 mg PO DAILY 04/01/19 10/10/22 History esomeprazole magnesium 40 mg 40 mg PO DAILY 04/01/19 10/10/22 History capsule,delayed release evening primrose oil-linoleic 1 cap PO DAILY 04/01/19
[2022-10-11] MEDS: oxyCODONE/ACETAMINOPHEN (*CRX) 10-325 MG TABLET 1 TAB PO ×3 (07:55→20:12)
[2022-10-11] MEDS: POTASSIUM CHLORIDE 20 MEQ ER TABLET 40 MEQ PO (07:56)
[2022-10-11] MEDS: LEVOTHYROXINE SODIUM 75 MCG TABLET PO (07:57)
[2022-10-11] MEDS: cefTRIAXone 2 GM/NS 100 ML 2 GM/100 ML BAG IVPB (08:00)
[2022-10-11 08:38] LABS: Appearance Urine Clear (Clear); Bilirubin Urine Negative (Negative); Blood Urine Negative (Negative); Color Urine Light Yellow (Yellow); Glucose Urine UA Negative (Negative); Ketones Urine Trace (Negative); Leukocyte Esterase Ur Negative LEU/UL (Negative); Nitrate Urine Positive (Negative); Protein Urine Negative (Negative); Specific Grav Ur 1.015 (1.010-1.020); Urobilinogen Urine 0.2 mg/dL (0.2-1.0)
[2022-10-11 08:41] LABS: Add Urine Microscopic? YES; Bacteria Urine 3+ /hpf; RBC Urine None seen /hpf (0-2); Squamous Epithelial Cell Urine Few /hpf (Few); WBC Urine 0-3 /hpf (0-3)
[2022-10-11] MEDS: AZITHROMYCIN 500 MG/NS 250 ML 500 MG/250 ML BAG 250 MG IVPB (08:48)
[2022-10-11] MEDS: ENOXAPARIN 40 MG/0.4 ML SYRINGE SUB-Q (08:54)
[2022-10-11] MEDS: ramipriL 5 MG CAPSULE 10 MG BY MOUTH (08:56)
[2022-10-11] MEDS: FLUoxetine HCL 10 MG CAPSULE 40 MG PO (08:56)
[2022-10-11] MEDS: ASPIRIN 325 MG ENTERIC TABLET PO (08:58)
[2022-10-11] MEDS: CHOLECALCIFEROL 1,000 UNITS TABLET 1000 UNITS PO (08:58)
[2022-10-11] MEDS: TAMSULOSIN HCL 0.4 MG CAPSULE PO (09:00)
[2022-10-11] MEDS: PROPRANOLOL HCL 60 MG CAPSULE CR BY MOUTH ×2 (09:00→20:12)
[2022-10-11] MEDS: hydrALAZINE HCL 25 MG TABLET PO ×2 (09:00→17:07)
[2022-10-11] MEDS: MULTIVITAMINS THERAPEUTIC TAB (*BKC) 1 TABLET PO (09:01)
[2022-10-11] MEDS: ROSUVASTATIN 10 MG TABLET 20 MG PO (09:01)
[2022-10-11] MEDS: FUROSEMIDE 20 MG TABLET PO (09:02)
[2022-10-11] MEDS: methylPREDNISolone SOD SUCC 125 MG VIAL IV PUSH (09:02)
[2022-10-11] MEDS: MONTELUKAST SODIUM 10 MG TABLET PO (09:02)
[2022-10-11] MEDS: PANTOPRAZOLE 40 MG TABLET PO (09:11)
[2022-10-11] MEDS: FLUTICASONE/UMECLIDIN/VILANTER 100-62.5-25 MCG ELLIPTA 1 PUFF INHALATION (09:11)
[2022-10-11 09:34] LABS: D Dimer 1.61 mg/L (0.19-0.50)
--- NOTE | 2022-10-11 09:36 | PC.NURSE ---
Patient on continuous SPO2 monitoring.
--- NOTE | 2022-10-11 09:38 | PC.NURSE ---
Patient has positive d-dimer. 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
[2022-10-11] MEDS: ENOXAPARIN 60 MG/0.6 ML SYRINGE 20 MG SUB-Q (10:40)
[2022-10-11] MEDS: HYDROCORTISONE SODIUM SUCCINATE 100 MG/2 ML VIAL 200 MG IV PUSH ×3 (10:51→22:29)
--- NOTE | 2022-10-11 11:47 | PC.NURSE ---
Decreased O2 from 5L n/c to 4L n/c. Patient SPO2 at 94 at this time.
--- NOTE | 2022-10-11 12:20 | PC.NURSE ---
Patient changed from observation to inpatient status.
[2022-10-11] MEDS: HYDROCORTISONE SODIUM SUCCINATE 100 MG/2 ML VIAL 200 MG (15:50)
--- NOTE | 2022-10-11 16:33 | PC.NURSE ---
Patient's SPO2 at 90% on 4 L via n/c.
[2022-10-11] MEDS: ENOXAPARIN 60 MG/0.6 ML SYRINGE SUB-Q (20:14)
[2022-10-11] MEDS: diphenhydrAMINE HCl INJ 50 MG/ML VIAL IV PUSH (22:29)
--- NOTE | 2022-10-11 23:20 | PC.NURSE ---
Pt off unit at this time for CTA with contrast, transported via w/c, accompanied by Deshawn from Radiology.
--- NOTE | 2022-10-11 23:45 | PC.NURSE ---
Pt returned to unit at this time from CTA, transported via w/c, accompanied by Deshawn of Radiology, procedure tolerated well, no adverse reactions noted from contrast.
[2022-10-12] VITALS (9 sets, daily range): BP systolic 128–140; BP diastolic 45–63; PULSE 60–77; RESP 16–20; TEMP 36.4–36.6; O2SAT 91–98
[2022-10-12] MEDS: oxyCODONE/ACETAMINOPHEN (*CRX) 10-325 MG TABLET 1 TAB PO ×2 (02:10→08:25)
[2022-10-12] MEDS: IPRATROPIUM 0.5 MG/ALBUTEROL SULFATE 2.5 MG AMPUL.NEB 3 ML INHALATION (04:57)
[2022-10-12] MEDS: LEVOTHYROXINE SODIUM 75 MCG TABLET PO (05:11)
[2022-10-12 05:32] LABS: Hematocrit 34.9 % (35.0-42.0); Hemoglobin 11.9 g/dL (11.7-13.8); Mean Corpuscular HGB Conc 34.1 g/dL (32.0-36.0); Mean Corpuscular Hemoglobin 28.7 pg (27.0-31.0); Mean Corpuscular Volume 84.1 fL (78.0-102.0); Mean Platelet Volume 8.9 fl (9.2-11.8); Platelet Count Result 245 K/mm3 (150-420); Red Blood Count 4.15 M/mm3 (4.20-5.40); Red Cell Distribution Width 15.5 % (11.6-14.4)
[2022-10-12 05:38] LABS: White Blood Count 21.3 K/mm3 (4.8-10.8)
[2022-10-12 05:50] LABS: Alanine Aminotransferase 24 U/L (14-59); Albumin Level 2.9 g/dL (3.4-5.0); Alkaline Phosphatase 92 U/L (46-116); Anion Gap 9 mmol/L (8-16); Aspartate Amino Transferase 19 U/L (15-37); Bilirubin,Total 0.4 mg/dL (0.00-1.00); Blood Urea Nitrogen 19 mg/dL (7-18); Calcium 9.3 mg/dL (8.5-10.1); Carbon Dioxide 28 mmol/L (21-32); Chloride 94 mmol/L (98-108); Estimated CRCL calculation 39 ml/min; Estimated Glomerular Filt Rate > 60; Glucose 138 mg/dL (70-99); Magnesium 1.8 mg/dL (1.8-2.4); Osmolality Calculated 276 mOsm/kg (285-295); Potassium 3.5 mmol/L (3.5-5.1); Sodium 131 mmol/L (136-145); Total Protein 7.1 g/dL (6.4-8.2)
[2022-10-12 05:52] LABS: Band Neutrophils Percent 2 % (0-6); Neutrophils Percent Manual 91 % (46-73); Total Cells Counted 100
[2022-10-12 05:53] LABS: Lymphocytes Absolute Manual 0.85 K/mm3 (1.1-4.5); Lymphocytes Percent Manual 4 % (18-44); Monocytes Absolute Manual 0.63 K/mm3 (0.1-0.90); Monocytes Percent Manual 3 % (3-9); Platelet Estimate Adequate (Adequate); Schistocytes None Seen (NORMAL)
--- NOTE | 2022-10-12 07:06 | PC.NURSE ---
Rajan Oscar NP contacted re: CTA of chest results, indicating no Pulmonary Embolism, Left lower lobe extensive atelectasis and endobronchial occlusion, recommend bronchoscopy; correlate for aspiration or pneumonia; otherwise no acute abnormality; similar pulmonary nodules requiring follow-up. Also, WBC critical varinder of 21.3, up fro, 20.0 yesterday.
[2022-10-12] MEDS: cefTRIAXone 2 GM/NS 100 ML 2 GM/100 ML BAG IVPB (08:14)
[2022-10-12] MEDS: ENOXAPARIN 60 MG/0.6 ML SYRINGE SUB-Q (08:14)
[2022-10-12] MEDS: methylPREDNISolone SOD SUCC 125 MG VIAL IV PUSH (08:16)
[2022-10-12] MEDS: MONTELUKAST SODIUM 10 MG TABLET PO (08:19)
[2022-10-12] MEDS: MULTIVITAMINS THERAPEUTIC TAB (*BKC) 1 TABLET PO (08:19)
[2022-10-12] MEDS: FLUoxetine HCL 10 MG CAPSULE 40 MG PO (08:20)
[2022-10-12] MEDS: ASPIRIN 325 MG ENTERIC TABLET PO (08:21)
[2022-10-12] MEDS: FUROSEMIDE 20 MG TABLET PO (08:21)
[2022-10-12] MEDS: CHOLECALCIFEROL 1,000 UNITS TABLET 1000 UNITS PO (08:21)
[2022-10-12] MEDS: POTASSIUM CHLORIDE 10 MEQ ER TABLET PO (08:22)
[2022-10-12] MEDS: ROSUVASTATIN 10 MG TABLET 20 MG PO (08:22)
[2022-10-12] MEDS: TAMSULOSIN HCL 0.4 MG CAPSULE PO (08:22)
[2022-10-12] MEDS: hydrALAZINE HCL 25 MG TABLET PO (08:22)
[2022-10-12] MEDS: PANTOPRAZOLE 40 MG TABLET PO (08:23)
[2022-10-12] MEDS: ramipriL 5 MG CAPSULE 10 MG BY MOUTH (08:25)
[2022-10-12] MEDS: PROPRANOLOL HCL 60 MG CAPSULE CR BY MOUTH (08:26)
[2022-10-12] MEDS: FLUTICASONE/UMECLIDIN/VILANTER 100-62.5-25 MCG ELLIPTA 1 PUFF INHALATION (08:27)
--- NOTE | 2022-10-12 08:55 | PM.TDS ---
Transfer Discharge Sum: Prov Provider Date of admission: 10/11/22 20:34 Primary care physician: Bhanu Hinojosa MD Admitting clinician: Teddy Morales MD Attending physician on admission: Tremayne Morales Attending physician on discharge: Tremayne Morales Discharging clinician: Luis Oscar Anticipated date of transfer: 10/12/22 Receiving physician/facility: [facility] Dr. Radha Felder DS: Admitting Diagnosis Discharge Date 10/12/2022 Admitting Diagnosis Sepsis unspecified organism COPD with acute exacerbation Congestive heart Acute respiratory failure with hypoxia Hypokalemia Essential hypertension Hyponatremia, chronic Hypo magnesemia DS: Discharge Diagnosis Discharge Diagnosis (1) Acute respiratory failure with hypoxia: Code(s): J96.01 - Acute respiratory failure with hypoxia Status: Acute (2) Sepsis: Code(s): A41.9 - Sepsis, unspecified organism Status: Acute (3) Bronchial obstruction: Code(s): J98.09 - Other diseases of bronchus, not elsewhere classified Status: Acute (4) Pneumonia: Qualifiers: Pneumonia type: due to unspecified organism Laterality: right Lung location: middle lobe of lung Qualified Code(s): J18.9 - Pneumonia, unspecified organism Code(s): J18.9 - Pneumonia, unspecified organism Status: Acute (5) UTI (urinary tract infection): Code(s): N39.0 - Urinary tract infection, site not specified Status: Acute (6) Chronic obstructive pulmonary disease, unspecified: Qualifiers: COPD type: COPD with acute exacerbation Qualified Code(s): J44.1 - Chronic obstructive pulmonary disease with (acute) exacerbation Code(s): J44.9 - Chronic obstructive pulmonary disease, unspecified Status: Acute (7) Hyponatremia: Code(s): E87.1 - Hypo-osmolality and hyponatremia Status: Chronic (8) Congestive heart failure: Qualifiers: Heart failure type: diastolic Heart failure chronicity: acute on chronic Qualified Code(s): I50.33 - Acute on chronic diastolic (congestive) heart failure Code(s): I50.9 - Heart failure, unspecified Status: Acute (9) Essential hypertension: Code(s): I10 - Essential (primary) hypertension Status: Acute Plan Transfer to higher level of care capable of bronchoscopy. Transfer Discharge Sum: Med Medications Active and Home Medications: Home Medications albuterol sulfate 90 mcg/actuation aerosol inhaler (Ventolin HFA) 2 puff inhalation Q4H PRN Shortness Of Breath 04/01/19 [History Confirmed 10/10/22] aspirin 325 mg tablet 325 mg PO DAILY 04/01/19 [History Confirmed 10/10/22] esomeprazole magnesium 40 mg capsule,delayed release 40 mg PO DAILY 04/01/19 [History Confirmed 10/10/22] evening primrose oil-linoleic acid-gamolenic acid 1,000 mg capsule ([place] Oil) 1 cap PO DAILY 04/01/19 [History Confirmed 10/10/22] levothyroxine 50 mcg tablet 75 mcg PO DAILY 04/01/19 [History Confirmed 10/10/22] meclizine 25 mg tablet 25 mg PO TID PRN Vertigo 04/01/19 [History Confirmed 10/10/22] oxycodone-acetaminophen 10 mg-325 mg tablet 1 tablet PO Q6H PRN Pain 10/03/19 [History Confirmed 10/10/22] fluoxetine 10 mg capsule 40 mg PO DAILY 11/05/20 [History Confirmed 10/10/22] omega-3 acid ethyl esters 1 gram capsule See Rx Instructions .Route .COMPLEX #180 caps 08/25/21 [Rx Confirmed 10/10/22] fluticasone fur. 100 mcg-umeclid 62.5 mcg-vilant 25 mcg inhalat.powder (Trelegy Ellipta) 1 inh inhalation DAILY 11/04/21 [History Confirmed 10/10/22] hydralazine 25 mg tablet 25 mg PO BID #60 tabs 05/20/22 [Rx Confirmed 10/10/22] ramipril 10 mg capsule See Rx Instructions .Route .COMPLEX #90 caps 06/10/22 [Rx Confirmed 10/10/22] hydroxyzine HCl 25 mg tablet 25 mg PO TID PRN Allergy Symptoms 07/31/22 [History Confirmed 10/10/22] montelukast 10 mg tablet 10 mg PO DAILY 07/31/22 [History Confirmed 10/10/22] comp.stocking,knee,long,medium #6 ea 08/04/22 [Rx
[2022-10-12] MEDS: AZITHROMYCIN 500 MG/NS 250 ML 500 MG/250 ML BAG 250 MG IVPB (09:06)
--- NOTE | 2022-10-12 09:13 | PC.NURSE ---
RETROFIT INSTALLER plan was to transfer patient to [place]. Patient refuses to go to [place], stating that she will only go to [place]. RETROFIT INSTALLER aware of patient's concerns. Awaiting RETROFIT INSTALLER arrival to speak to patient.
--- NOTE | 2022-10-12 09:29 | PC.NURSE ---
Report given to DOMENIC Sarah at [facility] in anticipation of discharge. Patient's daughter in patient's room right now, encouraging patient to go to [place] if [facility]NER is able to send her there. Still awaiting [facility]CEL[facility] TURNER to speak to patient.
--- NOTE | 2022-10-12 12:35 | PC.NURSE ---
[facility] here to pick patient up and transfer to [facility] in [place]. Telemetry and O2 switched over to ambulance equipment. Report had been called to DOMENIC Sarah at [facility].
== END 2022-10-12 12:35 | disposition short-term general hospital (02) | DRG 871 ==
LOC: CHSED 22:10 → CHS2ND 22:32
PROVIDERS: Nurse Practitioner; Admitting Provider Internal Medicine; Emergency Provider Emergency Medicine; PCP Internal Medicine; Visit Provider Internal Medicine
DX: A41.9 Sepsis, unspecified organism (principal); I50.33 Acute on chronic diastolic (congestive) heart failure; J18.9 Pneumonia, unspecified organism; J96.01 Acute respiratory failure with hypoxia; J44.0 Chronic obstructive pulmonary disease with (acute) lower respiratory infection; J44.1 Chronic obstructive pulmonary disease with (acute) exacerbation; E87.1 Hypo-osmolality and hyponatremia; N39.0 Urinary tract infection, site not specified; I11.0 Hypertensive heart disease with heart failure; I25.10 Atherosclerotic heart disease of native coronary artery without angina pectoris; E87.6 Hypokalemia; E83.42 Hypomagnesemia; E78.5 Hyperlipidemia, unspecified; E03.9 Hypothyroidism, unspecified; J98.09 Other diseases of bronchus, not elsewhere classified; D50.9 Iron deficiency anemia, unspecified; Z66 Do not resuscitate; Z80.0 Family history of malignant neoplasm of digestive organs; Z95.5 Presence of coronary angioplasty implant and graft; Z96.82 Presence of neurostimulator; Z79.82 Long term (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 of aspirin; Z79.891 Long term (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 of opiate analgesic; Z87.891 Personal history of nicotine dependence
CPT/HCPCS: 36415; 71046; 71275; 80048; 80053; 81001; 83605; 83735; 83880; 85025; 85380; 87040; 87077; 87086; 87088; 87186; 87637; 94640; 96365; 96367; 96372; 96375; 99285; A9270; G0378; J0456; J0696; J1200; J1650; J1720; J1940; J2930; J3475; Q9967

== ENCOUNTER 2022-10-28 10:35 | Outpatient (CLI) | payer MEDICARE, SELFPAY ==
[2022-10-28 10:50] LABS: Basophils Absolute Auto 0.06 K/mm3 (0.00-0.10); Eosinophils Absolute Auto 0.22 K/mm3 (0.02-0.50); Eosinophils Percent Auto 3.8 % (1.0-6.0); Hematocrit 34.3 % (35.0-42.0); Hemoglobin 11.6 g/dL (11.7-13.8); Immature Granulocyte Absolute 0.01 K/mm3 (0.00-0.00); Immature Granulocyte Percent A 0.2 % (0.0-0.0); Lymphocytes Absolute Auto 1.32 K/mm3 (1.10-4.50); Lymphocytes Percent Auto 22.8 % (18.0-42.0); Mean Corpuscular HGB Conc 33.8 g/dL (32.0-36.0); Mean Corpuscular Hemoglobin 29.4 pg (27.0-31.0); Mean Corpuscular Volume 86.8 fL (78.0-102.0); Mean Platelet Volume 8.6 fl (9.2-11.8); Monocytes Absolute Auto 0.52 K/mm3 (0.10-0.90); Neutrophils Absolute Auto 3.7 K/mm3 (1.7-7.2); Neutrophils Percent Auto 63.2 % (50.0-70.0); Platelet Count Result 199 K/mm3 (150-420); Red Blood Count 3.95 M/mm3 (4.20-5.40); Red Cell Distribution Width 14.9 % (11.6-14.4); White Blood Count 5.8 K/mm3 (4.8-10.8)
[2022-10-28 11:24] LABS: Alanine Aminotransferase 24 U/L (14-59); Albumin Level 3.3 g/dL (3.4-5.0); Alkaline Phosphatase 101 U/L (46-116); Anion Gap 2 mmol/L (8-16); Aspartate Amino Transferase 21 U/L (15-37); Bilirubin,Total 0.6 mg/dL (0.00-1.00); Blood Urea Nitrogen 14 mg/dL (7-18); Calcium 9.1 mg/dL (8.5-10.1); Carbon Dioxide 34 mmol/L (21-32); Chloride 91 mmol/L (98-108); Estimated Glomerular Filt Rate > 60; Glucose 103 mg/dL (70-99); Osmolality Calculated 264 mOsm/kg (285-295); Potassium 4.6 mmol/L (3.5-5.1); Sodium 127 mmol/L (136-145); Total Protein 6.3 g/dL (6.4-8.2)
== END 2022-10-28 10:36 | disposition home or self-care (01) ==
PROVIDERS: PCP Internal Medicine; Visit Provider Internal Medicine
DX: J18.9 Pneumonia, unspecified organism (principal); J44.9 Chronic obstructive pulmonary disease, unspecified
CPT/HCPCS: 36415; 80053; 85025

== ENCOUNTER 2022-12-01 12:16 | Outpatient (NON) | payer MEDICARE, SELFPAY ==
[2022-12-01 13:01] LABS: Basophils Absolute Auto 0.06 K/mm3 (0.00-0.10); Basophils Percent Auto 0.7 % (0.0-1.0); Eosinophils Absolute Auto 0.63 K/mm3 (0.02-0.50); Eosinophils Percent Auto 7.8 % (1.0-6.0); Hematocrit 37.5 % (35.0-42.0); Hemoglobin 12.5 g/dL (11.7-13.8); Immature Granulocyte Absolute 0.02 K/mm3 (0.00-0.00); Immature Granulocyte Percent A 0.2 % (0.0-0.0); Lymphocytes Absolute Auto 0.89 K/mm3 (1.10-4.50); Mean Corpuscular HGB Conc 33.3 g/dL (32.0-36.0); Mean Corpuscular Hemoglobin 29.5 pg (27.0-31.0); Mean Corpuscular Volume 88.4 fL (78.0-102.0); Monocytes Absolute Auto 0.64 K/mm3 (0.10-0.90); Monocytes Percent Auto 7.9 % (2.0-11.0); Neutrophils Absolute Auto 5.9 K/mm3 (1.7-7.2); Neutrophils Percent Auto 72.4 % (50.0-70.0); Platelet Count Result 241 K/mm3 (150-420); Red Blood Count 4.24 M/mm3 (4.20-5.40); Red Cell Distribution Width 15.2 % (11.6-14.4); White Blood Count 8.1 K/mm3 (4.8-10.8)
[2022-12-01 13:20] LABS: Alanine Aminotransferase 23 U/L (14-59); Albumin Level 3.4 g/dL (3.4-5.0); Alkaline Phosphatase 113 U/L (46-116); Anion Gap 9 mmol/L (8-16); Aspartate Amino Transferase 17 U/L (15-37); Bilirubin,Total 0.5 mg/dL (0.00-1.00); Blood Urea Nitrogen 12 mg/dL (7-18); Calcium 9.2 mg/dL (8.5-10.1); Carbon Dioxide 28 mmol/L (21-32); Chloride 97 mmol/L (98-108); Estimated Glomerular Filt Rate > 60; Glucose 95 mg/dL (70-99); Osmolality Calculated 277 mOsm/kg (285-295); Potassium 4.4 mmol/L (3.5-5.1); Sodium 134 mmol/L (136-145); Total Protein 6.7 g/dL (6.4-8.2)
== END 2022-12-01 12:17 | disposition home or self-care (01) ==
LOC: CHSLAB 12:17
PROVIDERS: Visit Provider Internal Medicine
DX: E87.1 Hypo-osmolality and hyponatremia (principal)
CPT/HCPCS: 36415; 80053; 85025

== ENCOUNTER 2022-12-15 12:36 | Outpatient (CLI) | payer MEDICARE, SELFPAY ==
--- NOTE | ~2022-12-15 | CT_ITS ---
EXAMINATION: CT cervical spine wo con DATE: 12/15/2022 13:07 INDICATION: Cervical radiculopathy. Right hand tingling. TECHNIQUE: Computed tomography (CT) of the cervical spine was performed without intravenous contrast. Automated exposure control and iterative reconstruction technique were employed. The dose-length pro duct was 150.28 mGy-cm. COMPARISON: Cervical spine CT 06/29/2022 FINDINGS: There is mild scarring at the lung apices. There is 5 degrees dextrocurvature of cervical s pine. There is kyphosis of cervical spine. There is 3 mm anterolisthesis of C3 on C4. Vertebral body heights are normal. There is mildly decreased disc height at C3-C4 and C4-C5 and severely decreased d isc height at C5-C6 and C6-C7. The following disc levels are specifically discussed: C2-C3: There is mild bilateral uncovertebral joint osteoarthritis. There is moderate right and severe left facet joint osteoarthritis. There is mild left neural foraminal stenosis. There is no central c anal stenosis. C3-C4: There is mild bilateral uncovertebral joint osteoarthritis. There is severe bilateral facet shana int osteoarthritis. There is mild bilateral neural foraminal stenosis. There is mild central canal st enosis. C4-C5: There is mild bilateral uncovertebral joint osteoarthritis. There is severe bilateral facet shana int osteoarthritis. There is mild bilateral neural foraminal stenosis. There is mild central canal st enosis. C5-C6: There is severe bilateral uncovertebral joint osteoarthritis. There is severe bilateral facet joint osteoarthritis. There is mild bilateral neural foraminal stenosis. There is mild central canal stenosis. C6-C7: There is severe bilateral uncovertebral joint osteoarthritis. There is severe bilateral facet joint osteoarthritis. There is mild bilateral neural foraminal stenosis. There is mild central canal stenosis. C7-T1: There is no uncovertebral joint osteoarthritis. There is severe bilateral facet joint osteoart hritis. There is mild bilateral neural foraminal stenosis. There is no central canal stenosis. IMPRESSION: 1. Severe cervical spondylosis, stable from 06/29/2022. Reviewed, dictated and finalized at location E.
== END 2022-12-15 12:37 | disposition home or self-care (01) ==
PROVIDERS: PCP Internal Medicine; Visit Provider Anesthesiology
DX: M54.12 Radiculopathy, cervical region (principal); M43.02 Spondylolysis, cervical region
CPT/HCPCS: 72125

== ENCOUNTER 2022-12-30 08:35 | Outpatient (CLI) | payer MEDICARE, SELFPAY ==
--- NOTE | ~2022-12-30 | PE_ITS ---
EXAMINATION: PET skull to mid thigh DATE: 12/30/2022 12:56 INDICATION: Pulmonary nodule TECHNIQUE: Blood glucose level was 109 mg/dL. 11.008 mCi of 18-fluorodeoxyglucose (18-FDG) was admini stered i.v. Low dose computed tomography (CT) images were acquired from the base of the brain to the proximal thighs for attenuation correction and anatomic localization. Positron emission tomography (P ET) images were acquired in the same distribution beginning 69 minutes after injection. Images includ ing fused PET/CT images were reconstructed in axial, coronal, and sagittal planes. Automated exposure control technique was employed. The dose-length product was 511.69mGy-cm. COMPARISON: CT dated 10/11/2022 and 08/11/2022 FINDINGS: Head/neck: There is symmetric increased activity in the oral cavity, palatine tonsils, laryngeal muscles and ocu lar muscles without CT correlate, likely physiologic. Additional likely physiologic mild increased up take in the posterior cervical paraspinal musculature, left greater than right, and without radiologi c correlate. Indeterminate small focus of mild increased uptake with maximal SUV of 3.8 along the pos terior margin of the right thyroid lobe without radiologic correlate. No pathologically enlarged cerv ical lymphadenopathy or suspicious foci of increased FDG uptake in the visualized head or neck. Chest: Chronic mild biapical pleural-parenchymal scarring. Continued decrease in small nodular opacities at the left upper lobe without evident increased FDG uptake most likely infectious/inflammatory in etiol ogy. Mild FDG uptake with maximal SUV of 2.7 associated with a new 7 mm nodular opacity in the right upper lobe on series 3, image 55 and with maximal SUV of 1.8/with a 6 mm right middle lobe nodule on image 93 which given the relatively rapid development favors an infectious/inflammatory etiology. Add itional increased FDG uptake associated with bandlike and small nodular opacities in the basilar left lower lobe with maximal SUV of 4.3. These are located at the site of more extensive consolidation on the study from 10/11/2022 which was itself new since study dated 08/11/2022. The relatively rapid waxi ng and waning chronologic pattern is again most consistent with infectious/inflammatory etiology. Inc reased atelectasis with progression of volume loss at the posterior basilar segment of the right lowe r lobe also without significant increased FDG uptake. No pleural effusion. Heart size is normal. No p ericardial effusion. Increased uptake at the left hilum with maximal SUV of 3.2 and subcarinal region with maximal SUV of 3.8, likely related to reactive lymphadenopathy although differential includes m etastatic disease. Assessment of lymph node size is limited by the absence of intravenous contrast wi th the reviewed separation of lymph nodes from adjacent pulmonary vasculature essentially indiscernib le. Abdomen/pelvis/proximal thighs: Physiologic renal accumulation and excretion of FDG activity in the kidneys, bladder and along portio ns of ureters. Normal degree and heterogenous pattern of increased uptake throughout the liver withou t radiologic correlate or dominant FDG avid lesion. The gallbladder, pancreas, spleen and bilateral a drenal glands are normal. Mild uptake scattered throughout the bowels without radiologic correlate, a lso likely physiologic. No other abnormal foci of increased FDG uptake or pathologically enlarged lym phadenopathy in the abdomen, pelvis or proximal thighs. Musculoskeletal: Severe cervical and thoracic and moderate lumbar spondylosis. No suspicious lytic, blastic or FDG daniele d bone lesions. There is a spinal stimulator power supply in the subcutaneous tissues overlying the r ight posterior iliac spine with leads extending to the central canal at level of T12-L1 and with dist al tip at the level of T7. Mild uptake without radiologic correlate at the bilateral ischial tuberosi tie
[2022-12-30 09:21] LABS: Glucose Point of Care 109 mg/dl (65-105)
== END 2022-12-30 08:36 | disposition home or self-care (01) ==
PROVIDERS: PCP Internal Medicine; Visit Provider Internal Medicine Critical Care Medicine
DX: R91.1 Solitary pulmonary nodule (principal); R91.8 Other nonspecific abnormal finding of lung field
CPT/HCPCS: 78815; A9552

== ENCOUNTER 2023-03-17 12:15 | Outpatient (CLI) | payer MEDICARE, SELFPAY ==
--- NOTE | ~2023-03-17 | US_ITS ---
EXAMINATION: US thyroid DATE: 03/17/2023 12:54 INDICATION: Thyroid nodule. TECHNIQUE: Multiple ultrasound images of the thyroid were obtained. COMPARISON: PET/CT 12/30/2022 FINDINGS: The right thyroid lobe measures 2.2 x 0.8 x 1.0 cm. The left thyroid lobe measures 2.0 x 0.8 x 0.7 c m. There is normal echotexture and echogenicity throughout the thyroid gland. No discrete nodules id entified. Normal vascular flow is present. Inferior to the right thyroid lobe, there is a 2.3 x 1.4 x 0.7 cm mass. IMPRESSION: 1. 2.3 cm mass inferior to right thyroid lobe with increased activity on the prior PET/CT. The differ ential diagnosis includes parathyroid adenoma and reactive lymph node. Correlate with laboratory exam ination for hyperparathyroidism. Reviewed, dictated and finalized at location E. NTEER ASSISTANT IMPRESSION: 1. 2.3 cm mass inferior to right thyroid lobe with increased activity on the pr ior PET/CT. The differential diagnosis includes parathyroid adenoma and reactiv e lymph node. Correlate with laboratory examination for hyperparathyroidism.
== END 2023-03-17 12:16 | disposition home or self-care (01) ==
LOC: CHSIMG 12:16
PROVIDERS: PCP Internal Medicine; Visit Provider Internal Medicine Critical Care Medicine
DX: R94.8 Abnormal results of function studies of other organs and systems (principal); E07.89 Other specified disorders of thyroid
CPT/HCPCS: 76536

== ENCOUNTER 2023-04-07 08:19 | Outpatient (CLI) | payer MEDICARE, SELFPAY ==
--- NOTE | ~2023-04-07 | CT_ITS ---
Clinical Indication: Lymphadenopathy CT Scan of the Chest with Contrast: Technique: Contiguous sections were acquired throughout the chest after intravenous administration of 75 cc of Omnipaque 350. Dose reduction technique was used on this scan by utilizing automated exposu re control and iterative reconstruction technique. The dose-length product (DLP) was 134.19 mGy-cm. COMPARISON: 10/11/2022 Findings: There is no evidence of any significant mediastinal, hilar or axillary lymphadenopathy. There is no f illing defect in the pulmonary arterial tree to suggest pulmonary embolus. There is no evidence of ao rtic dissection or aneurysm. There is no evidence of pleural or pericardial effusion. There is debris or fluid in the left lower lobe bronchi with left lobe consolidation which is similar to prior exam. There is increased consolidation in the medial right lung base/right lower lobe, thou gh somewhat wedge-shaped morphology. There is probable moderate emphysema and possible mild interstit ial pulmonary edema. Small nodule opacities the left lung apex are stable to mildly decreased. Images through the upper abdomen reveal no abnormalities. Impression: Chronic left lower lobe consolidation, likely chronic atelectasis. Coracoclavicular pneumonia. There is associated fluid or debris in left lower lobe bronchi. Probable atelectatic change at the right lung base, increased from prior exam, versus pneumonia. Small nodular opacities at the left lung apex are stable to mildly decreased from prior exam. Mild to moderate emphysema and suspected mild interstitial edema. Reviewed, dictated and finalized at [facility]. 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 Coracoclavic ular pneumonia. There is associated fluid or debris in left lower lobe bronchi. Probable atelectatic change at the right lung base, increased from prior exam, versus pneumonia. Small nodular opacities at the left lung apex are stable to mildly decreased fr om prior exam. Mild to moderate emphysema and suspected mild interstitial edema.
[2023-04-07 08:48] LABS: Estimated Glomerular Filt Rate > 60
[2023-04-07 08:53] LABS: Cholesterol 141 mg/dL (0-200); HDL Direct 61 mg/dL (40-60); LDL Cholesterol Calculated 72 mg/dL (<130); Triglycerides 40 mg/dL (0-150)
== END 2023-04-07 08:20 | disposition home or self-care (01) ==
LOC: CHSIMG 08:20
PROVIDERS: Internal Medicine Cardiovascular Disease; PCP Internal Medicine; Visit Provider Internal Medicine Critical Care Medicine
DX: E78.5 Hyperlipidemia, unspecified (principal); R91.8 Other nonspecific abnormal finding of lung field; J43.9 Emphysema, unspecified; J81.1 Chronic pulmonary edema
CPT/HCPCS: 71260; 80061; Q9967

== ENCOUNTER 2023-07-21 12:19 | Outpatient (CLI) | payer MEDICARE, SELFPAY ==
--- NOTE | ~2023-07-21 | US_ITS ---
EXAMINATION: US thyroid DATE: 07/21/2023 12:54 INDICATION: Right thyroid mass. TECHNIQUE: Multiple ultrasound images of the thyroid were obtained. COMPARISON: Thyroid ultrasound 03/17/2023, CT cervical spine 04/24/21, chest CT 10/11/22, 04/07/23, PET/CT 12/30/22 FINDINGS: The right thyroid lobe measures 2.5 x 0.7 x 1.3 cm. The left thyroid lobe measures 2.0 x 1.0 x 0.8 c m. There is normal echotexture and echogenicity throughout the thyroid gland. No discrete nodules id entified. Normal vascular flow is present. There is a 2.6 x 1.0 x 1.2 cm hypoechoic mass inferior to right thyroid lobe. IMPRESSION: 1. 2.6 cm mass inferior to right thyroid lobe with increased activity on prior PET/CT. This finding i s suspicious for a parathyroid adenoma. Reviewed, dictated and finalized at location A. IMPRESSION: 1. 2.6 cm mass inferior to right thyroid lobe with increased activity on prior PET/CT. This finding is suspicious for a parathyroid adenoma.
== END 2023-07-21 12:20 | disposition home or self-care (01) ==
LOC: CHSIMG 12:20
PROVIDERS: PCP Internal Medicine; Visit Provider Internal Medicine
DX: E07.9 Disorder of thyroid, unspecified (principal)
CPT/HCPCS: 76536

== ENCOUNTER 2023-10-15 11:54 | Outpatient (CLI) | payer MEDICARE, SELFPAY ==
--- NOTE | ~2023-10-15 | US_ITS ---
EXAMINATION: US FNA w image guidance DATE: 10/15/2023 13:59 INDICATION: Right thyroid nodule. TECHNIQUE: The procedure and its benefits and risks were discussed with the patient. Risks specifically discusse d included bleeding. The patient verbalized understanding of the risks and agreed to proceed. The nec k was prepped and draped in the usual sterile manner. 1% lidocaine was used for local anesthesia. 3 passes were made with a 25G needle into the lesion under ultrasound guidance. There were no immedia te complications. FINDINGS: Grayscale ultrasound images demonstrate needles advanced into a 2.2 x 1.0 cm mass inferior to right t hyroid lobe for biopsy. IMPRESSION: 1. Ultrasound-guided fine needle aspiration of a 2.2 x 1.0 cm mass inferior to right thyroid lobe. I nitial samples were nondiagnostic. Due to the size and depth of the nodule and proximity to the right common carotid artery, the biopsy was then terminated. Reviewed, dictated and finalized at location A. IMPRESSION: 1. Ultrasound-guided fine needle aspiration of a 2.2 x 1.0 cm mass inferior to right thyroid lobe. Initial samples were nondiagnostic. Due to the size and de pth of the nodule and proximity to the right common carotid artery, the biopsy was then terminated.
== END 2023-10-15 11:55 | disposition home or self-care (01) ==
PROVIDERS: PCP Internal Medicine; Visit Provider Otolaryngology
DX: E04.1 Nontoxic single thyroid nodule (principal)
CPT/HCPCS: 10005; 88172

== ENCOUNTER 2023-10-28 10:17 | Outpatient (CLI) | payer MEDICARE, SELFPAY ==
[2023-10-28 10:38] LABS: Basophils Absolute Auto 0.08 K/mm3 (0.00-0.10); Basophils Percent Auto 1.1 % (0.0-1.0); Eosinophils Absolute Auto 0.65 K/mm3 (0.02-0.50); Hematocrit 39.3 % (35.0-42.0); Hemoglobin 12.9 g/dL (11.7-13.8); Immature Granulocyte Absolute 0.03 K/mm3 (0.00-0.00); Immature Granulocyte Percent A 0.4 % (0.0-0.0); Lymphocytes Absolute Auto 1.45 K/mm3 (1.10-4.50); Lymphocytes Percent Auto 20.1 % (18.0-42.0); Mean Corpuscular HGB Conc 32.8 g/dL (32-36); Mean Corpuscular Hemoglobin 28.7 pg (27.0-31.0); Mean Corpuscular Volume 87.5 fL (78.0-102.0); Mean Platelet Volume 8.6 fl (9.2-11.8); Monocytes Absolute Auto 0.58 K/mm3 (0.10-0.90); Neutrophils Absolute Auto 4.42 K/mm3 (1.70-7.20); Neutrophils Percent Auto 61.4 % (50.0-70.0); Platelet Count Result 273 K/mm3 (150-420); Red Blood Count 4.49 M/mm3 (4.20-5.40); Red Cell Distribution Width 15.3 % (11.6-14.4); White Blood Count 7.2 K/mm3 (4.8-10.8)
[2023-10-30 10:15] LABS: Alanine Aminotransferase 10 U/L (6-35); Alkaline Phosphatase 116 U/L (38-126); Anion Gap 9 mmol/L (4-12); Aspartate Amino Transferase 21 U/L (14-36); Bilirubin,Total 0.3 mg/dL (0.2-1.3); Blood Urea Nitrogen 10 mg/dL (7-17); Calcium 9.3 mg/dL (8.4-10.2); Carbon Dioxide 32 mmol/L (22-30); Chloride 91 mmol/L (98-107); Cholesterol 151 mg/dL (0-200); Estimated Glomerular Filt Rate > 60; Glucose 90 mg/dL (65-110); HDL Direct 67 mg/dL; LDL Cholesterol Calculated 62 mg/dL (<130); Osmolality Calculated 273 mOsm/kg (285-295); Potassium 4.6 mmol/L (3.4-5.0); Sodium 132 mmol/L (137-145); Triglycerides 108 mg/dL (<150)
== END 2023-10-28 10:18 | disposition home or self-care (01) ==
PROVIDERS: PCP Internal Medicine; Visit Provider Internal Medicine
DX: R30.0 Dysuria (principal); E87.1 Hypo-osmolality and hyponatremia; I25.10 Atherosclerotic heart disease of native coronary artery without angina pectoris; E03.9 Hypothyroidism, unspecified
CPT/HCPCS: 36415; 80053; 80061; 84443; 85025; 87077; 87086; 87088; 87186

== ENCOUNTER 2024-04-20 08:24 | Emergency (ER) | payer MEDICARE, SELFPAY ==
[2024-04-20] VITALS (48 sets, daily range): BP systolic 160–207; BP diastolic 76–109; PULSE 56–83; RESP 14–59; TEMP 36.3–37; O2SAT 74–99
--- NOTE | ~2024-04-20 | CT_ITS ---
History: Headache PROCEDURE: CT head without contrast. COMPARISON: 06/29/2022 TECHNIQUE: Axial imaging of the head performed from the skull base to the vertex without IV contrast. Sagittal a nd coronal reformations obtained. DLP: 530 mGy-cm FINDINGS: The ventricles are enlarged. The dilatation of the ventricles is proportional to the degree of sulcal prominence, not uncommon in the senescent brain. Decreased attenuation is identified within the periventricular white matter, likely secondary to micr ovascular ischemic disease, in a patient of this age. There is no mass, mass effect or midline shift. There is no abnormal extra-axial fluid collection or intracranial hemorrhage. Opacification of the right sphenoid sinus, unchanged from 2022. Remaining paranasal sinuses are otherwise unremarkable. The mastoid air cells are well aerated. No acute displaced fractures within the overlying cranium. Impression: No acute intracranial hemorrhage or suspicious mass effect. Inflammatory sinus disease Reviewed, dictated and finalized at location A. ER OXYHYDROGEN Impression: No acute intracranial hemorrhage or suspicious mass effect. Inflammatory sinus disease
--- NOTE | ~2024-04-20 | XR_ITS ---
CHEST RADIOGRAPH CLINICAL HISTORY: shortness of breath . Headache COMPARISON: 11/04/2021 TECHNIQUE: Single portable view of the chest. FINDINGS The cardiomediastinal silhouette is unremarkable. The lungs are clear. Dorsal column stimulator device is noted. IMPRESSION: No focal infiltrate or effusion. Reviewed, dictated and finalized at location A. HAND
--- NOTE | ~2024-04-20 | NM_ITS ---
EXAMINATION: NM lung vent and perfusion DATE: 04/20/2024 13:23 INDICATION: Shortness of breath. TECHNIQUE: 35.0 mCi Tc-99m DTPA was given for ventilation images. 5.0 mCi Tc-99m MAA was administered intravenously for perfusion images. Scintigraphic images of the chest were obtained. COMPARISON: Chest single view 04/20/24, chest CT 04/07/2023 FINDINGS: There are matched moderate-sized and large defects in the lower lobes and anterior segment right uppe r lobe. IMPRESSION: 1. Intermediate probability for pulmonary embolism. Reviewed, dictated and finalized at location A. Y CHILDHOOD LEAD TEACHER
--- OUTSIDE RECORDS SUMMARY | 2024-04-20 08:38 | XMS_ITS | Patient Health Summary ---
Author Organization [facility] Address [address] [place] [address] Care Team Providers Care Outsole Molder Name Role Phone Unavailable Primary Care Provider Unavailabl e Note from [facility],non-owned Affiliates and Associated Physician Practices is amultiple site organization consisting of ambulatory clinics and hospital sitesin [place], [place], [place] and [place]. This disclosure is being madepursuant to the Care Everywhere program and may not contain all information available regarding this patient. Last updated 17.[facility] Social History Tobacco Use Types Packs/Day Years Used Date Smoking Tobacco: Never Assessed Sex and Gender Information Value Date Recorded Sex Assigned at Not on file Gender Identity Not on file Sexual Orientation Not on file Procedures * PLATELET COUNT AUTO(Performed 05/31/2007) Performed for Dizziness and Giddiness * ACT - POINT OF CARE(Performed 05/31/2007) Performed for Dizziness and Giddiness * ACT - POINT OF CARE(Performed 05/31/2007) Performed for Dizziness and Giddiness * BASIC METABOLIC PANEL (CALCIUM TOTAL)(Performed 05/31/2007) Performed for Dizziness and Giddiness * MAGNESIUM BLOOD(Performed 05/31/2007) Performed for Dizziness and Giddiness * CARDIAC CATH ORDER(Performed 05/31/2007) * CARDIAC CATH ORDER(Performed 05/31/2007) * POTASSIUM BLOOD(Performed 05/30/2007) Performed for Dizziness and Giddiness * MAGNESIUM BLOOD(Performed 05/30/2007) Performed for Dizziness and Giddiness * TROPONIN I(Performed 05/30/2007) Performed for Dizziness and Giddiness * URINALYSIS REFLEX TO MICROSCOPIC NO CULTURE(Performed 05/28/2007) Performed for Dizziness and Giddiness * MRI BRAIN WWO CONTRAST(Performed 05/28/2007) Performed for Dizziness and Giddiness * TSH RECEPTOR ANTIBODY(Performed 05/28/2007) Performed for Dizziness and Giddiness * CBC W AUTO DIFFERENTIAL(Performed 05/28/2007) Performed for Dizziness and Giddiness * COMPREHENSIVE METABOLIC PANEL(Performed 05/28/2007) Performed for Dizziness and Giddiness * LIPID PROFILE(Performed 05/28/2007) Performed for Dizziness and Giddiness * VASCULAR LAB ORDER(Performed 05/28/2007) * CARDIAC ECHOCARDIOGRAM COMPLETE ORDER(Performed 05/28/2007) * TROPONIN I(Performed 05/27/2007) Performed for Dizziness and Giddiness * TROPONIN I(Performed 05/26/2007) Performed for Dizziness and Giddiness * MYOGLOBIN BLOOD(Performed 05/26/2007) Performed for Dizziness and Giddiness * DRUG SCREEN TOX LIMITED BLOOD PANEL(Performed 05/26/2007) Performed for Dizziness and Giddiness * CBC W AUTO DIFFERENTIAL(Performed 05/26/2007) Performed for Dizziness and Giddiness * COMPREHENSIVE METABOLIC PANEL(Performed 05/26/2007) Performed for Dizziness and Giddiness * LIPASE BLOOD(Performed 05/26/2007) Performed for Dizziness and Giddiness * CK + CKMB PANEL(Performed 05/26/2007) Performed for Dizziness and Giddiness * PT PTT PANEL(Performed 05/26/2007) Performed for Dizziness and Giddiness * CT HEAD WO CONTRAST(Performed 05/26/2007) Performed for Dizziness and Giddiness * XR CHEST 1VW PORTABLE(Performed 05/26/2007) Performed for Dizziness and Giddiness Results * PLATELET COUNT AUTO (05/31/2007 4:02 PM CDT) Platelet Count 228 150 - 400 K/CUMM [facility] 05/31/2007 4:02 PM CDT Palma Yi MD LAB - HEMATOLOGY ORD ERABLES [facility] [address] [place] [address] * (ABNORMAL) ACT - POINT OF CARE (05/31/2007 1:45 PM CDT) Only the most recent of2 resultswithin the time period is included. ACT POCT 247(H) 125 - 187 seconds [facility] 05/31/2007 1:45 PM CDT Narrative [facility] - 05/31/2007 2:48 PM CDT CCL [id number] RESULT 247 Boni Ribeiro MD LAB - POINT OF CARE ORDERABLES Performing Organization Address [facility]/ZIP Co de Phone Number [facility] [address] [place] [address] * (ABNORMAL) BASIC METABOLIC PANEL (CALCIUM TOTAL) (05/31/2007 3:30 AM CDT) Glucose 110.(H) 65 - 105 mg/dL [facility] BUN 8. 7 - 18 mg/dL [facility] Creatinine .7 0.5 - 1.2 mg/dL [facility] BUN/Creatinine Ratio 11.9 [facility] Sodium 142. 137 - 145 mEq/L [facility] Potassium 4.2(DE) 3.6 - 5.0 mEq/L [facility] Chloride 107. 98 - 107 mEq/L [facility] CO2 28. 22 - 31 mEq/L [facility] Anion Gap 7. [facility] Calcium 9.3(DE) 8.4 - 10.6 mg/dL [facility] eGFR by MDRD >60 SEE BELOW ml/min/1.7 3 m2 [facility] Comment: >60 Normal Chronic Disease <60 Renal Failure <15 05/31/2007 3:30 AM CDT Palma Yi MD LAB - CHEMISTRY JAKY PACHECO Performing Organization Address [facility]/ZIP Co de Phone Number [facility] [address] [place] [address] * MAGNESIUM BLOOD (05/31/2007 3:30 AM CDT) Only the most recent of2 resultswithin the time period is included. Magnesium 1.6 1.4 - 1.8 mEq/L [facility] 05/31/2007 3:30 AM CDT Palma Yi MD LAB - CHEMISTRY JAKY PACHECO [facility] Organization Address City/State/ZIP Co de Phone Number [facility] [address] [place] [address] * CARDIAC CATH ORDER (05/31/2007 12:00 AM CDT) Only the most recent of2 resultswithin the time period is included. 05/31/2007 Narrative Procedure Note Boni Ribeiro MD - 05/31/2007 12[facility] [address] [facility] PATIENT NAME: LICHA MALAGON MR#: [id number] ROOM#: [id number] SEX: F PHYSICIAN: BONI RIBEIRO M.D. : 1945 AGE: 62 DATE: 05/31/2007 CASE #: CARDIAC CATHETERIZATION REPORT PROCEDURES: 1. Placement of bare-metal stent into proximal rightcoronary artery. 2. IV ReoPro infusion. 3. Vascular closure with Angio-Seal device. FORGING PRESS LEVER TENDER: Boni Ribeiro M.D. INDICATION: This 61-year-old female presents to [facility] with vertigo and recurrent epigastric pain. EKG abnormalities suggested myocardial ischemia. Diagnostic angiography on this date reveals asevere proximal right coronary artery stenosis. PROCEDURE: The right groin had been prepared in the usual sterile manner and local anesthesia had been obtained with 1% Xylocaine. The diagnostic sheath was removed from the right femoral artery and a 6-Barbadian sheathwas placed into this vessel. A 6-Barbadian Cordis JR4 guiding catheter was positioned in the right coronary ostium. A Luge wire was loaded into a4.0 mm Liberte stent, 20 mm length. The stent was positioned in the proximal right coronary artery and deployed at 14 atmospheres of pressure, 25 seconds duration. Next, a 4.0 mm Quantum balloon, 15 mm in length was positioned within the stent and inflated at 16 atmospheres of pressure,20 seconds duration. A 4.5 mm Quantum balloon, 15 mm in length waspositioned in this stent and inflated on two occasions at 14-15 atmospheres of pressure, 25-30 seconds duration. Satisfactory angiographic improvement was noted. Following appropriate oblique film angiography, a 6- Barbadian Angio-Seal device was deployed in the right groin with goodhemostasis. COMPLICATIONS: None. The patient tolerated the procedure well. RESULTS: At baseline the proximal dominant right coronary arterycontained an irregular 80% stenosis. Following deployment of an effective diameter4. 6 mm bare-metal stent, the residual stenosis was 0% and antegrade flow remained normal (MICHELLE 3). SUMMARY: Successful deployment of bare-metal stent into large right coronary artery with good angiographic results. PLAN: The treatment will include Aspirin, Plavix, and IV ReoPro as tolerated. This document has been reviewed and signed by BONI RIBEIRO Sign Date/Time: 05/31/2007 6:34PM Faizan OSEI T:mq - [id number] cc: Boni Ribeiro MD CARDIAC PIPE ORGAN INSTALLER ORD ERABLES * TROPONIN I (05/30/2007 3:20 AM CDT) Only the most recent of3 resultswithin the time period is included. Troponin I <0.07 SEE BELOW ng/mL [facility] Comment: <0.10 Normal 0.10-0.99 Indeterminate >=1.00 Abnormal 05/30/2007 3:20 AM CDT Boni Ribeiro MD LAB - CHEMISTRY JAKY PACHECO Performing Organization Address [facility] Co de Phone Number [facility] [address] [place] [address] * (ABNORMAL) POTASSIUM BLOOD (05/30/2007 3:20 AM CDT) Potassium 3.5(L) 3.6 - 5.0 mEq/L [facility] 05/30/2007 3:20 AM CDT Boni Ribeiro MD LAB - CHEMISTRY JAKY PACHECO Performing Organization Address [facility] Co de Phone Number [facility] [address] [place] [address] * (ABNORMAL) URINALYSIS ROUTINE AUTO (05/28/2007 1:00 PM CDT) Source clean catch [facility] Color UA Yellow [facility] Character UA Clear [facility] Specific [place] UA 1.010 1.002 - 1.030 [facility] pH UA 5.5 5.0 - 8.0 [facility] Protein UA NEGATIVE NEG [facility] Blood UA NEGATIVE NEG [facility] Leukocyte UA NEGATIVE NEG [facility] Nitrite UA NEGATIVE NEG [facility] Glucose UA NEGATIVE NEG [facility] Ketone UA 1+ NEG [facility] Bilirubin UA NEGATIVE NEG [facility] Urobilinogen UA 0.2 0.1 - 1.0 E.U./dl [facility] Epithelial Cell UA 2-3(H) 0 - 1 /HPF [facility] 05/28/2007 1:00 PM CDT Narrative [facility] - 05/28/2007 1:51 PM CDT VOID Palma Yi MD LAB - URINALYSIS ORD ERABLES [facility] [address] [place] [address] * MRI BRAIN WITH & WITHOUT CONTRAST (05/28/2007 11:30 AM CDT) Anatomical Region Laterality Modality Head Other 05/28/2007 11:3 0 AM CDT Narrative 05/28/2007 6:41 PM CDT MRI OF THE BRAIN WITH AND WITHOUT CONTRAST HISTORY- Severe vertigo. PROTOCOL- Sagittal T1 and axial T1, T2, FLAIR, diffusion-weighted, and ADC mapping views of the brain were obtained. Post-gadolinium views were obtained following intravenous administration of 12 cc Omniscan. Review of the images shows that there are no foci of abnormal signal intensity within the brain parenchyma. The seventh and eighth nerves bundles appear unremarkable. No inflammatory changes are seen within the middle ear cavities or mastoid processes. There is mild developmental asymmetry of the lateral ventricles. There is no hydrocephalus. There is no mass or midline shift. No intracranial hemorrhage is seen. There are no areas of abnormal enhancement on the postgadolinium views. The visualized vascular structures appear unremarkable. Incidental note is made of a 15 mm mucosal retention cyst in the base of the left maxillary sinus. IMPRESSION- NO ACUTE INTRACRANIAL ABNORMALITIES. RETENTION CYST WITHIN THE BASE OF THE LEFT MAXILLARY SINUS. Reading Sky GERARDO M.D. Releasing Sky GERARDO M.D. Released Date Time- 05/28/071840 [employer]- ANGELI - PALMA YI- PALMA YI REF- DENI- CHERI BOWMAN PCP- SCP- Procedure Note Rito Gerardo MD - 05/28/2007 MRI OF THE BRAIN WITH AND WITHOUT CONTRAST HISTORY- Severe vertigo. PROTOCOL- Sagittal T1 and axial T1, T2, FLAIR, diffusion-weighted, and ADC mapping views of the brain were obtained. Post-gadolinium views were obtained following intravenous administration of 12 cc Omniscan. Review of the images shows that there are no foci of abnormal signal intensity within the brain parenchyma. The seventh and eighth nerves bundles appear unremarkable. No inflammatory changes are seen within the middle ear cavities or mastoid processes. There is mild developmental asymmetry of the lateral ventricles. There is no hydrocephalus. There is no mass or midline shift. No intracranial hemorrhage is seen. There are no areas of abnormal enhancement on the postgadolinium views. The visualized vascular structures appear unremarkable. Incidental note is made of a 15 mm mucosal retention cyst in the base of the left maxillary sinus. IMPRESSION- NO ACUTE INTRACRANIAL ABNORMALITIES. RETENTION CYST WITHIN THE BASE OF THE LEFT MAXILLARY SINUS. Reading Sky GERARDO M.D. Releasing Sky GERARDO M.D. Released Date Time- 05/28/071840 [employer]- ANGELI - PALMA YI- PALMA YI REF- CHERI GAINES PCP- SCP- Palma Yi MD MR ORDERABLES * TSH RECEPTOR ANTIBODY (05/28/2007 4:20 AM CDT) Ref Lab Sendout See Ref Lab Report [facility] 05/28/2007 4:20 AM CDT Palma Yi MD LAB - CHEMISTRY JAKY PACHECO [facility] [address] [place] [address] * (ABNORMAL) CBC W AUTO DIFFERENTIAL (05/28/2007 4:20 AM CDT) Only the most recent of2 resultswithin the time period is included. [facility] WBC 8.3 4.0 - 11.0 K/CUMM [facility] RBC 3.96 3.80 - 5.30 M/CUMM [facility] Hemoglobin 12.4(DE) 11.7 - 15.5 gm/dL [facility] Hematocrit 36.8 36 - 46 % [facility] MCV 92.9 80 - 99 fL [facility] MCH 31.3 26 - 34 pg [facility] MCHC 33.7 32 - 36 gm/dL [facility] RDW 14.2 11.5 - 14.5 % [facility] Platelet Count 241 150 - 400 K/CUMM [facility] Granulocytes % 60.7 43 - 70 % [facility] Lymphocytes % 30.3 22 - 41 % [facility] Monocytes % 6.9 2 - 13 % [facility] Eosinophils % 1.7 0 - 6 % [facility] Basophils % 0.4 0 - 2 % [facility] Granulocytes Absolute 5.0 1.7 - 7.7 [facility] Lymphocytes Absolute 2.5 1.0 - 3.0 [facility] Monocytes Absolute 0.6 0.2 - 1.0 [facility] Eosinophils Absolute 0.1 0.0 - 0.4 [facility] Basophils Absolute 0.0 0.0 - 0.1 [facility] 05/28/2007 4:20 AM CDT Palma Yi MD LAB - HEMATOLOGY ORD ERABLES [facility] [address] [place] [address] * (ABNORMAL) COMPREHENSIVE METABOLIC PANEL (05/28/2007 4:20 AM CDT) Only the most recent of2 resultswithin the time period is included. Glucose 79. 65 - 105 mg/dL [facility] BUN 6.(DL) 7 - 18 mg/dL [facility] Creatinine .8 0.5 - 1.2 mg/dL [facility] BUN/Creatinine Ratio 8.0 [facility] Sodium 139. 137 - 145 mEq/L [facility] Potassium 3.7 3.6 - 5.0 mEq/L [facility] Chloride 108.(H) 98 - 107 mEq/L [facility] CO2 26. 22 - 31 mEq/L [facility] Anion Gap 4. [facility] Calcium 8.7 8.4 - 10.6 mg/dL [facility] Alkaline Phosphatase 133.(H) 38 - 126 U/L [facility] ALT 31. 7 - 56 U/L [facility] AST 24. 5 - 40 U/L [facility] Bilirubin Total < .1(L) 0.2 - 1.3 mg/dL [facility] Protein Total 5.4(DL) 6.3 - 8.2 gm/dL [facility] Albumin 3.1(L) 3.9 - 5.0 gm/dL [facility] eGFR by MDRD >60 SEE BELOW ml/min/1.7 3 m2 [facility] Comment: >60 Normal Chronic Disease <60 Renal Failure <15 05/28/2007 4:20 AM CDT Palma Yi MD LAB - CHEMISTRY JAKY PACHECO Performing Organization Address [facility] Co de Phone Number [facility] [address] [place] [address] * (ABNORMAL) LIPID PROFILE (05/28/2007 4:20 AM CDT) Cholesterol 154. SEE BELOW mg/dL [facility] Comment:120-200 Triglycerides 141.(H) SEE BELOW mg/dL [facility] Comment:35-135 HDL Cholesterol 45.(L) SEE BELOW mg/dL [facility] Comment:>55 CAD* LDL Calculated 81 SEE BELOW mg/dL [facility] Comment: 70-130 <100 CAD* Cholesterol Risk Factor 1.55 SEE BELOW [facility] Comment: Average=1.0 <1.0=Less Risk >1.0=More Risk Comment Lipid [facility] Comment: CAD* In Coronary Artery Disease patients, in whom nonpharmacological therapy has failed, the AHA recommends that drug therapy should be prescribed to lower the LDL cholesterol to < 100 mg/dL and may be instituted in patients with HDL <35 mg/dL. 05/28/2007 4:20 AM CDT Palma Yi MD LAB - CHEMISTRY JAKY PACHECO Performing Organization Address [facility] Co de Phone Number [facility] [address] [place] [address] * CARDIAC, ECHOCARDIOGRAM COMPLETE ORDER (05/28/2007 12:00 AM CDT) 05/28/2007 Unknown Trade Manager Provider EMBER PACHECO * VASCULAR LAB ORDER (05/28/2007 12:00 AM CDT) Anatomical Region Laterality Modality Other 05/28/2007 Narrative Procedure Note Jassi Weiss MD - 05/28/2007 12:[facility] [address] [facility] - Vascular Lab Report PATIENT NAME: LICHA MALAGON MR#: [id number] ROOM#: [id number] SEX: F ADMISSION DATE: 05/27/2007 : 1945 DATE: 05/28/2007 CAROTID DUPLEX EXAMINATION INDICATION: The patient is a 61-year-old with near syncope. DESCRIPTION: The extracranial carotid systems were examined bilaterally with duplex and color flow imaging as well as spectral Doppleranalysis. In the right extracranial carotid system, there are no significant atherosclerotic changes identified. The vessels appear widely patent. There is no turbulent flow or spectral broadening. The maximum velocityin the internal carotid artery is 121 cm/sec, and the ICA:CCA ratio is1.26. Normal is less than 1.5. In the left extracranial carotid system, there is again no significant atherosclerotic change. There is, perhaps, a small amount of denseplaque along the anterior wall of the proximal internal carotid artery but thisis very mild and creates no luminal narrowing. The vessels fill well with color flow imaging. There is no turbulent flow or spectral broadening. The maximum velocity in the internal carotid artery is 114 cm/sec, andthe ICA:CCA ratio is 1.19. Both the right and left vertebral arteries were identified and found palmer patent with antegrade flow. There is no significant gradient between the right and left brachialblood pressures, and the subclavian artery spectral Doppler waveforms are triphasic bilaterally. IMPRESSION: 1. There is no evidence of hemodynamically significantplaque or stenosis in either the right or left extracranial carotid systems by this exam. 2. Patent vertebral arteries with antegrade flow. 3. Physiologic subclavian artery flow. This document has been reviewed and signed by JASSI WEISS Sign Date/Time: 06/02/2007 12:09AM JASSI WEISS M.D. T N:mq - [id number] cc: PALMA YI M.D. Jassi Weiss MD VASCULAR LAB ORDERA BLES * DRUG SCREEN TOX LIMITED BLOOD PANEL (05/26/2007 11:15 PM CDT) [facility] Ethanol Not detected 10 mg/dL cutoff mg/dL [facility] Acetaminophen Not Detected 4 ug/mL Cutoff ug/mL [facility] Salicylate Not Detected 5 mg/dL Cutoff mg/dL [facility] Barbiturates Screen Possible Toxic Level 1000 ng/mL Cutoff ng/mL [facility] Benzodiazepines Screen Below Toxic Level 50 ng/mL Cutoff ng/mL [facility] Tricyclics Screen Below Toxic Level 300 ng/mL Cutoff ng/mL [facility] Legal Disclaimer This drug screen is designed for MEDICAL purposes only. It is not to be used for legal purposes including but not limited to workman's comp, police investigations, occupational issues, child custody. [facility] 05/26/2007 11:1 5 PM CDT Narrative [facility] - 05/27/2007 12:00 AM CDT M3 Adin Culver MD LAB - TOXICOLOGY ORD ERABLES Performing Organization Address City/[facility]/ZIP Co de Phone Number [facility] [address] [place] [address] * MYOGLOBIN BLOOD (05/26/2007 11:15 PM CDT) Myoglobin 21.6 <50.0 ng/mL [facility] 05/26/2007 11:1 5 PM CDT Narrative [facility] - 05/26/2007 11:49 PM CDT M3 Adin Culver MD LAB - CHEMISTRY ORDE RABFAZAL Performing Organization Address City/[facility]/ZIP Co de Phone Number [facility] [address] [place] [address] * PT PTT PANEL (05/26/2007 11:15 PM CDT) PT 10.0 9.3 - 11.4 seconds [facility] INR 1.0 SEE BELOW [facility] Comment: 0.9-1.2 Normal 2.0-3.0 Therapeutic 2.5-3.5 High Risk PTT 27.5 24.0 - 32.0 seconds [facility] Coumadin Dose Unknown [facility] Heparin Bolus Dose Unknown [facility] Heparin Infusion Rate Unknown [facility] 05/26/2007 11:1 5 PM CDT Narrative [facility] - 05/26/2007 11:38 PM CDT M3 Adin Culver MD LAB - COAGULATION OR DERABLES Performing Organization Address [facility] Co de Phone Number [facility] [address] [place] [address] * LIPASE BLOOD (05/26/2007 11:15 PM CDT) Lipase 132. 23 - 208 U/L [facility] 05/26/2007 11:1 5 PM CDT Narrative [facility] - 05/26/2007 11:40 PM CDT M3 Adin Culver MD LAB - CHEMISTRY JAKY PACHECO Performing Organization Address [facility] de Phone Number [facility] [address] [place] [address] * (ABNORMAL) CK + CKMB PANEL (05/26/2007 11:15 PM CDT) CK 37.(L) 38 - 174 U/L [facility] Interpretation CK-MB Absent Absent [facility] 05/26/2007 11:1 5 PM CDT [facility] - 05/26/2007 11:40 PM CDT M3 Adin Culver MD LAB - CHEMISTRY JAKY PACHECO Performing Organization Address [facility] Co nm Phone Number [facility] [address] [place] [address] * CT HEAD NON CONTRAST (05/26/2007 10:38 PM CDT) Anatomical Region Laterality Modality Head Other 05/26/2007 10:3 8 PM CDT Narrative 05/27/2007 8:09 AM CDT Examination- CT brain without contrast HISTORY- Dizziness Routine CT scan of the head was performed without the use of IV contrast. There are no prior studies available for comparison. The visualized paranasal sinuses, orbits and mastoid air cells appear unremarkable. The ventricular system is of normal size and configuration. No intra or extra-axial fluid collections are appreciated. There are no signs of edema, shift of the midline structures or mass effect noted. No signs of hemorrhage is seen. IMPRESSION- Unremarkable CT brain. Reading Sky ANNE MD Releasing Sky ANNE MD Released Date Time- 05/27/07808 Eddi WOLFE ADM- GOYLE,PALMA ATT- GOYLE,PALMA REF- CON- PCP- SCP- Procedure Note Marina Anne MD - 05/27/2007 Examination- CT brain without contrast HISTORY- Dizziness Routine CT scan of the head was performed without the use of IV contrast. There are no prior studies available for comparison. The visualized paranasal sinuses, orbits and mastoid air cells appear unremarkable. The ventricular system is of normal size and configuration. No intra or extra-axial fluid collections are appreciated. There are no signs of edema, shift of the midline structures or mass effect noted. No signs of hemorrhage is seen. IMPRESSION- Unremarkable CT brain. Reading Sky ANNE MD Releasing Sky ANNE MD Released Date Time- 05/27/07808 Eddi WOLFE ADM- GOYLE,PALMA ATT- GOYLE,PALMA REF- CON- PCP- SCP- Adin Culver MD CT ORDERABLES * XR CHEST 1VW PORTABLE (05/26/2007 10:17 PM CDT) Anatomical Region Laterality Modality Chest Other 05/26/2007 10:1 7 PM CDT Narrative 05/27/2007 8:02 AM CDT Summation- Portable chest HISTORY- Dizziness, headache, nausea No prior studies are available for comparison. No acute bony abnormalities are seen. The heart and mediastinum appear unremarkable. There are no focal infiltrates, effusion or discrete mass seen. No pneumothorax is noted. IMPRESSION- No active disease. Reading Sky ANNE MD Releasing Sky ANNE MD Released Date Time- 05/27/07801 Eddi WOLFE PALMA HARRIS ATT- GOOBIE,PALMA REF- CON- PCP- SCP- Procedure Note Marina Anne MD - 05/27/2007 Summation- Portable chest HISTORY- Dizziness, headache, nausea No prior studies are available for comparison. No acute bony abnormalities are seen. The heart and mediastinum appear unremarkable. There are no focal infiltrates, effusion or discrete mass seen. No pneumothorax is noted. IMPRESSION- No active disease. Reading Sky ANNE MD Releasing Sky ANNE MD Released Date Time- 05/27/07801 Eddi WOLFE - PALMA YI ATT- GOYLE,PALMA REF- CON- PCP- SCP- Adin Culver MD DIAGNOSTIC IMAGING O [place]
--- OUTSIDE RECORDS SUMMARY | 2024-04-20 08:38 | XMS_ITS | Data Portability ---
Author Organization [facility], Main Office Address [address] [place] [address] Care Team Providers Care Helminthology Teacher Name Role Phone AIMEE FLOWERS Primary Care Provider Assessment No assessment recorded. Plan of Treatment Reminders Order Date Submit Date Provider Last Modified By Organization Details Last Modified Time Details Appointments None record ed. Lab None record ed. Referral None record ed. Procedures None record ed. Surgeries None record ed. Imaging None record ed. Medication Orders None record ed. Patient TargetsNo targets recorded. Patient Instructions Encounter Date Encounter Id Patient Instructions Last Modified By Organization Details Last Modified Time 12/03/2023 [id number] uled out surgery and she will return for an ultrasound in [facility] Not available 12/03/2023 14:30:23 Reason for Referral None Reported. Results Created Date Observation Date Name Description Value Unit Range Abnormal Flag Note LastModifiedBy Organization Detail LastModifiedTime 09/04/19 24 US, thyro id No observ ation record ed. [email or web address] Not Available 2023 10:02:56 10/15/19 24 10/15/2023 fine needl e aspir ation , ultra sound guide d, thyro id (PROC ) No observ ation record ed. [address], [address], 10/15/2023 17:07:01 10/15/19 24 10/15/2023 fine needl e aspir ation , ultra sound guide d, thyro id (PROC ) No observ ation record ed. [address], [address], 10/15/2023 17:06:44 Result Notes None recorded. Problems Name Problem SNOMED Code Status Onset Date Resolution Date Notes Provider Name and Address Organization Details Recorded Time Thyroid nodule 459620040 Active 024 DOMENIC Patel, [facility] 12:12:12 Problem Notes None recorded. Procedures Surgical History Date Name Laterality Status Provider Name and Address Organization Details Recorded Time tonsillectomy completed So Kaba [facility] 08/25/2023 09:45:44 Imaging Results Imaging Date Name Status LastModified by Organiz ation Details LastModified Time 09/04/2023 US, thyroid completed [email or web address] Information n ot available 09/04/2023 10:02:56 10/15/2023 fine needle aspiration, ultrasound guided, thyroid (PROC) completed [address] [place] [address], [address], 10/15/2023 17:07:01 10/15/2023 fine needle aspiration, ultrasound guided, thyroid (PROC) completed [address], [address], 10/15/2023 17:06:44 Procedure Notes None recorded. Medical Equipment None Reported. Allergies Allergen ID Allergen Name Allergen Category Reaction Reaction Severity Criticality Documentation Date Start Date Code Code System Note Provider Name and Address Organization Details Recorded Time 49841 amlodipin e medicatio n edema Not available Not available 08/19/2023 87201 RxNorm DOMENIC Patel, [facility] 4 16:57:04 70196 diltiazem hydrochlo ride medicatio n edema Not available Not available 08/19/2023 52354 1 RxNorm DOMENIC Patel, [facility] 4 16:57:14 62558 iodine medicatio n Not available Not available Not available 08/19/2023 5933 RxNorm DOMENIC Patel, [facility] 16:57:23 63200 Product containin g penicilli n (product) medicatio n Not available Not available Not available 08/19/2023 99117 8001 SNOMED DOMENIC Patel, [facility] 4 16:57:31 53643 doxazosin medicatio n Not available Not available Not available 08/19/2023 82773 RxNorm weakn ess of lower limbs Yareli Stanton RN null, [facility] 4 16:57:45 Medications Name Sig Start Date Stop Date Status Note LastModified by Organization Details LastModified Time fluoxetine 40 mg capsule Take 1 capsule every day by oral route. active Not Available Not Available No t Available clotrimazol e 10 mg kristian TAKE 1 TABLET (10 MG) DISSOLVED SLOWLY IN THE MOUTH BY ORAL ROUTE 4 TIMES PER DAY active Not Available Not Available No t Available cetirizine 10 mg tablet Take 1 tablet every day by oral route. active Not Available Not Available No t Available aspirin 325 mg tablet Take 1 tablet every day by oral route. active Not Available Not Available No t Available valacyclovi r 1 gram tablet Take 1 tablet every 12 hours by oral route. active Not Available Not Available No t Available flurbiprofe n 0.03 % eye drops 1 DROP 3X PER DAY INTO SURGICAL EYE, STARTING AFTER SURGERY, CONTINUE FOR 3 WEEKS 12/02 completed Not Available Not Available Not Available prednisone 20 mg tablet 12/02 completed Not Available Not Available Not Available propranolol ER 60 mg capsule,24 hr,extended release TAKE 1 CAPSULE BY MOUTH TWICE A DAY active Not Available Not Available No t Available hydralazine 25 mg tablet Take 1 tablet twice a day by oral route. active Not Available Not Available No t Available potassium chloride ER 10 mEq tablet,exte nded release TAKE 1 TABLET BY MOUTH EVERY DAY active Not Available Not Available No t Available ciprofloxac in 250 mg tablet TAKE 1 TABLET BY MOUTH TWICE A DAY FOR 7 DAYS 12/02 completed Not Available Not Available Not Available levothyroxi ne 75 mcg tablet Take 1 tablet every day by oral route. active Not Available Not Available No t Available prednisolon e acetate 1 % eye drops,suspe nsion 1 DROP 3X PER DAY INTO SURGICAL EYE, STARTING 4 HOURS AFTER SURGERY, CONTINUIN G FOR 3 WEEKS. 12/02 completed Not Available Not Available Not Available oxycodone-a cetaminophe n 10 mg-325 mg tablet 1 TABLET NEEDED BY MOUTH UP TO 4X/DAY SEVERE PAIN 30 DAYS active Not Available Not Available No t Available tamsulosin 0.4 mg capsule Take 1 capsule every day by oral route. active Not Available Not Available No t Available doxycycline monohydrate 100 mg capsule TAKE 1 CAPSULE BY MOUTH TWICE A DAY 12/02 completed Not Available Not Available Not Available esomeprazol e magnesium 40 mg capsule,del ayed release TAKE 1 CAPSULE BY MOUTH EVERY DAY active Not Available Not Available No t Available prednisone 50 mg tablet PLEASE SEE ATTACHED FOR DETAILED DIRECTION S active Not Available Not Available No t Available montelukast 10 mg tablet TAKE 1 TABLET BY MOUTH EVERY DAY active Not Available Not Available No t Available hydroxyzine HCl 25 mg tablet Take 1 tablet 3 times a day by oral route. active Not Available Not Available No t Available furosemide 20 mg tablet Take 1 tablet every day by oral route. active Not Available Not Available No t Available levofloxaci n 500 mg tablet 12/02 completed Not Available Not Available Not Available cefdinir 300 mg capsule TAKE 1 CAPSULE BY MOUTH EVERY 12 HOURS 12/02 completed Not Available Not Available Not Available doxycycline hyclate 100 mg tablet active Not Available Not Available No t Available ramipril 5 mg capsule TAKE 1 CAPSULE BY MOUTH EVERY DAY active Not Available Not Available No t Available ramipril 10 mg capsule Take 1 capsule every day by oral route. active Not Available Not Available No t Available Ventolin HFA 90 mcg/actuati on aerosol inhaler Inhale 2 puffs every 4 hours by inhalatio n route. active Not Available Not Available No t Available moxifloxaci n 0.5 % eye drops 1 DROP 3 TIMES A DAY INTO SURGICAL EYE, STARTING 1 DAY PRIOR TO SURGERY, CONTINUIN G FOR 1 WEEK AFTER 12/02 completed Not Available Not Available Not Available rosuvastati n 20 mg tablet TAKE 1 TABLET BY MOUTH DAILY active Not Available Not Available No t Available Lovaza 1 gram capsule Take 2 capsules twice a day by oral route. active Not Available Not Available No t Available Vitamin D2 1,000 unit capsule Take by oral route. active Not Available Not Available No t Available naloxone 4 mg/actuatio n nasal spray PLEASE SEE ATTACHED FOR DETAILED DIRECTION S active Not Available Not Available No t Available Trelegy Ellipta 100 mcg-62.5 mcg-25 mcg powder for inhalation 1 INHALATIO N DAILY FOR 3 MONTHS active Not Available Not Available No t Available Magnesium Complex 300 mg magnesium tablet Take by oral route. active Not Available Not Available No t Available Vitals Date Recorded Body weight Body mass index (BMI) Body height Body temperature Provider Name and Address Organization Details Last Updated DateTime 08/26/2023 81512.89 g 22.8 kg/m2 157.48 cm 98 [degF] Yareli Stanton RN [facility] 08/26/2023 12:01:19 Date Recorded Body height Body temperature Provider N camila and Address Organization Details Last Updated DateTime 12/03/2023 157.48 cm 97.8 [degF] Yareli Stanton RN [facility] 12/03/2023 14:01:45 Social History Question Answer Notes LastModified by Organizat ion Details LastModified Time Tobacco Smoking Status Former Smoker QUIT IN 2007 Yareli Stanton RN [facility], [facility] 08/26/2023 12:00:07 What Is Your Level Of Alcohol Consumption? None Information not available 08/25/2023 Do You Or Have You Ever Used Smokeless Tobacco? Former Smokeless Tobacco User [email or web address] Information not available 08/25/2023 Do You Or Have You Ever Used Any Other Forms Of Tobacco Or Nicotine? Yes [email or web address] Information not available 08/25/2023 Sex: Unknown Functional Status None recorded. Mental Status None recorded. Family History Relationship Description Onset Age of this Age Resolved Age Notes LastModified by Organization Details LastModified Time Father No current problems or disability [email or web address] Not available 08/25 11:59:45 Mother No current problems or disability [email or web address] Not available 08/25 11:59:45 Notes:no ent Medical History Condition Response MRSA N BACK INJECTIONS N ALLERGIES/HAYFEVER N LUNG DISEASE/DISORDER N ESRD N HISTORY OF DRUG ABUSE N INSOMNIA N COPD Y RADIATION / CHEMOTHERAPY N HIGH CHOLESTEROL / HYPERLIPIDEMIA N HYPERTHYROIDISM N PVD N BLOOD DISEASES N EAR OR HEARING PROBLEMS N HYPOTHYROIDISM N SHINGLES N DEPRESSION (INCLUDING POST ) N BACK / NECK PROBLEMS N HAVE YOU BEEN HOSPITALIZED OR SEEN IN [facility] ER IN THE PAST YEAR ? N FAILED BACK SYNDROME N STROKE/TIA N POLYCYSTIC OVARIES N OBESITY N HISTORY WITH COMPLICATIONS WITH ANESTHES IA ? N ANEURYSM N Do you have Advance directive? N USE OF BLOOD THINNERS N NO SIGNIFICANT PAST MEDICAL HISTORY N DIABETES, TYPE N VON WILLIBRAND'S DISEASE N PARATHYROID DISEASE N ENT N SEASONAL ALLERGIES N HEARTBURN / REFLUX N POST LAMINECTOMY SYNDROME N HEPATITIS / LIVER DISEASE N SLEEP DISORDER N ARTERIAL INSUFFICIENCY N HEADACHES/MIGRAINES N SEIZURES/EPILEPSY N CHF Y PACEMAKER N DIZZINESS N HEART DISEASE/HEART PROBLEMS N AIDS/HIV N NEUROPSYCHOLOGICAL N HYPERTENSION Y CANCER: SPECIFY N TOURETTE'S N BLOOD TRANSFUSION N ANESTHESIA COMPLICATIONS N ANEMIA/BLOOD DISORDER N CHRONIC EAR INFECTIONS N ATRIAL FIBRILLATION N AUTOIMMUNE DISEASE N TUBERCULOSIS N Gynecological HistoryNo gynecological history recorded. Obstetrics History GPAL:G 0 P 0 0 0 0 Past Encounters Encounter ID Performer Location Encounter Start Date Encounter Closed Date Diagnosis/Indication Diagnosis SNOMED-CT Code Diagnosis ICD10 Code Diagnosis Note [id number] [facility] [address] [place] [id number] 08/26/2023 11:26:28 08/28/2023 11:11:12 Thyroid nodule 199401296 E04.1 [id number] [facility] [address] [place] [address] 12/03/2023 13:50:13 12/04/2023 10:48:58 Thyroid nodule 599160682 E04.1 Health Concerns Section Related Observation LastModified by Organization Detai ls LastModified Time None Recorded Concern Status LastModified by Organization Details LastModified Time None Recorded Advance Directives Directive None Recorded Payers Encounter Date Sequence Insurance Name Policy Number Policy Wu Covered Member ID Wu Member ID Guarantor Name 08/26/2023 1 [facility] [id number] Radha L Lupe [id number] Radha L Lupe 12/03/2023 1 [facility] [id number] Radha L Lupe [id number] Radha L Lupe Notes Date Note Type Note Provider Name and Address Organization Details Recorded Time 08/26/2023 text/html this patient was found to have a mass in the right thyroid on PET-CT. She then underwent a thyroid ultrasound which demonstrated a 2.6 cm right thyroid lobe nodule. The patient is supplemental oxygen dependent and is not a surgical candidate but we will proceed with needle biopsy Noman Britton MD [address] [place] [address], [address], [address], [facility] 08/26/2023 12:15:00 12/03/2023 text/html this patient johanna t for needle biopsy but the radiologist decided that the carotid artery was too close to the nodule and declined complete the biopsy. The patient reports she is having absolutely no trouble with the nodule and she is now on supplemental oxygen Noman Britton MD [address] [facility], [facility] [address], [place], [address], [facility] 12/03/2023 14:30:43 OBGyn Episode No OBEpisode recorded.
--- OUTSIDE RECORDS SUMMARY | 2024-04-20 08:38 | XMS_ITS ---
Author Organization [facility] Address [address] [place] [address] GUILLE Cifuentes [id number] Care Team Providers Care Documentation Consultant Name Role Phone MARIMAR LUGO [facility] Primary Care Provider Baltazar Rivas Unavailable [phone] ALLERGIES Allergen (clinical drug ingredient) Drug/Non Drug Allergy documented on EMR Reaction Allergy Type Onset Date Status amlodipine Amlodipine Besylate swelling of ankles and feet Drug Allergy Active diltiazem Diltiazem HCl swelling of ankles and feet Drug Allergy Active doxazosin Doxazosin Mesylate Unknown Drug Allergy Active Iodinated contrast media (substance) Iodinated Diagnostic Agents hives Drug Allergy Active Penicillin Unknown Drug Allergy Active Shellfish (FN) Shellfish-derived Products Unknown Drug Allergy Active REASON FOR VISIT FOLLOW UP MEDICATIONS Medication SIG (Take, Route, Frequency, Duration) Notes Start Date End Date Status FLUoxetine HCl 20 MG 1 capsule Orally Once a day for 30 day(s) Active Medrol 4 MG as directed Orally 05/13/2021 Active Montelukast Sodium 10 MG 1 tablet Oral Once a day Active Trelegy Ellipta 100-62.5-25 MCG/ACT 1 puff Inhalation Once a day Active Ventolin HFA 108 (90 Base) MCG/ACT 1 puff as needed Inhalation every 4 hrs Active Nrgdd-5-chbi Ethyl Esters 1 GM 2 capsules Oral Twice a day Active Esomeprazole Magnesium 40 MG 1 capsule Oral Once a day Active Propranolol HCl ER 60 MG 1 capsules orally twice a day Active Rosuvastatin Calcium 20 MG 1 tablet Oral Once a day Active Estradiol 2 MG 1 tablet Oral Once a day Active Anoro Ellipta 62.5-25 MCG/INH 1 puff Inhalation Once a day Active Levothyroxine Sodium 50 MCG 1 tablet on an empty stomach in the morning Orally Once a day Active Claritin 10 MG 1 tablet Orally Once a day Active Benadryl 25 MG 1 capsule as needed Orally every 8 hrs Active Aspirin EC 325 MG 1 tablet Orally Once a day Active Vitamin D 1000 UNIT 1 tablet Orally Once a day Active Albuterol Sulfate HFA 108 (90 Base) MCG/ACT 1 puff as needed Inhalation every 4 hrs Active Ramipril 10 MG 1 capsule Orally Twice a day Active hydrALAZINE HCl 25 MG 1 tablet with food Oral Four times a day Active valACYclovir HCl 1 GM 1 tablet Oral Once a day Active Percocet 10-325 MG 1 tablet as needed Orally up to 4x/day severe pain for 30 days MAY FILL 04/22/24 03/17/2024 Active Potassium Chloride ER 10 MEQ TAKE 1 TABLET BY MOUTH EVERY DAY Oral for 90 Active busPIRone HCl 10 MG 1 tablet Oral Twice a day Active Narcan 4 MG/0.1ML 1 actuation in one nostril x1, Nasally 2-3 minutes as needed until the patient is responsive or EMS arrives Active Furosemide 20 MG TAKE 1 TABLET BY MOUTH EVERY MORNING Oral for 90 Active SOCIAL HISTORY Tobacco Use: Social History Observation Description Date Details (start date - stop date) Former Smoker NA - NA Sex Assigned At : Social History Observation Description Sex Assigned At Unknown Tobacco Use/Smoking Question Answer Notes Are you a former smoker How long has it been since you last smoked? > 10 years Additional Findings: Tobacco Non-User Current no n-smoker Encounters Encounter Location Date Provider Diagnosis [facility] [address] [place] [id number] 04/12/2024 Baltazar Parada Radiculopathy, lumba r region M54.16 ; Sacroiliitis, not elsewhere classified M46.1 ; Radiculopathy, cervical region M54.12 ; Spondylosis without myelopathy or radiculopathy, lumbar region M47.816 ; Spinal stenosis, lumbar region with neurogenic claudication M48.062 ; Postlaminectomy syndrome, not elsewhere classified M96.1 ; Spondylosis without myelopathy or radiculopathy, cervical region M47.812 ; MCC (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.01 ; Other intervertebral disc degeneration, lumbar region M51.36 and MCC (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 of opiate analgesic Z79.891 ASSESSMENTS Encounter Date Diagnosis Assessment Notes Treatment Notes Treatment Clinical Notes 04/12/2024 Radiculopathy, lumbar region (ICD-10 - M54.16) The side effects of opioid analgesics including sedation, constipation potentially resulting in bowel obstruction, respiratory depression, tolerance, addiction, hyperalgesia, withdrawal after abrupt discontinuation, immunosuppression and endocrine abnormalities such as hypocortisolism and hypogonadism resulting in sexual dysfunction which may become permanent were discussed and the patient expressed an understanding of the above. The patient was advised to avoid driving, climbing ladders and operating dangerous machinery after taking this medication. The patient was advised to avoid consuming alcohol, illicit drugs and sedative/hypnotic drugs in conjunction with this medication due to the risk of profound respiratory depression and . The patient was directed to utilize the lowest effective dose possible. The importance of safe storage and keeping opioid medications locked up at all times in order to prevent theft and unintended consumption by friends, relatives or anyone else was discussed with the patient at length. The patient agrees to fully comply with the above. The [place] and were appropriate 04/12/2024 Sacroiliitis, not elsewhere classified (ICD-10 - M46.1) 04/12/2024 Radiculopathy, cervical region (ICD-10 - M54.12) 04/12/2024 Spondylosis without myelopathy or radiculopathy, 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.816) 04/12/2024 Spinal stenosis, lumbar region with neurogenic claudication (ICD-10 - M48.062) L4-L5 04/12/2024 Postlaminectomy syndrome, not elsewhere classified (ICD-10 - M96.1) Right L4 decompression 04/12/2024 Spondylosis without myelopathy or radiculopathy, 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) 04/12/2024 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 frame tender (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 of 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 (ICD-10 - Z79.01) 04/12/2024 Other intervertebral disc degeneration, lumbar region (ICD-10 - M51.36) 04/12/2024 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 frame tender (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 of opiate analgesic (ICD-10 - Z79.891) PLAN OF TREATMENT Medication Medication Name Sig Start Date Stop Date Notes Percocet 10-325 MG 1 tablet as needed O rally up to 4x/day severe pain for 30 days 03/17/2024 MAY FILL 04/22/24 Treatment Notes Assessment Notes Radiculopathy, lumbar region The side ef fects of opioid analgesics including sedation, constipation potentially resulting in bowel obstruction, respiratory depression, tolerance, addiction, hyperalgesia, withdrawal after abrupt discontinuation, immunosuppression and endocrine abnormalities such as hypocortisolism and hypogonadism resulting in sexual dysfunction which may become permanent were discussed and the patient expressed an understanding of the above. The patient was advised to avoid driving, climbing ladders and operating dangerous machinery after taking this medication. The patient was advised to avoid consuming alcohol, illicit drugs and sedative/hypnotic drugs in conjunction with this medication due to the risk of profound respiratory depression and . The patient was directed to utilize the lowest effective dose possible. The importance of safe storage and keeping opioid medications locked up at all times in order to prevent theft and unintended consumption by friends, relatives or anyone else was discussed with the patient at length. The patient agrees to fully comply with the above. The [place] were [place] and were appropriate Next Appt Details Provider Name:Batlazar Finn navarrete, 05/12/2024 09:30:00 AM, [address] [place], [address], Progress Notes * Examination Category Sub-Category Detail Notes Examination/ Pre-Anesthesia Assessment General: The patient is alert and artem ented X 3 in moderate distress secondary to pain HEENT: Normocephalic, atrau matic. PERRL. The oropharynx is clear Neck: There is limited ran ge of motion of the cervical spine to 60 degrees with extension and lateral rotation bilaterally. There is tenderness to palpation over the bilateral C3-4 through C7-T1 facet joints. Extension and lateral rotation of the cervical spine reproduces the patients typical axial neck pain. The axial loading test is positive. There is diffuse tenderness to palpation over the bilateral cervical paraspinal muscles and significant muscle spasm throughout. There are palpable myofascial trigger points within the body of the trapezius muscles bilaterally Heart: Regular rate and rhy thm Chest: Clear to auscultatio n bilaterally Abdomen: Soft and benign Musculoskeletal and Extremities: There i s tenderness to palpation over the bilateral L2-3 through L5-S1 facet joints. Extension and lateral rotation of the lumbar spine reproduces the patient's typical axial low back pain. Thigh thrust test, [place]'s and [place]'s are positive bilaterally. There is severe tenderness palpation over the Right sacroiliac joints. There is tenderness to palpation over the bilateral lumbar paraspinal muscles and palpable myofascial trigger points throughout. There is weakness and atrophy of the bilateral lumbar paraspinal muscles Neurological: There is positive st raight leg raising bilaterally, Spurling's sign is positive bilaterally Skin: Clean, dry and intac t. Midline low back and right buttock incision are well-healed Psychiatric: Mood and affect are normal History and Physical Notes * HPI (History of Present Illness) Category Sub-Category Detail Notes Pain Management Radiographic Imaging Lumbar spin e MRI without contrast 10/15/2015: L3-4: Bilateral neuroforaminal stenosis, L4-L5: Central stenosis and bilateral neuroforaminal s Cervical spine CT scan without contrast 04/24/21 2-3: Bilateral facet arthropathy. Mild right and severe left facet arthropathy. Mild left neuroforaminal stenosis. C3-4: Mild right uncovertebral joint posterior arthritis. Bilateral facet joint arthropathy. Mild bilateral neuroforaminal stenosis. Mild central canal stenosis. C 4-5: Mild bilateral symmetrical joint osteoarthritis. Severe bilateral facet arthropathy. Mild bilateral neuroforaminal stenosis. Mild central stenosis. C5-6: Severe bilateral uncovertebral joint osteoarthritis. Severe facet arthropathy bilaterally. Mild bilateral neuroforaminal. Mild central canal stenosis. C6-7: Severe bilateral facet joint osteoarthritis. Severe bilateral facet arthropathy. Mild bilateral neuroforaminal stenosis Lumbar spine MRI without contrast 10/15/2015: L3-4: Bilateral neuroforaminal stenosis, L4-L5: Central stenosis and bilateral neuroforaminal s Cervical spine CT scan without contrast 04/24/21 2-3: Bilateral facet arthropathy. Mild right and severe left facet arthropathy. Mild left neuroforaminal stenosis. C3-4: Mild right uncovertebral joint posterior arthritis. Bilateral facet joint arthropathy. Mild bilateral neuroforaminal stenosis. Mild central canal stenosis. C 4-5: Mild bilateral symmetrical joint osteoarthritis. Severe bilateral facet arthropathy. Mild bilateral neuroforaminal stenosis. Mild central stenosis. C5-6: Severe bilateral uncovertebral joint osteoarthritis. Severe facet arthropathy bilaterally. Mild bilateral neuroforaminal. Mild central canal stenosis. C6-7: Severe bilateral facet joint osteoarthritis. Severe bilateral facet arthropathy. Mild bilateral neuroforaminal stenosis Assessment and Follow-up: Follow-up Plan documen ellen:: Yes MIPS Quality 2020: MIPS Documented:: Compliant
--- OUTSIDE RECORDS SUMMARY | 2024-04-20 08:39 | XMS_ITS | Clinical Summary ---
Author Organization [facility] Address [address] [place] [address] Care Team Providers Care Transition Program Manager Name Role Phone Unavailable Primary Care Provider Unavailabl e Source Comments [facility],non-owned Affiliates and Associated Physician Practices is amultiple site organization consisting of ambulatory clinics and hospital sitesin [place], [place], [place] and [place]. This disclosure is being madepursuant to the Care Everywhere program and may not contain all information available regarding this patient. Last updated 17.[facility] Social History Tobacco Use Types Packs/Day Years Used Date Smoking Tobacco: Never Assessed Sex and Gender Information Value Date Recorded Sex Assigned at Not on file Gender Identity Not on file Sexual Orientation Not on file Plan of Treatment Health Maintenance Due Date Last Done Comments BONE DENSITY TESTING 1945 DTAP/TDAP/TD VACCINES (1 - Tdap) 09/01/1963 PNEUMOCOCCAL VACCINE 50+ (1 of 1 - PCV) 1994 ZOSTER VACCINE (1 of 2) 1994 Respiratory Syncytial Virus (RSV) Vaccine Pt: or over 60 yrs (1 - 1-dose 75+ series) 09/01/2019 COVID-19 VACCINE ( - 2023-2 5 season) 2023 INFLUENZA VACCINE (#1) 2023 DEPRESSION SCREENING 02/24/2024 MEDICARE AWV CALENDAR YEAR 2024 HEPATITIS B VACCINE Aged Out No longe r eligible based on patient's age to complete this topic HIB VACCINE Aged Out No longer eligi ble based on patient's age to complete this topic HPV VACCINE Aged Out No longer eligi ble based on patient's age to complete this topic MENINGOCOCCAL (Group B) VACCINE Aged Out No longer eligible based on patient's age to complete this topic MENINGOCOCCAL VACCINE Aged Out No cely alexandra eligible based on patient's age to complete this topic Licha Malagon Personal/Family Self [address] [place] [address] LICHA MALAGON Personal/Family Sp[place] [address] [place] [address]
--- OUTSIDE RECORDS SUMMARY | 2024-04-20 08:39 | XMS_ITS | Referral Summary ---
Author Organization [facility] Address [address] [place] [address] Care Team Providers Care Crop Research Scientist Name Role Phone Unavailable Primary Care Provider Unavailabl e Source Comments [facility],non-owned Affiliates and Associated Physician Practices is amultiple site organization consisting of ambulatory clinics and hospital sitesin [place], [place], [place] and [place]. This disclosure is being madepursuant to the Care Everywhere program and may not contain all information available regarding this patient. Last updated 17.[facility] Social History Tobacco Use Types Packs/Day Years Used Date Smoking Tobacco: Never Assessed Sex and Gender Information Value Date Recorded Sex Assigned at Not on file Gender Identity Not on file Sexual Orientation Not on file Plan of [place] [address] Licha Malagon Personal/Family Self 1945 [address] [place] [address] MANASLICHA Personal/Family Spouse [facility] [place] [address]
--- OUTSIDE RECORDS SUMMARY | 2024-04-20 08:39 | XMS_ITS | CONTINUITY OF CARE DOCUMENT ---
Author Name alec michael Address Unknown Organization [facility] Address [address] [place] [address] Phone [phone] Care Team Providers Care Pump House Operator Name Role Phone Tasia Mejia MD Unavailable AIMEE MINAYA MD Unavailable [phone] AIMEE MINAYA MD Unavailable [phone] PROBLEMS Condition Status Date Provider Notes HTN essential active Tasia Mejia MD CAD - S/P RCA Stent - Patent on cath in 2009 active Tasia Mejia MD COPD active Tasia Mejia MD Family History of Sudden Cardiac : active ? Tasia Mejia MD Hyperlipidemia active Tasia Mejia MD Hypercholesterolemia active Tasia Mejia MD GERD active Tasia Mejia MD Anxiety, situational active Tasia Mejia MD Vertigo active Tasia Mejia MD Hypothyroidism active Tasia Mejia MD ENCOUNTERS Date Type Provider Location Encounter Diag nosis 2 - 7 In-person encounter Office Visit [facility] 4 - 6 In-person encounter Office Visit [facility] HTN essentialCAD - S/P RCA Stent - Patent on cath in 2009COPDFamily History of Sudden Cardiac :HyperlipidemiaHypercholesterol emiaGERDAnxiety, situationalVertigoHypothyroidism VITAL SIGNS Date Observation Value Provider respiratory rate E&M 16 /min Ondina Mejia MD blood pressure, diastolic 88 mm[Hg] Mark Mejia MD blood pressure, systolic 160 mm[Hg] Maritza Mejia MD blood pressure, diastolic, left arm 76 mm [Hg] Tasia Mejia MD blood pressure, systolic, left arm 130 mm [Hg] Tasia Mejia MD blood pressure, diastolic, right arm 80 m m[Hg] Tasia Mejia MD blood pressure, systolic, right arm 138 m m[Hg] Tasia Mejia MD blood pressure, diastolic 80 mm[Hg] Mark Mejia MD blood pressure, systolic 138 mm[Hg] Maritza Mejia MD Body Mass Index (Ratio) 23.41 kg/m2 Char Mejia MD pulse rate 66 /min Tsaia Mejia MD oxygen saturation, oximetry 94 % Tasia Mejia MD respiratory rate E&M 16 /min Ondina Mejia MD weight E&M 128 [lb_av] Tasia Mejia MD height E&M 62 [in_i] Tasia Mejia MD ALLERGIES Allergy Name Onset Date Reaction Criticality Status IODNO High Criticality active HARD SHELL SEAFOOD High Criticality active PENICILIN High Criticality active DOXAZOASIN High Criticality active AMLODIPNE High Criticality active HISTORY OF MEDICATION USE Medication Status Instructions Dates Provider Indications Com ments LOVAZA 1 GM ORAL CAPSULE active Dispense as written. one tablet daily 2 Tasia Mejia MD SPIRONOLACTONE 25 MG ORAL TABLET active 1/2 TAB. DAILY 2 Tasia Mejia MD NEXIUM 40 MG ORAL CAPSULE DELAYED RELEASE active ONE TAB. DAILY 4 Tasia Mejia MD ALPRAZOLAM 0.5 MG ORAL TABLET active 4 Tasia Mejia MD VITAMIN D3 1000 UNIT ORAL TABLET active 1000 units once daily 4 Tasia Mejia MD RAMIPRIL 10 MG ORAL CAPSULE active two tablets daily 4 Tasia Mejia MD CRESTOR 20 MG ORAL TABLET active one tablet daily 4 Tasia Mejia MD PROPRANOLOL HCL ER 60 MG ORAL CAPSULE EXTENDED RELEASE 24 HOUR active one tablet daily 4 Tasia Mejia MD PREMARIN 0.625 MG ORAL TABLET active 4 Tasia Mejia MD LEVOTHYROXINE SODIUM 50 MCG ORAL TABLET active 1 tablet by mouth daily 4 Tasia Mejia MD SOCIAL HISTORY Date Observation Value Provider smoking status Unknown if ever smoked Maritza Mejia MD social history reviewed E&M revi ewed - no changes required Tasia Mejia MD social history E&M S moking History: U nknown if patient has ever smoked. Tasia Mejia MD smoking status Unknown if ever smoked Maritza Mejia MD social history reviewed E&M revi ewed - no changes required Tasia Mejia MD FAMILY HISTORY Family Member Condition Father Family History of Morel dden Cardiac : Father Family History of Co ronary Artery Disease: Father Family History of Co ronary Artery Disease: INSURANCE PROVIDERS Payer name Policy type / Coverage type [facility] [id number] Other [id number] [place] Medicare [id number] TREATMENT PLAN Date Name Performer Cardiology:On replacement therap y with levothyroxine. Tasia Mejia MD Cardiology:On Nexium (esomeprazo le). Tasia Mejia MD Cardiology:Blood pressure is lab ile. Tasia Mejia MD Cardiology:Chest pain free. Char Mejia MD Cardiology Tasia Kelly Cardiology:On Crestor and Lovaza . Tasia Mejia MD printed to [place]: On replacement therapy. Her updated medication list for this problem includes: Levothyroxine Sodium 50 Mcg Tabs (Levothyroxine sodium) ..... 1 tablet by mouth daily Tasia Mejia MD printed to [place]: H er updated medication list for this problem includes: Crestor 20 Mg Oral Tabs (Rosuvastatin calcium) Tasia Mejia MD printed to [place]: On Crestor. Her updated medication list for this problem includes: Crestor 20 Mg Oral Tabs (Rosuvastatin calcium) Tasia Mejia MD printed to [place]: Blood pressure control is satisfactory. H er updated medication list for this problem includes: Ramipril 10 Mg Oral Caps (Ramipril) ..... Two tablets daily Propranolol Hcl 60 Mg Oral Tabs (Propranolol hcl) Orders: 9 9205 HIGH Complex (CPT-94099) Tasia Mejia MD printed to [place]: On bronchodilators. O rders: 9 9205 HIGH Complex (CPT-[id number]) Tasia Mejia MD printed to [place]: S/P RCA Stent - Fairly asymptomatic. Continues on aspirin once a day. H er updated medication list for this problem includes: Ramipril 10 Mg Oral Caps (Ramipril) ..... Two tablets daily Propranolol Hcl 60 Mg Oral Tabs (Propranolol hcl) Orders: 9 9205 HIGH Complex (CPT-[id number]) Tasia Mejia MD Date Name BASIC METABOLIC PANE L W/EGFR Renal Artery Duplex HISTORY OF PROCEDURES Procedure Date Procedure Name Provider Procedure Notes S tatus SNOMED-CT: 767404457 [id number] Current Medications Documented Tasia Mejia MD completed SNOMED-CT: 533310485 Smoking Cessation Counseling Tasia Mejia MD completed SNOMED-CT: 31972327 Physical Exam, Performed: Pulse Exam of Foot Tasia Mejia MD completed
--- OUTSIDE RECORDS SUMMARY | 2024-04-20 08:39 | XMS_ITS ---
Author Organization [facility] Address [address] [place] [address] GUILLE Cifuentes [id number] Care Team Providers Care Refuge Worker Name Role Phone MARIMAR LUGO [facility] Primary Care Provider Baltazar Rivas Unavailable [phone] ALLERGIES Allergen (clinical drug ingredient) Drug/Non Drug [...] Unknown Drug Allergy Active REASON FOR VISIT BILAT DIAGNOSTIC SACROILIAC JOINT INJECTION (NO ASC COPAY) MEDICATIONS Medication SIG (Take, Route, Frequency, Duration) Notes Start Date End Date Status busPIRone HCl 10 MG 1 tablet Oral Twice a day Active Narcan 4 MG/0.1ML 1 actuation in one nostril x1, Nasally 2-3 minutes as needed until the patient is responsive or EMS arrives Active hydrALAZINE HCl 25 MG 1 tablet with food Oral Four times a day Active valACYclovir HCl 1 GM 1 tablet Oral Once a day Active Percocet 10-325 MG 1 tablet as needed Orally up to 4x/day severe pain for 30 days MAY FILL 03/24/24 03/17/2024 Active Trelegy Ellipta 100-62.5-25 MCG/ACT 1 puff Inhalation Once a day Active Montelukast Sodium 10 MG 1 tablet Oral Once a day Active Ventolin HFA 108 (90 Base) MCG/ACT 1 puff as needed Inhalation every 4 hrs Active Potassium Chloride ER 10 MEQ TAKE 1 TABLET BY MOUTH EVERY DAY Oral for 90 Active Furosemide 20 MG TAKE 1 TABLET BY MOUTH EVERY MORNING Oral for 90 Active Zeifk-3-lonx Ethyl Esters 1 GM 2 capsules Oral Twice a day Active FLUoxetine HCl 20 MG 1 capsule Orally Once a day for 30 day(s) Active Esomeprazole Magnesium 40 MG 1 capsule Oral Once a day Active Medrol 4 MG as directed Orally 05/13/2021 Active Rosuvastatin Calcium 20 MG 1 tablet Oral Once a day Active Levothyroxine Sodium 50 MCG 1 tablet on an empty stomach in the morning Orally Once a day Active Aspirin EC 325 MG 1 tablet Orally Once a day Active Estradiol 2 MG 1 tablet Oral Once a day Active Claritin 10 MG 1 tablet Orally Once a day Active Propranolol HCl ER 60 MG 1 capsules orally twice a day Active Vitamin D 1000 UNIT 1 tablet Orally Once a day Active Ramipril 10 MG 1 capsule Orally Twice a day Active Benadryl 25 MG 1 capsule as needed Orally every 8 hrs Active Anoro Ellipta 62.5-25 MCG/INH 1 puff Inhalation Once a day Active Albuterol Sulfate HFA 108 (90 Base) MCG/ACT 1 puff as needed Inhalation every 4 hrs Active Encounters Encounter Location Date Provider Diagnosis [facility] [address] [place] [id number] 04/20/2024 Baltazar Parada Sacroiliitis, not elsewhere classified M46.1 ASSESSMENTS Encounter Date Diagnosis Assessment Notes Treatment Notes Treatment Clinical Notes 04/20/2024 Sacroiliitis, not elsewhere classified (ICD-10 - M46.1) 04/20/2024 Other The patient voiced understanding of the treatment plan and all questions were addressed. Obtain informed consent: under fluoroscopy. Monitor pulse, blood pressure and SaO2 before, after and as needed during procedure. Verify if the patient is currently taking blood thinner. Verify patients is not currently on antibiotics for infection. Patient may drive home. CARE PLAN: Knowledge deficit: Will verbalize understanding of the proposed procedure, including risk of electrical burn, complications and benefits of the procedure? Will the patient exhibit understanding of the discharge instructions? Safety: The potential for injury related to surgery was assessed; Fire risk score determined, test completed if applicable. Risk for injury related to wrong patient, site, procedure. TIME OUT for safety of patient and includes patient name, , procedure site, side, level, allergies, blood thinners, antibiotics, surgical counts, consents correct and signed etc. Risk for infection: Implements aseptic technique, protects from cross-contamination, performs skin preparations. Pain/Discomfort: Patient verbalizes acceptable level of pain relief prior to discharge and the ability to engage in desired activity. I HAVE REVIEWED THE PATIENT'S MEDICATION LIST AND HAVE RECONCILED THE ABOVE MEDICATIONS. PATIENT GOALS AND SAFETY CONCERNS HAVE BEEN ADDRESSED. RN initials PLAN OF TREATMENT Treatment Notes Assessment Notes Other The patient voiced understanding of the treatment plan and all questions were addressed. Obtain informed consent: under fluoroscopy. Monitor pulse, blood pressure and SaO2 before, after and as needed during procedure. Verify if the patient is currently taking blood thinner. Verify patients is not currently on antibiotics for infection. Patient may drive home. CARE PLAN: Knowledge deficit: Will verbalize understanding of the proposed procedure, including risk of electrical burn, complications and benefits of the procedure? Will the patient exhibit understanding of the discharge instructions? Safety: The potential for injury related to surgery was assessed; Fire risk score determined, test completed if applicable. Risk for injury related to wrong patient, site, procedure. TIME OUT for safety of patient and includes patient name, , procedure site, side, level, allergies, blood thinners, antibiotics, surgical counts, consents correct and signed etc. Risk for infection: Implements aseptic technique, protects from cross-contamination, performs skin preparations. Pain/Discomfort: Patient verbalizes acceptable level of pain relief prior to discharge and the ability to engage in desired activity. I HAVE REVIEWED THE PATIENT'S MEDICATION LIST AND HAVE RECONCILED THE ABOVE MEDICATIONS. PATIENT GOALS AND SAFETY CONCERNS HAVE BEEN ADDRESSED. RN initials Next Appt Details Provider Name:Baltazar Finn navarrete, 05/12/2024 09:30:00 AM, [address] [place] [address], [phone], Procedure Notes * Category Sub-Category Detail Notes Sacroiliac Joint Injection w ith Arthrogram under Fluoroscopy Location Bilateral Anesthesia Local without IV sed ation Operative Technique After the risks, jorge efits, alternative treatments and potential complications related to the procedure were discussed and informed consent was obtained, the patient was placed in the prone position on the fluoroscopy table. Standard ASA monitors were applied. The lower back and buttocks were prepped and draped in the usual sterile fashion with chlorhexidine 2%/IPA 70%. The left, followed by the right, sacroiliac joint was identified under live x-ray. An AP view was obtained superimposing the inferior aspect of the anterior and posterior sacroiliac joint. A 23 gauge 3.5 inch spinal needle was inserted under fluoroscopic guidance towards the inferior aspect of the sacroiliac joint until periosteum was contacted. The subcutaneous structures were anesthetized with 3 mL of 1% Preservative-Free lidocaine during needle placement. The needle tip was advanced into the inferior most aspect of the sacroiliac joint. A lateral view was taken to ensure correct placement within the sacroiliac joint. An AP view was taken and after negative aspiration for blood, air and CSF, 2 mL of Omnipaque 240 contrast dye was injected into each joint under live fluoroscopy for an arthrogram demonstrating normal cephalad spread within the sacroiliac joint (except in cases of contrast allergy). No intravascular or perineural spread noted. There were no abnormalities in articular contour noted on the arthrogram. A solution of 10 mg of Preservative-Free Dexamethasone (10 mg/mL), plus 2 mL of 0.25% PF bupivacaine was mixed and after negative aspiration 1.5 mL of this solution was slowly injected into each (left followed by right) joint space. The needle was removed, the skin was cleaned and band-aids were placed over the puncture site. The patient tolerated the procedure well, was able to ambulate without difficulty and was monitored for 20 minutes. The patient remained hemodynamically and neurologically stable. No apparent complications were observed. Postoperative instructions were reviewed with the patient. The patient was then discharged home in good condition with a long haul truck driver. X-ray time: 8 seconds Safe Surgery Practices First Critical Point Roro ent identified by verbal and ID band. Surgical site marked. Assessement of allergies, airway and aspiration risk. Assessed if patient is on anticoagulant. Operataive Consent signed. Patient has discussed procedure with physician Second Critical Point TIME OUT: Confirm patient identity, procedure and surgical incision site. Patient in proper position and safety straps placed appropriately. ASA score: __ Fire Risk Score:__ . Alcohol based prep solution had significant time for fumes to dissipate. Confirm surgical cdl team truck driver and roles. Anticipated critical events. Essential imaging displayed as appropriate. Fluoroscopy precautions taken if applicable. Equipment and supplies in room. Verify patient is not if applicable Third Critical Point SAFE SURGERY PRACTI EFFIE-POST: Complete count of surgical instruments and accessories. Identify paulino patient concerns for recovery and management of the patient. Patient remains free from injury related to surgery. The patient tolerated the procedure well and there were no complications. The patient was taken to the recovery area. The patient remained in stable condition with no apparent complications. Vital signs stable. Injection/procedure/surgical site clean, dry and intact. Post procedure discharge instructions were give to the patient and a follow up appointment was confirmed. The patient was discharged with information on how to reach the clinic at anytime for questions or concerns. Patient discharged ambulatory. Patient denies complaints or questions Progress Notes * Examination Category Sub-Category Detail [...] axial low back pain. Thigh thrust test, Rockaway's and Gaenslen's are positive bilaterally. There is [...]
--- OUTSIDE RECORDS SUMMARY | 2024-04-20 08:39 | XMS_ITS | Clinical Summary ---
Author Organization [facility] Address [facility] [place] [address] Care Team Providers Care Business Development Officer Name Role Phone Bhanu Hinojosa MD Primary Care Provider [phone] Allergies Active Allergy Reactions Criticality Noted Date Comments Amlodipine Unknown 10/12/2022 Clindamycin Headache 10/12/2022 Diltiazem Unknown 10/12/2022 Iodine Hives 10/12/2022 Penicillins Hives 10/12/2022 Shellfish-Derived Products Nausea and Vomiting 10/12/2022 Medications albuterol sulfate HFA 108 (90 Base) MCG/ACT inhaler Inhale 2 puffs into the lungs every 4 (four) hours as needed. 2 Active FLUoxetine (PROZAC) 40 MG capsule Take 1 capsule (40 mg total) by mouth daily. 3 Active esomeprazole (NEXIUM) 40 MG capsule Take 1 capsule (40 mg total) by mouth daily. Active ASPIRIN 81 OR Take 81 mg by mouth daily. Active hydrALAZINE (APRESOLINE) 50 MG tablet Take 0.5 tablets (25 mg total) by mouth 2 (two) times daily. 2 Active hydrOXYzine (ATARAX) 25 MG tablet Take 1 tablet (25 mg total) by mouth every 8 (eight) hours as needed for Anxiety. 3 Active levothyroxine (SYNTHROID) 75 MCG tablet Take 1 tablet (75 mcg total) by mouth daily. 2 Active meclizine (ANTIVERT) 25 MG tablet Take 1 tablet (25 mg total) by mouth every 8 (eight) hours as needed. Active montelukast (SINGULAIR) 10 MG tablet Take 1 tablet (10 mg total) by mouth daily. 3 Active Multiple Vitamin (DAILY VITES) Tab Take 1 tablet by mouth daily. Active omega-3 acid (LOVAZA) 1 GM capsule Take 1 capsule (1 g total) by mouth 2 (two) times daily. Active oxyCODONE-acetam inophen (PERCOCET) 10-325 MG tablet Take 1 tablet by mouth every 6 (six) hours as needed. 3 Active propranolol LA (INDERAL LA) 60 MG 24 hr capsule Take 1 capsule (60 mg total) by mouth 2 (two) times daily. Active ramipril (ALTACE) 10 MG capsule Take 1 capsule (10 mg total) by mouth daily. Active rosuvastatin (CRESTOR) 20 MG tablet Take 1 tablet (20 mg total) by mouth daily. Active TRELEGY ELLIPTA 100-62.5-25 MCG/ACT AEROSOL POWDER, BREATH ACTIVATED Inhale 1 puff into the lungs daily. 3 Active tamsulosin (FLOMAX) 0.4 MG Cap Take 1 capsule (0.4 mg total) by mouth daily. 3 Active potassium chloride CR (K-TAB) 10 MEQ Tab CR tablet Take 1 tablet (10 mEq total) by mouth daily. 3 Active furosemide (LASIX) 20 MG tablet Take 1 tablet (20 mg total) by mouth every morning. 3 Active OXYGEN CONCENTRATOR SUPPLY, DME,Indications: COPD (chronic obstructive pulmonary disease) ([facility]),Hypoxia 1 Device by Nasal route continuous. Nasal cannula. 2L at rest and 3L with activity. Portable Oxygen Concentrator with Pulse Settings. Stationary Concentrator. 1 Device 3 Active Active Problems Problem Noted Date Diagnosed Date Pneumonia 10/12/2022 COPD exacerbation ([facility]) 10/12/2022 Social History Tobacco Use Types Packs/Day Years Used Date Smoking Tobacco: Former Cigarettes 1 30 1 978 - 2007 Smokeless Tobacco: Never Tobacco Cessation:Counseling Given: No Alcohol Use Standard Drinks/Week Comments Never 0 (1 standard drink = 0.6 oz pur e alcohol) Education Answer Date Recorded What is the highest level of school you have completed or the highest degree you have received? GED or equivalent Comments No Sex and Gender Information Value Date Recorded Sex Assigned at Not on file Legal Sex Female 4:27 PM CDT Gender Identity Not on file Sexual Orientation Not on file Last Filed Vital Signs Vital Sign Reading Time Taken Comments Blood Pressure 175/75 10/15/2022 7:51 AM CDT Pulse 76 10/15/2022 7:51 AM CDT Temperature 36.6 C (97.9 F) 10/15/2022 7:51 AM CDT Respiratory Rate 18 10/15/2022 7:51 AM CDT Oxygen Saturation 94% 10/15/2022 11:51 AM CDT Inhaled Oxygen Concentration - - Weight 59.9 kg (132 lb 0.9 oz) 10/12/2022 2:00 P M CDT Height 157.5 cm (5' 2 ) 10/12/2022 2:00 PM CDT Body Mass Index 24.15 10/12/2022 2:00 PM CDT Plan of Treatment Health Maintenance Due Date Last Done Comments Hepatitis C 1963 DTaP, Tdap and Td Vaccines (1 - Tdap) 09[birth year]01/1964 Annual Medicare Wellness Visit 2009 Dexa Scan (General) 2009 Zoster Vaccines (2 of 3) 03/07/2016 01/11/2016 RSV Immunization or 60+ Years (1 - 1-dose 75+ series) 09/01/2019 COVID-19 Vaccine (3 - season) 2023 06/15/2020, 05/18/2020 Influenza Adult (#1) 2023 12/03/2016, 12/06/2015, 11/28/2014, Additional history exists Pneumococcal Vaccine: 65+ Years Completed 10/29/2015, 05/25/2012 Meningococcal B Vaccine Aged Out No l onger eligible based on patient's age to complete this topic Meningococcal Vaccine Aged Out No cely alexandra eligible based on patient's age to complete this topic RSV Immunizations Under 20 Months Aged Out No longer eligible based on patient's age to complete this topic Goals Goal Patient Goal Type Associated Problems Recent Progress Patient-Stated? 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
--- OUTSIDE RECORDS SUMMARY | 2024-04-20 08:39 | XMS_ITS | Clinical Summary ---
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 Active omega-3 acid ethyl esters (LOVAZA) 1 gram Oral Cap Take 4 Gram by mouth daily. Active rosuvastatin (CRESTOR) 20 mg Oral tablet Take 20 mg by mouth daily at bedtime. Active propranolol SR 24 hour (INDERAL LA) 60 mg Oral Cs24 Take 60 mg by mouth daily. Active esomeprazole (NEXIUM) 40 mg Oral CpDR Take 40 mg by mouth daily before breakfast. Active conjugated estrogens (PREMARIN) 0.625 mg Oral tablet Take 0.625 mg by mouth daily. Active aspirin (NAKUL) 81 mg Oral Tab Take 81 mg by mouth daily. Active CALCIUM CARBONATE/VITAM IN D3 (CALCIUM + D ORAL) Take 1,200 mg by mouth daily. Active PSEUDOEPHEDRINE HCL (SINUS 12 HOUR ORAL) Take by mouth. Acti ve multivitamin (DAILY-DEN) Oral tablet Take 1 Tab by mouth daily. Active alprazolam (XANAX) 0.5 mg Oral tablet Take 0.5 mg by mouth nightly as needed for Anxiety. Active valacyclovir (VALTREX) 500 mg Oral tablet Take 500 mg by mouth 2 times daily. Active meclizine (ANTIVERT) 25 mg Oral tablet Take 25 mg by mouth 3 times daily as needed for Dizziness. Active hydrocodone-zane taminophen (NORCO) 10-325 mg Oral Tab Take 1 Tab by mouth every 4 hours as needed. Active tiotropium (SPIRIVA WITH HANDIHALER) 18 mcg Inhalation capsuleIndicati ons:Breast pain Take 18 mcg by inhalation daily. Active GENIE PRIM/LINOLEIC/G AMOLENIC AC (PRIMROSE OIL ORAL)Indication s:Breast pain Take by mouth 2 times daily. Active ramipril (ALTACE) 10 mg Oral capsule Take 10 mg by mouth daily. Active tiotropium (SPIRIVA WITH HANDIHALER) 18 mcg Inhalation capsule Take 18 mcg by inhalation daily. Active ALBUTEROL SULFATE (VENTOLIN INHALATION) Take by inhalation. 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 Gender Identity Not on file Sexual Orientation Not on file Last Filed Vital Signs Vital Sign Reading Time Taken Comments Blood Pressure 128/76 04/23/2010 1:18 PM PORCELAIN ENAMEL INSTALLER Pulse 64 04/23/2010 1:18 PM PORCELAIN ENAMEL INSTALLER Temperature 36.8 C (98.3 F) 04/23/2010 1:18 PM PORCELAIN ENAMEL INSTALLER Respiratory Rate 14 04/23/2010 1:18 PM PORCELAIN ENAMEL INSTALLER Oxygen Saturation - - Inhaled Oxygen Concentration - - Weight 64 kg (141 lb) 04/23/2010 1:18 PM PORCELAIN ENAMEL INSTALLER Height 157.5 cm (5' 2 ) 04/23/2010 1:18 PM PORCELAIN ENAMEL INSTALLER Body Mass Index 25.79 04/23/2010 1:18 PM PORCELAIN ENAMEL INSTALLER Plan of Treatment Health Maintenance Due Date Last Done Comments DTAP/TDAP/TD VACCINES (1 - Tdap) 09[birth year]01/1964 PNEUMOCOCCAL VACCINE 65+ YEARS (1 of 1 - PCV) 08/31/18 95 ZOSTER VACCINE (1 of 2) 1994 OSTEOPOROSIS SCREENING 2009 RSV VACCINE (60+ or ) (1 - 1-dose 75+ series) 09/01/2019 INFLUENZA VACCINE (#1) 2023 Insurance [facility] [place] [address] [id number] [facility] [id number] MEDICARE PART A AND B [facility] [place] [address] [place] [id number] Care Teams Tower Foreman Relationship Specialty Start Date End Date Bhanu Hinojosa MD [address] [place] [address] PCP - General 02/13/15
--- OUTSIDE RECORDS SUMMARY | 2024-04-20 08:39 | XMS_ITS ---
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 Name Role Phone MARIMAR LUGO [facility] Primary Care Provider Baltazar Rivas Unavailable [phone] ALLERGIES Allergen (clinical drug ingredient) Drug/Non Drug [...] Unknown Drug Allergy Active REASON FOR VISIT Follow Up, Right > Left Low Back Pain MEDICATIONS Medication SIG (Take, Route, Frequency, Duration) Notes Start Date End Date Status Propranolol HCl ER 60 MG 1 capsules orally twice a day Active Estradiol 2 MG 1 tablet Oral Once a day Active Esomeprazole Magnesium 40 MG 1 capsule Oral Once a day Active [id number] Ethyl Esters 1 GM 2 capsules Oral Twice a day Active Rosuvastatin Calcium 20 MG 1 tablet Oral Once a day Active Claritin 10 MG 1 tablet Orally Once a day Active Levothyroxine Sodium 50 MCG 1 tablet on an empty stomach in the morning Orally Once a day Active Aspirin EC 325 MG 1 tablet Orally Once a day Active Benadryl 25 MG 1 capsule as needed Orally every 8 hrs Active Anoro Ellipta 62.5-25 MCG/INH 1 puff Inhalation Once a day Active valACYclovir HCl 1 GM 1 tablet Oral Once a day Active Vitamin D 1000 UNIT 1 tablet Orally Once a day Active Ramipril 10 MG 1 capsule Orally Twice a day Active Albuterol Sulfate HFA 108 (90 Base) MCG/ACT 1 puff as needed Inhalation every 4 hrs Active hydrALAZINE HCl 25 MG 1 tablet with food Oral Four times a day Active busPIRone HCl 10 MG 1 tablet Oral Twice a day Active Potassium Chloride ER 10 MEQ TAKE 1 TABLET BY MOUTH EVERY DAY Oral for 90 Active Narcan 4 MG/0.1ML 1 actuation in one nostril x1, Nasally 2-3 minutes as needed until the patient is responsive or EMS arrives Active Furosemide 20 MG TAKE 1 TABLET BY MOUTH EVERY MORNING Oral for 90 Active Percocet 10-325 MG 1 tablet as needed Orally up to 4x/day severe pain for 30 days MAY FILL 04/22/24 04/14/2024 Active Medrol 4 MG as directed Orally 05/13/2021 Active FLUoxetine HCl 20 MG 1 capsule Orally Once a day for 30 day(s) Active Montelukast Sodium 10 MG 1 tablet Oral Once a day Active Ventolin HFA 108 (90 Base) MCG/ACT 1 puff as needed Inhalation every 4 hrs Active Trelegy Ellipta 100-62.5-25 MCG/ACT 1 puff Inhalation Once a day Active SOCIAL HISTORY Tobacco Use: Social History Observation Description Date Details (start date - stop date) Former Smoker NA - NA Sex Assigned At : Social History Observation Description Sex Assigned At Unknown Tobacco Use/Smoking Question Answer Notes Are you a former smoker How long has it been since you last smoked? > 10 years Additional Findings: Tobacco Non-User Current no n-smoker VITAL SIGNS Blood pressure systolic 188 mm Hg 04/14/19 25 Blood pressure diastolic 107 mm Hg 025 Heart Rate 86 /min 04/14/2024 Respiratory Rate 18 /min 04/14/2024 Height 62 in 04/14/2024 Weight 125 lbs 04/14/2024 BMI 22.86 kg/m2 04/14/2024 Encounters Encounter Location Date Provider Diagnosis [facility] [address] [facility] [place] [address] [place] [address] 04/14/2024 Baltazar Stynowick Radiculopathy, lumba r region M54.16 ; Sacroiliitis, not elsewhere classified M46.1 ; Radiculopathy, cervical region M54.12 ; Spondylosis without myelopathy or radiculopathy, lumbar region M47.816 ; Spinal stenosis, lumbar region with neurogenic claudication M48.062 ; Postlaminectomy syndrome, not elsewhere classified M96.1 ; Spondylosis without myelopathy or radiculopathy, cervical region M47.812 ; 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 The [place] and [place] PDMP were reviewed and were appropriate 04/14/2024 Sacroiliitis, not elsewhere classified (ICD-10 - M46.1) Schedule a bilateral sacroiliac joint injection. The risks of this procedure including pain, bleeding, infection, insomnia, hyperglycemia, hair loss, muscle atrophy, skin depigmentation, weight gain, fluid retention, adrenal suppression, immunosuppression, osteoporosis resulting in fractures, avascular necrosis of the hip, cataracts, bleeding gastric ulcer, worsening pain and failure to relieve pain were discussed and the patient is agreeable to proceeding at this time. 04/14/2024 Radiculopathy, cervical region (ICD-10 - M54.12) 04/14/2024 Spondylosis without myelopathy or radiculopathy, 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.816) 04/14/2024 Spinal stenosis, lumbar region with neurogenic claudication (ICD-10 - M48.062) L4-L5 04/14/2024 Postlaminectomy syndrome, not elsewhere classified (ICD-10 - M96.1) Right L4 decompression 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) 04/14/2024 group home (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 of 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 (ICD-10 - Z79.01) 04/14/2024 Other intervertebral disc degeneration, lumbar region (ICD-10 - M51.36) 04/14/2024 superintendent container terminal (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 of opiate analgesic (ICD-10 - Z79.891) 04/14/2024 Other The above-named patient was evaluated in conjunction with Dr. Parada. I have discussed and reviewed all of the pertinent history, physical examination findings and diagnostic imaging results with him. As a result of our discussion, Dr. Parada has determined the above assessment and directed the treatment plan. This note was dictated using voice recognition software and therefore inadvertent errors may have occurred. This note was dictated by TOPHER Uriostegui. Total Time Spent with Patient and Medical Decision Makin minutes PLAN OF TREATMENT Medication Medication Name Sig Start Date Stop Date Notes Percocet 10-325 MG 1 tablet as needed O rally up to 4x/day severe pain for 30 days 04/14/2024 MAY FILL 04/22/24 Treatment Notes Assessment Notes [...] to fully comply with the above. The [place] and [place] PDMP were reviewed and were appropriate Sacroiliitis, not elsewhere classified S chedule a bilateral sacroiliac joint injection. The risks of this procedure including pain, bleeding, infection, insomnia, hyperglycemia, hair loss, muscle atrophy, skin depigmentation, weight gain, fluid retention, adrenal suppression, immunosuppression, osteoporosis resulting in fractures, avascular necrosis of the hip, cataracts, bleeding gastric ulcer, worsening pain and failure to relieve pain were discussed and the patient is agreeable to proceeding at this time. Other The above-named patient was evaluated in conjunction with Dr. Parada. I have discussed and reviewed all of the pertinent history, physical examination findings and diagnostic imaging results with him. As a result of our discussion, Dr. Parada has determined the above assessment and directed the treatment plan. This note was dictated using voice recognition software and therefore inadvertent errors may have occurred. This note was dictated by TOPHER Uriostegui. Total Time Spent with Patient and Medical Decision Makin minutes Next Appt Details Follow Up: bilateral SIJ laura roid injection, Reason: Provider Name:Baltazarbhupinder navarrete, 05/12/2024 09:30:00 AM, [address] [place], [address], Progress Notes * Examination Category Sub-Category Detail [...] axial low back pain. Thigh thrust test, [place]'s and [place]'s are positive bilaterally. There is [...]
--- NOTE | 2024-04-20 08:42 | ED.GENADULT ---
HPI - General Adult General Chief complaint: Headache Stated complaint: hypertension Time Seen by Provider: 04/20/24 08:40 Source: patient Mode of arrival: ambulatory Limitations: no limitations History of Present Illness HPI narrative: 78-year-old female with a history of hypertension, dyslipidemia, hypothyroidism, chronic low back pain status post spinal cord stimulator and chronic opioids,CAD status post RCA stent in 2009, negative stress test in 2017, normal EF with diastolic dysfunction, COPD on home oxygen presents to the ED with -- headache for the past 2 weeks. headache is predominantly frontal. No blurred vision. No nausea /vomiting. -- hypertension with a current blood pressure of 194/104. blood pressure taken by me was noted to be 176/76. -- increasing leg swelling -- No worsening of her chronic shortness of breath. Onset (ago): week(s) ( Headache for the past 2 weeks) Location: head Radiation: non-radiation Relieving factors: none Exacerbating factors: none Associated symptoms: headaches and shortness of breath Related Data Home Medications ?Medication ?Instructions ?Recorded ?Confirmed ?Last Taken ?Type albuterol sulfate 90 mcg/actuation 2 puff inhalation Q4H PRN 04/01/19 02/08/24 Unknown History aerosol inhaler (Ventolin HFA) Shortness Of Breath aspirin 325 mg tablet 325 mg PO DAILY 04/01/19 02/08/24 08/14/22 09:41 History esomeprazole magnesium 40 mg 40 mg PO DAILY 04/01/19 02/08/24 Unknown History capsule,delayed release levothyroxine 50 mcg tablet 75 mcg PO DAILY 04/01/19 02/08/24 08/14/22 09:42 History meclizine 25 mg tablet 25 mg PO TID PRN Vertigo 04/01/19 02/08/24 Unknown History oxycodone-acetaminophen 10 mg-325 1 tablet PO Q6H PRN Pain 10/03/19 02/08/24 08/14/22 09:41 History mg tablet hydroxyzine HCl 25 mg tablet 25 mg PO TID PRN Allergy Symptoms 07/31/22 02/08/24 Unknown History cholecalciferol (vitamin D3) 25 25 mcg PO DAILY 10/10/22 02/08/24 Unknown History mcg (1,000 unit) tablet (Vitamin D3) multivitamin 1 tablet PO DAILY 10/10/22 02/08/24 Unknown History oxycodone-acetaminophen 10 mg-325 1 tablet PO PRN PRN Pain 10/10/22 02/08/24 Unknown History mg tablet ciprofloxacin HCl 250 mg tablet 250 mg PO DAILY 11/06/23 02/08/24 Unknown History Allergies Allergy/AdvReac Type Severity Reaction Status Date / Time iodine Allergy Severe Hives / Verified 04/20/24 08:55 Red Face amlodipine Allergy Unknown Unknown Verified 04/20/24 08:55 clindamycin Allergy Unknown Nausea Verified 04/20/24 08:55 diltiazem Allergy Unknown Unknown Verified 04/20/24 08:55 Iodine and Iodide Containing Allergy Unknown Unknown Verified 04/20/24 08:55 Produc nickel Allergy Unknown Rash Verified 04/20/24 08:55 Penicillins Allergy Unknown Unknown Verified 04/20/24 08:55 SHELLFISH Allergy Severe Vomiting Uncoded 04/20/24 08:55 Review of Systems Constitutional: Constitutional: Reports as per HPI and Reports no additional constitutional complaints Eyes: Eyes: Reports as per HPI and Reports no additional eye complaints ENT: Reports system reviewed and no additional complaints, except as documented and Reports as per HPI Cardiovascular: Cardiovascular: Reports as per HPI and Reports no additional cardiovascular complaints Respiratory: Respiratory: Reports as per HPI, Reports no additional respiratory complaints and Reports dyspnea Comments: No proximal nocturnal dyspnea. No orthopnea. Has dyspnea on exertio Gastrointestinal: Gastrointestinal: Reports as per HPI Genitourinary: Genitourinary: Reports no additional female genitourinary complaints and Reports as per HPI Musculoskeletal: Musculoskeletal: Reports no additional musculoskeletal complaints and Reports as per HPI Integumentary/Breasts: Skin/Breast: Reports system reviewed and no additional complaints, except as docu and Reports as per HPI Neurologic: Reports system reviewed and no additional complaints, except as documented and Reports as per HPI Psychiatric: Psychiatric: Reports no additional psychiatric complaints and Reports as per HPI Endocrine: Endocrine: Reports no additional endocrine complaints and Reports as per HPI Hematologic/Lymphatic: Hematologic/Lymphatic: Reports no additional hematologic/lymphatic complaints and Reports as per HPI Allergic/Immunologic: Allergic/Immunologic: Reports no additional allergic/immunologic complaints and Reports as per HPI [facility] Past Medical History Medical History Pneumonia Congestive heart failure Family history of colon cancer in mother Iron deficiency anemia Chronic, continuous use of opioids Hypothyroidism CAD in [place] artery Chest pain at rest Chronic obstructive pulmonary disease, unspecified Dyslipidemia Essential hypertension Surgical History Surgical History Status post insertion of spinal cord stimulator Hx of heart artery stent History of appendectomy History of hysterectomy History of tonsillectomy Family History Family History Father , Heart attack @ 74 Family history of coronary artery disease Family history of sudden Mother , Cancer @ 74 Colon cancer Liver cancer Uterine cancer Unknown , Maternal family long line of cancer Paternal family long line of heart disease No problems noted. Social History Social History Social History: Patient elects her daughter to be her surrogate. 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cco smoke exposure: No Smoking end date: 04/24/07 Alcohol intake: never Substance use: never Substance use type: does not use Lack of Transportation: No Lack of Food: Never True Current Housing: I Have Housing Concerned About Future Housing: No Difficulty Paying Gas/Electric Bills: No Difficulty Paying for Meds: No Currently Unemployed: No Education: Associate Degree Difficulty w/ Childcare or Family Care: No Living arrangements: alone 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 Const: General: no acute distress Orientation/consciousness: patient oriented x3 Limitations: no limitations HENMT: Head: normal to inspection Ears: external ears normal Face/Nose/Sinus: Normal external nose present Face and sinus: normal facial exam Mouth: Yes Normal oral and palatal mucosa present Throat: posterior oropharynx normal Eyes: Conjunctivae: conjunctivae normal Pupils: Equal, round and reactive pupils present EOM: EOMs intact bilaterally Direct Ophthalmoscopy: no photophobia Neck: Neck: normal visual inspection, no lymphadenopathy and no meningeal signs Chest: Chest palpation & inspection: normal inspection of the chest Resp: Effort & Inspection: normal respiratory effort Other: Bibasilar rales 1/4 of the chest Cardio: Rate: regular rate Rhythm: regular rhythm Other: S3 gallop noted GI: GI Palp: Yes Soft to palpation Auscultation: normal bowel sounds : General: Yes bladder normal to palpation and Yes no CVA tenderness Back/Spine/Pelvis: Back: no CVA tenderness Skin: General skin exam: normal color Rashes: no rashes Wounds: no wounds Neuro: General: patient oriented x3, moves all extremities, no meningeal signs, no focal motor deficits and CN's II-XI intact bilaterally Cranial nerves: Yes Nystagmus not present Speech: normal speech Extrem: General: normal to inspection and edema Psych: Mental Status: mental status grossly normal Affect: normal affect Course Course Emergency Course: headache-- CT of the head revealed chronic opacification of the sphenoid sinus without any involvement of other sinuses. CT of the head did not show any acute findings. shortness of breath-- a CHF appears to be fairly compensated. Her chest x-ray is negative. D-dimer was noted to be positive. V/Q CT scan was indeterminate. CTA of the head was negative for PE. The patient had bibasilar consolidation from prior scarring/ atelectasis, bilateral apical pleural thickening and emphysema. CHF with bilateral leg swelling and chronic shortness of breath. ProBNP is noted to be 1765. The patient is on Lasix, ramipril, propanolol. hypertension-- systolic hypertension. advised her to take blood pressure readings for 10 days and follow-up with a primary care physician. for now will give her the usual blood pressure medications. Hypo magnesemia will give IV magnesium. Vital Signs Vital signs: Vital Signs Temperature 36.3 C L 04/20/24 08:24 Pulse Rate 80 04/20/24 08:24 Respiratory Rate 20 04/20/24 08:24 Blood Pressure 197/87 H 04/20/24 08:24 Pulse Oximetry 92 04/20/24 08:24 Oxygen Delivery Nasal Cannula 04/20/24 08:24 Oxygen Flow Rate 3 04/20/24 08:24 Temperature 36.2 C L 04/21/24 04:43 Pulse Rate 64 04/21/24 04:43 Respiratory Rate 17 04/21/24 04:43 Blood Pressure 167/92 H 04/21/24 04:43 Pulse Oximetry 92 04/21/24 04:43 Oxygen Delivery Nasal Cannula 04/21/24 04:43 Oxygen Flow Rate 3 04/21/24 04:43 Medical Decision Making MDM Narrative Medical decision making narrative: headache CHF exacerbation with shortness of breath and bilateral leg swelling. Vital Signs Vital Signs: Vital Signs Temperature 36.3 C L 04/20/24 08:24 Pulse Rate 80 04/20/24 08:24 Respiratory Rate 20 04/20/24 08:24 Blood Pressure 197/87 H 04/20/24 08:24 Pulse Oximetry 92 04/20/24 08:24 Oxygen Delivery Nasal Cannula 04/20/24 08:24 Oxygen Flow Rate 3 04/20/24 08:24 Temperature 36.2 C L 04/21/24 04:43 Pulse Rate 64 04/21/24 04:43 Respiratory Rate 17 04/21/24 04:43 Blood Pressure 167/92 H 04/21/24 04:43 Pulse Oximetry 92 04/21/24 04:43 Oxygen Delivery Nasal Cannula 04/21/24 04:43 Oxygen Flow Rate 3 04/21/24 04:43 Lab Data 04/20/24 09:16 04/20/24 09:16 Labs: Lab Results 04/20/24 04/20/24 04/20/24 Range/Units 09:02 09:03 09:16 WBC 6.5 (4.8-10.8) K/mm3 RBC 4.53 (4.20-5.40) M/mm3 Hgb 12.5 (11.7-13.8) g/dL Hct 39.7 (35.0-42.0) % MCV 87.6 (78.0-102.0) fL MCH 27.6 (27.0-31.0) pg MCHC 31.5 L (32-36) g/dL RDW 15.2 H (11.6-14.4) % Plt Count 229 (150-420) K/mm3 MPV 9.4 (9.2-11.8) fl Immature Gran % (Auto) 0.3 H (0.0-0.0) % Neut % (Auto) 69.2 (50.0-70.0) % Lymph % (Auto) 19.2 (18.0-42.0) % [place] % (Auto) 5.6 (2.0-11.0) % Eos % (Auto) 4.8 (1.0-6.0) % Baso % (Auto) 0.9 (0.0-1.0) % Lymph # (Auto) 1.24 (1.10-4.50) K/mm3 [place] # (Auto) 0.36 (0.10-0.90) K/mm3 Eos # (Auto) 0.31 (0.02-0.50) K/mm3 Baso # (Auto) 0.06 (0.00-0.10) K/mm3 Abs Immat Gran (auto) 0.02 H (0.00-0.00) K/mm3 Absolute Neuts (auto) 4.48 (1.70-7.20) K/mm3 Absolute Nucleated RBC 0.00 (0.00-0.00) K/mm3 Nucleated RBC % 0.0 (0-0.0) % PT 11.2 (9.50-12.1) Seconds INR 1.0 APTT 28.2 (23.9-30.70) Sec D-Dimer 0.61 H* (0.19-0.50) mg/L Sodium 138 (136-145) mmol/L Potassium 4.1 (3.5-5.1) mmol/L Chloride 98 (98-108) mmol/L Carbon Dioxide 30 (21-32) mmol/L Anion Gap 10 (4-12) mmol/L BUN 15 (7-18) mg/dL Creatinine 0.81 (0.55-1.02) mg/dL Estim Creat Clear Calc 37 ml/min Estimated GFR > 60 (59 - ) Glucose 115 H (70-99) mg/dL Calculated Osmolality 287 (285-295) mOsm/kg Lactic Acid 1.4 (0.4-2.0) mmol/L Calcium 9.1 (8.5-10.1) mg/dL Magnesium 1.7 L (1.8-2.4) mg/dL Total Bilirubin 0.5 (0.00-1.00) mg/dL AST 16 (15-37) U/L ALT 15 (14-59) U/L Alkaline Phosphatase 138 H (46-116) U/L Troponin I 12.5 (0.00-60.4) ng/L NT-Pro-B Natriuret Pep 1765 H (0-450) pg/mL Total Protein 7.8 (6.4-8.2) g/dL Albumin 3.5 (3.4-5.0) g/dL Lipase 29 (16-77) U/L TSH 3.20 (0.36-3.74) uIU/mL Urine Color Light yellow (Yellow) Urine Appearance Clear (Clear) Urine pH 6.0 (5.0-8.0) Ur Specific [place] 1.010 (1.010-1.020) Urine Protein Negative (Negative) Urine Glucose (UA) Negative (Negative) Urine Ketones Negative (Negative) Ur Blood (Man) Negative (Negative) Urine Nitrate Negative (Negative) Urine Bilirubin Negative (Negative) Urine Urobilinogen 0.2 (0.2-1.0) mg/dL Leukocyte Esterase Rfl Negative (Negative) RACHEL/UL Influenza A (RT-PCR) Negative (Negative) Influenza B (RT-PCR) Negative (Negative) RSV (RT-PCR) Negative (Negative) SARS-CoV-2 RNA (RT-PCR) Negative (Negative) ECG Data EKG #1: ECG completion date: 04/20/24 ECG completion time: 09:18 Interpretation: normal sinus rhythm. Right bundle-branch block with left posterior fascicular block. T-wave inversion in anterior leads. No ST elevation noted. Discharge Plan Discharge Clinical Impression: Headache Qualifiers: Headache type: unspecified Headache chronicity pattern: unspecified pattern Intractability: not intractable Qualified Code(s): R51.9 - Headache, unspecified CHF exacerbation Qualifiers: Heart failure type: unspecified Qualified Code(s): I50.9 - Heart failure, unspecified Patient Disposition: Home, Self-Care Condition: Stable Instructions: Antibiotic Form, Heart Failure (ED), Acute Headache (ED) Additional Instructions: follow-up with cardiology Patient Language: Vietnamese Prescriptions: No Action oxycodone-acetaminophen 10-325 mg tablet 1 tablet PO PRN PRN (Reason: Pain) multivitamin Tablet 1 tablet PO DAILY cholecalciferol (vitamin D3) [Vitamin D3] 25 mcg (1,000 unit) Tablet 25 mcg PO DAILY hydroxyzine HCl 25 mg tablet 25 mg PO TID PRN (Reason: Allergy Symptoms) Rx Instructions: 0.5-1 tab TID prn (DME) comp.stocking,knee,long,medium Misc See Rx Instructions .Route Qty: 6 0RF Rx Instructions: 30mmHg to be worn during the day ciprofloxacin HCl 250 mg tablet 250 mg PO DAILY aspirin 325 mg tablet 325 mg PO DAILY esomeprazole magnesium 40 mg capsule,delayed release(DR/EC) 40 mg PO DAILY levothyroxine 50 mcg tablet 75 mcg PO DAILY meclizine 25 mg tablet 25 mg PO TID PRN (Reason: Vertigo) albuterol sulfate [Ventolin HFA] 90 mcg/actuation HFA aerosol inhaler 2 puff INHALATION Q4H PRN (Reason: Shortness Of Breath) oxycodone-acetaminophen 10-325 mg tablet 1 tablet PO Q6H PRN (Reason: Pain) furosemide 20 mg tablet See Rx Instructions .ROUTE .COMPLEX Qty: 90 2RF Dose Instruction: TAKE 1 TABLET BY MOUTH EVERY MORNING Rx Instructions: TAKE 1 TABLET BY MOUTH EVERY MORNING albuterol sulfate [Ventolin HFA] 90 mcg/actuation HFA aerosol inhaler 2 inh inhalation Q4-6H PRN (Reason: shortness of breath) 90 Days Qty: 8.5 3RF prednisone 50 mg tablet 50 mg PO DAILY Qty: 3 0RF Rx Instructions: FOR PREMEDICATION prior to CT w contrast; Take 1 tablet [address]; take 1 tablet [address]; take 1 tablet [address] along with 50 mg Benadryl with last tablet only. omega-3 acid ethyl esters 1 gram capsule See Rx Instructions .ROUTE .COMPLEX Qty: 180 2RF Dose Instruction: TAKE 1 CAPSULE BY MOUTH TWICE A DAY Rx Instructions: TAKE 1 CAPSULE BY MOUTH TWICE A DAY ramipril 5 mg capsule See Rx Instructions .ROUTE .COMPLEX Qty: 90 2RF Dose Instruction: TAKE 1 CAPSULE BY MOUTH EVERY DAY Rx Instructions: TAKE 1 CAPSULE BY MOUTH EVERY DAY propranolol 60 mg capsule,extended release 24 hr See Rx Instructions .ROUTE .COMPLEX Qty: 180 2RF Dose Instruction: TAKE 1 CAPSULE BY MOUTH TWICE A DAY Rx Instructions: TAKE 1 CAPSULE BY MOUTH TWICE A DAY rosuvastatin 20 mg tablet See Rx Instructions .ROUTE .COMPLEX Qty: 90 2RF Dose Instruction: TAKE 1 TABLET BY MOUTH DAILY Rx Instructions: TAKE 1 TABLET BY MOUTH DAILY Trelegy Ellipta 100-62.5-25 mcg blister with device 1 inh INHALATION DAILY 90 Days Qty: 180 3RF potassium chloride 10 mEq tablet extended release See Rx Instructions .ROUTE .COMPLEX Qty: 90 2RF Dose Instruction: TAKE 1 TABLET BY MOUTH EVERY DAY Rx Instructions: TAKE 1 TABLET BY MOUTH EVERY DAY Follow-up/Referrals: Bhanu Hinojosa MD [Primary Care Provider] - Time of Disposition: 06:49
--- NOTE | 2024-04-20 09:01 | ECG_ITS ---
Test Date: 2024-04-20 09:18:47 Measurements Intervals [place] Rate: 63 P: 87 IN: 176 QRS: 116 QRSD: 154 T: 65 QT: 451 QTc: 462 Interpretive Statements SINUS RHYTHM RIGHT BUNDLE BRANCH BLOCK LEFT POSTERIOR FASCICULAR BLOCK BASELINE ARTIFACT- I, II, III, AVR, AVL, AVF, V1-V3, V5 ABNORMAL ECG No previous ECG available for comparison Electronically Signed On 04-20-2024 09:23:32 APPRENTICE MACHINIST OUTSIDE by Edgar Stephenson D.O.
[2024-04-20 09:26] LABS: Basophils Absolute Auto 0.06 K/mm3 (0.00-0.10); Basophils Percent Auto 0.9 % (0.0-1.0); Eosinophils Absolute Auto 0.31 K/mm3 (0.02-0.50); Eosinophils Percent Auto 4.8 % (1.0-6.0); Hematocrit 39.7 % (35.0-42.0); Hemoglobin 12.5 g/dL (11.7-13.8); Immature Granulocyte Absolute 0.02 K/mm3 (0.00-0.00); Immature Granulocyte Percent A 0.3 % (0.0-0.0); Lymphocytes Absolute Auto 1.24 K/mm3 (1.10-4.50); Lymphocytes Percent Auto 19.2 % (18.0-42.0); Mean Corpuscular HGB Conc 31.5 g/dL (32-36); Mean Corpuscular Hemoglobin 27.6 pg (27.0-31.0); Mean Corpuscular Volume 87.6 fL (78.0-102.0); Mean Platelet Volume 9.4 fl (9.2-11.8); Monocytes Absolute Auto 0.36 K/mm3 (0.10-0.90); Monocytes Percent Auto 5.6 % (2.0-11.0); Neutrophils Absolute Auto 4.48 K/mm3 (1.70-7.20); Neutrophils Percent Auto 69.2 % (50.0-70.0); Platelet Count Result 229 K/mm3 (150-420); Red Blood Count 4.53 M/mm3 (4.20-5.40); Red Cell Distribution Width 15.2 % (11.6-14.4); White Blood Count 6.5 K/mm3 (4.8-10.8)
[2024-04-20 09:38] LABS: Partial Thromboplastin Time 28.2 Sec (23.9-30.70); Prothrombin Time 11.2 Seconds (9.50-12.1)
[2024-04-20 09:39] LABS: D Dimer 0.61 mg/L (0.19-0.50)
--- OUTSIDE RECORDS SUMMARY | 2024-04-20 09:44 | XMS_ITS | Patient Health Summary ---
Author Organization [facility] [place] Address [address] [place] [address] Care Team Providers Care Manual Lathe Operator Name Role Phone Unavailable Primary Care Provider Unavailabl e Note from [facility],non-owned Affiliates and Associated Physician Practices is amultiple site organization consisting of ambulatory clinics and hospital sitesin [place], [place], [place] and [place]. This disclosure is being madepursuant to the Care Everywhere program and may not contain all information available regarding this patient. Last updated 17.[facility] [place] Social History Tobacco Use Types Packs/Day Years [...] Platelet Count 228 150 - 400 K/CUMM [facility] 05/31/2007 4:02 PM CDT Palma Yi MD LAB - HEMATOLOGY ORD ERABLES [facility] [address] [place] [address] * (ABNORMAL) ACT - POINT OF CARE (05/31/2007 1:45 PM CDT) Only the most recent of2 resultswithin the time period is included. ACT POCT 247(H) 125 - 187 seconds [facility] 05/31/2007 1:45 PM CDT Narrative [facility] - 05/31/2007 2:48 PM CDT CCL 1345 RESULT 247 Boni Ribeiro MD LAB - POINT OF CARE ORDERABLES Performing Organization Address [facility]/ZIP Co de Phone Number [facility] [address] [place] [address] * (ABNORMAL) BASIC METABOLIC PANEL (CALCIUM TOTAL) (05/31/2007 3:30 AM CDT) Glucose 110.(H) 65 - 105 mg/dL [facility] BUN 8. 7 - 18 mg/dL [facility] Creatinine .7 0.5 - 1.2 mg/dL [facility] BUN/Creatinine Ratio 11.9 [facility] Sodium 142. 137 - 145 mEq/L [facility] Potassium 4.2(DE) 3.6 - 5.0 mEq/L [facility] Chloride 107. 98 - 107 mEq/L [facility] CO2 28. 22 - 31 mEq/L [facility] Anion Gap 7. [facility] Calcium 9.3(DE) 8.4 - 10.6 mg/dL [facility] eGFR by MDRD >60 SEE BELOW ml/min/1.7 3 m2 [facility] Comment: >60 Normal Chronic Disease <60 Renal Failure <15 05/31/2007 3:30 AM CDT Palma Yi MD LAB - CHEMISTRY JAKY PACHECO Performing Organization Address [facility]/ZIP Co de Phone Number [facility] [address] [place] [address] * MAGNESIUM BLOOD (05/31/2007 3:30 AM CDT) Only the most recent of2 resultswithin the time period is included. Magnesium 1.6 1.4 - 1.8 mEq/L [facility] 05/31/2007 3:30 AM CDT Palma Yi MD LAB - CHEMISTRY JAKY PACHECO [facility] Organization Address City/State/ZIP Co de Phone Number [facility] [address] [place] [address] * CARDIAC CATH ORDER (05/31/2007 12:00 AM CDT) Only the most recent of2 resultswithin the time period is included. 05/31/2007 Narrative Procedure Note Boni Ribeiro MD - [facility] PATIENT NAME: LICHA MALAGON MR#: [id number] ROOM#: [id number] SEX: F PHYSICIAN: BONI RIBEIRO M.D. : 1945 AGE: 62 DATE: 05/31/2007 CASE #: CARDIAC CATHETERIZATION REPORT PROCEDURES: 1. Placement of bare-metal stent into proximal rightcoronary artery. 2. IV ReoPro infusion. 3. Vascular closure with Angio-Seal device. ERISA ATTORNEY: Boni Ribeiro M.D. INDICATION: This 61-year-old female presents to [facility] with vertigo and recurrent epigastric pain. EKG abnormalities suggested myocardial ischemia. Diagnostic angiography on this date reveals asevere proximal right coronary artery stenosis. PROCEDURE: The right groin had been prepared in the usual sterile manner and local anesthesia had been obtained with 1% Xylocaine. The diagnostic sheath was removed from the right femoral artery and a 6-Djiboutian sheathwas placed into this vessel. A 6-Djiboutian Cordis JR4 guiding catheter was positioned in [...] Following appropriate oblique film angiography, a 6- [place]ib[place]ian Angio-Seal device was deployed in the right [...] Date/Time: 05/31/2007 6:34PM Faizan OSEI T:mq - [id number] cc: Boni Ribeiro MD CARDIAC ADMINISTRATIVE JOB TITLES ORD ERABLES * TROPONIN I (05/30/2007 3:20 AM CDT) Only the most recent of3 resultswithin the time period is included. Troponin I <0.07 SEE BELOW ng/mL [facility] Comment: <0.10 Normal 0.10-0.99 Indeterminate >=1.00 Abnormal 05/30/2007 3:20 AM CDT Boni Ribeiro MD LAB - CHEMISTRY JAKY PACHECO Performing Organization Address [facility] Co de Phone Number [facility] [address] [place] [address] * (ABNORMAL) POTASSIUM BLOOD (05/30/2007 3:20 AM CDT) Potassium 3.5(L) 3.6 - 5.0 mEq/L [facility] 05/30/2007 3:20 AM CDT Boni Ribeiro MD LAB - CHEMISTRY JAKY PACHECO Performing Organization Address [facility] Co de Phone Number [facility] [address] [place] [address] * (ABNORMAL) URINALYSIS ROUTINE AUTO (05/28/2007 1:00 PM CDT) Source clean catch [facility] Color UA Yellow [facility] Character UA Clear [facility] Specific [place] UA 1.010 1.002 - 1.030 [facility] pH UA 5.5 5.0 - 8.0 [facility] Protein UA NEGATIVE NEG [facility] Blood UA NEGATIVE NEG [facility] Leukocyte UA NEGATIVE NEG [facility] Nitrite UA NEGATIVE NEG [facility] Glucose UA NEGATIVE NEG [facility] Ketone UA 1+ NEG [facility] Bilirubin UA NEGATIVE NEG [facility] Urobilinogen UA 0.2 0.1 - 1.0 E.U./dl [facility] Epithelial Cell UA 2-3(H) 0 - 1 /HPF [facility] 05/28/2007 1:00 PM CDT Narrative [facility] - 05/28/2007 1:51 PM CDT VOID Palma Yi MD LAB - URINALYSIS ORD ERABLES [facility] [address] [place] [address] * MRI BRAIN WITH & WITHOUT CONTRAST [...] Sky GERARDO M.D. Released Date Time- 05/28/071840 Cardiograph Operator- ANGELI - PALMA YI- PALMA YI REF- [...] Sky GERARDO M.D. Released Date Time- 05/28/071840 Cardiograph Operator- ANGELI - PALMA YI- PALMA YI REF- CHERI GAINES PCP- SCP- Palma Yi MD MR ORDERABLES * TSH RECEPTOR ANTIBODY (05/28/2007 4:20 AM CDT) Ref Lab Sendout See Ref Lab Report [facility] 05/28/2007 4:20 AM CDT Palma Yi MD LAB - CHEMISTRY JAKY PACHECO [facility] [address] [place] [address] * (ABNORMAL) CBC W AUTO DIFFERENTIAL (05/28/2007 4:20 AM CDT) Only the most recent of2 resultswithin the time period is included. [facility] WBC 8.3 4.0 - 11.0 K/CUMM [facility] RBC 3.96 3.80 - 5.30 M/CUMM [facility] Hemoglobin 12.4(DE) 11.7 - 15.5 gm/dL [facility] Hematocrit 36.8 36 - 46 % [facility] MCV 92.9 80 - 99 fL [facility] MCH 31.3 26 - 34 pg [facility] MCHC 33.7 32 - 36 gm/dL [facility] RDW 14.2 11.5 - 14.5 % [facility] Platelet Count 241 150 - 400 K/CUMM [facility] Granulocytes % 60.7 43 - 70 % [facility] Lymphocytes % 30.3 22 - 41 % [facility] Monocytes % 6.9 2 - 13 % [facility] Eosinophils % 1.7 0 - 6 % [facility] Basophils % 0.4 0 - 2 % [facility] Granulocytes Absolute 5.0 1.7 - 7.7 [facility] Lymphocytes Absolute 2.5 1.0 - 3.0 [facility] Monocytes Absolute 0.6 0.2 - 1.0 [facility] Eosinophils Absolute 0.1 0.0 - 0.4 [facility] Basophils Absolute 0.0 0.0 - 0.1 [facility] 05/28/2007 4:20 AM CDT Palma Yi MD LAB - HEMATOLOGY ORD ERABLES [facility] [address] [place] [address] * (ABNORMAL) COMPREHENSIVE METABOLIC PANEL (05/28/2007 4:20 AM CDT) Only the most recent of2 resultswithin the time period is included. Glucose 79. 65 - 105 mg/dL [facility] BUN 6.(DL) 7 - 18 mg/dL [facility] Creatinine .8 0.5 - 1.2 mg/dL [facility] BUN/Creatinine Ratio 8.0 [facility] Sodium 139. 137 - 145 mEq/L [facility] Potassium 3.7 3.6 - 5.0 mEq/L [facility] Chloride 108.(H) 98 - 107 mEq/L [facility] CO2 26. 22 - 31 mEq/L [facility] Anion Gap 4. [facility] Calcium 8.7 8.4 - 10.6 mg/dL [facility] Alkaline Phosphatase 133.(H) 38 - 126 U/L [facility] ALT 31. 7 - 56 U/L [facility] AST 24. 5 - 40 U/L [facility] Bilirubin Total < .1(L) 0.2 - 1.3 mg/dL [facility] Protein Total 5.4(DL) 6.3 - 8.2 gm/dL [facility] Albumin 3.1(L) 3.9 - 5.0 gm/dL [facility] eGFR by MDRD >60 SEE BELOW ml/min/1.7 3 m2 [facility] Comment: >60 Normal Chronic Disease <60 Renal Failure <15 05/28/2007 4:20 AM CDT Palma Yi MD LAB - CHEMISTRY JAKY PACEHCO Performing Organization Address [facility] Co de Phone Number [facility] [address] [place] [address] * (ABNORMAL) LIPID PROFILE (05/28/2007 4:20 AM CDT) Cholesterol 154. SEE BELOW mg/dL [facility] Comment:120-200 Triglycerides 141.(H) SEE BELOW mg/dL [facility] Comment:35-135 HDL Cholesterol 45.(L) SEE BELOW mg/dL [facility] Comment:>55 CAD* LDL Calculated 81 SEE BELOW mg/dL [facility] Comment: 70-130 <100 CAD* Cholesterol Risk Factor 1.55 SEE BELOW [facility] Comment: Average=1.0 <1.0=Less Risk >1.0=More Risk Comment Lipid [facility] Comment: CAD* In Coronary Artery Disease patients, in whom nonpharmacological therapy has failed, the AHA recommends that drug therapy should be prescribed to lower the LDL cholesterol to < 100 mg/dL and may be instituted in patients with HDL <35 mg/dL. 05/28/2007 4:20 AM CDT Palma Yi MD LAB - CHEMISTRY JAKY PACHECO Performing Organization Address [facility] Co de Phone Number [facility] [address] [place] [address] * CARDIAC, ECHOCARDIOGRAM COMPLETE ORDER (05/28/2007 12:00 AM CDT) 05/28/2007 Unknown Lay Out Technician Provider EMBER PACHECO * VASCULAR LAB ORDER (05/28/2007 12:00 AM CDT) Anatomical Region Laterality Modality Other 05/28/2007 Narrative Procedure Note Jassi Weiss MD - 05/28/2007 [facility] Vascular Lab Report PATIENT NAME: LICHA MALAGON MR#: [id number] ROOM#: [id number] SEX: F ADMISSION DATE: 05/27/2007 [...] 12:09AM JASSI WEISS M.D. T N:mq - [id number] cc: PALMA YI M.D. Jassi Weiss MD VASCULAR LAB ORDERA BLES * DRUG SCREEN TOX LIMITED BLOOD PANEL (05/26/2007 11:15 PM CDT) [facility] Ethanol Not detected 10 mg/dL cutoff mg/dL [facility] Acetaminophen Not Detected 4 ug/mL Cutoff ug/mL [facility] Salicylate Not Detected 5 mg/dL Cutoff mg/dL [facility] Barbiturates Screen Possible Toxic Level 1000 ng/mL Cutoff ng/mL [facility] Benzodiazepines Screen Below Toxic Level 50 ng/mL Cutoff ng/mL [facility] Tricyclics Screen Below Toxic Level 300 ng/mL Cutoff ng/mL [facility] Legal Disclaimer This drug screen is designed for MEDICAL purposes only. It is not to be used for legal purposes including but not limited to workman's comp, police investigations, occupational issues, child custody. [facility] 05/26/2007 11:1 5 PM CDT Narrative [facility] - 05/27/2007 12:00 AM CDT M3 Adin Culver MD LAB - TOXICOLOGY ORD ERABLES Performing Organization Address City/[facility]/ZIP Co de Phone Number [facility] [address] [place] [address] * MYOGLOBIN BLOOD (05/26/2007 11:15 PM CDT) Myoglobin 21.6 <50.0 ng/mL [facility] 05/26/2007 11:1 5 PM CDT Narrative [facility] - 05/26/2007 11:49 PM CDT M3 Adin Culver MD LAB - CHEMISTRY ORDE RABFAZAL Performing Organization Address City/[facility]/ZIP Co de Phone Number [facility] [address] [place] [address] * PT PTT PANEL (05/26/2007 11:15 PM CDT) PT 10.0 9.3 - 11.4 seconds [facility] INR 1.0 SEE BELOW [facility] Comment: 0.9-1.2 Normal 2.0-3.0 Therapeutic 2.5-3.5 High Risk PTT 27.5 24.0 - 32.0 seconds [facility] Coumadin Dose Unknown [facility] Heparin Bolus Dose Unknown [facility] Heparin Infusion Rate Unknown [facility] 05/26/2007 11:1 5 PM CDT Narrative [facility] - 05/26/2007 11:38 PM CDT M3 Adin Cuvler MD LAB - COAGULATION OR DERABLES Performing Organization Address [facility] Co de Phone Number [facility] [address] [place] [address] * LIPASE BLOOD (05/26/2007 11:15 PM CDT) Lipase 132. 23 - 208 U/L [facility] 05/26/2007 11:1 5 PM CDT Narrative [facility] - 05/26/2007 11:40 PM CDT M3 Adin Culver MD LAB - CHEMISTRY JAKY PACHECO Performing Organization Address [facility] de Phone Number [facility] [address] [place] [address] * (ABNORMAL) CK + CKMB PANEL (05/26/2007 11:15 PM CDT) CK 37.(L) 38 - 174 U/L [facility] Interpretation CK-MB Absent Absent [facility] 05/26/2007 11:1 5 PM CDT [facility] - 05/26/2007 11:40 PM CDT M3 Adin Culver MD LAB - CHEMISTRY JAKY PACHECO Performing Organization Address [facility] Co nc Phone Number [facility] [address] [place] [address] * CT HEAD NON CONTRAST (05/26/2007 10:38 [...]
--- OUTSIDE RECORDS SUMMARY | 2024-04-20 09:44 | XMS_ITS | Patient Health Record ---
Author Organization [facility] Address [address] [place] [address] Care Team Providers Care Aircraft Communicator Name Role Phone MARIMAR LUGO, [facility] Primary Care Provider Baltazar Rivas Unavailable [phone] ALLERGIES Allergen (clinical drug ingredient) Drug/Non Drug [...] (FN) Shellfish-derived Products Unknown Drug Allergy Active RESULTS Component Value Reference Range Notes [facility] Results (Not yet reviewed by provider) Interpretation: Performing Lab:[id number] [facility], [address] [address] [facility] [address] Anali Gutiérrez MD Notes/Report: Codeine negative 1 ng/mL Morphine negative 1 ng/mL Hydrocodone negative 1 ng/mL Norhydrocodone Quantification negative 2 ng/mL Hydromorphone negative 1 ng/mL Oxycodone positive-345.421 1 ng/mL Noroxycodone Quantification positive-74.400 2 ng/mL Oxymorphone negative 1 ng/mL Buprenorphine Quantification negative 1 ng/mL Norbuprenorphine Quantification negative 2 ng/mL Fentanyl Quantification negative 0.2 ng/mL Norfentanyl Quantification negative 1 ng/mL Meperidine Quantification negative 1 ng/mL Normeperidine Quantification negative 2 ng/mL Methadone negative 2 ng/mL EDDP (Methadone metabolite) negative 2 ng/mL Tapentadol Quantification negative 5 ng/mL Tramadol Quantification negative 5 ng/mL R-Sfpkdxdys-Cwdmrque Quantification negative 5 ng/ mL Alprazolam negative 1 ng/mL Clonazepam negative 1 ng/mL Clonazepam Metabolite Quantification negative 1 ng /mL Diazepam negative 1 ng/mL Nordiazepam negative 1 ng/mL Lorazepam negative 1 ng/mL Oxazepam negative 2 ng/mL Temazepam negative 1 ng/mL Amphetamine negative 5 ng/mL Methylphenidate Quantification negative 1 ng/mL Ritalinic Acid Quantification negative 1 ng/mL Carisoprodol Quantification negative 5 ng/mL Meprobamate Quantification negative 5 ng/mL Dextromethorphan Quantification negative 1 ng/mL Levorphanol / Dextrorphan Quantification negative 1 ng/mL Gabapentin Quantification negative 10 ng/mL Naltrexone Quantification negative 1 ng/mL Naltrexol (Naltrexone metabo lite) Quantification negative 1 ng/mL Pregabalin Quantification negative 5 ng/mL Sertraline Quantification negative 1 ng/mL Zolpidem Quantification negative 1 ng/mL Methamphetamine negative 5 ng/mL Cocaine Quantification negative 2 ng/mL Cocaine Metabolite negative 2 ng/mL THC (Marijuana Component) negative 2 ng/mL MDMA negative 5 ng/mL 6-RADHA (Heroin metabolite) Quantification negative 1 ng/mL Phencyclidine negative 1 ng/mL [employer] Results (Not yet reviewed by provider) Interpretation: Performing Lab:[id number] [employer], [address] [address] [facility] [address] Anali Gutiérrez MD Notes/Report: Acetyl fentanyl: Fentanyl Negative. Acetyl norfentanyl: Fentanyl Negative. Acr yl fentanyl: Fentanyl Negative. Carfentanil: Fentanyl Negative. Para-fluorofent anyl: Fentanyl Negative. Codeine Quantification negative 50 ng/mL Morphine Quantification negative 50 ng/mL Hydrocodone Quantification negative 50 ng/mL Norhydrocodone Quantification negative 50 ng/mL Hydromorphone Quantification negative 50 ng/mL Oxycodone Quantification positive-1965.078 50 ng/mL Noroxycodone Quantification positive-4472.243 50 ng/mL Oxymorphone Quantification positive-157.572 50 ng/mL Fentanyl Quantification negative 1 ng/mL Norfentanyl Quantification negative 8 ng/mL Methadone Quantification negative 100 ng/mL EDDP (Methadone metabolite) Quantification negative 100 ng/mL Tramadol Quantification negative 100 ng/mL W-kotswknim-xpzngmyr Quantification negative 100 n g/mL B-Ishqzzpgf-Uiqjwgnk Quantification negative 100 n g/mL Alpha-Hydroxyalprazolam Quantification negative 20 ng/mL 2-Vxpts-Wovibludyq Quantification negative 20 ng/m L Lorazepam Quantification negative 40 ng/mL Nordiazepam Quantification negative 40 ng/mL Temazepam Quantification negative 50 ng/mL Oxazepam Quantification negative 40 ng/mL Amphetamine Quantification negative 100 ng/mL Methamphetamine Quantification negative 100 ng/mL Cocaine metabolite Quantification negative 50 ng/m L cTHC (Marijuana metabolite) Quantification negative 15 ng/mL 6-RADHA (Heroin metabolite) Quantification negative 10 ng/mL Acetyl fentanyl Quantification Fen Neg 2 ng/mL Acetyl norfentanyl Quantification Fen Neg 5 ng/mL Acryl fentanyl Quantification Fen Neg 1 ng/mL Carfentanil Quantification Fen Neg 2 ng/mL Para-fluorofentanyl Quantification Fen Neg 1 ng/m L Mitragynine (Kratom alkaloid) Quantification negative 1 ng/mL 5-AD-Iwbxusafeqk (Kratom alk aloid) Quantification negative 1 ng/mL Ethyl Glucuronide Quantification negative 500 ng/m L Ethyl Sulfate Quantification negative 500 ng/mL [employer] Results (Not yet reviewed by provider) Interpretation: Performing Lab:[id number] [employer], [address] [address] [facility] [address] Anali Gutiérrez MD Notes/Report: 4-ANPP: Fentanyl Negative. Acetyl fentanyl: Fentanyl Negative. Acetyl norfenta nyl: Fentanyl Negative. Acryl fentanyl: Fentanyl Negative. Carfentanil: Fentany l Negative. Para-fluorofentanyl: Fentanyl Negative. Codeine Quantification negative 50 ng/mL Morphine Quantification negative 50 ng/mL Hydrocodone Quantification negative 50 ng/mL Norhydrocodone Quantification negative 50 ng/mL Hydromorphone Quantification negative 50 ng/mL Oxycodone Quantification positive-3853.154 50 ng/mL Noroxycodone Quantification positive-> 6400 50 ng/mL Oxymorphone Quantification positive-468.671 50 ng/mL Buprenorphine Quantification negative 5 ng/mL Norbuprenorphine Quantification negative 20 ng/mL Fentanyl Quantification negative 1 ng/mL Norfentanyl Quantification negative 8 ng/mL Methadone Quantification negative 100 ng/mL EDDP (Methadone metabolite) Quantification negative 100 ng/mL Tramadol Quantification negative 100 ng/mL E-uydjsjwcl-bymcjqog Quantification negative 100 n g/mL J-Fbytwydzd-Ysckfhca Quantification negative 100 n g/mL Tapentadol Quantification negative 50 ng/mL Meperidine Quantification negative 50 ng/mL Normeperidine Quantification negative 50 ng/mL Alpha-Hydroxyalprazolam Quantification negative 20 ng/mL 6-Wwgxh-Ydjawebxun Quantification negative 20 ng/m L Lorazepam Quantification negative 40 ng/mL Nordiazepam Quantification negative 40 ng/mL Temazepam Quantification negative 50 ng/mL Oxazepam Quantification negative 40 ng/mL Amphetamine Quantification negative 100 ng/mL Methylphenidate Quantification negative 50 ng/mL Ritalinic Acid Quantification negative 50 ng/mL Citalopram/Escitalopram Quantification negative 25 ng/mL N-Desmethylcitalopram Quantification negative 25 n g/mL Hydroxybupropion Quantification negative 50 ng/mL Duloxetine Quantification negative 25 ng/mL Fluoxetine Quantification positive-778.059 25 ng/mL NorFluoxetine Quantification positive-1293.607 25 ng/m L Paroxetine Quantification negative 25 ng/mL Sertraline Quantification negative 10 ng/mL Trazodone Quantification negative 10 ng/mL Venlafaxine Quantification negative 100 ng/mL Desmethylvenlafaxine Quantification negative 100 n g/mL Aripipazole Quantification negative 5 ng/mL [id number]-[id number] Quantification negative 15 ng/mL Clozapine Quantification negative 25 ng/mL N-Desmethylclozapine Quantification negative 25 ng /mL Haloperidol Quantification negative 5 ng/mL Reduced Haloperidol Quantification negative 5 ng/m L Olanzapine Quantification negative 25 ng/mL Quetiapine Quantification negative 25 ng/mL Norquetiapine Quantification negative 25 ng/mL Risperidone Quantification negative 10 ng/mL Hydroxyrisperidone Quantification negative 25 ng/m L Gabapentin Quantification negative 1000 ng/mL Pregabalin Quantification negative 400 ng/mL Lamotrigine Quantification negative 50 ng/mL Ketamine Quantification negative 50 ng/mL Norketamine Quantification negative 50 ng/mL Naltrexone Quantification negative 10 ng/mL Naltrexol Quantification negative 10 ng/mL Naloxone Quantification negative 20 ng/mL cZolpidem Quantification negative 10 ng/mL Carisoprodol Quantification negative 100 ng/mL Meprobamate Quantification negative 100 ng/mL Pentobarbital Quantification negative 200 ng/mL Phenobarbital Quantification negative 200 ng/mL Secobarbital Quantification negative 200 ng/mL Butalbital Quantification negative 200 ng/mL Amitriptyline Quantification negative 50 ng/mL Nortriptyline Quantification negative 50 ng/mL Imipramine Quantification negative 50 ng/mL Desipramine Quantification negative 50 ng/mL Cyclobenzaprine Quantification negative 50 ng/mL Dextromethorphan negative 50 ng/mL Levorphanol / Dextrorphan Quantification negative 50 ng/mL Phentermine Quantification negative 50 ng/mL Methamphetamine Quantification negative 100 ng/mL Cocaine metabolite Quantification negative 50 ng/m L cTHC (Marijuana metabolite) Quantification negative 15 ng/mL MDMA Quantification negative 100 ng/mL 6-RADHA (Heroin metabolite) Quantification negative 10 ng/mL Phencyclidine Quantification negative 10 ng/mL 4-ANPP Quantification Fen Neg 2 ng/mL Acetyl fentanyl Quantification Fen Neg 2 ng/mL Acetyl norfentanyl Quantification Fen Neg 5 ng/mL Acryl fentanyl Quantification Fen Neg 1 ng/mL Carfentanil Quantification Fen Neg 2 ng/mL Para-fluorofentanyl Quantification Fen Neg 1 ng/m L 2-methyl AP-237 Quantification negative 10 ng/mL Brorphine Quantification negative 15 ng/mL Metonitazene Quantification negative 5 ng/mL 8-aminoclonazolam Quantification negative 10 ng/mL Etizolam Quantification negative 10 ng/mL Alpha-hydroxyetizolam Quantification negative 10 n g/mL Flualprazolam Quantification negative 10 ng/mL Flubromazolam Quantification negative 10 ng/mL [id number] metabolite Quantification negative 10 ng/mL GZA036 metabolite Quantification negative 10 ng/mL RCS4 metabolite Quantification negative 10 ng/mL XLR11/UR144 metabolite negative 10 ng/mL 5F-ADB-M7 negative 10 ng/mL JQ-LMQRYKCG-M8 negative 10 ng/mL RRNT-APRPKJCA-D8 negative 10 ng/mL Eutylone Quantification negative 10 ng/mL Methylone Quantification negative 3 ng/mL Xylazine Quantification negative 10 ng/mL 4-hydroxy Xylazine Quantification negative 10 ng/m L Mitragynine (Kratom alkaloid) Quantification negative 1 ng/mL 2-MC-Jsicnjxqcsb (Kratom alk aloid) Quantification negative 1 ng/mL ETHANOL negative 20 mg/dL mg/dL Ethyl Glucuronide Quantification negative 500 ng/m L Ethyl Sulfate Quantification negative 500 ng/mL CREATININE (CHEMICAL) normal-41.3 >20 mg/dL mg/dL OXIDANT normal-0 <200 ug/mL ug/mL PH normal-5.3 4.5 - 9.5 SPECIFIC GRAVITY normal-1.008 1.003 - 1.035 REASON FOR REFERRAL No Information MEDICATIONS Medication SIG (Take, Route, Frequency, Duration) Notes Start Date End Date Status Bmbod-7-usva Ethyl Esters 1 GM 2 capsules Oral Twice a day Active FLUoxetine HCl 20 MG 1 capsule Orally Once a day for 30 day(s) Active Esomeprazole Magnesium 40 MG 1 capsule Oral Once a day Active Trelegy Ellipta 100-62.5-25 MCG/ACT 1 puff Inhalation Once a day Active Medrol 4 MG as directed Orally 05/13/2021 Active Montelukast Sodium 10 MG 1 tablet Oral Once a day Active Ventolin HFA 108 (90 Base) MCG/ACT 1 puff as needed Inhalation every 4 hrs Active busPIRone HCl 10 MG 1 tablet [...] MOUTH EVERY MORNING Oral for 90 Active hydrALAZINE HCl 25 MG 1 tablet with food Oral Four times a day Active valACYclovir HCl 1 GM 1 tablet Oral Once a day Active Percocet 10-325 MG 1 tablet as needed Orally up to 4x/day severe pain for 30 days MAY FILL 03/24/24 03/17/2024 Active Albuterol Sulfate HFA 108 (90 Base) MCG/ACT 1 puff as needed Inhalation every 4 hrs Active Vitamin D 1000 UNIT 1 tablet [...] 1 tablet Orally Once a day Active Rosuvastatin Calcium 20 MG 1 tablet Oral Once a day Active Propranolol HCl ER 60 MG 1 capsules orally twice a day Active SOCIAL HISTORY Tobacco Use: [...] Additional Findings: Tobacco Non-User Current no n-smoker Alcohol Screen (Audit-C) Question Answer Notes Did you have a drink containing alcohol in the p ast year? 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) Active confirmed Localized, primary osteoarthritis of the pelvic region and thigh (228021340) Problem Pain in unspecified hip (M25.559) Active confirmed Arthralgia of the pelvic region and thigh (626294896) Problem Sacroiliitis, not elsewhere classified (M46.1) Active confirmed Solitary sacroiliitis (655803541) Problem Spondylosis without myelopathy or radiculopathy, cervical region (M47.812) Active confirmed Cervical spondylosis without myelopathy (100826607) Problem Spondylosis without myelopathy or radiculopathy, lumbar region (M47.816) Active confirmed Lumbosacral spondylosis without myelopathy (17520306) Problem Spondylosis without myelopathy or radiculopathy, lumbosacral region (M47.817) Active confirmed Lumbosacral spondylosis without myelopathy (disorder) (12001125) Problem Spinal stenosis, cervical region (M48.02) Active confirmed Spinal stenosis in cervical region (58410642) Problem Intervertebral disc disorders with radiculopathy, lumbar region (M51.16) Active confirmed Radiculopathy due to lumbar intervertebral disc disorder (41437172269601 5) Problem Other intervertebral disc degeneration, 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 confirmed Degeneration of lumbar intervertebral disc (71992758) Problem Radiculopathy, cervical region (M54.12) Active confirmed Cervical radiculopathy (07679165) Problem Radiculopathy, cervicothoracic region (M54.13) Active confirmed Cervical radiculopathy (21613113) Problem Radiculopathy, lumbar region (M54.16) Active confirmed Lumbar radiculopathy (499426511) Problem Trochanteric bursitis, unspecified hip (M70.60) Active confirmed Enthesopathy of hip region (19681374) Problem Postlaminectomy syndrome, not elsewhere classified (M96.1) Active confirmed Post-laminectom y syndrome (38702235) Right L4 decompression Problem Osseous stenosis of neural canal of lumbar region (M99.33) Active confirmed Spinal stenosis of lumbar region (61401219) Problem Osseous and subluxation stenosis of intervertebral foramina of lumbar region (M99.63) Active confirmed Spinal stenosis of lumbar region (23547424) Problem 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) Active confirmed Connective tissue and disc stenosis of intervertebral foramina (136509569) 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 Blood pressure diastolic 107 mm Hg 04/14/2024 Height 62 in 04/14/2024 Blood pressure systolic 188 mm Hg 04/14/2024 Weight 125 lbs 04/14/2024 BMI 22.86 kg/m2 04/14/2024 Encounters Encounter Location Date Provider Diagnosis [facility] [address] [place] [address] 05/04/2023 Baltazar Parada Radiculopathy, lumba r region M54.16 ; Radiculopathy, cervical region M54.12 ; Sacroiliitis, not elsewhere classified M46.1 ; Spondylosis without myelopathy or radiculopathy, lumbar region M47.816 ; Spinal stenosis, lumbar region with neurogenic claudication M48.062 ; Postlaminectomy syndrome, not elsewhere classified M96.1 ; Spondylosis without myelopathy or radiculopathy, cervical region M47.812 ; 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 ; Other intervertebral disc degeneration, lumbar region M51.36 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 [facility] [address] [place] [address] [place] [address] 05/06/2023 Baltazar Stynowick Radiculopathy, lumba r region M54.16 [facility] [address] [place] [address] [place] [address] 05/20/2023 Baltazar Stynowick Radiculopathy, lumba r region M54.16 ; Other intervertebral disc degeneration, lumbar region M51.36 and 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 [facility] [address] [place] [address] [place] [address] 05/21/2023 Baltazar Stynowick [facility] [address] [place] [address], [place] [address] 06/04/2023 Baltazar Stynowick Radiculopathy, lumba r region M54.16 ; Spondylosis without myelopathy or radiculopathy, lumbar region M47.816 ; Radiculopathy, cervical region M54.12 ; Sacroiliitis, not elsewhere classified M46.1 ; Spinal stenosis, lumbar region with neurogenic claudication M48.062 ; Postlaminectomy syndrome, not elsewhere classified M96.1 ; Spondylosis without myelopathy or radiculopathy, cervical region M47.812 ; 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 ; Other intervertebral disc degeneration, lumbar region M51.36 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 [facility] [address] [place] [address] [place] [address] 06/12/2023 Baltazar Stynowick Spondylosis without myelopathy or radiculopathy, lumbar region M47.816 and Spondylosis without myelopathy or radiculopathy, lumbosacral region M47.817 [facility] [address] [place] [address] 07/03/2023 Baltazar Stynmaruick Spondylosis without myelopathy or radiculopathy, lumbar region M47.816 ; Radiculopathy, cervical region M54.12 ; Radiculopathy, lumbar region M54.16 ; Sacroiliitis, not elsewhere classified M46.1 ; Spinal stenosis, lumbar region with neurogenic claudication M48.062 ; Postlaminectomy syndrome, not elsewhere classified M96.1 ; Spondylosis without myelopathy or radiculopathy, cervical region M47.812 ; 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 ; Other intervertebral disc degeneration, lumbar region M51.36 and assisted (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 of opiate analgesic Z79.891 [facility] [address] [place] [address] 07/06/2023 Baltazar Stynowick Radiculopathy, lumba r region M54.16 [facility] [address] [place] [address] 07/27/2023 Baltazar Stynowick Radiculopathy, cervical region M54.12 ; 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 ; Radiculopathy, cervicothoracic region M54.13 and Spinal stenosis, cervical region M48.02 [facility] [address] [place] [phone] 07/30/2023 Baltazar Stynowick Spondylosis without myelopathy or radiculopathy, lumbar region M47.816 ; Radiculopathy, cervical region M54.12 ; Radiculopathy, lumbar region M54.16 ; Sacroiliitis, not elsewhere classified M46.1 ; Spinal stenosis, lumbar region with neurogenic claudication M48.062 ; Postlaminectomy syndrome, not elsewhere classified M96.1 ; Spondylosis without myelopathy or radiculopathy, cervical region M47.812 ; assisted (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.01 ; Other intervertebral disc degeneration, lumbar region M51.36 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 [facility] [address] [place] [address] 08/19/2023 Baltazar Stynowick Spondylosis without myelopathy or radiculopathy, lumbar region M47.816 and Spondylosis without myelopathy or radiculopathy, lumbosacral region M47.817 [facility] [address] [place] [address] [place] [address] 08/20/2023 Baltazar Stynowick [facility] [address] [place] [address] [place] [address] 2023 Baltazar Stynowick Spondylosis without myelopathy or radiculopathy, lumbar region M47.816 ; Radiculopathy, cervical region M54.12 ; Radiculopathy, lumbar region M54.16 ; Sacroiliitis, not elsewhere classified M46.1 ; Spinal stenosis, lumbar region with neurogenic claudication M48.062 ; Postlaminectomy syndrome, not elsewhere classified M96.1 ; Spondylosis without myelopathy or radiculopathy, cervical region M47.812 ; 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 ; Other intervertebral disc degeneration, lumbar region M51.36 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 [facility] [address] [place] [address] [place] [address] 10/01/2023 Baltazar Stynowick Radiculopathy, cervical region M54.12 ; Radiculopathy, lumbar region M54.16 ; Spondylosis without myelopathy or radiculopathy, lumbar region M47.816 ; Sacroiliitis, not elsewhere classified M46.1 ; Spinal stenosis, lumbar region with neurogenic claudication M48.062 ; Postlaminectomy syndrome, not elsewhere classified M96.1 ; Spondylosis without myelopathy or radiculopathy, cervical region M47.812 ; 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 ; Other intervertebral disc degeneration, lumbar region M51.36 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 [facility] [address] [place] [address] [place] [address] 10/21/2023 Baltazar Stynowick Radiculopathy, lumba r region M54.16 ; Spinal stenosis, lumbar region with neurogenic claudication M48.062 and 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 [facility] [address] [place] [address] 10/22/2023 Baltazar Stynowick [facility] [address] [place] [phone] 10/29/2023 Baltazar Stynowick Radiculopathy, cervical region M54.12 ; Radiculopathy, lumbar region M54.16 ; Spondylosis without myelopathy or radiculopathy, lumbar region M47.816 ; Sacroiliitis, not elsewhere classified M46.1 ; Spinal stenosis, lumbar region with neurogenic claudication M48.062 ; Postlaminectomy syndrome, not elsewhere classified M96.1 ; Spondylosis without myelopathy or radiculopathy, cervical region M47.812 ; 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 ; Other intervertebral disc degeneration, lumbar region M51.36 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 [facility] [address] [address] 11/25/2023 Baltazar Stynowick Spondylosis without myelopathy or radiculopathy, lumbar region M47.816 and Spondylosis without myelopathy or radiculopathy, lumbosacral region M47.817 [facility] [address] [place] [phone] 11/26/2023 Baltazar Stynowick Radiculopathy, cervical region M54.12 ; Radiculopathy, lumbar region M54.16 ; Spondylosis without myelopathy or radiculopathy, lumbar region M47.816 ; Sacroiliitis, not elsewhere classified M46.1 ; Spinal stenosis, lumbar region with neurogenic claudication M48.062 ; Postlaminectomy syndrome, not elsewhere classified M96.1 ; Spondylosis without myelopathy or radiculopathy, cervical region M47.812 ; assisted (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.01 ; Other intervertebral disc degeneration, lumbar region M51.36 and assisted (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 of opiate analgesic Z79.891 [facility] [address] [address] 11/26/2023 Baltazar Stynowick [facility] [address] [place] [phone] 12/28/2023 Baltazar Stynowick Radiculopathy, cervical region M54.12 ; Radiculopathy, lumbar region M54.16 ; Spondylosis without myelopathy or radiculopathy, lumbar region M47.816 ; Sacroiliitis, not elsewhere classified M46.1 ; Spinal stenosis, lumbar region with neurogenic claudication M48.062 ; Postlaminectomy syndrome, not elsewhere classified M96.1 ; Spondylosis without myelopathy or radiculopathy, cervical region M47.812 ; 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 ; Other intervertebral disc degeneration, lumbar region M51.36 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 [facility] [address] [place] [phone] 01/12/2024 Baltazar Stynowick Radiculopathy, cervical region M54.12 ; 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 ; Radiculopathy, cervicothoracic region M54.13 and Spinal stenosis, cervical region M48.02 [facility] [address] [place] [phone] 01/13/2024 Baltazar Stynowick [facility] [address] [place] [phone] 01/25/2024 Baltazar Stynowick Radiculopathy, cervical region M54.12 ; Radiculopathy, lumbar region M54.16 ; Spondylosis without myelopathy or radiculopathy, lumbar region M47.816 ; Sacroiliitis, not elsewhere classified M46.1 ; Spinal stenosis, lumbar region with neurogenic claudication M48.062 ; Postlaminectomy syndrome, not elsewhere classified M96.1 ; Spondylosis without myelopathy or radiculopathy, cervical region M47.812 ; 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 ; Other intervertebral disc degeneration, lumbar region M51.36 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 [facility] [address] [place] [phone] 01/25/2024 Baltazar Stynowick [facility] [address] [place] [address] [place] [address] 02/22/2024 Baltazar Stynowick Radiculopathy, cervical region M54.12 ; Radiculopathy, lumbar region M54.16 ; Spondylosis without myelopathy or radiculopathy, lumbar region M47.816 ; Sacroiliitis, not elsewhere classified M46.1 ; Spinal stenosis, lumbar region with neurogenic claudication M48.062 ; Postlaminectomy syndrome, not elsewhere classified M96.1 ; Spondylosis without myelopathy or radiculopathy, cervical region M47.812 ; assisted (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.01 ; Other intervertebral disc degeneration, lumbar region M51.36 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 [facility] [address] [place] [address] 03/16/2024 Baltazar Stynowick Radiculopathy, lumba r region M54.16 ; Spinal stenosis, lumbar region with neurogenic claudication M48.062 and 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 [facility] [address] [place] [address] [place] [phone] 03/17/2024 Baltazar Stynowick Radiculopathy, lumba r region M54.16 ; Sacroiliitis, not elsewhere classified M46.1 ; Radiculopathy, cervical region M54.12 ; Spondylosis without myelopathy or radiculopathy, lumbar region M47.816 ; Spinal stenosis, lumbar region with neurogenic claudication M48.062 ; Postlaminectomy syndrome, not elsewhere classified M96.1 ; Spondylosis without myelopathy or radiculopathy, cervical region M47.812 ; 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 ; Other intervertebral disc degeneration, lumbar region M51.36 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 [facility] [address] [place] [address] 03/17/2024 Baltazar Stynowick [facility] [address] [place] [address] [place] [phone] 04/12/2024 Baltazar Stynowick Radiculopathy, lumba r region M54.16 ; Sacroiliitis, not elsewhere classified M46.1 ; Radiculopathy, cervical region M54.12 ; Spondylosis without myelopathy or radiculopathy, lumbar region M47.816 ; Spinal stenosis, lumbar region with neurogenic claudication M48.062 ; Postlaminectomy syndrome, not elsewhere classified M96.1 ; Spondylosis without myelopathy or radiculopathy, cervical region M47.812 ; 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 ; Other intervertebral disc degeneration, lumbar region M51.36 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 [facility] [address] [place] [phone] 04/14/2024 Baltazar Streggieowick Radiculopathy, lumba r region M54.16 ; Sacroiliitis, not elsewhere classified M46.1 ; Radiculopathy, cervical region M54.12 ; Spondylosis without myelopathy or radiculopathy, lumbar region M47.816 ; Spinal stenosis, lumbar region with neurogenic claudication M48.062 ; Postlaminectomy syndrome, not elsewhere classified M96.1 ; Spondylosis without myelopathy or radiculopathy, cervical region M47.812 ; 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 The risks of this procedure including pain, bleeding, infection, spinal headache, persistent spinal fluid leak, epidural hematoma, nerve damage, spinal cord injury, paralysis, total spinal anesthesia resulting in cardiopulmonary arrest/, respiratory distress requiring intubation, insomnia, hyperglycemia, hair loss, muscle atrophy, skin depigmentation, weight gain, fluid retention, adrenal suppression, immunosuppression, osteoporosis resulting in fractures, avascular necrosis of the hip, cataracts, bleeding gastric ulcer, worsening pain and failure to relieve pain were discussed and the patient is agreeable to proceeding at this time. The side effects of opioid analgesics including [...] to fully comply with the above. The [place] PDMP were reviewed and were appropriate The patient's SCS was interrogated reprogrammed in the office today with improved axial low back and bilateral lower extremity neuropathic pain coverage with good paresthesia overlap 05/06/2023 Radiculopathy, lumbar region (ICD-10 - M54.16) 02/22/2024 Radiculopathy, cervical region (ICD-10 - M54.12) 03/16/2024 Radiculopathy, lumbar region (ICD-10 - M54.16) 03/16/2024 Spinal stenosis, lumbar region with neurogenic claudication (ICD-10 - M48.062) 03/17/2024 Sacroiliitis, not elsewhere classified (ICD-10 - M46.1) schedule a bilateral sacroiliac joint injection. The risks of this procedure including pain, bleeding, infection, insomnia, hyperglycemia, hair loss, muscle atrophy, skin depigmentation, weight gain, fluid retention, adrenal suppression, immunosuppression, osteoporosis resulting in fractures, avascular necrosis of the hip, cataracts, bleeding gastric ulcer, worsening pain and failure to relieve pain were discussed and the patient is agreeable to proceeding at this time. 03/17/2024 Radiculopathy, lumbar region (ICD-10 - M54.16) The patient's SCS was interrogated reprogrammed in the office today with improved axial low back and bilateral lower extremity neuropathic pain coverage with good paresthesia overlap The side effects of opioid analgesics including [...] to fully comply with the above. The [facility] PDMP were reviewed and were appropriate 04/12/2024 Radiculopathy, lumbar region (ICD-10 - M54.16) [...] to fully comply with the above. The [facility] PDMP were reviewed and were appropriate 04/14/2024 Radiculopathy, lumbar region (ICD-10 - M54.16) [...] to fully comply with the above. The [place] were reviewed and were appropriate 04/20/2024 Sacroiliitis, not elsewhere classified (ICD-10 - M46.1) 11/26/2023 Radiculopathy, cervical region (ICD-10 - M54.12) Schedule a cervical epidural steroid injection at C7-T1. The risks of this procedure including pain, bleeding, infection, spinal headache, persistent spinal fluid leak, epidural hematoma, nerve damage, spinal cord injury, paralysis, total spinal anesthesia resulting in cardiopulmonary arrest/, respiratory distress requiring intubation, insomnia, hyperglycemia, hair loss, muscle atrophy, skin depigmentation, weight gain, fluid retention, adrenal suppression, immunosuppression, osteoporosis resulting in fractures, avascular necrosis of the hip, cataracts, bleeding gastric ulcer, worsening pain and failure to relieve pain were discussed and the patient is agreeable to proceeding at this time. 11/26/2023 Radiculopathy, lumbar region (ICD-10 - M54.16) The [...] to fully comply with the above. The [facility] PDMP were reviewed and were appropriate 11/25/2023 Spondylosis without myelopathy or radiculopathy, 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.816) 11/25/2023 Spondylosis without myelopathy or radiculopathy, lumbosacral region (ICD-10 - M47.817) 10/29/2023 Radiculopathy, cervical region (ICD-10 - M54.12) 10/21/2023 Radiculopathy, lumbar region (ICD-10 - M54.16) 10/01/2023 Radiculopathy, cervical region (ICD-10 - M54.12) The side effects of opioid analgesics including [...] to fully comply with the above. The [facility] PDMP were reviewed and were appropriate 10/01/2023 Radiculopathy, lumbar region (ICD-10 - M54.16) Schedule a bilateral L3-4 transforaminal epidural steroid injection. The risks of this procedure including pain, bleeding, infection, spinal headache, persistent spinal fluid leak, epidural hematoma, nerve damage, spinal cord injury, paralysis, total spinal anesthesia resulting in cardiopulmonary arrest/, respiratory distress requiring intubation, insomnia, hyperglycemia, hair loss, muscle atrophy, skin depigmentation, weight gain, fluid retention, adrenal suppression, immunosuppression, osteoporosis resulting in fractures, avascular necrosis of the hip, cataracts, bleeding gastric ulcer, worsening pain and failure to relieve pain were discussed and the patient is agreeable to proceeding at this time. 2023 Spondylosis without myelopathy or radiculopathy, 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.816) 2023 Radiculopathy, cervical region (ICD-10 - M54.12) The side effects of opioid analgesics including [...] to fully comply with the above. The [place] were reviewed and were appropriate 08/19/2023 Spondylosis without myelopathy or radiculopathy, 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.816) 08/19/2023 Spondylosis without myelopathy or radiculopathy, lumbosacral region (ICD-10 - M47.817) 07/30/2023 Radiculopathy, cervical region (ICD-10 - M54.12) The side effects of opioid analgesics including [...] to fully comply with the above. The [place] PD[place] were reviewed and were appropriate 07/30/2023 Spondylosis without myelopathy or radiculopathy, 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.816) schedule a bilateral L3-5 medial branch nerve block as a diagnostic and potentially therapeutic endeavor to isolate the source of the patient's facet-generated low back pain originating from the L4-5 and L5-S1 facet joints and to ultimately perform radiofrequency ablation for more durable pain relief. The risks of this procedure including pain, bleeding, infection, nerve damage, spinal cord injury, paralysis, total spinal anesthesia resulting in cardiopulmonary arrest/, respiratory distress requiring intubation, neuritis after radiofrequency ablation, hyperglycemia, insomnia, hair loss, muscle atrophy, skin depigmentation, weight gain, fluid retention, adrenal suppression, osteoporosis resulting in fractures, avascular necrosis of the hip, cataracts, bleeding gastric ulcer, worsening pain and failure to relieve pain were discussed and the patient is agreeable to proceeding at this time. 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 The risks of this procedure including pain, bleeding, infection, spinal headache, persistent spinal fluid leak, epidural hematoma, nerve damage, spinal cord injury, paralysis, total spinal anesthesia resulting in cardiopulmonary arrest/, respiratory distress requiring intubation, insomnia, hyperglycemia, hair loss, muscle atrophy, skin depigmentation, weight gain, fluid retention, adrenal suppression, immunosuppression, osteoporosis resulting in fractures, avascular necrosis of the hip, cataracts, bleeding gastric ulcer, worsening pain and failure to relieve pain were discussed and the patient is agreeable to proceeding at this time. 06/12/2023 Spondylosis without myelopathy or radiculopathy, 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.816) 06/12/2023 Spondylosis without myelopathy or radiculopathy, lumbosacral region (ICD-10 - M47.817) 06/04/2023 Spondylosis without myelopathy or radiculopathy, 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.816) schedule a bilateral L3-5 medial branch nerve block as a diagnostic and potentially therapeutic endeavor to isolate the source of the patient's facet-generated low back pain originating from the L4-5 and L5-S1 facet joints and to ultimately perform radiofrequency ablation for more durable pain relief. The risks of this procedure including pain, bleeding, infection, nerve damage, spinal cord injury, paralysis, total spinal anesthesia resulting in cardiopulmonary arrest/, respiratory distress requiring intubation, neuritis after radiofrequency ablation, hyperglycemia, insomnia, hair loss, muscle atrophy, skin depigmentation, weight gain, fluid retention, adrenal suppression, osteoporosis resulting in fractures, avascular necrosis of the hip, cataracts, bleeding gastric ulcer, worsening pain and failure to relieve pain were discussed and the patient is agreeable to proceeding at this time. 06/04/2023 Radiculopathy, lumbar region (ICD-10 - M54.16) The [...] to fully comply with the above. The [place] PD[place] were reviewed and were appropriate 05/20/2023 Other intervertebral disc degeneration, lumbar region (ICD-10 - M51.36) 05/20/2023 Radiculopathy, lumbar region (ICD-10 - M54.16) 01/25/2024 Radiculopathy, cervical region (ICD-10 - M54.12) 01/25/2024 Radiculopathy, lumbar region (ICD-10 - M54.16) The [...] to fully comply with the above. 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 The risks of this procedure including pain, bleeding, infection, spinal headache, persistent spinal fluid leak, epidural hematoma, nerve damage, spinal cord injury, paralysis, total spinal anesthesia resulting in cardiopulmonary arrest/, respiratory distress requiring intubation, insomnia, hyperglycemia, hair loss, muscle atrophy, skin depigmentation, weight gain, fluid retention, adrenal suppression, immunosuppression, osteoporosis resulting in fractures, avascular necrosis of the hip, cataracts, bleeding gastric ulcer, worsening pain and failure to relieve pain were discussed and the patient is agreeable to proceeding at this time. 12/28/2023 Radiculopathy, lumbar region (ICD-10 - M54.16) The [...] to fully comply with the above. 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 The [place] PD[place] were reviewed and were appropriate 07/27/2023 Radiculopathy, cervicothoracic region (ICD-10 - M54.13) 07/30/2023 Radiculopathy, lumbar region (ICD-10 - M54.16) 2023 Radiculopathy, lumbar region (ICD-10 - M54.16) 10/01/2023 Spondylosis without myelopathy or radiculopathy, 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.816) 10/21/2023 Spinal stenosis, lumbar region with neurogenic claudication (ICD-10 - M48.062) L4-L5 10/29/2023 Radiculopathy, lumbar region (ICD-10 - M54.16) The [...] to fully comply with the above. The [place] were reviewed and were appropriate 10/29/2023 Spondylosis without myelopathy or radiculopathy, 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.816) Schedule a bilateral L3-5 radiofrequency ablation for a more durable treatment of the patient's facet-generated low back pain originating from the L4-5 and L5-S1 facet joints. The risks of this procedure including pain, bleeding, infection, nerve damage, spinal cord injury, paralysis, total spinal anesthesia resulting in cardiopulmonary arrest/, respiratory distress requiring intubation, neuritis after radiofrequency ablation, hyperglycemia, insomnia, hair loss, muscle atrophy, skin depigmentation, weight gain, fluid retention, adrenal suppression, osteoporosis resulting in fractures, avascular necrosis of the hip, cataracts, bleeding gastric ulcer, worsening pain and failure to relieve pain were discussed and the patient is agreeable to proceeding at this time. 11/26/2023 Spondylosis without myelopathy or radiculopathy, 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.816) 04/14/2024 Radiculopathy, cervical region (ICD-10 - M54.12) 04/14/2024 Sacroiliitis, not elsewhere classified (ICD-10 - [...] is agreeable to proceeding at this time. 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 The risks of this procedure including pain, bleeding, infection, spinal headache, persistent spinal fluid leak, epidural hematoma, nerve damage, spinal cord injury, paralysis, total spinal anesthesia resulting in cardiopulmonary arrest/, respiratory distress requiring intubation, insomnia, hyperglycemia, hair loss, muscle atrophy, skin depigmentation, weight gain, fluid retention, adrenal suppression, immunosuppression, osteoporosis resulting in fractures, avascular necrosis of the hip, cataracts, bleeding gastric ulcer, worsening pain and failure to relieve pain were discussed and the patient is agreeable to proceeding at this time. The side effects of opioid analgesics including [...] to fully comply with the above. The [place] PD[place] were reviewed and were appropriate 02/22/2024 Spondylosis without myelopathy or radiculopathy, 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.816) 05/04/2023 Sacroiliitis, not elsewhere classified (ICD-10 - M46.1) 02/22/2024 Sacroiliitis, not elsewhere classified (ICD-10 - M46.1) 05/04/2023 Spondylosis without myelopathy or radiculopathy, 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.816) 03/17/2024 Spondylosis without myelopathy or radiculopathy, 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.816) 04/12/2024 Radiculopathy, cervical region (ICD-10 - M54.12) 04/14/2024 Spondylosis without myelopathy or radiculopathy, 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.816) 11/26/2023 Sacroiliitis, not elsewhere classified (ICD-10 - M46.1) 10/29/2023 Sacroiliitis, not elsewhere classified (ICD-10 - M46.1) 10/01/2023 Sacroiliitis, not elsewhere classified (ICD-10 - M46.1) 10/21/2023 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 2023 Sacroiliitis, not elsewhere classified (ICD-10 - M46.1) 07/30/2023 Sacroiliitis, not elsewhere classified (ICD-10 - M46.1) 07/03/2023 Sacroiliitis, not elsewhere classified (ICD-10 - M46.1) 07/27/2023 Spinal stenosis, cervical region (ICD-10 - M48.02) 06/04/2023 Sacroiliitis, not elsewhere classified (ICD-10 - M46.1) 01/25/2024 Sacroiliitis, not elsewhere classified (ICD-10 - M46.1) 01/12/2024 Spinal stenosis, cervical region (ICD-10 - M48.02) 12/28/2023 Sacroiliitis, not elsewhere classified (ICD-10 - M46.1) 01/25/2024 Spinal stenosis, lumbar region with neurogenic claudication (ICD-10 - M48.062) L4-L5 12/28/2023 Spinal stenosis, lumbar region with neurogenic claudication (ICD-10 - M48.062) L4-L5 07/03/2023 Spinal stenosis, lumbar region with neurogenic claudication (ICD-10 - M48.062) L4-L5 06/04/2023 Spinal stenosis, lumbar region with neurogenic claudication (ICD-10 - M48.062) L4-L5 2023 Spinal stenosis, lumbar region with neurogenic claudication (ICD-10 - M48.062) L4-L5 07/30/2023 Spinal stenosis, lumbar region with neurogenic claudication (ICD-10 - M48.062) L4-L5 10/29/2023 Spinal stenosis, lumbar region with neurogenic claudication (ICD-10 - M48.062) L4-L5 10/01/2023 Spinal stenosis, lumbar region with neurogenic claudication (ICD-10 - M48.062) L4-L5 04/14/2024 Spinal stenosis, lumbar region with neurogenic claudication (ICD-10 - M48.062) L4-L5 11/26/2023 Spinal stenosis, lumbar region with neurogenic claudication (ICD-10 - M48.062) L4-L5 03/17/2024 Spinal stenosis, lumbar region with neurogenic claudication (ICD-10 - M48.062) L4-L5 02/22/2024 Spinal stenosis, lumbar region with neurogenic claudication (ICD-10 - M48.062) L4-L5 04/12/2024 Spondylosis without myelopathy or radiculopathy, 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.816) 05/04/2023 Spinal stenosis, lumbar region with neurogenic claudication (ICD-10 - M48.062) L4-L5 05/04/2023 Postlaminectomy syndrome, not elsewhere classified (ICD-10 - M96.1) Right L4 decompression 02/22/2024 Postlaminectomy syndrome, not elsewhere classified (ICD-10 - M96.1) Right L4 decompression 03/17/2024 Postlaminectomy syndrome, not elsewhere classified (ICD-10 - M96.1) Right L4 decompression 04/12/2024 Spinal stenosis, lumbar region with neurogenic claudication (ICD-10 - M48.062) L4-L5 04/14/2024 Postlaminectomy syndrome, not elsewhere classified (ICD-10 - M96.1) Right L4 decompression 11/26/2023 Postlaminectomy syndrome, not elsewhere classified (ICD-10 - M96.1) Right L4 decompression 10/01/2023 Postlaminectomy syndrome, not elsewhere classified (ICD-10 - M96.1) Right L4 decompression 10/29/2023 Postlaminectomy syndrome, not elsewhere classified (ICD-10 - M96.1) Right L4 decompression 07/03/2023 Postlaminectomy syndrome, not elsewhere classified (ICD-10 - M96.1) Right L4 decompression 07/30/2023 Postlaminectomy syndrome, not elsewhere classified (ICD-10 - M96.1) Right L4 decompression 2023 Postlaminectomy syndrome, not elsewhere classified (ICD-10 - M96.1) Right L4 decompression 06/04/2023 Postlaminectomy syndrome, not elsewhere classified (ICD-10 - M96.1) Right L4 decompression 01/25/2024 Postlaminectomy syndrome, not elsewhere classified (ICD-10 - M96.1) Right L4 decompression 12/28/2023 Postlaminectomy syndrome, not elsewhere classified (ICD-10 - M96.1) Right L4 decompression 12/28/2023 Spondylosis without myelopathy or radiculopathy, 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) 01/25/2024 Spondylosis without myelopathy or radiculopathy, 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) 06/04/2023 Spondylosis without myelopathy or radiculopathy, 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) 2023 Spondylosis without myelopathy or radiculopathy, 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) 07/30/2023 Spondylosis without myelopathy or radiculopathy, 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) 07/03/2023 Spondylosis without myelopathy or radiculopathy, 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) 10/01/2023 Spondylosis without myelopathy or radiculopathy, 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) 11/26/2023 Spondylosis without myelopathy or radiculopathy, 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) 10/29/2023 Spondylosis without myelopathy or radiculopathy, 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) 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) 04/12/2024 Postlaminectomy syndrome, not elsewhere classified (ICD-10 - M96.1) Right L4 decompression 03/17/2024 Spondylosis without myelopathy or radiculopathy, 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) 02/22/2024 Spondylosis without myelopathy or radiculopathy, 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) 05/04/2023 Spondylosis without myelopathy or radiculopathy, 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) 02/22/2024 assisted (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 of 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 (ICD-10 - Z79.01) The patient was instructed to discontinue aspirin for 6 fish oil for 10 days prior to the procedure. I made the patient aware that they will be at an increased risk for a thromboembolic event during this time and they are willing to accept this risk. The patient was instructed to notify their primary care physician and/or industrial therapist to 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 05/04/2023 assisted (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 of 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 (ICD-10 - Z79.01) The patient was instructed to discontinue fish oil for 10 days and aspirin for 6 days prior to the procedure. I made the patient aware that she will be at an increased risk for a thromboembolic event during this time and she is willing to accept this risk. The patient was instructed to notify her primary care physician and/or industrial therapist to 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 I made the patient aware that she will be at an increased risk for a thromboembolic event during this time and she is willing to accept this risk. The patient was instructed to notify her primary care physician and/or industrial therapist to 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 I made the patient aware that she will be at an increased risk for a thromboembolic event during this time and she is willing to accept this risk. The patient was instructed to notify her primary care physician and/or industrial therapist to 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 I made the patient aware that she will be at an increased risk for a thromboembolic event during this time and she is willing to accept this risk. The patient was instructed to notify her primary care physician and/or industrial therapist to 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 I made the patient aware that she will be at an increased risk for a thromboembolic event during this time and she is willing to accept this risk. The patient was instructed to notify her primary care physician and/or industrial therapist to 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 (ICD-10 - Z79.01) 01/25/2024 Other intervertebral disc degeneration, lumbar region (ICD-10 - M51.36) 12/28/2023 Other intervertebral disc degeneration, lumbar region (ICD-10 - M51.36) 06/04/2023 Other intervertebral disc degeneration, lumbar region (ICD-10 - M51.36) 2023 Other intervertebral disc degeneration, lumbar region (ICD-10 - M51.36) 07/03/2023 Other intervertebral disc degeneration, lumbar region (ICD-10 - M51.36) 07/30/2023 Other intervertebral disc degeneration, lumbar region (ICD-10 - M51.36) 10/01/2023 Other intervertebral disc degeneration, lumbar region (ICD-10 - M51.36) 11/26/2023 Other intervertebral disc degeneration, lumbar region (ICD-10 - M51.36) 10/29/2023 Other intervertebral disc degeneration, lumbar region (ICD-10 - M51.36) 04/14/2024 Other intervertebral disc degeneration, lumbar region (ICD-10 - M51.36) 04/12/2024 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 (ICD-10 - Z79.01) 03/17/2024 Other intervertebral disc degeneration, lumbar region (ICD-10 - M51.36) 05/04/2023 Other intervertebral disc degeneration, lumbar region (ICD-10 - M51.36) 02/22/2024 Other intervertebral disc degeneration, lumbar region (ICD-10 - M51.36) 02/22/2024 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 of opiate analgesic (ICD-10 - Z79.891) 05/04/2023 assisted (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 of opiate analgesic (ICD-10 - Z79.891) 04/12/2024 Other intervertebral disc degeneration, lumbar region (ICD-10 - M51.36) 03/17/2024 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 This note was dictated by TOPHER Uriostegui 05/20/2023 Other The patient voiced understanding of the treatment plan and all questions were addressed. Obtain informed consent: Bilateral Lumbar 3-4 Transforaminal Epidural Steroid Injection under fluoroscopy. Monitor pulse, blood pressure and [...] SAFETY CONCERNS HAVE BEEN ADDRESSED. RN initials ARNAV Coley was present for the entire interview and physical examination, acting as a scribe for Dr. Baltazar Parada. Some of the above chart information was entered by Magalis Coley. Dr. Parada has reviewed and agrees with this portion of the documentation. The remainder of the above note was dictated by Dr. Parada using voice recognition software and therefore inadvertent errors may have occurred. As a result, this note may not represent a completely accurate interpretation of the intended dictation provided. 06/04/2023 Other The above-named patient was evaluated in [...] occurred. This note was dictated by TOPHER Uriostegui 06/12/2023 Other Magalis Coley was present for the entire interview and physical examination, acting as a scribe for Dr. Baltazar Parada. Some of the above chart information was entered by Magalis Coley. Dr. Parada has reviewed and agrees with this portion of the documentation. The remainder of the above note was dictated by Dr. Parada using voice recognition software and therefore inadvertent errors may have occurred. As a result, this note may not represent a completely accurate interpretation of the intended dictation provided. 07/03/2023 Other The above-named patient was evaluated in [...] occurred. This note was dictated by TOPHER Uriostegui 07/30/2023 Other The above-named patient was evaluated in [...] occurred. This note was dictated by TOPHER Uriostegui 08/19/2023 Other The patient voiced understanding of the treatment plan and all questions were addressed. Obtain informed consent: Bilateral Lumbar 3-5 Medial Branch Nerve Block under fluoroscopy. Monitor pulse, blood pressure and [...] GOALS AND SAFETY CONCERNS HAVE BEEN ADDRESSED. DOMENIC JOSÉ 2023 Other The above-named patient was evaluated in [...] occurred. This note was dictated by TOPHER Uriostegui 10/01/2023 Other The above-named patient was evaluated in [...] occurred. This note was dictated by TOPHER Uriostegui 10/21/2023 Other The patient voiced understanding of the treatment plan and all questions were addressed. Obtain informed consent: Bilateral Lumbar 3-4 Transforaminal Epidural Steroid Injection under fluoroscopy. Monitor pulse, blood pressure and [...] GOALS AND SAFETY CONCERNS HAVE BEEN ADDRESSED. DOMENIC DICKSON 10/29/2023 Other The above-named patient was evaluated in [...] occurred. This note was dictated by TOPHER Uriostegui 11/25/2023 Other The patient voiced understanding of the treatment plan and all questions were addressed. Obtain informed consent: Bilateral Lumbar 3-5 Radiofrequency Ablation under fluoroscopy. Monitor pulse, blood pressure and [...] GOALS AND SAFETY CONCERNS HAVE BEEN ADDRESSED. DOMENIC JOSÉ 11/26/2023 Other The above-named patient was evaluated in [...] with Patient and Medical Decision Makin minutes 12/28/2023 Other The above-named patient was evaluated in [...] with Patient and Medical Decision Makin minutes 01/12/2024 Other The patient voiced understanding of the treatment plan and all questions were addressed. Obtain informed consent: Cervical Epidural Steroid Injection under fluoroscopy. Monitor pulse, blood pressure and [...] SAFETY CONCERNS HAVE BEEN ADDRESSED. RN initials JW. 01/25/2024 Other The above-named patient was evaluated in [...] with Patient and Medical Decision Makin minutes 02/22/2024 Other The above-named patient was evaluated in [...] with Patient and Medical Decision Makin minutes 03/16/2024 Other The patient voiced understanding of the treatment plan and all questions were addressed. Obtain informed consent: Bilateral Lumbar 3-4 Transforaminal Epidural Steroid Injection under fluoroscopy. Monitor pulse, blood pressure and [...] SAFETY CONCERNS HAVE BEEN ADDRESSED. RN initials __JE. 03/17/2024 Other The above-named patient was evaluated in [...] with Patient and Medical Decision Makin minutes 04/14/2024 Other The above-named patient was evaluated in conjunction with Dr. Parada. I have discussed and reviewed all of the pertinent history, physical examination findings and diagnostic imaging results with him. As a result of our discussion, Dr. Paraad has determined the above assessment and directed the treatment plan. This note was dictated using voice recognition software and therefore inadvertent errors may have occurred. This note was dictated by TOPHER Uriostegui. Total Time Spent with Patient and Medical Decision Makin minutes 04/20/2024 Other The patient voiced understanding of [...] BEEN ADDRESSED. RN initials PLAN OF TREATMENT Pending Test Test Name Order Date CT Scan : L-S Spine W/O Contrast 021 CT Scan : C-Spine W/O Contrast 2 CT Scan : C-Spine W/O Contrast 3 MRI : Cervical Spine without Contrast (7 0540) 09/18/2022 [facility] 10/10/2022 [facility] 04/14/2022 [facility] 03/06/2023 [facility] 07/07/2023 [facility] 10/01/2023 [facility] 01/25/2024 Next Appt Details Provider Name:Baltazar navarrete, 05/12/2024 09:30:00 AM, [address] [place], [address], Insurance Providers Payer Name Payer Address Payer Phone Subscriber Number Group Number Insured Name Patient Relationship to Insured Coverage Start Date Coverage End Date [facility] MEDICARE ADVANTAGE (PPO) [address] [address] [place] [address] [id number] LICHA MALAGON Self - patient is the insured 7 MEDICAL (GENERAL) HISTORY Medical History History ICD Code Hypertension Osteoarthritis CHF Surgical History Surgery Date(Month/Year) Coronary stent 05/31/07
--- OUTSIDE RECORDS SUMMARY | 2024-04-20 09:44 | XMS_ITS | CONTINUITY OF CARE DOCUMENT ---
Author Name alec michael Address Unknown Organization [facility] Address [address] [place] [address] Phone [phone] Care Team Providers Care Turnaround Planner Name Role Phone Tasia Mejia MD Unavailable AIMEE MINAYA MD Unavailable AIMEE MINAYA MD Unavailable PROBLEMS Condition Status Date Provider Notes Hypothyroidism active Tasia Mejia MD Vertigo active Tasia Mejia MD Anxiety, situational active Tasia Mejia MD GERD active Tasia Mejia MD Hypercholesterolemia active Tasia Mejia MD Hyperlipidemia active Tasia Mejia MD Family History of Sudden Cardiac : active ? Tasia Mejia MD COPD active Tasia Mejia MD CAD - S/P RCA Stent - Patent on cath in 2009 active Tasia Mejia MD HTN essential active Tasia Mejia MD ENCOUNTERS Date Type Provider Location Encounter Diag nosis 2 - 7 In-person encounter Office Visit Tasia [facility] 4 - 6 In-person encounter Office Visit Tasia [facility] HTN essentialCAD - S/P RCA Stent [...] Char Mejia MD pulse rate 66 /min Tasia Mejia MD oxygen saturation, oximetry 94 % [...] Payer name Policy type / Coverage type [facility] ID [facility] [id number] Other [id number] [place] MED[place] Medicare [id number] TREATMENT PLAN Date Name Performer Cardiology:On replacement [...] (Propranolol hcl) Orders: 9 9205 HIGH Complex ([id number]) Tasia Mejia MD printed to [place]: On bronchodilators. O rders: 9 9205 HIGH Complex ([id number]) Tasia Mejia MD printed to [place]: S/P RCA Stent - Fairly asymptomatic. Continues on aspirin once a day. H er updated medication list for this problem includes: Ramipril 10 Mg Oral Caps (Ramipril) ..... Two tablets daily Propranolol Hcl 60 Mg Oral Tabs (Propranolol hcl) Orders: 9 9205 HIGH Complex ([id number]) Tasia Mejia MD Date Name BASIC METABOLIC PANE L W/EGFR Renal Artery Duplex HISTORY OF PROCEDURES Procedure Date Procedure Name Provider Procedure Notes S tatus SNOMED-CT: 258548508 587317 Current Medications Documented Tasia Mejia MD completed SNOMED-CT: 856257904 Smoking Cessation Counseling Tasia Mejia MD completed SNOMED-CT: 27787062 Physical Exam, Performed: Pulse Exam of Foot Tasia Mejia MD completed
--- OUTSIDE RECORDS SUMMARY | 2024-04-20 09:44 | XMS_ITS | Clinical Summary ---
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 Gender Identity Not on file Sexual Orientation Not on file Last Filed Vital Signs Vital Sign Reading Time Taken Comments Blood Pressure 128/76 04/23/2010 1:18 PM CARTOON ARTIST Pulse 64 04/23/2010 1:18 PM CARTOON ARTIST Temperature 36.8 C (98.3 F) 04/23/2010 1:18 PM CARTOON ARTIST Respiratory Rate 14 04/23/2010 1:18 PM CARTOON ARTIST Oxygen Saturation - - Inhaled Oxygen Concentration - - Weight 64 kg (141 lb) 04/23/2010 1:18 PM CARTOON ARTIST Height 157.5 cm (5' 2 ) 04/23/2010 1:18 PM CARTOON ARTIST Body Mass Index 25.79 04/23/2010 1:18 PM CARTOON ARTIST Plan of Treatment Health Maintenance Due Date Last Done Comments DTAP/TDAP/TD VACCINES (1 - Tdap) 09/01/1963 PNEUMOCOCCAL VACCINE 65+ YEARS (1 of 1 - PCV) 08/31/18 95 ZOSTER VACCINE (1 of 2) 1994 OSTEOPOROSIS SCREENING 2009 RSV VACCINE (60+ or ) (1 - 1-dose 75+ series) 09/01/2019 INFLUENZA VACCINE (#1) 2023 Insurance [facility] [place] [address] [place] [id number] [facility] [id number] MEDICARE PART A AND B [facility] [place] [address] [id number] Care Teams Web Assistant Relationship Specialty Start Date End Date Bhanu Hinojosa MD [address] [place] [address] PCP - General 02/13/15
--- OUTSIDE RECORDS SUMMARY | 2024-04-20 09:44 | XMS_ITS | Referral Summary ---
Author Organization [facility] Address [address] [place] [address] Care Team Providers Care Advertising Job Titles Name Role Phone Unavailable Primary Care Provider Unavailabl e Source Comments [facility],non-owned Affiliates and Associated Physician Practices is amultiple site organization consisting of ambulatory clinics and hospital sitesin [place], [place], [place] and [place]. This disclosure is being madepursuant to the Care Everywhere program and may not contain all information available regarding this patient. Last updated 17.[facility] [employer] Social History Tobacco Use Types Packs/Day Years Used Date Smoking Tobacco: Never Assessed Sex and Gender Information Value Date Recorded Sex Assigned at Not on file Gender Identity Not on file Sexual Orientation Not on file Plan of [place] [address] Licha Malagon Personal/Family Self 1945 [address] [place] [address] MANASLICHA Personal/Family Spouse [facility] [place] [address]
--- OUTSIDE RECORDS SUMMARY | 2024-04-20 09:44 | XMS_ITS | Clinical Summary ---
Author Organization [facility] [employer] Address [address] [place] [address] Care Team Providers Care Air Quality Specialist Name Role Phone Unavailable Primary Care Provider Unavailabl e Source Comments [facility],non-owned Affiliates and Associated Physician Practices is amultiple site organization consisting of ambulatory clinics and hospital sitesin [place], [place], [place] and [place]. This disclosure is being madepursuant to the Care Everywhere program and may not contain all information available regarding this patient. Last updated 17.[facility] [employer] Social History Tobacco Use Types Packs/Day Years [...] this topic Licha Malagon Personal/Family Self 1945 [facility] [place] [address] LICHA MALAGON Personal/Family Spouse [facility] [place] [address]
--- OUTSIDE RECORDS SUMMARY | 2024-04-20 09:44 | XMS_ITS | Clinical Summary ---
Author Organization [facility] Address [facility] [place] [address] Care Team Providers Care Communication Arts Lecturer Name Role Phone Bhanu Hinojosa MD Primary Care Provider [phone] Allergies Active Allergy Reactions Criticality Noted Date [...] SUPPLY, DME,Indications: COPD (chronic obstructive pulmonary disease) ([facility]),Hypoxia 1 Device by Nasal route continuous. Nasal cannula. 2L at rest and 3L with activity. Portable Oxygen Concentrator with Pulse Settings. Stationary Concentrator. 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
[2024-04-20 09:45] LABS: Add Urine Microscopic? NO; Appearance Urine Clear (Clear); Bilirubin Urine Negative (Negative); Blood Urine Negative (Negative); Color Urine Light Yellow (Yellow); Glucose Urine UA Negative (Negative); Ketones Urine Negative (Negative); Leukocyte Esterase Ur Negative LEU/UL (Negative); Nitrate Urine Negative (Negative); Protein Urine Negative (Negative); Urobilinogen Urine 0.2 mg/dL (0.2-1.0)
[2024-04-20 09:53] LABS: Lactic Acid Reflex 1.4 mmol/L (0.4-2.0)
[2024-04-20 10:02] LABS: Lipase 29 U/L (16-77); Magnesium 1.7 mg/dL (1.8-2.4); Troponin I 12.5 ng/L (0.00-60.4)
[2024-04-20 10:04] LABS: Anion Gap 10 mmol/L (4-12); Bilirubin,Total 0.5 mg/dL (0.00-1.00); Blood Urea Nitrogen 15 mg/dL (7-18); Calcium 9.1 mg/dL (8.5-10.1); Carbon Dioxide 30 mmol/L (21-32); Chloride 98 mmol/L (98-108); Estimated CRCL calculation 37 ml/min; Estimated Glomerular Filt Rate > 60; Glucose 115 mg/dL (70-99); Osmolality Calculated 287 mOsm/kg (285-295); Potassium 4.1 mmol/L (3.5-5.1); Sodium 138 mmol/L (136-145)
[2024-04-20 10:05] LABS: Alanine Aminotransferase 15 U/L (14-59); Albumin Level 3.5 g/dL (3.4-5.0); Alkaline Phosphatase 138 U/L (46-116); Aspartate Amino Transferase 16 U/L (15-37); Total Protein 7.8 g/dL (6.4-8.2)
[2024-04-20 10:29] LABS: NT Pro B Type Natriuretic Pept 1765 pg/mL (0-450)
[2024-04-20 10:48] LABS: Influenza A QL RT-PCR Negative (Negative); Influenza B QL RT-PCR Negative (Negative); RSV RNA, RT-PCR Negative (Negative); SARS-CoV-2 RNA PCR Negative (Negative)
[2024-04-20] MEDS: MAGNESIUM SULF 2 GM/WATER 50ML 2 GM/50 ML BAG IVPB (11:00)
[2024-04-20] MEDS: ALBUTEROL SULFATE (*SP) INHALER 2 PUFF INHALATION (14:43)
[2024-04-20] MEDS: LEVOTHYROXINE SODIUM 75 MCG TABLET PO (14:51)
[2024-04-20] MEDS: FUROSEMIDE 20 MG TABLET PO (14:51)
[2024-04-20] MEDS: ramipriL 5 MG CAPSULE PO (14:51)
[2024-04-20] MEDS: PROPRANOLOL HCL 60 MG CAPSULE CR PO (14:51)
[2024-04-20] MEDS: oxyCODONE/ACETAMINOPHEN (*CRX) 10-325 MG TABLET 1 TAB PO ×2 (14:52→23:08)
[2024-04-20] MEDS: PANTOPRAZOLE 40 MG TABLET PO (14:53)
[2024-04-20] MEDS: POTASSIUM CHLORIDE 20 MEQ ER TABLET PO (14:53)
[2024-04-20] MEDS: ASPIRIN 325 MG ENTERIC TABLET PO (14:54)
[2024-04-20] MEDS: predniSONE 40 MG, predniSONE 10 MG 50 MG PO ×2 (17:01→22:51)
--- NOTE | 2024-04-20 18:55 | PC.NURSE ---
ASSUMED CARE. REPORT RECIEVED FROM MARILYN SHETH
--- NOTE | 2024-04-20 19:11 | PC.NURSE ---
PATIENT IS RESTING ON HOSPITAL BED. PATIENT HAS CALL LIGHT ON HER CHEST AND BED SIDE COMMODE NEXT TO BED. PATIENT IS AWARE THAT SHE WILL BE RECEIVING MEDICATIONS AND HAVING VITAL SIGNS DONE AT 11PM. NO NEEDS VOICED AT THIS TIME. ENCOURAGED PATIENT TO CALL OUT IF NEEDING ASSISTANCE.
--- NOTE | 2024-04-20 20:00 | PC.NURSE ---
PATIENT RESTING ON HOSPITAL BED. RESP EVEN AND UNLABORED. CALL LIGHT IN REACH
--- NOTE | 2024-04-20 21:00 | PC.NURSE ---
APPEARS TO BE SLEEPING. RESP EVEN AND UNLABORED. CALL LIGHT IN REACH
--- NOTE | 2024-04-20 22:00 | PC.NURSE ---
PATIENT IS RESTING QUIETLY ON HOSPITAL BED. RESP EVEN AND UNLABORED. CALL LIGHT AND BEDSIDE TABLE WITHIN REACH
[2024-04-20] MEDS: ROSUVASTATIN 10 MG TABLET 20 MG PO (22:51)
--- NOTE | 2024-04-20 23:00 | PC.NURSE ---
PATIENT WOKE EASILY FOR HER MEDICATIONS AND TO HAVE VITAL SIGNS TAKEN. REQUESTED A PAIN PILL FOR HER CHRONIC LOW BACK PAIN. MEDICATED PER APR. PATIENT HAS CALL LIGHT. PATIENT WAS OFFERED TOILETING. DOES NOT NEED TO USE THE RESTROOM AT THIS TIME.
--- NOTE | 2024-04-21 | PC.NURSE ---
APPEARS TO BE SLEEPING. RESP EVEN AND UNLABORED. CALL LIGHT IN REACH
--- NOTE | 2024-04-21 01:00 | PC.NURSE ---
PATIENT APPEARS TO BE SLEEPING. RESP EVEN AND UNLABORED. CALL LIGHT IN REACH. BEDSIDE TABLE IN REACH
--- NOTE | 2024-04-21 02:00 | PC.NURSE ---
PATIENT RESTING ON HOSPITAL BED. APPEARS TO BE SLEEPING. RESP EVEN UNLABORED. CALL LIGHT IN REACH, BEDSIDE TABLE IN REACH.
--- NOTE | 2024-04-21 03:00 | PC.NURSE ---
PATIENT APPEARS TO BE SLEEPING. RESP EVEN AND UNLABORED. CALL LIGHT IN REACH AND BEDSIDE TABLE IN REACH.
--- NOTE | 2024-04-21 04:00 | PC.NURSE ---
PATIENT APPEARS TO BE SLEEPING. RESP EVEN AND UNLABORED. CALL LIGHT IN REACH.
[2024-04-21 04:43] VITALS: BP 167/92; PULSE 64; RESP 17; TEMP 36.2; O2SAT 92
[2024-04-21] MEDS: diphenhydrAMINE HCl CAP 25 MG CAPSULE 50 MG PO (04:45)
[2024-04-21] MEDS: predniSONE 40 MG, predniSONE 10 MG 50 MG PO (04:45)
--- NOTE | 2024-04-21 04:55 | PC.NURSE ---
PREMEDICATION FOR CTA CHEST HAS BEEN COMPLETED. PATIENT IS RESTING ON HOSPITAL BED. AWARE THAT SHE WILL GO DOWN TO CT AT APPROX [phone]. DENIES ANY OTHER NEEDS. WAS ASSISTED UP TO BEDSIDE COMMODE AND BACK TO BED. SPO2 READINGS DROPPED TO 87% ON 3 LITERS. AFTER RESTING, SPO2 READING INCREASED TO 93%. WOB NON LABORED. PATIENT IS SPEAKING IN FULL SENTENCES.
--- NOTE | 2024-04-21 05:50 | PC.NURSE ---
PATIENT BEING TRANSPORTED TO CT VIA WHEEL CHAIR AND OXYGEN
--- NOTE | 2024-04-21 06:05 | PC.NURSE ---
PATIENT RETURNED TO ROOM VIA WHEEL CHAIR
[2024-04-21 07:30] VITALS: BP 141/83; PULSE 68; RESP 18; TEMP 36.4; O2SAT 96
== END 2024-04-21 07:30 | disposition home or self-care (01) ==
PROVIDERS: Emergency Provider Internal Medicine Critical Care Medicine; PCP Internal Medicine
DX: R51.9 Headache, unspecified (principal); I11.0 Hypertensive heart disease with heart failure; I50.9 Heart failure, unspecified; E03.9 Hypothyroidism, unspecified; I25.10 Atherosclerotic heart disease of native coronary artery without angina pectoris; J44.9 Chronic obstructive pulmonary disease, unspecified; Z99.81 Dependence on supplemental oxygen; Z20.822 Contact with and (suspected) exposure to COVID-19; Z87.891 Personal history of nicotine dependence
CPT/HCPCS: 36415; 70450; 71045; 71275; 78582; 80053; 81003; 83605; 83690; 83735; 83880; 84443; 84484; 85025; 85380; 85610; 85730; 87637; 93005; 96365; 96366; 99284; A9270; A9540; J3475; J7512; Q9967

== ENCOUNTER 2024-08-23 12:32 | Outpatient (CLI) | payer MEDICARE, SELFPAY ==
--- NOTE | ~2024-08-23 | CT_ITS ---
EXAMINATION: CT lumbar spine wo con DATE: 08/23/2024 12:58 INDICATION: Lumbar spinal stenosis with chronic low back pain. TECHNIQUE: Computed tomography (CT) of the lumbar spine was performed without intravenous contrast. A utomated exposure control and iterative reconstruction technique were employed. The dose-length produ ct was 370.11 mGy-cm. COMPARISON: 05/28/2020 FINDINGS: Spinal stimulator leads which enter the central canal via interspinous process approach at T12-L1 and extending cephalad beyond the superior margin of the field of imaging at T10. Transitional L5 segmen t which is partially sacralized on the left. 14 degree upper lumbar dextroscoliosis measured from T11 through L3 with 11 degrees compensatory lower lumbar levocurvature. New 2-3 mm anterolisthesis L2 on L3 and slight increase in 7 mm anterolisthesis L4 on L5. Vertebral body heights are normal. There ar e Schmorl's nodes at both sides of the L3-L4 disc space. Moderate to severe disc height loss at L3-L4 , moderate disc height loss at L4-L5, mild to moderate left-sided predominant disc height loss at L2- L3 and mild disc height loss at L5-S1. Chronic complete collapse with bronchiectatic change at the le ft lower lobe with additional severe atelectasis/scarring with bronchiectatic change in the posterior medial right lower lobe. Paravertebral soft tissues are unremarkable. Mild bilateral sacroiliac oste oarthritis. The following disc levels are specifically discussed: T11-T12: The disc does not extend beyond the endplate margin. There is mild bilateral facet joint ost eoarthritis. There is no neural foraminal stenosis. There is no central canal stenosis. T12-L1: The disc does not extend beyond the endplate margin. There is mild to moderate left and moder ate right facet joint osteoarthritis. There is no neural foraminal stenosis. There is no central ludivina l stenosis. L1-L2: Disc is bulging. There is mild left and mild to moderate right facet joint osteoarthritis. The re is mild right and mild to moderate left neural foraminal stenosis. There is mild central canal laura nosis. L2-L3: Disc is bulging. There is severe bilateral facet joint osteoarthritis. There is old right and moderate left neural foraminal stenosis. There is moderate to severe central canal stenosis. L3-L4: Disc is bulging. There is severe left and moderate to severe right facet joint osteoarthritis. There is moderate bilateral neural foraminal stenosis. There is moderate central canal stenosis. L4-L5: Disc is bulging. There is severe bilateral facet joint osteoarthritis. There is moderate right and mild to moderate left neural foraminal stenosis. There is moderate central canal stenosis. L5-S1: Disc is mildly bulging. There is severe bilateral facet joint osteoarthritis. There is mild bi lateral neural foraminal stenosis. There is minimal central canal stenosis. IMPRESSION: 1. Interval progression of moderate to severe lumbar spondylosis most notable for new 2-3 mm anteroli sthesis L2 on L3 contributing to moderate to severe central canal stenosis at this level. Reviewed, dictated and finalized at location B. IMPRESSION: 1. Interval progression of moderate to severe lumbar spondylosis most notable f or new 2-3 mm anterolisthesis L2 on L3 contributing to moderate to severe centr al canal stenosis at this level.
--- OUTSIDE RECORDS SUMMARY | 2024-08-23 12:39 | XMS_ITS | Patient Health Record ---
Author Organization [facility] Address [address] [facility] [place] [address] Care Team Providers Care Product Steward Name Role Phone MARIMAR LUGO, [facility] Primary Care Provider Baltazar Rivas Unavailable [phone] ALLERGIES Allergen (clinical drug ingredient) Drug/Non Drug [...] Active RESULTS Component Value Reference Range Notes [facility] Results (Not yet reviewed by provider) Interpretation: Performing Lab:[id number] [facility]ENTER[facility], [address] [address] [facility] [address] Anali Gutiérrez MD Notes/Report: Codeine negative 1 [...] 5 ng/mL Tramadol Quantification negative 5 ng/mL X-Iywmrmvxe-Kglbmktc Quantification negative 5 ng/ mL Alprazolam negative [...] negative 1 ng/mL Phencyclidine negative 1 ng/mL Nuzzel Results (Not yet reviewed by provider) Interpretation: Performing Lab:[id number] [place], [address] [address] [facility] [address] Anali Gutiérrez MD Notes/Report: Acetyl fentanyl: Fentanyl [...] 100 ng/mL Tramadol Quantification negative 100 ng/mL S-tbwhklfxp-sgrevnkn Quantification negative 100 n g/mL R-Eqekknpmg-Nskijtrh Quantification negative 100 n g/mL Alpha-Hydroxyalprazolam Quantification negative 20 ng/mL 6-Vddky-Srfcaptavl Quantification negative 20 ng/m L Lorazepam Quantification [...] Mitragynine (Kratom alkaloid) Quantification negative 1 ng/mL 3-VV-Ohncwhnumfk (Kratom alk aloid) Quantification negative 1 ng/mL Ethyl Glucuronide Quantification negative 500 ng/m L Ethyl Sulfate Quantification negative 500 ng/mL Nuzzel Results (Not yet reviewed by provider) Interpretation: Performing Lab:[id number] [place], [address] [address] [facility] [address] Anali Gutiérrez MD Notes/Report: Acetyl fentanyl: Fentanyl Negative. Acetyl norfentanyl: Fentanyl Negative. Acr yl fentanyl: Fentanyl Negative. Carfentanil: Fentanyl Negative. Para-fluorofent anyl: Fentanyl Negative. Codeine Quantification negative 50 ng/mL Morphine Quantification negative 50 ng/mL Hydrocodone Quantification negative 50 ng/mL Norhydrocodone Quantification negative 50 ng/mL Hydromorphone Quantification negative 50 ng/mL Oxycodone Quantification positive-2326.051 50 ng/mL Noroxycodone Quantification positive-5661.011 50 ng/mL Oxymorphone Quantification positive-195.148 50 ng/mL Fentanyl Quantification negative 1 ng/mL Norfentanyl Quantification negative 8 ng/mL Methadone Quantification negative 100 ng/mL EDDP (Methadone metabolite) Quantification negative 100 ng/mL Tramadol Quantification negative 100 ng/mL J-nlmzdeude-baatrdam Quantification negative 100 n g/mL A-Sheepqplt-Wfcyfkku Quantification negative 100 n g/mL Alpha-Hydroxyalprazolam Quantification negative 20 ng/mL 4-Qlhjd-Bziyiwdnyh Quantification negative 20 ng/m L Lorazepam Quantification [...] Mitragynine (Kratom alkaloid) Quantification negative 1 ng/mL 2-XG-Lpcoblvgxms (Kratom alk aloid) Quantification negative 1 ng/mL Ethyl Glucuronide Quantification negative 500 ng/m L Ethyl Sulfate Quantification negative 500 ng/mL Nuzzel Results (Not yet reviewed by provider) Interpretation: Performing Lab:[id number] [place], [address] [address] [facility] [address] Anali Gutiérrez MD Notes/Report: Acetyl fentanyl: Fentanyl Negative. Acetyl norfentanyl: Fentanyl Negative. Acr yl fentanyl: Fentanyl Negative. Carfentanil: Fentanyl Negative. Para-fluorofent anyl: Fentanyl Negative. Codeine Quantification negative 50 ng/mL Morphine Quantification negative 50 ng/mL Hydrocodone Quantification negative 50 ng/mL Norhydrocodone Quantification negative 50 ng/mL Hydromorphone Quantification negative 50 ng/mL Oxycodone Quantification positive-2840.875 50 ng/mL Noroxycodone Quantification positive-5344.331 50 ng/mL Oxymorphone Quantification positive-180.855 50 ng/mL Fentanyl Quantification negative 1 ng/mL Norfentanyl Quantification negative 8 ng/mL Methadone Quantification negative 100 ng/mL EDDP (Methadone metabolite) Quantification negative 100 ng/mL Tramadol Quantification negative 100 ng/mL F-ncbhllcap-fijsssgu Quantification negative 100 n g/mL H-Jilsrbhnu-Uzuiauad Quantification negative 100 n g/mL Alpha-Hydroxyalprazolam Quantification negative 20 ng/mL 6-Nyacy-Jmlywqhoix Quantification negative 20 ng/m L Lorazepam Quantification [...] Mitragynine (Kratom alkaloid) Quantification negative 1 ng/mL 1-QD-Ztkeknudzec (Kratom alk aloid) Quantification negative 1 ng/mL Ethyl Glucuronide Quantification negative 500 ng/m L Ethyl Sulfate Quantification negative 500 ng/mL REASON FOR REFERRAL No Information MEDICATIONS Medication SIG (Take, Route, Frequency, Duration) Notes Start Date End Date Status Ventolin HFA 108 (90 Base) MCG/ACT 1 puff as needed Inhalation every 4 hrs Active Benadryl 25 MG 1 capsule as [...] food Oral Four times a day Active Vitamin D 1000 UNIT 1 tablet Orally Once a day Active Percocet 10-325 MG 1 tablet as needed Orally up to 4x/day severe pain for 30 days 08/18/2024 Active Ramipril 10 MG 1 capsule Orally Twi ce a day Active Narcan 4 MG/0.1ML 1 actuation in one nostril x1, Nasally 2-3 minutes as needed until the patient is responsive or EMS arrives Active Furosemide 20 MG TAKE 1 TABLET BY JULIETH TH EVERY MORNING Oral for 90 Active Montelukast Sodium 10 MG 1 tablet Oral Once a day Active valACYclovir HCl 1 GM 1 tablet Oral Once a day Active Nebivolol HCl 20 MG TAKE 1 TABLET BY JULIETH TH EVERY DAY Oral for 90 Active busPIRone HCl 10 MG 1 tablet Oral Twice a day Active Potassium Chloride ER 10 MEQ TAKE 1 TABL ET BY MOUTH EVERY DAY Oral for 90 Active Trelegy Ellipta 100-62.5-25 MCG/ACT 1 puff Inhalation Once a day Active Medrol 4 MG as directed Orally 05/13/2021 Active Cczaf-0-dyja Ethyl Esters 1 GM 2 capsules Oral Twice a day Active Rosuvastatin Calcium 20 MG 1 tablet Oral Once a day Active FLUoxetine HCl 20 MG 1 capsule Orally On ce a day for 30 day(s) Active Esomeprazole Magnesium 40 MG 1 capsule O ral Once a day Active Claritin 10 MG 1 tablet Orally Once a day Active Levothyroxine Sodium 50 MCG 1 tablet on an empty stomach in the morning Orally Once a day Active Propranolol HCl ER 60 MG 1 capsules oral ly twice a day Active Estradiol 2 MG 1 tablet Oral Once a day Active SOCIAL HISTORY Tobacco [...] ast year? No Points 0 Interpretation Negative Section Notes: The patient is retired. She is . She smokes one pack of cigarettes daily. She denies alcohol or drug abuse. The patient is retired. She is . She smokes one pack of cigarettes daily. She denies alcohol or drug abuse. The patient is retired. She is . She smokes one pack of cigarettes daily. She denies alcohol or drug abuse. The patient is retired. She is . She smokes one pack of cigarettes daily. She denies alcohol or drug abuse. The patient is retired. She is . She smokes one pack of cigarettes daily. She denies alcohol or drug abuse. The patient is retired. She is . She smokes one pack of cigarettes daily. She denies alcohol or drug abuse. The patient is retired. She is . She smokes one pack of cigarettes daily. She denies alcohol or drug abuse. The patient is retired. She is . She smokes one pack of cigarettes daily. She denies alcohol or drug abuse. The patient is retired. She is . She smokes one pack of cigarettes daily. She denies alcohol or drug abuse. The patient is retired. She is . She smokes one pack of cigarettes daily. She denies alcohol or drug abuse. The patient is retired. She is . She smokes one pack of cigarettes daily. She denies alcohol or drug abuse. The patient is retired. She is . She smokes one pack of cigarettes daily. She denies alcohol or drug abuse. The patient is retired. She is . She smokes one pack of cigarettes daily. She denies alcohol or drug abuse. The patient is retired. She is . She smokes one pack of cigarettes daily. She denies alcohol or drug abuse. The patient is retired. She is . She smokes one pack of cigarettes daily. She denies alcohol or drug abuse. The patient is retired. She is . She smokes one pack of cigarettes daily. She denies alcohol or drug abuse. The patient is retired. She is . She smokes one pack of cigarettes daily. She denies alcohol or drug abuse. The patient is retired. She is . She used to smoke one pack of cigarettes daily. She denies alcohol or drug abuse. The patient is retired. She is . She used to smoke one pack of cigarettes daily. She denies alcohol or drug abuse. The patient is retired. She is . She smokes one pack of cigarettes daily. She denies alcohol or drug abuse. The patient is retired. She is . She used to smoke one pack of cigarettes daily. She denies alcohol or drug abuse. The patient is retired. She is . She used to smoke one pack of cigarettes daily. She denies alcohol or drug abuse. The patient is retired. She is . She used to smoke one pack of cigarettes daily. She denies alcohol or drug abuse. The patient is retired. She is . She used to smoke one pack of cigarettes daily. She denies alcohol or drug abuse. The patient is retired. She is . She used to smoke one pack of cigarettes daily. She denies alcohol or drug abuse. The patient is retired. She is . She used to smoke one pack of cigarettes daily. She denies alcohol or drug abuse. The patient is retired. She is . She used to smoke one pack of cigarettes daily. She denies alcohol or drug abuse. The patient is retired. She is . She used to smoke one pack of cigarettes daily. She denies alcohol or drug abuse. The patient is retired. She is . She used to smoke one pack of cigarettes daily. She denies alcohol or drug abuse. The patient is retired. She is . She used to smoke one pack of cigarettes daily. She denies alcohol or drug abuse. The patient is retired. She is . She used to smoke one pack of cigarettes daily. She denies alcohol or drug abuse. The patient is retired. She is . She used to smoke one pack of cigarettes daily. She denies alcohol or drug abuse. The patient is retired. She is . She used to smoke one pack of cigarettes daily. She denies alcohol or drug abuse. The patient is retired. She is . She used to smoke one pack of cigarettes daily. She denies alcohol or drug abuse. The patient is retired. She is . She used to smoke one pack of cigarettes daily. She denies alcohol or drug abuse. The patient is retired. She is . She used to smoke one pack of cigarettes daily. She denies alcohol or drug abuse. The patient is retired. She is . She used to smoke one pack of cigarettes daily. She denies alcohol or drug abuse. The patient is retired. She is . She used to smoke one pack of cigarettes daily. She denies alcohol or drug abuse. The patient is retired. She is . She used to smoke one pack of cigarettes daily. She denies alcohol or drug abuse. The patient is retired. She is . She used to smoke one pack of cigarettes daily. She denies alcohol or drug abuse. The patient is retired. She is . She used to smoke one pack of cigarettes daily. She denies alcohol or drug abuse. The patient is retired. She is . She used to smoke one pack of cigarettes daily. She denies alcohol or drug abuse. The patient is retired. She is . She used to smoke one pack of cigarettes daily. She denies alcohol or drug abuse. The patient is retired. She is . She used to smoke one pack of cigarettes daily. She denies alcohol or drug abuse. The patient is retired. She is . She used to smoke one pack of cigarettes daily. She denies alcohol or drug abuse. The patient is retired. She is . She used to smoke one pack of cigarettes daily. She denies alcohol or drug abuse. The patient is retired. She is . She used to smoke one pack of cigarettes daily. She denies alcohol or drug abuse. The patient is retired. She is . She used to smoke one pack of cigarettes daily. She denies alcohol or drug abuse. The patient is retired. She is . She used to smoke one pack of cigarettes daily. She denies alcohol or drug abuse. The patient is retired. She is . She used to smoke one pack of cigarettes daily. She denies alcohol or drug abuse. The patient is retired. She is . She used to smoke one pack of cigarettes daily. She denies alcohol or drug abuse. The patient is retired. She is . She used to smoke one pack of cigarettes daily. She denies alcohol or drug abuse. The patient is retired. She is . She used to smoke one pack of cigarettes daily. She denies alcohol or drug abuse. The patient is retired. She is . She used to smoke one pack of cigarettes daily. She denies alcohol or drug abuse. The patient is retired. She is . She used to smoke one pack of cigarettes daily. She denies alcohol or drug abuse. The patient is retired. She is . She used to smoke one pack of cigarettes daily. She denies alcohol or drug abuse. The patient is retired. She is . She used to smoke one pack of cigarettes daily. She denies alcohol or drug abuse. The patient is retired. She is . She used to smoke one pack of cigarettes daily. She denies alcohol or drug abuse. The patient is retired. She is . She used to smoke one pack of cigarettes daily. She denies alcohol or drug abuse. The patient is retired. She is . She used to smoke one pack of cigarettes daily. She denies alcohol or drug abuse. The patient is retired. She is . She used to smoke one pack of cigarettes daily. She denies alcohol or drug abuse. The patient is retired. She is . She used to smoke one pack of cigarettes daily. She denies alcohol or drug abuse. The patient is retired. She is . She used to smoke one pack of cigarettes daily. She denies alcohol or drug abuse. The patient is retired. She is . She used to smoke one pack of cigarettes daily. She denies alcohol or drug abuse. The patient is retired. She is . She used to smoke one pack of cigarettes daily. She denies alcohol or drug abuse. The patient is retired. She is . She used to smoke one pack of cigarettes daily. She denies alcohol or drug abuse. The patient is retired. She is . She used to smoke one pack of cigarettes daily. She denies alcohol or drug abuse. The patient is retired. She is . She used to smoke one pack of cigarettes daily. She denies alcohol or drug abuse. The patient is retired. She is . She used to smoke one pack of cigarettes daily. She denies alcohol or drug abuse. The patient is retired. She is . She used to smoke one pack of cigarettes daily. She denies alcohol or drug abuse. The patient is retired. She is . She used to smoke one pack of cigarettes daily. She denies alcohol or drug abuse. The patient is retired. She is . She used to smoke one pack of cigarettes daily. She denies alcohol or drug abuse. The patient is retired. She is . She used to smoke one pack of cigarettes daily. She denies alcohol or drug abuse. The patient is retired. She is . She used to smoke one pack of cigarettes daily. She denies alcohol or drug abuse. The patient is retired. She is . She used to smoke one pack of cigarettes daily. She denies alcohol or drug abuse. The patient is retired. She is . She used to smoke one pack of cigarettes daily. She denies alcohol or drug abuse. The patient is retired. She is . She used to smoke one pack of cigarettes daily. She denies alcohol or drug abuse. The patient is retired. She is . She used to smoke one pack of cigarettes daily. She denies alcohol or drug abuse. The patient is retired. She is . She used to smoke one pack of cigarettes daily. She denies alcohol or drug abuse. The patient is retired. She is . She used to smoke one pack of cigarettes daily. She denies alcohol or drug abuse. The patient is retired. She is . She used to smoke one pack of cigarettes daily. She denies alcohol or drug abuse. The patient is retired. She is . She used to smoke one pack of cigarettes daily. She denies alcohol or drug abuse. The patient is retired. She is . She used to smoke one pack of cigarettes daily. She denies alcohol or drug abuse. The patient is retired. She is . She used to smoke one pack of cigarettes daily. She denies alcohol or drug abuse. The patient is retired. She is . She used to smoke one pack of cigarettes daily. She denies alcohol or drug abuse. The patient is retired. She is . She used to smoke one pack of cigarettes daily. She denies alcohol or drug abuse. The patient is retired. She is . She used to smoke one pack of cigarettes daily. She denies alcohol or drug abuse. The patient is retired. She is . She quit smoking in 2007. She denies alcohol or drug abuse. The patient is retired. She is . She quit smoking in 2007. She denies alcohol or drug abuse. The patient is retired. She is . She quit smoking in 2007. She denies alcohol or drug abuse. The patient is retired. She is . She quit smoking in 2007. She denies alcohol or drug abuse. The patient is retired. She is . She quit smoking in 2007. She denies alcohol or drug abuse. The patient is retired. She is . She quit smoking in 2007. She denies alcohol or drug abuse. The patient is retired. She is . She quit smoking in 2007. She denies alcohol or drug abuse. The patient is retired. She is . She quit smoking in 2007. She denies alcohol or drug abuse. The patient is retired. She is . She quit smoking in 2007. She denies alcohol or drug abuse. The patient is retired. She is . She quit smoking in 2007. She denies alcohol or drug abuse. The patient is retired. She is . She quit smoking in 2007. She denies alcohol or drug abuse. The patient is retired. She is . She quit smoking in 2007. She denies alcohol or drug abuse. The patient is retired. She is . She quit smoking in 2007. She denies alcohol or drug abuse. The patient is retired. She is . She quit smoking in 2007. She denies alcohol or drug abuse. The patient is retired. She is . She quit smoking in 2007. She denies alcohol or drug abuse. The patient is retired. She is . She quit smoking in 2007. She denies alcohol or drug abuse. The patient is retired. She is . She quit smoking in 2007. She denies alcohol or drug abuse. The patient is retired. She is . She quit smoking in 2007. She denies alcohol or drug abuse. 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) Active confirmed Localized, primary osteoarthritis of the pelvic region and thigh (640421322) Problem Pain in unspecified hip (M25.559) Active confirmed Arthralgia of the pelvic region and thigh (453202697) Problem Sacroiliitis, not elsewhere classified (M46.1) Active confirmed Solitary sacroiliitis (710255543) Problem Spondylosis without myelopathy or radiculopathy, cervical region (M47.812) Active confirmed Cervical spondylosis without myelopathy (309017302) Problem Spondylosis without myelopathy or radiculopathy, lumbar region (M47.816) Active confirmed Lumbosacral spondylosis without myelopathy (25356930) Problem Spondylosis without myelopathy or radiculopathy, lumbosacral region (M47.817) Active confirmed Lumbosacral spondylosis without myelopathy (disorder) (44749465) Problem Spinal stenosis, cervical region (M48.02) Active confirmed Spinal stenosis in cervical region (50740122) Problem Intervertebral disc disorders with radiculopathy, lumbar region (M51.16) Active confirmed Radiculopathy due to lumbar intervertebral disc disorder (62522771100980 5) Problem Other intervertebral disc degeneration, 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 confirmed Degeneration of lumbar intervertebral disc (23560124) Problem Radiculopathy, cervical region (M54.12) Active confirmed Cervical radiculopathy (55896226) Problem Radiculopathy, cervicothoracic region (M54.13) Active confirmed Cervical radiculopathy (05621647) Problem Radiculopathy, lumbar region (M54.16) Active confirmed Lumbar radiculopathy (264173722) Problem Trochanteric bursitis, unspecified hip (M70.60) Active confirmed Enthesopathy of hip region (30255491) Problem Postlaminectomy syndrome, not elsewhere classified (M96.1) Active confirmed Post-laminectom y syndrome (08145720) Right L4 decompression Problem Osseous stenosis of neural canal of lumbar region (M99.33) Active confirmed Spinal stenosis of lumbar region (03014475) Problem Osseous and subluxation stenosis of intervertebral foramina of lumbar region (M99.63) Active confirmed Spinal stenosis of lumbar region (09450807) Problem 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) Active confirmed Connective tissue and disc stenosis of intervertebral foramina (229886922) 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 Blood pressure diastolic 87 mm Hg 08/18/2024 Height 62 in 08/18/2024 Blood pressure systolic 191 mm Hg 08/18/2024 Weight 120 lbs 08/18/2024 BMI 21.95 kg/m2 08/18/2024 Encounters Encounter Location Date Provider Diagnosis [facility] [address] [place] [phone] 2023 Baltazar [place]nowick Spondylosis without myelopathy or radiculopathy, lumbar region M47.816 ; Radiculopathy, cervical region M54.12 ; Radiculopathy, lumbar region M54.16 ; Sacroiliitis, not elsewhere classified M46.1 ; Spinal stenosis, lumbar region with neurogenic claudication M48.062 ; Postlaminectomy syndrome, not elsewhere classified M96.1 ; Spondylosis without myelopathy or radiculopathy, cervical region M47.812 ; [facility] (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.01 ; Other intervertebral disc degeneration, lumbar region M51.36 and [facility] (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 of opiate analgesic Z79.891 [facility] [address] [place] [phone] 10/01/2023 Baltazar [place]nowick Radiculopathy, cervical region M54.12 ; Radiculopathy, lumbar region M54.16 ; Spondylosis without myelopathy or radiculopathy, lumbar region M47.816 ; Sacroiliitis, not elsewhere classified M46.1 ; Spinal stenosis, lumbar region with neurogenic claudication M48.062 ; Postlaminectomy syndrome, not elsewhere classified M96.1 ; Spondylosis without myelopathy or radiculopathy, cervical region M47.812 ; [facility] (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.01 ; Other intervertebral disc degeneration, lumbar region M51.36 and 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 Z79.891 [facility] [address] [phone] 10/21/2023 Baltazar [place]now[place] Radiculopathy, lumba r region M54.16 ; Spinal stenosis, lumbar region with neurogenic claudication M48.062 and 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 [facility] [address] [phone] 10/22/2023 Baltazar Stynowick [facility] [address] [place] [phone] 10/29/2023 Baltazar Stynowick Radiculopathy, cervical region M54.12 ; Radiculopathy, lumbar region M54.16 ; Spondylosis without myelopathy or radiculopathy, lumbar region M47.816 ; Sacroiliitis, not elsewhere classified M46.1 ; Spinal stenosis, lumbar region with neurogenic claudication M48.062 ; Postlaminectomy syndrome, not elsewhere classified M96.1 ; Spondylosis without myelopathy or radiculopathy, cervical region M47.812 ; 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.01 ; Other intervertebral disc degeneration, lumbar region M51.36 and [facility] (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 of opiate analgesic Z79.891 [facility] [address] [phone] 11/25/2023 Baltazar Stynowick Spondylosis without myelopathy or radiculopathy, lumbar region M47.816 and Spondylosis without myelopathy or radiculopathy, lumbosacral region M47.817 [facility] [address] [place] [phone] 11/26/2023 Baltazar Stynowick Radiculopathy, cervical region M54.12 ; Radiculopathy, lumbar region M54.16 ; Spondylosis without myelopathy or radiculopathy, lumbar region M47.816 ; Sacroiliitis, not elsewhere classified M46.1 ; Spinal stenosis, lumbar region with neurogenic claudication M48.062 ; Postlaminectomy syndrome, not elsewhere classified M96.1 ; Spondylosis without myelopathy or radiculopathy, cervical region M47.812 ; 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.01 ; Other intervertebral disc degeneration, lumbar region M51.36 and 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 Z79.891 [facility] [address] [phone] 11/26/2023 Baltazar Stynowick [facility] [address] [place] [phone] 12/28/2023 Baltazar Stynowick Radiculopathy, cervical region M54.12 ; Radiculopathy, lumbar region M54.16 ; Spondylosis without myelopathy or radiculopathy, lumbar region M47.816 ; Sacroiliitis, not elsewhere classified M46.1 ; Spinal stenosis, lumbar region with neurogenic claudication M48.062 ; Postlaminectomy syndrome, not elsewhere classified M96.1 ; Spondylosis without myelopathy or radiculopathy, cervical region M47.812 ; [facility] (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.01 ; Other intervertebral disc degeneration, lumbar region M51.36 and 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 Z79.891 [facility] [address] [place] [address] [place] [address] 01/12/2024 Baltazar Stynowick Radiculopathy, cervical region M54.12 ; 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 ; Radiculopathy, cervicothoracic region M54.13 and Spinal stenosis, cervical region M48.02 [facility] [address] [place] [address] [place] [address] 01/13/2024 Baltazar Stynowick [facility] [address] [place] [phone] 01/25/2024 Balatzar Stynowick Radiculopathy, cervical region M54.12 ; Radiculopathy, lumbar region M54.16 ; Spondylosis without myelopathy or radiculopathy, lumbar region M47.816 ; Sacroiliitis, not elsewhere classified M46.1 ; Spinal stenosis, lumbar region with neurogenic claudication M48.062 ; Postlaminectomy syndrome, not elsewhere classified M96.1 ; Spondylosis without myelopathy or radiculopathy, cervical region M47.812 ; 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.01 ; Other intervertebral disc degeneration, lumbar region M51.36 and [facility] (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 of opiate analgesic Z79.891 [facility] [address] [place] [address] [place] [address] 01/25/2024 Baltazar Stynowick [facility] [address] [place] [address] [place] [address] 02/22/2024 Baltazar Stynowick Radiculopathy, cervical region M54.12 ; Radiculopathy, lumbar region M54.16 ; Spondylosis without myelopathy or radiculopathy, lumbar region M47.816 ; Sacroiliitis, not elsewhere classified M46.1 ; Spinal stenosis, lumbar region with neurogenic claudication M48.062 ; Postlaminectomy syndrome, not elsewhere classified M96.1 ; Spondylosis without myelopathy or radiculopathy, cervical region M47.812 ; [facility] (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.01 ; Other intervertebral disc degeneration, lumbar region M51.36 and [facility] (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 of opiate analgesic Z79.891 [facility] [address] [address] 03/16/2024 Baltazar Stynowick Radiculopathy, lumba r region M54.16 ; Spinal stenosis, lumbar region with neurogenic claudication M48.062 and 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 [facility] [address] [place] [phone] 03/17/2024 Baltazar Stynowick Radiculopathy, lumba r region M54.16 ; Sacroiliitis, not elsewhere classified M46.1 ; Radiculopathy, cervical region M54.12 ; Spondylosis without myelopathy or radiculopathy, lumbar region M47.816 ; Spinal stenosis, lumbar region with neurogenic claudication M48.062 ; Postlaminectomy syndrome, not elsewhere classified M96.1 ; Spondylosis without myelopathy or radiculopathy, cervical region M47.812 ; 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.01 ; Other intervertebral disc degeneration, lumbar region M51.36 and 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 Z79.891 [facility] [address] [address] 03/17/2024 Baltazar Stynowick [facility] [address] [place] [address] [place] [address] 04/12/2024 Baltazar Stynowick Radiculopathy, lumba r region M54.16 ; Sacroiliitis, not elsewhere classified M46.1 ; Radiculopathy, cervical region M54.12 ; Spondylosis without myelopathy or radiculopathy, lumbar region M47.816 ; Spinal stenosis, lumbar region with neurogenic claudication M48.062 ; Postlaminectomy syndrome, not elsewhere classified M96.1 ; Spondylosis without myelopathy or radiculopathy, cervical region M47.812 ; [facility] (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.01 ; Other intervertebral disc degeneration, lumbar region M51.36 and [facility] (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 of opiate analgesic Z79.891 [facility] [address] [place] [address] [place] [address] 04/14/2024 Baltazar Stynowick Radiculopathy, lumba r region M54.16 ; Sacroiliitis, not elsewhere classified M46.1 ; Radiculopathy, cervical region M54.12 ; Spondylosis without myelopathy or radiculopathy, lumbar region M47.816 ; Spinal stenosis, lumbar region with neurogenic claudication M48.062 ; Postlaminectomy syndrome, not elsewhere classified M96.1 ; Spondylosis without myelopathy or radiculopathy, cervical region M47.812 ; [facility] (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.01 ; Other intervertebral disc degeneration, lumbar region M51.36 and [facility] (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 of opiate analgesic Z79.891 [facility] [address] [place] [address] [place] [address] 04/20/2024 Baltazar Stynowick Sacroiliitis, not elsewhere classified M46.1 [facility] [address] [place] [phone] 05/12/2024 Baltazar Stynowick Radiculopathy, lumba r region M54.16 ; Sacroiliitis, not elsewhere classified M46.1 ; Radiculopathy, cervical region M54.12 ; Spondylosis without myelopathy or radiculopathy, lumbar region M47.816 ; Spinal stenosis, lumbar region with neurogenic claudication M48.062 ; Postlaminectomy syndrome, not elsewhere classified M96.1 ; Spondylosis without myelopathy or radiculopathy, cervical region M47.812 ; [facility] (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.01 ; Other intervertebral disc degeneration, lumbar region M51.36 and 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 Z79.891 [facility] [address] [place] [phone] 06/16/2024 Baltazar Stynowick Radiculopathy, lumba r region M54.16 ; Radiculopathy, cervical region M54.12 ; Sacroiliitis, not elsewhere classified M46.1 ; Spondylosis without myelopathy or radiculopathy, lumbar region M47.816 ; Spinal stenosis, lumbar region with neurogenic claudication M48.062 ; Postlaminectomy syndrome, not elsewhere classified M96.1 ; Spondylosis without myelopathy or radiculopathy, cervical region M47.812 ; [facility] (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.01 ; Other intervertebral disc degeneration, lumbar region M51.36 ; [facility] (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 of opiate analgesic Z79.891 and Essential (primary) hypertension 0 [facility] [address] [place] [phone] 06/29/2024 Baltazar Stynowick Radiculopathy, cervical region M54.12 ; 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 and Radiculopathy, cervicothoracic region M54.13 [facility] [address] [place] [phone] 07/06/2024 Baltazar Stynowick Radiculopathy, cervical region M54.12 ; 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 and Spinal stenosis, cervical region M48.02 [facility] [address] [place] [phone] 07/14/2024 Baltazar Stynowick Radiculopathy, lumba r region M54.16 ; Radiculopathy, cervical region M54.12 ; Sacroiliitis, not elsewhere classified M46.1 ; Spondylosis without myelopathy or radiculopathy, lumbar region M47.816 ; Spinal stenosis, lumbar region with neurogenic claudication M48.062 ; Postlaminectomy syndrome, not elsewhere classified M96.1 ; Spondylosis without myelopathy or radiculopathy, cervical region M47.812 ; 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.01 ; Other intervertebral disc degeneration, lumbar region M51.36 ; 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 Z79.891 and Essential (primary) hypertension [address] [facility] [address] [address] 07/20/2024 Baltazar Stynowick Radiculopathy, cervical region M54.12 ; 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 and Spinal stenosis, cervical region M48.02 [facility] [address] [place] [address] YANNA KAY, GIULLE [address] 07/21/2024 Baltazar Stynowick [facility] [address] [place] [address] [place] [address] 07/29/2024 Baltazar Stynowick Sacroiliitis, not elsewhere classified M46.1 [facility] [address] [place] [address] [place] [address] 08/18/2024 Baltazar Stynowick Sacroiliitis, not elsewhere classified M46.1 ; Radiculopathy, lumbar region M54.16 ; Postlaminectomy syndrome, not elsewhere classified M96.1 ; Radiculopathy, cervical region M54.12 ; Radiculopathy, cervicothoracic region M54.13 ; 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 The [place] were reviewed and were appropriate 2023 Spondylosis without myelopathy or radiculopathy, 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.816) 10/01/2023 Radiculopathy, cervical region (ICD-10 - M54.12) [...] to fully comply with the above. The [place] were reviewed and were appropriate 10/01/2023 [...] is agreeable to proceeding at this time. 10/21/2023 Radiculopathy, lumbar region (ICD-10 - M54.16) 10/29/2023 Radiculopathy, cervical region (ICD-10 - M54.12) 11/25/2023 Spondylosis without myelopathy or radiculopathy, 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.816) 11/25/2023 Spondylosis without myelopathy or radiculopathy, lumbosacral region (ICD-10 - M47.817) 11/26/2023 Radiculopathy, cervical region (ICD-10 - M54.12) [...] to fully comply with the above. The [place] were reviewed and were appropriate 12/28/2023 Radiculopathy, cervical region (ICD-10 - M54.12) [...] to fully comply with the above. The [place] were reviewed and were appropriate 01/12/2024 Radiculopathy, cervical region (ICD-10 - M54.12) 01/12/2024 Connective tissue and disc stenosis of intervertebral foramina of upper extremity (ICD-10 - M99.77) 01/25/2024 Radiculopathy, cervical region (ICD-10 - M54.12) [...] to fully comply with the above. The [place] were reviewed and were appropriate 02/22/2024 Radiculopathy, cervical region (ICD-10 - M54.12) [...] to fully comply with the above. The [place] were reviewed and were appropriate 04/12/2024 [...] to fully comply with the above. The [facility] PDMP were reviewed and were appropriate 04/14/2024 [...] to fully comply with the above. The [facility] PDMP were reviewed and were appropriate 04/20/2024 Sacroiliitis, not elsewhere classified (ICD-10 - M46.1) 05/12/2024 Sacroiliitis, not elsewhere classified (ICD-10 - M46.1) 05/12/2024 Radiculopathy, lumbar region (ICD-10 - M54.16) The [...] to fully comply with the above. The [facility] PDMP were reviewed and were appropriate 06/16/2024 Radiculopathy, cervical region (ICD-10 - M54.12) Schedule [...] is agreeable to proceeding at this time. 06/16/2024 Radiculopathy, lumbar region (ICD-10 - M54.16) The [...] to fully comply with the above. The [facility] PDMP were reviewed and were appropriate 06/29/2024 Radiculopathy, cervical region (ICD-10 - M54.12) 06/29/2024 Connective tissue and disc stenosis of intervertebral foramina of upper extremity (ICD-10 - M99.77) 07/06/2024 Radiculopathy, cervical region (ICD-10 - M54.12) 07/06/2024 Connective tissue and disc stenosis of intervertebral foramina of upper extremity (ICD-10 - M99.77) 07/14/2024 Radiculopathy, lumbar region (ICD-10 - M54.16) The [...] to fully comply with the above. The [place] were reviewed and were appropriate 07/20/2024 Radiculopathy, cervical region (ICD-10 - M54.12) 07/20/2024 Connective tissue and disc stenosis of intervertebral foramina of upper extremity (ICD-10 - M99.77) 07/29/2024 Sacroiliitis, not elsewhere classified (ICD-10 - M46.1) 08/18/2024 Sacroiliitis, not elsewhere classified (ICD-10 - [...] to fully comply with the above. The [place] were reviewed and were appropriate 07/20/2024 Spinal stenosis, cervical region (ICD-10 - M48.02) 08/18/2024 Postlaminectomy syndrome, not elsewhere classified (ICD-10 - M96.1) 07/14/2024 Sacroiliitis, not elsewhere classified (ICD-10 - M46.1) [...] is agreeable to proceeding at this time. 07/14/2024 Radiculopathy, cervical region (ICD-10 - M54.12) The patient is scheduled next week for a cervical epidural steroid injection at C7-T1. [...] is agreeable to proceeding at this time. 07/06/2024 Spinal stenosis, cervical region (ICD-10 - M48.02) 06/29/2024 Radiculopathy, cervicothoracic region (ICD-10 - M54.13) 05/12/2024 Radiculopathy, cervical region (ICD-10 - M54.12) 06/16/2024 Sacroiliitis, not elsewhere classified (ICD-10 - M46.1) 04/14/2024 Radiculopathy, cervical region (ICD-10 - M54.12) [...] to fully comply with the above. The [place] were reviewed and were appropriate 02/22/2024 Spondylosis without myelopathy or radiculopathy, 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.816) 01/25/2024 Spondylosis without myelopathy or radiculopathy, 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.816) 01/12/2024 Radiculopathy, cervicothoracic region (ICD-10 - M54.13) 12/28/2023 Spondylosis without myelopathy or radiculopathy, 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.816) 11/26/2023 Spondylosis without myelopathy or radiculopathy, 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.816) 10/29/2023 Radiculopathy, lumbar region (ICD-10 - M54.16) [...] to fully comply with the above. The [place] were reviewed and were appropriate 10/29/2023 [...] is agreeable to proceeding at this time. 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 11/26/2023 Sacroiliitis, not elsewhere classified (ICD-10 - M46.1) 12/28/2023 Sacroiliitis, not elsewhere classified (ICD-10 - M46.1) 01/25/2024 Sacroiliitis, not elsewhere classified (ICD-10 - M46.1) 01/12/2024 Spinal stenosis, cervical region (ICD-10 - M48.02) 02/22/2024 Sacroiliitis, not elsewhere classified (ICD-10 - M46.1) 03/17/2024 Spondylosis without myelopathy or radiculopathy, 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.816) 04/12/2024 Radiculopathy, cervical region (ICD-10 - M54.12) 04/14/2024 Spondylosis without myelopathy or radiculopathy, 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.816) 06/16/2024 Spondylosis without myelopathy or radiculopathy, 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.816) 05/12/2024 Spondylosis without myelopathy or radiculopathy, 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.816) 07/14/2024 Spondylosis without myelopathy or radiculopathy, 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.816) 08/18/2024 Radiculopathy, cervical region (ICD-10 - M54.12) 08/18/2024 Radiculopathy, cervicothoracic region (ICD-10 - M54.13) 07/14/2024 Spinal stenosis, lumbar region with neurogenic claudication (ICD-10 - M48.062) L4-L5 06/16/2024 Spinal stenosis, lumbar region with neurogenic claudication (ICD-10 - M48.062) L4-L5 04/14/2024 Spinal stenosis, lumbar region with neurogenic claudication (ICD-10 - M48.062) L4-L5 05/12/2024 Spinal stenosis, lumbar region with neurogenic claudication (ICD-10 - M48.062) L4-L5 03/17/2024 Spinal stenosis, lumbar region with neurogenic claudication (ICD-10 - M48.062) L4-L5 02/22/2024 Spinal stenosis, lumbar region with neurogenic claudication (ICD-10 - M48.062) L4-L5 04/12/2024 Spondylosis without myelopathy or radiculopathy, 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.816) 01/25/2024 Spinal stenosis, lumbar region with neurogenic [...] neurogenic claudication (ICD-10 - M48.062) L4-L5 10/01/2023 Postlaminectomy syndrome, not elsewhere classified (ICD-10 [...] classified (ICD-10 - M96.1) Right L4 decompression 05/12/2024 Postlaminectomy syndrome, not elsewhere classified (ICD-10 - M96.1) Right L4 decompression 06/16/2024 Postlaminectomy syndrome, not elsewhere classified (ICD-10 - M96.1) Right L4 decompression 08/18/2024 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 07/14/2024 Postlaminectomy syndrome, not elsewhere classified (ICD-10 - M96.1) Right L4 decompression 08/18/2024 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 (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 07/14/2024 [facility] (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 of 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 (ICD-10 - Z79.01) [...] to notify their primary care physician 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 06/16/2024 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 (ICD-10 - Z79.891) 07/14/2024 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 (ICD-10 - Z79.891) 07/14/2024 Essential (primary) hypertension (ICD-10 - I10) 04/12/2024 [facility] (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 of opiate analgesic (ICD-10 - Z79.891) 06/16/2024 Essential (primary) hypertension (ICD-10 - I10) The patient was advised to follow up with their primary care physician regarding their hypertension 2023 Other The above-named patient was evaluated [...] for infection: Implements aseptic technique, protects from cross-contamination , performs skin preparations. Pain/Discomfort: Patient verbalizes acceptable [...] for infection: Implements aseptic technique, protects from cross-contamination , performs skin preparations. Pain/Discomfort: Patient verbalizes acceptable [...] for infection: Implements aseptic technique, protects from cross-contamination , performs skin preparations. Pain/Discomfort: Patient verbalizes acceptable level of pain relief prior to discharge and the ability to engage in desired activity. I HAVE REVIEWED THE PATIENT'S MEDICATION LIST AND HAVE RECONCILED THE ABOVE MEDICATIONS. PATIENT GOALS AND SAFETY CONCERNS HAVE BEEN ADDRESSED. DOMENIC initials [facility]. 01/25/2024 Other The above-named patient was evaluated [...] for infection: Implements aseptic technique, protects from cross-contamination , performs skin preparations. Pain/Discomfort: Patient verbalizes acceptable level of pain relief prior to discharge and the ability to engage in desired activity. I HAVE REVIEWED THE PATIENT'S MEDICATION LIST AND HAVE RECONCILED THE ABOVE MEDICATIONS. PATIENT GOALS AND SAFETY CONCERNS HAVE BEEN ADDRESSED. DOMENIC initials __JE. 03/17/2024 Other The above-named patient [...] for infection: Implements aseptic technique, protects from cross-contamination , performs skin preparations. Pain/Discomfort: Patient verbalizes acceptable level of pain relief prior to discharge and the ability to engage in desired activity. I HAVE REVIEWED THE PATIENT'S MEDICATION LIST AND HAVE RECONCILED THE ABOVE MEDICATIONS. PATIENT GOALS AND SAFETY CONCERNS HAVE BEEN ADDRESSED. RN initials 05/12/2024 Other The above-named patient was evaluated in [...] with Patient and Medical Decision Makin minutes 06/16/2024 Other The above-named patient was evaluated in [...] with Patient and Medical Decision Makin minutes 06/29/2024 Other The patient voiced understanding of the [...] for infection: Implements aseptic technique, protects from cross-contamination , performs skin preparations. Pain/Discomfort: Patient verbalizes acceptable level of pain relief prior to discharge and the ability to engage in desired activity. I HAVE REVIEWED THE PATIENT'S MEDICATION LIST AND HAVE RECONCILED THE ABOVE MEDICATIONS. PATIENT GOALS AND SAFETY CONCERNS HAVE BEEN ADDRESSED. RN initials 07/06/2024 Other The patient voiced understanding of the [...] for infection: Implements aseptic technique, protects from cross-contamination , performs skin preparations. Pain/Discomfort: Patient verbalizes acceptable level of pain relief prior to discharge and the ability to engage in desired activity. I HAVE REVIEWED THE PATIENT'S MEDICATION LIST AND HAVE RECONCILED THE ABOVE MEDICATIONS. PATIENT GOALS AND SAFETY CONCERNS HAVE BEEN ADDRESSED. RN initials 07/14/2024 Other The above-named patient was evaluated in [...] with Patient and Medical Decision Makin minutes 07/20/2024 Other The patient voiced understanding of the [...] for infection: Implements aseptic technique, protects from cross-contamination , performs skin preparations. Pain/Discomfort: Patient verbalizes acceptable level of pain relief prior to discharge and the ability to engage in desired activity. I HAVE REVIEWED THE PATIENT'S MEDICATION LIST AND HAVE RECONCILED THE ABOVE MEDICATIONS. PATIENT GOALS AND SAFETY CONCERNS HAVE BEEN ADDRESSED. RN initials ARNAV 08/18/2024 Other The patient was advised to [...] decision making 25 minutes PLAN OF TREATMENT Pending Test Test Name Order Date CT Scan : L-S Spine W/O Contrast 021 CT Scan : L-S Spine W/O Contrast 025 CT Scan : C-Spine W/O Contrast 2 CT Scan : C-Spine W/O Contrast 3 MRI : Cervical Spine without Contrast ([id number]) 09/18/2022 [facility] Results 10/10/2022 [facility] Results 04/14/2022 [facility] Results 03/06/2023 [facility] Results 07/07/2023 [facility] Results 10/01/2023 [facility] Results 01/25/2024 [facility] Results 05/12/2024 [facility] Results 08/18/2024 Next Appt Details Provider Name:Baltazar Finn navarrete, 2024 09:30:00 AM, [address] [place] [address], [address], Provider Name:Baltazar Finn navarrete, 09/16/2024 09:45:00 AM, [address] [place], [address], Insurance Providers Payer Name Payer Address Payer Phone Subscriber Number Group Number Insured Name Patient Relationship to Insured Coverage Start Date Coverage End Date [facility] MEDICARE ADVANTAGE (PPO) [address] [address] [place] [phone] [id number] MANAS LICHA Self - patient is the insured 7 MEDICAL (GENERAL) HISTORY Medical History History ICD Code Hypertension Osteoarthritis CHF Surgical History Surgery Date(Month/Year) Coronary stent 05/31/07
--- OUTSIDE RECORDS SUMMARY | 2024-08-23 12:39 | XMS_ITS | Clinical Summary ---
Author Organization [facility] Address [address] [place] [address] Care Team Providers Care Bin Tripper Operator Name Role Phone Unavailable Primary Care Provider Unavailabl e Source Comments [facility],non-owned Affiliates and Associated Physician Practices is amultiple site organization consisting of ambulatory clinics and hospital sitesin [place], [place], [place] and [place]. This disclosure is being madepursuant to the Care Everywhere program and may not contain all information available regarding this patient. Last updated 17.[facility] [employer] Social History Tobacco Use Types Packs/Day Years Used Date Smoking Tobacco: Never Assessed Comments Unknown Sex and Gender Information Value Date Recorded Sex Assigned at Not on file Legal Sex Female 6:36 AM LAST SCOURER Gender Identity Not on file Sexual Orientation [...] VACCINE ( - 2023-2 5 season) 2023 DEPRESSION SCREENING 02/24/2024 MEDICARE AWV CALENDAR YEAR 2024 INFLUENZA VACCINE (Season Ended) 2024 HEPATITIS B VACCINE Aged Out No longe r eligible based on patient's age to complete this topic HIB VACCINE Aged Out No longer eligi ble based on patient's age to complete this topic HPV VACCINE Aged Out No longer eligi ble based on patient's age to complete this topic MENINGOCOCCAL (Group B) VACC INE SHARED DECISION-MAKING Aged Out No longer eligibl e based on patient's age to complete this topic MENINGOCOCCAL GROUPS A/C/Y/W VACCINE Aged Out No longer eligible b ased on patient's age to complete this topic Insurance [facility] MANAGED MEDICARE ADV
--- OUTSIDE RECORDS SUMMARY | 2024-08-23 12:39 | XMS_ITS ---
Author Organization [facility] Address [address] [facility] [place] [address] Care Team Providers Care Shirt Ironer Name Role Phone AIMEE MINAYA MD Primary Care Provider UnavailBaltazar Buckley Unavailable [phone] REASON FOR VISIT Post Procedure Follow Up Call Encounters Encounter Location Date Provider Diagnosis [facility] [address] [place] [address] 07/21/2024 Baltazar Parada PLAN OF TREATMENT Next Appt Details Provider Name:Baltazar navarrete, 2024 09:30:00 AM, [address] [facility] [address], [place], [address], Provider Name:Baltazar navarrete, 09/16/2024 09:45:00 AM, [address] [facility] [place], [address],
--- OUTSIDE RECORDS SUMMARY | 2024-08-23 12:39 | XMS_ITS | Clinical Summary ---
Author Organization [facility] Address [facility] [place] [address] Care Team Providers Care Senior Process Analyst Name Role Phone Bhanu Hinojosa MD Primary Care Provider [phone] Allergies Active Allergy Reactions Criticality Noted Date [...] SUPPLY, DME,Indications: COPD (chronic obstructive pulmonary disease) ([facility]),Hypoxia 1 Device by Nasal route continuous. Nasal cannula. 2L at rest and 3L with activity. Portable Oxygen Concentrator with Pulse Settings. Stationary Concentrator. 1 Device 3 Active Active Problems Problem Noted Date Diagnosed Date Pneumonia 10/12/2022 COPD exacerbation ([facility]) 10/12/2022 Social History Tobacco Use Types Packs/Day [...] P M CDT Height 157.5 cm (5' 2) 10/12/2022 2:00 PM CDT Body Mass Index 24.15 10/12/2022 2:00 PM CDT Plan of Treatment Health Maintenance Due Date Last Done Comments Hepatitis C 1963 DTaP, Tdap and Td Vaccines ( 1 - Tdap) 09[birth year]01/1964 Annual Medicare Wellness Visit 2009 Dexa Scan (General) 2009 Zoster Vaccines (2 of 3) 03/07/2016 01/11/2016 RSV Immunization or 60+ Years (1 - 1-dose 75+ series) 09/01/2019 COVID-19 Vaccine (3 - 2023-2 5 season) 2023 06/15/2020, 05/18/2020 Pneumococcal Vaccine: 50+ Years Completed 10/29/2015, 05/25/2012 Meningococcal B Vaccine Aged Out No l onger eligible based on patient's age to complete this topic Meningococcal Vaccine Aged Out No cely alexandra eligible based on patient's age to complete this topic RSV Immunizations Under 20 Months Aged Out No longer eligible b ased on patient's age to complete this topic Goals Goal Patient Goal Type Associated Problems Recent Progress Patient-Stated? 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
--- OUTSIDE RECORDS SUMMARY | 2024-08-23 12:39 | XMS_ITS | Data Portability ---
Author Organization [facility], Main Office Address [address] [place] [address] Care Team Providers Care Geriatric Physician Name Role Phone AIMEE FLOWERS Primary Care Provider [phone] Assessment No assessment recorded. Plan of Treatment [...] By Organization Details Last Modified Time 12/03/2023 [id number] uled out surgery and she will [facility] an [email or web address] Not available 12/03/2023 14:30:23 Reason for Referral None Reported. Results Created Date Observation Date Name Description Value Unit Range Abnormal Flag Note LastModifiedBy Organization Detail LastModifiedTime 09/04/19 24 US, thyro id No observ ation record ed. [email or web address] Not Available 2023 10:02:56 10/15/19 24 10/15/2023 fine needl e aspir ation , ultra sound guide d, thyro id (PROC ) No observ ation record ed. [address], [address], 10/15/2023 17:07:01 10/15/19 24 10/15/2023 fine needl e aspir ation , ultra sound guide d, thyro id (PROC ) No observ ation record ed. [address], [address], 10/15/2023 17:06:44 Result Notes None recorded. Problems Name Problem SNOMED Code Status Onset Date Resolution Date Notes Provider Name and Address Organization Details Recorded Time Thyroid nodule 097130495 [facility] 024 [facility] 12:12:12 Problem Notes None recorded. Procedures Surgical History Date Name Laterality Status Provider Name and Address Organization Details Recorded Time tonsillectomy completed So [facility] 08/25/2023 09:45:44 Imaging Results None recorded. Procedure Notes None recorded. Medical Equipment None Reported. Allergies Allergen ID Allergen Name Allergen Category Reaction Reaction Severity Criticality Documentation Date Start Date Code Code System Note Provider Name and Address Organization Details Recorded Time 78526 amlodipin e medicatio n edema Not available Not available 08/19/2023 78239 Rx[facility] 16:57:04 60471 diltiazem hydrochlo ride medicatio n edema Not available Not available 08/19/2023 04387 1 RxNorm [facility] 16:57:14 10411 iodine medicatio n Not available Not available Not available 08/19/2023 5933 RxNorm [facility] 16:57:23 45751 Product containin g penicilli n (product) medicatio n Not available Not available Not available 08/19/2023 25495 8001 SNOMED [facility] 16:57:31 96433 doxazosin medicatio n Not available Not available Not available 08/19/2023 21257 RxNorm weakn ess of lower limbs [facility] 4 16:57:45 Medications Name Sig Start Date [...] Address Organization Details Last Updated DateTime 08/26/2023 22488.89 g 22.8 kg/m2 157.48 cm 98 [degF] Yareli Stanton RN [facility] [employer] 08/26/2023 12:01:19 Date Recorded Body height Body temperature Provider N camila and Address Organization Details Last Updated DateTime 12/03/2023 157.48 cm 97.8 [degF] Yareli Stanton RN [facility] [employer] 12/03/2023 14:01:45 Social History None recorded. Functional Status Question Answer Note LastModified by Organizat ion Details LastModified Time Do you or have you ever used any other forms of tobacco or nicotine? Yes [email or web address] Information not available 08/25/2023 What is your level of alcohol consumption? None [email or web address] Information not available 08/25/2023 Do you or have you ever used smokeless tobacco? Former smokeless tobacco user [email or web address] Information not available 08/25/2023 Mental Status None recorded. Family History Relationship Description Onset Age of this Age Resolved Age Notes LastModified by Organization Details LastModified Time Father No current problems or disability [email or web address] Not available 08/25 11:59:45 Mother No current problems or disability [email or web address] Not available 08/25 11:59:45 Notes:no ent Medical History Condition Response MRSA N ALLERGIES/HAYFEVER N BACK INJECTIONS N LUNG DISEASE/DISORDER N INSOMNIA N HISTORY OF DRUG ABUSE N ESRD N RADIATION / CHEMOTHERAPY N COPD Y HIGH CHOLESTEROL / HYPERLIPIDEMIA N HYPERTHYROIDISM N PVD N BLOOD DISEASES N EAR OR HEARING PROBLEMS N HYPOTHYROIDISM N SHINGLES N DEPRESSION (INCLUDING POST ) N BACK / NECK PROBLEMS N HAVE YOU BEEN HOSPITALIZED OR SEEN IN [facility] ER IN THE PAST YEAR ? N FAILED BACK SYNDROME N STROKE/TIA N POLYCYSTIC OVARIES N OBESITY N ANEURYSM N HISTORY WITH COMPLICATIONS WITH ANESTHES IA ? N Do you have Advance directive? N [...] SNOMED-CT Code Diagnosis ICD10 Code Diagnosis Note [id number] Noman Britton MD [facility] [place] [address] [place] [address] 08/26/2023 11:26:28 08/28/2023 11:11:12 Thyroid nodule 247746828 E04.1 [id number] Noman Britton MD [facility] [place] [place] [address] [place] [address] 12/03/2023 13:50:13 12/04/2023 10:48:58 Thyroid nodule 803984266 E04.1 Health Concerns Section Related Observation LastModified by Organization Detai ls LastModified Time None Recorded Concern Status LastModified by Organization Details LastModified Time None Recorded Advance Directives Directive None Recorded Payers Insurance Date Sequence Insurance Name Policy Number Policy Wu Covered Member ID Wu Member ID Guarantor Name 12/03/2023 1 [facility] [id number] Radha Andrade [id number] Radha Andrade Notes Date Note Type Note Provider Name [...] proceed with needle biopsy Noman Britton MD [address], [employer], [place], [address], [employer] 08/26/2023 12:15:00 12/03/2023 text/html this patient johanna t for needle biopsy but the radiologist decided that the carotid artery was too close to the nodule and declined complete the biopsy. The patient reports she is having absolutely no trouble with the nodule and she is now on supplemental oxygen Noman Britton MD [address], [address], [place], [address], [employer] 12/03/2023 14:30:43 OBGyn Episode No OBEpisode recorded.
--- OUTSIDE RECORDS SUMMARY | 2024-08-23 12:39 | XMS_ITS | Clinical Summary ---
Author Organization [employer] [facility] Address [address] [place] [address] Care Team Providers Care Instructor Traffic Safety Name Role Phone Bhanu Hinojosa MD Primary Care Provider [phone] Allergies Active Allergy Reactions Criticality Noted Date [...] on file Legal Sex Female 5:52 AM SYRUP FILTERER Gender Identity Not on file Sexual Orientation Not on file Last Filed Vital Signs Vital Sign Reading Time Taken Comments Blood Pressure 128/76 04/23/2010 1:18 PM SYRUP FILTERER Pulse 64 04/23/2010 1:18 PM SYRUP FILTERER Temperature 36.8 C (98.3 F) 04/23/2010 1:18 PM SYRUP FILTERER Respiratory Rate 14 04/23/2010 1:18 PM SYRUP FILTERER Oxygen Saturation - - Inhaled Oxygen Concentration - - Weight 64 kg (141 lb) 04/23/2010 1:18 PM SYRUP FILTERER Height 157.5 cm (5' 2) 04/23/2010 1:18 PM SYRUP FILTERER Body Mass Index 25.79 04/23/2010 1:18 PM SYRUP FILTERER Plan of Treatment Health Maintenance Due Date Last Done Comments DTAP/TDAP/TD VACCINES (1 - Tdap) 09[birth year]01/1964 PNEUMOCOCCAL VACCINE 50+ YEARS (1 of 1 - PCV) 08/31/18 95 ZOSTER VACCINE (1 of 2) 1994 OSTEOPOROSIS SCREENING 2009 RSV VACCINE (60+ or ) (1 - 1-dose 75+ series) 09/01/2019 INFLUENZA VACCINE (#1) 2023 Insurance [facility] [place] [id number] [facility] [facility] [id number] MEDICARE PART A AND B [facility] [place] [address] [id number] Care Teams Instructor Traffic Safety Relationship Specialty Start Date End Date Bhanu Hinojosa MD [address] [place] [address] PCP - General 02/13/15
--- OUTSIDE RECORDS SUMMARY | 2024-08-23 12:39 | XMS_ITS ---
Author Organization [facility] Address [address] [place] [address] [place] [address] Care Team Providers Care Evaluation Manager Name Role Phone MARIMAR LUGO [facility] Primary Care Provider Baltazar Rivas Unavailable [phone] ALLERGIES Allergen (clinical drug ingredient) Drug/Non Drug [...] capsule O ral Once a day Active Ihxoq-3-acgv Ethyl Esters 1 GM 2 capsules Oral [...] Date Provider Diagnosis [facility] [address] [facility] [place] [address] 08/18/2024 Baltazar Parada Sacroiliitis, not elsewhere classified M46.1 ; Radiculopathy, lumbar region M54.16 ; Postlaminectomy syndrome, not elsewhere classified M96.1 ; Radiculopathy, cervical region M54.12 ; Radiculopathy, cervicothoracic region M54.13 ; straw baler (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.01 and straw baler (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 of opiate analgesic Z79.891 ASSESSMENTS [...] to fully comply with the above. The [place] PDMP were reviewed and were appropriate 08/18/2024 Postlaminectomy syndrome, not elsewhere classified (ICD-10 - M96.1) 08/18/2024 Radiculopathy, cervical region (ICD-10 - M54.12) 08/18/2024 Radiculopathy, cervicothoracic region (ICD-10 - M54.13) 08/18/2024 straw baler (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 of 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 (ICD-10 - Z79.01) [...] to notify their primary care physician and/or hvac engineering technician to 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 08/18/2024 straw baler (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 of opiate analgesic (ICD-10 - [...] to fully comply with the above. The [place] PDMP were reviewed and were appropriate straw baler (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 of anticoagulant s The patient [...] to notify their primary care physician and/or hvac engineering technician to 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 straw baler (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 of o piate analgesic The patient submitted a urine sample for drug screening to ensure compliance. Other The patient was advised to follow up with her primary care physician or emergency room regarding her high blood pressure. Patient verbalized understanding The above-named patient was evaluated in conjunction with Dr. Paraad. I have discussed and reviewed all of [...] L4-5 TFE, R torrie: Provider Name:Baltazar navarrete, 2024 09:30:00 AM, [address] [place], [address], Provider Name:Baltazar navarrete, 09/16/2024 09:45:00 AM, [address] [place], [address], Progress Notes * Examination Category Sub-Category Detail [...] axial low back pain. Thigh thrust test, Echo's and Gaenslen's are positive bilaterally. There is [...]
--- OUTSIDE RECORDS SUMMARY | 2024-08-23 12:39 | XMS_ITS ---
Author Organization [facility] Address [address] [place] [address] [place] [address] Care Team Providers Care Mechanical Research Engineer Name Role Phone MARIMAR LUGO [facility] Primary Care Provider Baltazar Rivas Unavailable [phone] ALLERGIES Allergen (clinical drug ingredient) Drug/Non Drug [...] Unknown Drug Allergy Active REASON FOR VISIT Right > Left Low Back Pain MEDICATIONS Medication SIG (Take, Route, Frequency, Duration) Notes Start Date End Date Status FLUoxetine HCl 20 MG 1 capsule Orally Once a day for 30 day(s) Active Rosuvastatin Calcium 20 MG 1 tablet Oral Once a day Active Propranolol HCl ER 60 MG 1 capsules orally twice a day Active Esomeprazole Magnesium 40 MG 1 capsule Oral Once a day Active Cngxp-6-rlgb Ethyl Esters 1 GM 2 capsules Oral Twice a day Active Benadryl 25 MG 1 capsule as needed Orally every 8 hrs Active Levothyroxine Sodium 50 MCG 1 tablet on an empty stomach in the morning Orally Once a day Active Aspirin EC 325 MG 1 tablet Orally Once a day Active Estradiol 2 MG 1 tablet Oral Once a day Active Claritin 10 MG 1 tablet Orally Once a day Active Anoro Ellipta 62.5-25 MCG/INH 1 puff Inhalation Once a day Active hydrALAZINE HCl 25 MG 1 tablet with food Oral Four times a day Active Ramipril 10 MG 1 capsule Orally Twice a day Active Albuterol Sulfate HFA 108 (90 Base) MCG/ACT 1 puff as needed Inhalation every 4 hrs Active Vitamin D 1000 UNIT 1 tablet Orally Once a day Active busPIRone HCl 10 MG 1 tablet Oral Twice a day Active Narcan 4 MG/0.1ML 1 actuation in one nostril x1, Nasally 2-3 minutes as needed until the patient is responsive or EMS arrives Active Percocet 10-325 MG 1 tablet as needed Orally up to 4x/day severe pain for 30 days MAY FILL 06/20/24 06/16/2024 Active valACYclovir HCl 1 GM 1 tablet Oral Once a day Active Nebivolol HCl 20 MG TAKE 1 TABLET BY MOUTH EVERY DAY [...] MOUTH EVERY MORNING Oral for 90 Active Medrol 4 MG as directed Orally 05/13/2021 Active VITAL SIGNS Blood pressure systolic 114 mm Hg 07/30/19 25 Blood pressure diastolic 57 mm Hg 025 Heart Rate 85 /min 07/29/2024 Respiratory Rate 18 /min 07/29/2024 Height 62 in 07/29/2024 Weight 120 lbs 07/29/2024 BMI 21.95 kg/m2 07/29/2024 Encounters Encounter Location Date Provider Diagnosis [facility] [address] [facility] [place] [address] 07/29/2024 Baltazar Parada Sacroiliitis, not elsewhere classified M46.1 ASSESSMENTS Encounter Date Diagnosis Assessment Notes Treatment Notes Treatment Clinical Notes Section Notes 07/29/2024 Sacroiliitis, not elsewhere classified (ICD-10 - M46.1) PLAN OF TREATMENT Next Appt Details Follow Up: 08/18 [facility], Reason: Provider Name:Baltazar navarrete, 2024 09:30:00 AM, [address] [facility] [address], [place], [address], Provider Name:Baltazar navarrete, 09/16/2024 09:45:00 AM, [address] [facility] [address], [place], [address], Procedure Notes * Category Sub-Category Detail Notes [...] difficulty and was monitored for 20 minutes. Patient reports a 90% reduction in typical pain immediately postprocedure. The patient remained hemodynamically and neurologically stable. No apparent complications were observed. Postoperative instructions were reviewed with the patient. The patient was then discharged home in good condition with a concrete pile driver operator. X-ray time: 12 seconds Progress Notes * Examination Category Sub-Category Detail [...] axial low back pain. Thigh thrust test, Mayhill's and Gaenslen's are positive bilaterally. There is [...]
== END 2024-08-23 12:33 | disposition home or self-care (01) ==
PROVIDERS: PCP Internal Medicine; Visit Provider Anesthesiology
DX: M54.16 Radiculopathy, lumbar region (principal); M43.06 Spondylolysis, lumbar region; M48.061 Spinal stenosis, lumbar region without neurogenic claudication
CPT/HCPCS: 72131

== ENCOUNTER 2024-10-18 08:40 | Outpatient (CLI) | payer MEDICARE, SELFPAY ==
--- OUTSIDE RECORDS SUMMARY | 2024-09-16 04:45 | XMS_ITS ---
Author Organization [facility] Address [address] [place] [address] [place] [address] Care Team Providers Care Lab Clerk Name Role Phone MARIMAR LUGO [facility] Primary Care Provider Baltazar Rivas Unavailable [phone] ALLERGIES Allergen (clinical drug ingredient) Drug/Non Drug [...] 1 tablet Oral Once a day Active Ulupu-4-qmdq Ethyl Esters 1 GM 2 capsules Oral [...] Date Provider Diagnosis [facility] [address] [facility] [address] 09/16/2024 Baltazar Parada Radiculopathy, lumba r region [...] to fully comply with the above. The [place] and [place] PDMP were reviewed and were appropriate 09/16/2024 [...] to fully comply with the above. The [place] PDMP were reviewed and were appropriate Other [...] Weeks OPV, Reas on: Provider Name:Baltazar navarrete, 10/26/2024 09:15:00 AM, [address] [place], [address], Provider Name:Baltazar navarrete, 11/03/2024 08:30:00 AM, [address] [facility], [address], Progress Notes * Examination Category Sub-Category Detail [...] axial low back pain. Thigh thrust test, [place]'s and Gaenslen's are positive bilaterally. There is [...]
--- OUTSIDE RECORDS SUMMARY | 2024-10-06 04:30 | XMS_ITS ---
Author Organization [facility] Address [address] [place] [address] GU[place] Cifuentes [address] Care Team Providers Care Certified Coatings Inspector Name Role Phone MARIMAR LUGO [facility] Primary Care Provider Baltazar Rivas Unavailable [phone] ALLERGIES Allergen (clinical drug ingredient) Drug/Non Drug [...] 1 capsule Oral Once a day Active Alkgj-7-yxcn Ethyl Esters 1 GM 2 capsules Oral [...] Date Provider Diagnosis [facility] [address] [facility] [place] [address] 10/06/2024 Baltazar Parada Radiculopathy, lumba r region M54.16 ; Radiculopathy, cervical region M54.12 ; Spinal stenosis, lumbar region with neurogenic claudication M48.062 ; 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 The [place] and [place] PDMP were reviewed and were appropriate 10/06/2024 Radiculopathy, cervicothoracic region (ICD-10 - M54.13) 10/06/2024 jail (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 of 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 (ICD-10 - Z79.01) [...] to notify their primary care physician and/or farmer diversified crops to obtain clearance prior to discontinuing this [...] comply with the above. The [place] and [place] PDMP were reviewed and were appropriate jail (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 of anticoagulant s The patient [...] to notify their primary care physician and/or farmer diversified crops to obtain clearance prior to discontinuing this [...] C7-T1, Reaso n: Provider Name:Baltazar Finn navarrete, 10/26/2024 09:15:00 AM, [address] [place], [address], Provider Name:Baltazar navarrete, 11/03/2024 08:30:00 AM, [address] [facility] [place], [address], Progress Notes * Examination Category Sub-Category Detail [...] axial low back pain. Thigh thrust test, [place]'s and Gaenslen's are positive bilaterally. There is [...]
--- OUTSIDE RECORDS SUMMARY | 2024-10-11 04:45 | XMS_ITS ---
Author Organization [facility] Address [address] [facility] [place] [address] Care Team Providers Care Twisting Frame Operator Name Role Phone MARIMAR LUGO [facility] Primary Care Provider Unavaila Baltazar Hawk Unavailable [phone] REASON FOR VISIT FOLLOW UP (LAST FILL 09/16/2024) Encounters Encounter Location Date Provider Diagnosis [facility] [address] [facility] [place] [address] 10/11/2024 Baltazar Parada PLAN OF TREATMENT Next Appt Details Provider Name:Baltazar navarrete, 10/26/2024 09:15:00 AM, [address] [facility] [place] [place], [address], Provider Name:Baltazar navarrete, 11/03/2024 08:30:00 AM, [address] [facility] [address], [place], [address],
--- NOTE | ~2024-10-18 | DEXA_ITS ---
Bone Density Report Name: LICHA MALAGON Age: 79 Sex: Female Ethnicity: White Date of : 1945 Indication: postmenopausal; screening for osteoporosis; height loss; hysterectomy; Referring Provider: Bhanu Hinojosa Study: Bone densitometry was performed. Exam Date: October 18, 2024 Accession number: [id number] Bone Density: Region BMD T-score Z-score Classification AP Spine(L1, L3, L4) 1.148 0.9 3.6 Normal Femoral Neck (Left) 0.722 -1.1 1.2 Osteopenia Total Hip (Left) 0.825 -1.0 1.1 Normal Femoral Neck (Right) 0.739 -1.0 1.3 Normal Total Hip (Right) 0.842 -0.8 1.2 Normal Femoral Neck Mean 0.731 -1.1 1.2 Osteopenia Total Hip Mean 0.834 -0.9 1.2 Normal World Health Organization criteria for BMD impression classify patients as: Normal (T-score at or above -1.0), Osteopenia (T-score between -1.0 and -2.5), or Osteoporosis (T-score at or below -2.5). 10-year Fracture Risk(1): Major Osteoporotic Fracture 10% Hip Fracture 2.3% Reported Risk Factors: [place] (), Neck BMD=0.722, BMI=20.8 (1) FRAX(R) Version 3.08. Fracture probability calculated for an untreated patient. Fracture probability may be lower if the patient has received treatment. Previous Exams: Region Exam Age BMD T-score BMD Change BMD Change Date g/cm2 vs Baseline vs Previous AP Spine (L1,L3-L4) 10/18/2024 79 1.148 0.9 -0.150 (-11.5% -0.279 (-19.5% 11/09/2019 74 1.426 3.4 0.129 (9.9%)*! 0.114 (8.7%)* 09/05/2016 71 1.312 2.4 0.014 (1.1%)! -0.004 (-0.3%) 10/24/2011 66 1.316 2.4 0.019 (1.5%)! 0.019 (1.5%) 09/10/2009 64 1.297 2.2 Total Hip(Left) 10/18/2024 79 0.825 -1.0 -0.178 (-17.8% -0.189 (-18.6% 11/09/2019 74 1.014 0.6 0.011 (1.1%) -0.007 (-0.7%) 09/05/2016 71 1.021 0.7 0.018 (1.8%) 0.023 (2.3%) 10/24/2011 66 0.998 0.5 -0.005 (-0.5%) -0.005 (-0.5%) 09/10/2009 64 1.003 0.5 Total Hip(Right) 10/18/2024 79 0.842 -0.8 -0.172 (-17.0% -0.186 (-18.1% 11/09/2019 74 1.028 0.7 0.014 (1.4%) 0.030 (3.0%)* 10/24/2011 66 0.998 0.5 -0.016 (-1.6%) -0.016 (-1.6%) 09/10/2009 64 1.014 0.6 *Denotes significance at 95% confidence level, LSC for AP Spine = 0.022 g/cm2, LSC for Total Hip = 0.027 g/cm2 # Denotes dissimilar scan types or analysis methods Clinical Information Provided by Patient: Has used the following medications: HRT (i.e. estrogen/hormone therapy), Vitamin D, Calcium Has the following medical conditions: Hysterectomy Patient maximum height was 62 Menopause Age: 44 No regular weight bearing exercise Drinks caffeinated beverages Onset of menses at age 9 Number of children 3 Impression: The patient has low bone mass, based on the Left Femoral Neck T-score. No significant bone loss was observed. Discussion: BONE DENSITY IS LOW AT ONE OR MORE SKELETAL SITES. This patient's lowest T-score is low at one or more skeletal sites. It meets the World Health Organization's (WHO) criteria for ?low bone mass? (T-score between -1.0 and -2.5). The patient's 10-year risk of fracture as calculated by FRAX is less than the threshold where pharmacological therapy is recommended by the National Osteoporosis Foundation (NOF). However, all treatment decisions require clinical judgment and consideration of individual patient factors, including patient preferences, comorbidities, previous drug use, risk factors not captured in the FRAX model (e.g., frailty, falls, vitamin D deficiency, increased bone turnover, interval significant decline in bone density) and possible under or overestimation of fracture risk by FRAX. The patient should follow a healthful lifestyle (good nutrition with adequate calcium and vitamin D, and appropriate weight-bearing exercise). Follow-Up: Consider repeating this study in 2 to 3 years to reassess this patient's status, or sooner if there is some new clinical indication. Reported by: NATHAN on 10/18/2024 9:14:00 AM. Reviewed, dictated and finalized at location A.
--- OUTSIDE RECORDS SUMMARY | 2024-10-18 08:49 | XMS_ITS | Patient Health Record ---
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 [employer], [address] [address] [facility] [address] Anali Gutiérrez MD Notes/Report: Acetyl fentanyl: Fentanyl [...] 100 ng/mL Tramadol Quantification negative 100 ng/mL M-dkufuyqha-mqtagobw Quantification negative 100 n g/mL I-Hxvueqvwe-Byohbgdk Quantification negative 100 n g/mL Alpha-Hydroxyalprazolam Quantification negative 20 ng/mL 4-Iazqx-Vtkujwmugn Quantification negative 20 ng/m L Lorazepam Quantification [...] Mitragynine (Kratom alkaloid) Quantification negative 1 ng/mL 1-KD-Ibefqrhzdqf (Kratom alk aloid) Quantification negative 1 ng/mL Ethyl Glucuronide Quantification negative 500 ng/m L Ethyl Sulfate Quantification negative 500 ng/mL [employer] Results (Not yet reviewed by provider) Interpretation: Performing Lab:[id number] [facility] CENTER[facility] [employer], [address] [address] [facility] [id number] Anali Gutiérrez MD Notes/Report: Acetyl fentanyl: Fentanyl [...] 100 ng/mL Tramadol Quantification negative 100 ng/mL C-ypqomfepg-wfydwdxh Quantification negative 100 n g/mL L-Rftingelr-Ibmkxkst Quantification negative 100 n g/mL Alpha-Hydroxyalprazolam Quantification negative 20 ng/mL 6-Gemrp-Fqegmbvzwf Quantification negative 20 ng/m L Lorazepam Quantification [...] Mitragynine (Kratom alkaloid) Quantification negative 1 ng/mL 9-XV-Tmhpjweoojz (Kratom alk aloid) Quantification negative 1 ng/mL Ethyl Glucuronide Quantification negative 500 ng/m L Ethyl Sulfate Quantification negative 500 ng/mL [employer] Results (Not yet reviewed by provider) Interpretation: Performing Lab:[id number] [employer], [address] [address] [facility] [id number] Anali Gutiérrez MD Notes/Report: Acetyl fentanyl: Fentanyl [...] 100 ng/mL Tramadol Quantification negative 100 ng/mL P-yurrdiwaz-qajajnfx Quantification negative 100 n g/mL P-Nlepbdvmp-Xmwfzfnh Quantification negative 100 n g/mL Alpha-Hydroxyalprazolam Quantification negative 20 ng/mL 0-Qppvm-Uglzjmqncu Quantification negative 20 ng/m L Lorazepam Quantification [...] Mitragynine (Kratom alkaloid) Quantification negative 1 ng/mL 5-OH-Pwuahlpadvm (Kratom alk aloid) Quantification negative 1 ng/mL Ethyl Glucuronide Quantification negative 500 ng/m L Ethyl Sulfate Quantification negative 500 ng/mL REASON FOR REFERRAL No Information MEDICATIONS Medication SIG (Take, Route, Frequency, Duration) Notes Start Date End Date Status Benadryl 25 MG 1 capsule as needed [...] 1 tablet Orally Once a day Active Medrol 4 MG as directed Orally 05/13/2021 Active FLUoxetine HCl 20 MG 1 capsule Orally Once a day for 30 day(s) Active Esomeprazole Magnesium 40 MG 1 capsule Oral Once a day Active Lljdi-0-gqni Ethyl Esters 1 GM 2 capsules Oral Twice a day Active Montelukast Sodium 10 MG [...] MOUTH EVERY MORNING Oral for 90 Active Anoro Ellipta 62.5-25 MCG/INH 1 puff Inhalation Once a day Active Vitamin D 1000 UNIT 1 tablet Orally Once a day Active Percocet 10-325 MG 1 tablet as needed Orally up to 4x/day severe pain for 30 days MAY FILL 10/15/24 10/06/2024 Active Ramipril 10 MG 1 capsule Orally Twice a day Active Albuterol Sulfate HFA 108 (90 Base) MCG/ACT 1 puff as needed Inhalation every 4 hrs Active SOCIAL HISTORY Tobacco Use: Social History [...] (G89.4) Active confirmed Chronic julián n syndrome (554832499) Problem Essential (primary) hypertension (I10) Active confirmed Essential hypertension (14704551) Problem 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) Active confirmed Localized, primary osteoarthritis of the pelvic region and thigh (346518909) Problem Pain in unspecified hip (M25.559) Active confirmed Arthralgia of the pelvic region and thigh (033202852) Problem Sacroiliitis, not elsewhere classified (M46.1) Active confirmed Solitary sacroiliitis (913061254) Problem Spondylosis without myelopathy or radiculopathy, cervical region (M47.812) Active confirmed Cervical spondylosis without myelopathy (782955406) Problem Spondylosis without myelopathy or radiculopathy, lumbar region (M47.816) Active confirmed Lumbosacral spondylosis without myelopathy (82164382) Problem Spondylosis without myelopathy or radiculopathy, lumbosacral region (M47.817) Active confirmed Lumbosacral spondylosis without myelopathy (disorder) (98858300) Problem Spinal stenosis, cervical region (M48.02) Active confirmed Spinal stenosis in cervical region (39862966) Problem Intervertebral disc disorders with radiculopathy, lumbar region (M51.16) Active confirmed Radiculopathy due to lumbar intervertebral disc disorder (59620141563599 5) Problem Other intervertebral disc degeneration, 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 confirmed Degeneration of lumbar intervertebral disc (34787153) Problem Radiculopathy, cervical region (M54.12) Active confirmed Cervical radiculopathy (57962567) Problem Radiculopathy, cervicothoracic region (M54.13) Active confirmed Cervical radiculopathy (58731896) Problem Radiculopathy, lumbar region (M54.16) Active confirmed Lumbar radiculopathy (995253872) Problem Trochanteric bursitis, unspecified hip (M70.60) Active confirmed Enthesopathy of hip region (62742100) Problem Postlaminectomy syndrome, not elsewhere classified (M96.1) Active confirmed Post-laminectom y syndrome (79675571) Right L4 decompression Problem Osseous stenosis of neural canal of lumbar region (M99.33) Active confirmed Spinal stenosis of lumbar region (09249971) Problem Osseous and subluxation stenosis of intervertebral foramina of lumbar region (M99.63) Active confirmed Spinal stenosis of lumbar region (29788666) Problem 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) Active confirmed Connective tissue and disc stenosis of intervertebral foramina (067605479) 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 Long-term current use of anticoagulant (818288408) Problem detention (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 of opiate analgesic (Z79.891) Active confirmed High risk drug monitoring status (258499057) Problem Spinal stenosis, lumbar region with neurogenic claudication (M48.062) Active confirmed Neurogenic claudication (722134927) L4-L5 VITAL SIGNS Heart Rate 70 /min 10/06/2024 Respiratory Rate 16 /min 10/06/2024 Oximetry 89 % 2024 Post Op Vitals: BP 186/84, HR 59, RR 18, Spo2 91% (on supplemental O2 via nasal cannula) Discharged to home with self, ambulatory with walker assistance at baseline, and in no acute distress. Blood pressure diastolic 76 mm Hg 10/06/2024 Height 62 in 10/06/2024 Blood pressure systolic 149 mm Hg 10/06/2024 Weight 121 lbs 10/06/2024 BMI 22.13 kg/m2 10/06/2024 Encounters Encounter Location Date Provider Diagnosis [address] [address] 10/21/2023 Baltazar Stynowick Radiculopathy, lumba r region M54.16 ; Spinal stenosis, lumbar region with neurogenic claudication M48.062 and 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 [address] 10/22/2023 Baltazar Stynowick [facility] [address] [place] [phone] 10/29/2023 Baltazar Stynowick Radiculopathy, cervical region M54.12 ; Radiculopathy, lumbar region M54.16 ; Spondylosis without myelopathy or radiculopathy, lumbar region M47.816 ; Sacroiliitis, not elsewhere classified M46.1 ; Spinal stenosis, lumbar region with neurogenic claudication M48.062 ; Postlaminectomy syndrome, not elsewhere classified M96.1 ; Spondylosis without myelopathy or radiculopathy, cervical region M47.812 ; 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.01 ; Other intervertebral disc degeneration, lumbar region M51.36 and detention (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 of opiate analgesic Z79.[address] [address] 11/25/2023 Baltazar Stynowick Spondylosis without myelopathy or radiculopathy, lumbar region M47.816 and Spondylosis without myelopathy or radiculopathy, lumbosacral region M47.817 [facility] [address] [place] [phone] 11/26/2023 Baltazar Stynowick Radiculopathy, cervical region M54.12 ; Radiculopathy, lumbar region M54.16 ; Spondylosis without myelopathy or radiculopathy, lumbar region M47.816 ; Sacroiliitis, not elsewhere classified M46.1 ; Spinal stenosis, lumbar region with neurogenic claudication M48.062 ; Postlaminectomy syndrome, not elsewhere classified M96.1 ; Spondylosis without myelopathy or radiculopathy, cervical region M47.812 ; 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.01 ; Other intervertebral disc degeneration, lumbar region M51.36 and detention (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 of opiate analgesic Z79.891 [facility] [address] [place] [phone] 11/26/2023 Baltazar Stynowick [facility] [address] [place] [phone] 12/28/2023 Baltazar Stynowick Radiculopathy, cervical region M54.12 ; Radiculopathy, lumbar region M54.16 ; Spondylosis without myelopathy or radiculopathy, lumbar region M47.816 ; Sacroiliitis, not elsewhere classified M46.1 ; Spinal stenosis, lumbar region with neurogenic claudication M48.062 ; Postlaminectomy syndrome, not elsewhere classified M96.1 ; Spondylosis without myelopathy or radiculopathy, cervical region M47.812 ; 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.01 ; Other intervertebral disc degeneration, lumbar region M51.36 and 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 opiate analgesic Z79.891 [facility] [address] [address] 01/12/2024 Baltazar Stynowick Radiculopathy, cervical region M54.12 ; 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 ; Radiculopathy, cervicothoracic region M54.13 and Spinal stenosis, cervical region M48.02 [facility] [address] [place] [address] [place] [address] 01/13/2024 Baltazar Stynowick [facility] [address] [place] [address] [place] [address] 01/25/2024 Baltazar Stynowick Radiculopathy, cervical region M54.12 ; Radiculopathy, lumbar region M54.16 ; Spondylosis without myelopathy or radiculopathy, lumbar region M47.816 ; Sacroiliitis, not elsewhere classified M46.1 ; Spinal stenosis, lumbar region with neurogenic claudication M48.062 ; Postlaminectomy syndrome, not elsewhere classified M96.1 ; Spondylosis without myelopathy or radiculopathy, cervical region M47.812 ; detention (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.01 ; Other intervertebral disc degeneration, lumbar region M51.36 and detention (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 of opiate analgesic Z79.891 [facility] [address] [place] [phone] 01/25/2024 Baltazar Stynowick [facility] [address] [place] [phone] 02/22/2024 Baltazar Stynowick Radiculopathy, cervical region M54.12 ; Radiculopathy, lumbar region M54.16 ; Spondylosis without myelopathy or radiculopathy, lumbar region M47.816 ; Sacroiliitis, not elsewhere classified M46.1 ; Spinal stenosis, lumbar region with neurogenic claudication M48.062 ; Postlaminectomy syndrome, not elsewhere classified M96.1 ; Spondylosis without myelopathy or radiculopathy, cervical region M47.812 ; 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.01 ; Other intervertebral disc degeneration, lumbar region M51.36 and detention (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 of opiate analgesic Z79.891 [facility] [address] [place] [phone] 03/16/2024 Baltazar Stynowick Radiculopathy, lumba r region M54.16 ; Spinal stenosis, lumbar region with neurogenic claudication M48.062 and 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 [facility] [address] [place] [phone] 03/17/2024 Baltazar Stynowick Radiculopathy, lumba r region M54.16 ; Sacroiliitis, not elsewhere classified M46.1 ; Radiculopathy, cervical region M54.12 ; Spondylosis without myelopathy or radiculopathy, lumbar region M47.816 ; Spinal stenosis, lumbar region with neurogenic claudication M48.062 ; Postlaminectomy syndrome, not elsewhere classified M96.1 ; Spondylosis without myelopathy or radiculopathy, cervical region M47.812 ; detention (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.01 ; Other intervertebral disc degeneration, lumbar region M51.36 and detention (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 of opiate analgesic Z79.891 [facility] [address] [address] 03/17/2024 Baltazar Stynowick [facility] [address] [place] [phone] 04/12/2024 Baltazar Stynowick Radiculopathy, lumba r region M54.16 ; Sacroiliitis, not elsewhere classified M46.1 ; Radiculopathy, cervical region M54.12 ; Spondylosis without myelopathy or radiculopathy, lumbar region M47.816 ; Spinal stenosis, lumbar region with neurogenic claudication M48.062 ; Postlaminectomy syndrome, not elsewhere classified M96.1 ; Spondylosis without myelopathy or radiculopathy, cervical region M47.812 ; detention (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.01 ; Other intervertebral disc degeneration, lumbar region M51.36 and detention (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 of opiate analgesic Z79.891 [facility] [address] [place] [phone] 04/14/2024 Baltazar Stynowick Radiculopathy, lumba r region M54.16 ; Sacroiliitis, not elsewhere classified M46.1 ; Radiculopathy, cervical region M54.12 ; Spondylosis without myelopathy or radiculopathy, lumbar region M47.816 ; Spinal stenosis, lumbar region with neurogenic claudication M48.062 ; Postlaminectomy syndrome, not elsewhere classified M96.1 ; Spondylosis without myelopathy or radiculopathy, cervical region M47.812 ; 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.01 ; Other intervertebral disc degeneration, lumbar region M51.36 and 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 opiate analgesic Z79.891 [facility] [address] [address] 04/20/2024 Baltazar Ststanleyick Sacroiliitis, not elsewhere classified M46.1 [facility] [address] [place] [phone] 05/12/2024 Baltazar Ststanleyick Radiculopathy, lumba r region M54.16 ; Sacroiliitis, not elsewhere classified M46.1 ; Radiculopathy, cervical region M54.12 ; Spondylosis without myelopathy or radiculopathy, lumbar region M47.816 ; Spinal stenosis, lumbar region with neurogenic claudication M48.062 ; Postlaminectomy syndrome, not elsewhere classified M96.1 ; Spondylosis without myelopathy or radiculopathy, cervical region M47.812 ; 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.01 ; Other intervertebral disc degeneration, lumbar region M51.36 and detention (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 of opiate analgesic Z79.891 [facility] [address] [place] [phone] 06/16/2024 Baltazar Stynowick Radiculopathy, lumba r region M54.16 ; Radiculopathy, cervical region M54.12 ; Sacroiliitis, not elsewhere classified M46.1 ; Spondylosis without myelopathy or radiculopathy, lumbar region M47.816 ; Spinal stenosis, lumbar region with neurogenic claudication M48.062 ; Postlaminectomy syndrome, not elsewhere classified M96.1 ; Spondylosis without myelopathy or radiculopathy, cervical region M47.812 ; detention (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.01 ; Other intervertebral disc degeneration, lumbar region M51.36 ; detention (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 of opiate analgesic Z79.891 and Essential (primary) hypertension I10 [facility] [address] [place] [phone] 06/29/2024 Baltazar Parada Radiculopathy, cervical region M54.12 ; 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 and Radiculopathy, cervicothoracic region M54.13 [facility] [address] [address] 07/06/2024 Baltazar Stynowick Radiculopathy, cervical region M54.12 ; 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 and Spinal stenosis, cervical region M48.02 [facility] [address] [place] [phone] 07/14/2024 Baltazar Stynowick Radiculopathy, lumba r region M54.16 ; Radiculopathy, cervical region M54.12 ; Sacroiliitis, not elsewhere classified M46.1 ; Spondylosis without myelopathy or radiculopathy, lumbar region M47.816 ; Spinal stenosis, lumbar region with neurogenic claudication M48.062 ; Postlaminectomy syndrome, not elsewhere classified M96.1 ; Spondylosis without myelopathy or radiculopathy, cervical region M47.812 ; 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.01 ; Other intervertebral disc degeneration, lumbar region M51.36 ; 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 opiate analgesic Z79.891 and Essential (primary) hypertension I10 [facility] [address] [place] [address], [place] [address] 07/20/2024 Baltazar Stynowick Radiculopathy, cervical region M54.12 ; 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 and Spinal stenosis, cervical region M48.02 [facility] [address] [address] 07/21/2024 Baltazar Stynowick [facility] [address] [place] [phone] 07/29/2024 Baltazar Stynowick Sacroiliitis, not elsewhere classified M46.1 [facility] [address] [place] [address] [place] [address] 08/18/2024 Baltazar Stynowick Sacroiliitis, not elsewhere classified M46.1 ; Radiculopathy, lumbar region M54.16 ; Postlaminectomy syndrome, not elsewhere classified M96.1 ; Radiculopathy, cervical region M54.12 ; Radiculopathy, cervicothoracic region M54.13 ; 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.01 and 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 opiate analgesic Z79.891 [facility] [address] [place] [phone] 2024 Baltazar Stynowick Radiculopathy, lumba r region M54.16 ; Spinal stenosis, lumbar region with neurogenic claudication M48.062 and 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 [facility] [address] [place] [phone] 09/01/2024 Baltazar Stynowick [facility] [address] [place] [phone] 09/16/2024 Baltazar Stynowick Radiculopathy, lumba r region M54.16 ; Spinal stenosis, lumbar region with neurogenic claudication M48.062 ; 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 ; Postlaminectomy syndrome, not elsewhere classified M96.1 and Radiculopathy, cervicothoracic region M54.13 [facility] [address] [place] [phone] 10/06/2024 Baltazar Stynowick Radiculopathy, lumba r region M54.16 ; Radiculopathy, cervical region M54.12 ; Spinal stenosis, lumbar region with neurogenic claudication M48.062 ; 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 ; Postlaminectomy syndrome, not elsewhere classified M96.1 ; Radiculopathy, cervicothoracic region M54.13 and detention (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.01 [facility] [address] [place] [phone] 10/11/2024 Baltazar Viramontesick ASSESSMENTS Encounter Date Diagnosis Assessment Notes Treatment Notes Treatment Clinical Notes Section Notes 10/21/2023 Radiculopathy, lumbar region (ICD-10 - M54.16) [...] to fully comply with the above. The [place] PD[place] were reviewed and were appropriate 12/28/2023 [...] to fully comply with the above. The [place] PD[place] were reviewed and were appropriate 01/12/2024 [...] to fully comply with the above. The [place] were reviewed and were appropriate 02/22/2024 [...] to fully comply with the above. The [place] were reviewed and were appropriate 04/12/2024 [...] to fully comply with the above. The [facility] PDMP were reviewed and were appropriate 04/14/2024 [...] to fully comply with the above. The [facility] PDMP were reviewed and were appropriate 04/20/2024 [...] to fully comply with the above. The [facility] PDMP were reviewed and were appropriate 06/16/2024 [...] to fully comply with the above. The [place] were reviewed and were appropriate 06/29/2024 [...] to fully comply with the above. The [place] were reviewed and were appropriate 07/20/2024 [...] to fully comply with the above. The [place] were reviewed and were appropriate 2024 Radiculopathy, lumbar region (ICD-10 - M54.16) 2024 Spinal stenosis, lumbar region with neurogenic claudication (ICD-10 - M48.062) L4-L5 09/16/2024 Radiculopathy, lumbar region (ICD-10 - M54.16) 09/16/2024 Spinal stenosis, lumbar region with neurogenic claudication (ICD-10 - M48.062) 10/06/2024 Radiculopathy, cervical region (ICD-10 - M54.12) [...] agreeable to proceeding at this time. 10/06/2024 Radiculopathy, lumbar region (ICD-10 - M54.16) 09/16/2024 Osseous stenosis of neural canal of lumbar region (ICD-10 - M99.33) 10/06/2024 Spinal stenosis, lumbar region with neurogenic claudication (ICD-10 - M48.062) 2024 Osseous stenosis of neural canal of lumbar region (ICD-10 - M99.33) 07/20/2024 Spinal stenosis, cervical region (ICD-10 - [...] to fully comply with the above. The [facility] PDMP were reviewed and were appropriate 02/22/2024 [...] to fully comply with the above. The [place] were reviewed and were appropriate 10/29/2023 [...] neurogenic claudication (ICD-10 - M48.062) L4-L5 10/29/2023 Sacroiliitis, not elsewhere classified (ICD-10 - [...] 08/18/2024 Radiculopathy, cervical region (ICD-10 - M54.12) 10/06/2024 Osseous stenosis of neural canal of [...] to fully comply with the above. The [facility] PDMP were reviewed and were appropriate 09/16/2024 Radiculopathy, cervicothoracic region (ICD-10 - M54.13) 10/06/2024 Postlaminectomy syndrome, not elsewhere classified (ICD-10 [...] to fully comply with the above. 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 02/22/2024 detention (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 of 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 (ICD-10 - Z79.01) [...] to notify their primary care physician and/or dispute specialist to 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 07/14/2024 detention (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 of 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 (ICD-10 - Z79.01) [...] to notify their primary care physician and/or dispute specialist to 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 10/06/2024 detention (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 of 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 (ICD-10 - Z79.01) [...] to notify their primary care physician and/or dispute specialist to 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 RN initials CR 10/29/2023 Other The above-named patient was evaluated [...] CONCERNS HAVE BEEN ADDRESSED. RN initials ARNAV 11/26/2023 Other The above-named patient was evaluated [...] AND SAFETY CONCERNS HAVE BEEN ADDRESSED. DOMENIC JALLOH. 01/25/2024 Other The above-named patient was evaluated [...] patient and medical decision making 25 minutes 2024 Other The patient voiced understanding of [...] CONCERNS HAVE BEEN ADDRESSED. RN initials JW 09/16/2024 Other The above-named patient was evaluated [...] with Patient and Medical Decision Makin minutes 10/06/2024 Other The above-named patient was evaluated [...] Medical Decision Makin minutes PLAN OF TREATMENT Pending Test Test Name Order Date CT Scan : L-S Spine W/O Contrast 021 CT Scan : L-S Spine W/O Contrast 025 CT Scan : C-Spine W/O Contrast 2 CT Scan : C-Spine W/O Contrast 3 MRI : Cervical Spine without Contrast (7 [id number]) 09/18/2022 [facility] Results 10/10/2022 [facility] Results 04/14/2022 [facility] Results 03/06/2023 [facility] Results 07/07/2023 [facility] Results 10/01/2023 [facility] Results 01/25/2024 [facility] Results 05/12/2024 [facility] Results 08/18/2024 Next Appt Details Provider Name:Baltazar mahoneytrina, 10/26/2024 09:15:00 AM, [address] [facility] [place], [address], Provider Name:Baltazar navarrete, 11/03/2024 08:30:00 AM, [address] [facility], [place], [address], Insurance Providers Payer Name Payer Address Payer Phone Subscriber Number Group Number Insured Name Patient Relationship to Insured Coverage Start Date Coverage End Date [facility] MEDICARE ADVANTAGE (PPO) [address] [address] [place] [address] [id number] LICHA MALAGON Self - patient is the insured 7 MEDICAL (GENERAL) HISTORY Medical History History ICD Code Hypertension Osteoarthritis CHF Surgical History Surgery Date(Month/Year) Coronary stent 05/31/07
--- OUTSIDE RECORDS SUMMARY | 2024-10-18 08:49 | XMS_ITS | Clinical Summary ---
Author Organization [employer] [facility] Address [address] [place] [address] Care Team Providers Care Multigraph Operator Name Role Phone Bhanu Hinojosa MD Primary Care Provider [phone] Allergies Active Allergy Reactions Criticality Noted Date [...] on file Legal Sex Female 5:52 AM INVESTMENT STRATEGIST Gender Identity Not on file Sexual Orientation Not on file Last Filed Vital Signs Vital Sign Reading Time Taken Comments Blood Pressure 128/76 04/23/2010 1:18 PM INVESTMENT STRATEGIST Pulse 64 04/23/2010 1:18 PM INVESTMENT STRATEGIST Temperature 36.8 C (98.3 F) 04/23/2010 1:18 PM INVESTMENT STRATEGIST Respiratory Rate 14 04/23/2010 1:18 PM INVESTMENT STRATEGIST Oxygen Saturation - - Inhaled Oxygen Concentration - - Weight 64 kg (141 lb) 04/23/2010 1:18 PM INVESTMENT STRATEGIST Height 157.5 cm (5' 2) 04/23/2010 1:18 PM INVESTMENT STRATEGIST Body Mass Index 25.79 04/23/2010 1:18 PM INVESTMENT STRATEGIST Plan of Treatment Health Maintenance Due Date Last Done Comments DTAP/TDAP/TD VACCINES (1 - Tdap) 09/01/1963 PNEUMOCOCCAL VACCINE 50+ YEARS (1 of 1 - PCV) 08/31/18 95 ZOSTER VACCINE (1 of 2) 1994 OSTEOPOROSIS SCREENING 2009 RSV VACCINE (60+ or ) (1 - 1-dose 75+ series) 09/01/2019 INFLUENZA VACCINE (#1) [address] [facility] [place] [address] [facility] OPTIONS PPO [id number] AND B [facility] [place] [id number] Care Teams Multigraph Operator Relationship Specialty Start Date End Date Bhanu Hinojosa MD [address] [place] [address] PCP - General 02/13/15
--- OUTSIDE RECORDS SUMMARY | 2024-10-18 08:49 | XMS_ITS | Clinical Summary ---
Author Organization [facility] Address [address] [place] [address] Care Team Providers Care Spray Crew Name Role Phone Unavailable Primary Care Provider Unavailabl e Source Comments [facility],non-owned Affiliates and Associated Physician Practices is amultiple site organization consisting of ambulatory clinics and hospital sitesin [place], [place], [place] and [place]. This disclosure is being madepursuant to the Care Everywhere program and may not contain all information available regarding this patient. Last updated 17.[facility] Prescreen Social History Tobacco Use Types Packs/Day Years Used Date Smoking Tobacco: Never Assessed Comments Unknown Sex and Gender Information Value Date Recorded Sex Assigned at Not on file Legal Sex Female 6:36 AM CUT OFF TENDER GLASS Gender Identity Not on file Sexual Orientation [...] MEDICARE AWV CALENDAR YEAR 2024 INFLUENZA VACCINE (#1) 2024 HEPATITIS B VACCINE Aged Out No [...] to complete this topic Insurance [facility] MANAGED MEDICARE ADV
[2024-10-18 09:30] LABS: Hematocrit 39.9 % (35.0-42.0); Hemoglobin 12.6 g/dL (11.7-13.8); Mean Corpuscular HGB Conc 31.6 g/dL (32-36); Mean Corpuscular Hemoglobin 29.0 pg (27.0-31.0); Mean Corpuscular Volume 91.7 fL (78.0-102.0); Platelet Count Result 218 K/mm3 (150-420); Red Blood Count 4.35 M/mm3 (4.20-5.40); White Blood Count 7.3 K/mm3 (4.8-10.8)
[2024-10-18 09:31] LABS: Add Urine Microscopic? YES; Appearance Urine Clear (Clear); Glucose Urine UA Negative (Negative); Leukocyte Esterase Ur Trace LEU/UL (Negative); Nitrate Urine Negative (Negative); Specific Grav Ur <= 1.005 (1.010-1.020)
[2024-10-18 09:58] LABS: Alanine Aminotransferase 14 U/L (6-35); Albumin Level 4.2 g/dL (3.5-5.1); Alkaline Phosphatase 96 U/L (38-126); Anion Gap 9 mmol/L (4-12); Aspartate Amino Transferase 27 U/L (14-36); Bilirubin,Total 0.8 mg/dL (0.2-1.3); Blood Urea Nitrogen 4 mg/dL (7-17); Calcium 9.4 mg/dL (8.4-10.2); Carbon Dioxide 34 mmol/L (22-30); Chloride 98 mmol/L (98-107); Cholesterol 147 mg/dL (0-200); Estimated Glomerular Filt Rate > 60; Glucose 81 mg/dL (65-110); HDL Direct 56 mg/dL; Osmolality Calculated 287 mOsm/kg (285-295); Potassium 3.5 mmol/L (3.4-5.0); Sodium 141 mmol/L (137-145); Total Protein 7.2 g/dL (6.3-8.2); Triglycerides 108 mg/dL (<150)
[2024-10-18 10:08] LABS: NT Pro B Type Natriuretic Pept 2080 pg/mL (19.9-100)
[2024-10-18 10:29] LABS: Thyroid Stimulating Hormone 7.830 uIU/mL (0.465-4.680)
== END 2024-10-18 08:41 | disposition home or self-care (01) ==
PROVIDERS: PCP Internal Medicine; Visit Provider Internal Medicine
DX: I25.10 Atherosclerotic heart disease of native coronary artery without angina pectoris (principal); I50.9 Heart failure, unspecified; R07.9 Chest pain, unspecified; M85.89 Other specified disorders of bone density and structure, multiple sites
CPT/HCPCS: 36415; 77080; 80053; 80061; 81001; 83880; 84443; 85027

== ENCOUNTER 2024-10-27 08:22 | Outpatient (CLI) | payer MEDICARE, SELFPAY ==
--- OUTSIDE RECORDS SUMMARY | 2024-09-01 06:35 | XMS_ITS ---
Author Organization [facility] Address [address] [facility] [place] [place] [address] Care Team Providers Care Outside Sales Associate Name Role Phone AIMEE MINAYA MD Primary Care Provider Unavaila Baltazar Hawk Unavailable [phone] REASON FOR VISIT Post Procedure Follow Up Call Encounters Encounter Location Date Provider Diagnosis [facility] [address] [place] [address] 09/01/2024 Baltazar Parada PLAN OF TREATMENT Next Appt Details Provider Name:Baltazar navarrete, 11/03/2024 08:30:00 AM, [address] [facility] [place], [address],
--- OUTSIDE RECORDS SUMMARY | 2024-09-16 04:45 | XMS_ITS ---
Author Organization [facility] Address [address] [place] [address] GU[place]LE Cifuentse [address] Care Team Providers Care Flight Engineer Inspector Name Role Phone MARIMAR LUGO [facility] Primary Care Provider Baltazar Rivas Unavailable [phone] ALLERGIES Allergen (clinical drug ingredient) Drug/Non Drug [...] 1 tablet Oral Once a day Active Wdyop-7-etim Ethyl Esters 1 GM 2 capsules Oral [...] Date Provider Diagnosis [facility] [address] [facility] [place] [address] 09/16/2024 Baltazar Parada Radiculopathy, lumba r region [...] to fully comply with the above. The [place] and [place] PDMP were reviewed and were appropriate 09/16/2024 [...] to fully comply with the above. The [place] PDMP were reviewed and were appropriate Other [...] 4 Weeks OPV, Reas on: Provider Name:Baltazar Finn navarrete, 11/03/2024 08:30:00 AM, [address] [place], [address], Progress Notes * Examination Category Sub-Category Detail [...] axial low back pain. Thigh thrust test, [place]'s and Gaenslen's are positive bilaterally. There is [...]
--- OUTSIDE RECORDS SUMMARY | 2024-10-06 04:30 | XMS_ITS ---
Author Organization [facility] Address [address] [place] [address] GU[place] Cifuentes [address] Care Team Providers Care Electrical Mechanical Technician Name Role Phone MARIMAR LUGO [facility] Primary Care Provider Baltazar Rivas Unavailable [phone] ALLERGIES Allergen (clinical drug ingredient) Drug/Non Drug [...] 1 capsule Oral Once a day Active Efjph-3-vakb Ethyl Esters 1 GM 2 capsules Oral [...] Provider Diagnosis [facility] [address] [facility] [place] [facility] [place] [address] 10/06/2024 Baltazar Parada Radiculopathy, lumba r region M54.16 ; Radiculopathy, cervical region M54.12 ; Spinal stenosis, lumbar region with neurogenic claudication M48.062 ; 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 The [place] and [place] PDMP were reviewed and were appropriate 10/06/2024 Radiculopathy, cervicothoracic region (ICD-10 - M54.13) 10/06/2024 alf (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 of 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 (ICD-10 - Z79.01) [...] to notify their primary care physician and/or antichecking iron worker to obtain clearance prior to discontinuing this [...] to fully comply with the above. The [place] and [place] PDMP were reviewed and were appropriate alf (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 of anticoagulant s The patient [...] to notify their primary care physician and/or antichecking iron worker to obtain clearance prior to discontinuing this [...] Follow Up: VANDANA C7-T1, Reaso n: Provider Name:Baltazarbhupinder navarrete, 11/03/2024 08:30:00 AM, [address] [place], [address], Progress Notes * Examination Category Sub-Category Detail Notes Category Not es Examination/ Pre-Anesthesia Assessment General: The patient is alert and artme ented X 3 in moderate distress secondary [...] axial low back pain. Thigh thrust test, [place]'s and Gaenslen's are positive bilaterally. There is [...]
--- OUTSIDE RECORDS SUMMARY | 2024-10-11 04:45 | XMS_ITS ---
Author Organization [facility] Address [address] [facility] [place] [address] Care Team Providers Care Band Nailer Name Role Phone MARIMAR LUGO [facility] Primary Care Provider Unavaila Baltazar [place] Unavailable [phone] REASON FOR VISIT FOLLOW UP (LAST FILL 09/16/2024) Encounters Encounter Location Date Provider Diagnosis [facility] [address] [place] [address] 10/11/2024 Baltazar Parada PLAN OF TREATMENT Next Appt Details Provider Name:Baltazar navarrete, 11/03/2024 08:30:00 AM, [address] [facility] [place], [address],
--- OUTSIDE RECORDS SUMMARY | 2024-10-26 04:15 | XMS_ITS ---
Author Organization [facility] Address [address] [place] [address] [place] [address] Care Team Providers Care Consolidation Accountant Name Role Phone MARIMAR LUGO [facility] Primary Care Provider Baltazar Rivas Unavailable [phone] ALLERGIES Allergen (clinical drug ingredient) Drug/Non Drug [...] 1 tablet Oral Once a day Active Zfmeh-6-xnpc Ethyl Esters 1 GM 2 capsules Oral [...] distress. Encounters Encounter Location Date Provider Diagnosis [facility] [address] [facility] [place] [address] 10/26/2024 Baltazar Parada Radiculopathy, cervical region M54.12 [...] Next Appt Details Follow Up: 11/03/24 F/U, Reas on: Provider Name:Baltazar navarrete, 11/03/2024 08:30:00 AM, [address] [place], [address], Procedure Notes * Category Sub-Category Detail Notes [...] discharged home in good condition with a race car driver. X-ray time: 14 seconds Safe Surgery [...] time for fumes to dissipate. Confirm surgical swat team member and roles. Anticipated critical events. Essential imaging [...] axial low back pain. Thigh thrust test, [place]'s and Gaenslen's are positive bilaterally. There is [...]
--- NOTE | ~2024-10-27 | US_ITS ---
US thyroid INDICATION: Nontoxic thyroid nodule TECHNIQUE: Real-time sonographic images of the thyroid gland were obtained. COMPARISON: Comparison to multiple prior studies sequentially, with oldest reviewed study dated 03/17/2023. FINDINGS: The right thyroid lobe measures 2.4 x 0.7 x 1 cm. The left thyroid lobe measures 2 x 0.8 x 0.8 cm. There is normal echotexture and echogenicity throughout the thyroid gland. No discrete nodules identified. Inferior to the right thyroid lobe there is a hypoechoic mass measuring 1.9 x 1 x 0.8 cm, likely parathyroid adenoma. Normal vascular flow is present. IMPRESSION: 1. Decreased size of mass inferior to the right thyroid lobe measuring 1.9 cm, likely parathyroid adenoma. Reviewed, dictated and finalized at location O.
--- OUTSIDE RECORDS SUMMARY | 2024-10-27 08:28 | XMS_ITS | Patient Health Record ---
Author Organization [facility] Address [address] [facility] [place] [address] Care Team Providers Care Visual Inspector Name Role Phone MARIMAR LUGO, [facility] Primary Care Provider Baltazar Rivas Unavailable [phone] ALLERGIES Allergen (clinical drug ingredient) Drug/Non Drug [...] Active RESULTS Component Value Reference Range Notes [facility] Results (Not yet reviewed by provider) Interpretation: Performing Lab:[id number] [facility] [employer], [address] [facility] [id number] Anali Gutiérrez MD Notes/Report: Acetyl fentanyl: Fentanyl [...] 100 ng/mL Tramadol Quantification negative 100 ng/mL J-oyxivxfnf-upxkhwbr Quantification negative 100 n g/mL T-Bocebugxx-Bqgmpjsd Quantification negative 100 n g/mL Alpha-Hydroxyalprazolam Quantification negative 20 ng/mL 2-Rkobo-Wsvgvwdhry Quantification negative 20 ng/m L Lorazepam Quantification [...] Mitragynine (Kratom alkaloid) Quantification negative 1 ng/mL 7-XF-Hcasoismfsl (Kratom alk aloid) Quantification negative 1 ng/mL Ethyl Glucuronide Quantification negative 500 ng/m L Ethyl Sulfate Quantification negative 500 ng/mL [facility] Results (Not yet reviewed by provider) Interpretation: Performing Lab:[id number] [email or web address]ITAL[facility], [address] [facility] [address] Anali Gutiérrez MD Notes/Report: Acetyl fentanyl: Fentanyl [...] 100 ng/mL Tramadol Quantification negative 100 ng/mL Y-tiwvzuykw-usewenaz Quantification negative 100 n g/mL F-Vawycqnao-Sofgsajs Quantification negative 100 n g/mL Alpha-Hydroxyalprazolam Quantification negative 20 ng/mL 3-Pritw-Momslywlcf Quantification negative 20 ng/m L Lorazepam Quantification [...] Mitragynine (Kratom alkaloid) Quantification negative 1 ng/mL 8-GS-Xugoyfsgcop (Kratom alk aloid) Quantification negative 1 ng/mL Ethyl Glucuronide Quantification negative 500 ng/m L Ethyl Sulfate Quantification negative 500 ng/mL Jobaline Results (Not yet reviewed by provider) Interpretation: Performing Lab:[id number] [employer] [address] [facility] [address] Anali Gutiérrez MD Notes/Report: Acetyl fentanyl: Fentanyl [...] 100 ng/mL Tramadol Quantification negative 100 ng/mL L-viqjkexcw-nllttxlo Quantification negative 100 n g/mL C-Kfrlpdvgq-Atzjcmqs Quantification negative 100 n g/mL Alpha-Hydroxyalprazolam Quantification negative 20 ng/mL 8-Ibowc-Qwocfqahre Quantification negative 20 ng/m L Lorazepam Quantification [...] Mitragynine (Kratom alkaloid) Quantification negative 1 ng/mL 7-PK-Flsbyxupczu (Kratom alk aloid) Quantification negative 1 ng/mL Ethyl Glucuronide Quantification negative 500 ng/m L Ethyl Sulfate Quantification negative 500 ng/mL REASON FOR REFERRAL No Information MEDICATIONS Medication SIG (Take, Route, Frequency, Duration) Notes Start Date End Date Status Esomeprazole Magnesium 40 MG 1 capsule Oral Once a day Active FLUoxetine HCl 20 MG 1 capsule Orally Once a day for 30 day(s) Active Medrol 4 MG as directed Orally 05/13/2021 Active Trelegy Ellipta 100-62.5-25 MCG/ACT 1 puff Inhalation Once a day Active Rosuvastatin Calcium 20 MG 1 tablet Oral Once a day Active Eazun-7-keyk Ethyl Esters 1 GM 2 capsules Oral Twice a day Active valACYclovir HCl 1 GM 1 tablet Oral Once a day Active hydrALAZINE HCl 25 MG 1 tablet with food Oral Four times a day Active Ventolin HFA 108 (90 Base) MCG/ACT 1 puff as needed Inhalation every 4 hrs Active Montelukast Sodium 10 MG 1 tablet Oral Once a day Active Narcan 4 MG/0.1ML 1 actuation in one nostril x1, Nasally 2-3 minutes as needed until the patient is responsive or EMS arrives Active Furosemide 20 MG TAKE 1 TABLET BY MOUTH EVERY MORNING Oral for 90 Active busPIRone HCl 10 MG 1 tablet Oral Twice a day Active Potassium Chloride ER 10 MEQ TAKE 1 TABLET BY MOUTH EVERY DAY Oral for 90 Active Ramipril 10 MG 1 capsule Orally Twice a day Active Vitamin D 1000 UNIT 1 tablet Orally Once a day Active Anoro Ellipta 62.5-25 MCG/INH 1 puff Inhalation Once a day Active Benadryl 25 MG 1 capsule as needed Orally every 8 hrs Active Nebivolol HCl 20 MG TAKE 1 TABLET BY MOUTH EVERY DAY Oral for 90 Active Percocet 10-325 MG 1 tablet as needed Orally up to 4x/day severe pain for 30 days MAY FILL 10/15/24 10/06/2024 Active Albuterol Sulfate HFA 108 (90 Base) MCG/ACT 1 puff as needed Inhalation every 4 hrs Active Propranolol HCl ER 60 MG 1 capsules orally twice a day Active Aspirin EC 325 MG [...] daily. She denies alcohol or drug abuse. 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) Active confirmed Localized, primary osteoarthritis of the pelvic region and thigh (891436901) Problem Pain in unspecified hip (M25.559) Active confirmed Arthralgia of the pelvic region and thigh (575384692) Problem Sacroiliitis, not elsewhere classified (M46.1) Active confirmed Solitary sacroiliitis (658566779) Problem Spondylosis without myelopathy or radiculopathy, cervical region (M47.812) Active confirmed Cervical spondylosis without myelopathy (142561128) Problem Spondylosis without myelopathy or radiculopathy, lumbar region (M47.816) Active confirmed Lumbosacral spondylosis without myelopathy (97376227) Problem Spondylosis without myelopathy or radiculopathy, lumbosacral region (M47.817) Active confirmed Lumbosacral spondylosis without myelopathy (disorder) (70049857) Problem Spinal stenosis, cervical region (M48.02) Active confirmed Spinal stenosis in cervical region (07608676) Problem Intervertebral disc disorders with radiculopathy, lumbar region (M51.16) Active confirmed Radiculopathy due to lumbar intervertebral disc disorder (02459627641815 5) Problem Other intervertebral disc degeneration, 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 confirmed Degeneration of lumbar intervertebral disc (76898081) Problem Radiculopathy, cervical region (M54.12) Active confirmed Cervical radiculopathy (33186398) Problem Radiculopathy, cervicothoracic region (M54.13) Active confirmed Cervical radiculopathy (58020270) Problem Radiculopathy, lumbar region (M54.16) Active confirmed Lumbar radiculopathy (895918247) Problem Trochanteric bursitis, unspecified hip (M70.60) Active confirmed Enthesopathy of hip region (93026102) Problem Postlaminectomy syndrome, not elsewhere classified (M96.1) Active confirmed Post-laminectom y syndrome (75782792) Right L4 decompression Problem Osseous stenosis of neural canal of lumbar region (M99.33) Active confirmed Spinal stenosis of lumbar region (74799718) Problem Osseous and subluxation stenosis of intervertebral foramina of lumbar region (M99.63) Active confirmed Spinal stenosis of lumbar region (41336289) Problem 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) Active confirmed Connective tissue and disc stenosis of intervertebral foramina (796210288) Problem half-way (current) use of 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 (Z79.01) Active confirmed Long-term current use of anticoagulant (204920394) Problem continuous churn buttermaker (current) use of opiate analgesic (Z79.891) Active confirmed High risk drug monitoring status (404323545) Problem Spinal stenosis, lumbar region with neurogenic claudication (M48.062) Active confirmed Neurogenic claudication (496258607) L4-L5 VITAL SIGNS Heart Rate 70 /min 10/06/2024 Respiratory Rate 16 /min 10/06/2024 Oximetry 89 % 2024 Post Op Vitals: BP 186/84, HR 59, RR 18, Spo2 91% (on supplemental O2 via nasal cannula) Discharged to home with self, ambulatory with walker assistance at baseline, and in no acute distress. Blood pressure diastolic 76 mm Hg 10/06/2024 Height 62in in 10/26/2024 Post procedure VS=BP , P , R Discharged home per ambulatory, in no acute distress. Blood pressure systolic 149 mm Hg 10/06/2024 Weight 121 lbs 10/26/2024 Post procedure VS=BP , P , R Discharged home per ambulatory, in no acute distress. BMI 22.13 kg/m2 10/26/2024 Post procedure VS=BP , P , R Discharged home per ambulatory, in no acute distress. Encounters Encounter Location Date Provider Diagnosis [facility] [address] [place] [address] [place] [address] 10/29/2023 Baltazar Parada Radiculopathy, cervical region M54.12 ; Radiculopathy, lumbar region M54.16 ; Spondylosis without myelopathy or radiculopathy, lumbar region M47.816 ; Sacroiliitis, not elsewhere classified M46.1 ; Spinal stenosis, lumbar region with neurogenic claudication M48.062 ; Postlaminectomy syndrome, not elsewhere classified M96.1 ; Spondylosis without myelopathy or radiculopathy, cervical region M47.812 ; 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.01 ; Other intervertebral disc degeneration, lumbar region M51.36 and half-way (current) use of opiate analgesic Z79.891 [facility] [address] [place] [address] [place] [address] 11/25/2023 Baltazar Parada Spondylosis without myelopathy or radiculopathy, lumbar region M47.816 and Spondylosis without myelopathy or radiculopathy, lumbosacral region M47.817 [facility] [address] [place] [address] [place] [address] 11/26/2023 Baltazar Parada Radiculopathy, cervical region M54.12 ; Radiculopathy, lumbar region M54.16 ; Spondylosis without myelopathy or radiculopathy, lumbar region M47.816 ; Sacroiliitis, not elsewhere classified M46.1 ; Spinal stenosis, lumbar region with neurogenic claudication M48.062 ; Postlaminectomy syndrome, not elsewhere classified M96.1 ; Spondylosis without myelopathy or radiculopathy, cervical region M47.812 ; 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.01 ; Other intervertebral disc degeneration, lumbar region M51.36 and continuous churn buttermaker (current) use of opiate analgesic Z79.891 [facility] [address] [address] 11/26/2023 Baltazar Stynowick [facility] [address] [place] [phone] 12/28/2023 Baltazar Stynowick Radiculopathy, cervical region M54.12 ; Radiculopathy, lumbar region M54.16 ; Spondylosis without myelopathy or radiculopathy, lumbar region M47.816 ; Sacroiliitis, not elsewhere classified M46.1 ; Spinal stenosis, lumbar region with neurogenic claudication M48.062 ; Postlaminectomy syndrome, not elsewhere classified M96.1 ; Spondylosis without myelopathy or radiculopathy, cervical region M47.812 ; half-way (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.01 ; Other intervertebral disc degeneration, lumbar region M51.36 and half-way (current) use of opiate analgesic Z79.[address] [address] 01/12/2024 Baltazar Stynowick Radiculopathy, cervical region M54.12 ; 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 ; Radiculopathy, cervicothoracic region M54.13 and Spinal stenosis, cervical region M48.02 [facility] [address] [place] [phone] 01/13/2024 Baltazar Stynowick [facility] [address] [place] [phone] 01/25/2024 Baltazar Stynowick Radiculopathy, cervical region M54.12 ; Radiculopathy, lumbar region M54.16 ; Spondylosis without myelopathy or radiculopathy, lumbar region M47.816 ; Sacroiliitis, not elsewhere classified M46.1 ; Spinal stenosis, lumbar region with neurogenic claudication M48.062 ; Postlaminectomy syndrome, not elsewhere classified M96.1 ; Spondylosis without myelopathy or radiculopathy, cervical region M47.812 ; half-way (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.01 ; Other intervertebral disc degeneration, lumbar region M51.36 and continuous churn buttermaker (current) use of opiate analgesic Z79.891 [facility] [address] [place] [address] [place] [address] 01/25/2024 Baltazar Stynowick [facility] [address] [place] [address] [place] [address] 02/22/2024 Baltazar Stynowick Radiculopathy, cervical region M54.12 ; Radiculopathy, lumbar region M54.16 ; Spondylosis without myelopathy or radiculopathy, lumbar region M47.816 ; Sacroiliitis, not elsewhere classified M46.1 ; Spinal stenosis, lumbar region with neurogenic claudication M48.062 ; Postlaminectomy syndrome, not elsewhere classified M96.1 ; Spondylosis without myelopathy or radiculopathy, cervical region M47.812 ; half-way (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.01 ; Other intervertebral disc degeneration, lumbar region M51.36 and half-way (current) use of opiate analgesic Z79.891 [facility] [address] [place] [phone] 03/16/2024 Baltazar Stynowick Radiculopathy, lumba r region M54.16 ; Spinal stenosis, lumbar region with neurogenic claudication M48.062 and 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 [facility] [address] [place] [phone] 03/17/2024 Baltazar Stynowick Radiculopathy, lumba r region M54.16 ; Sacroiliitis, not elsewhere classified M46.1 ; Radiculopathy, cervical region M54.12 ; Spondylosis without myelopathy or radiculopathy, lumbar region M47.816 ; Spinal stenosis, lumbar region with neurogenic claudication M48.062 ; Postlaminectomy syndrome, not elsewhere classified M96.1 ; Spondylosis without myelopathy or radiculopathy, cervical region M47.812 ; 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.01 ; Other intervertebral disc degeneration, lumbar region M51.36 and continuous churn buttermaker (current) use of opiate analgesic Z79.891 [facility] [address] [place] [phone] 03/17/2024 Baltazar Stynowick [facility] [address] [place] [phone] 04/12/2024 Baltazar Stynowick Radiculopathy, lumba r region M54.16 ; Sacroiliitis, not elsewhere classified M46.1 ; Radiculopathy, cervical region M54.12 ; Spondylosis without myelopathy or radiculopathy, lumbar region M47.816 ; Spinal stenosis, lumbar region with neurogenic claudication M48.062 ; Postlaminectomy syndrome, not elsewhere classified M96.1 ; Spondylosis without myelopathy or radiculopathy, cervical region M47.812 ; half-way (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.01 ; Other intervertebral disc degeneration, lumbar region M51.36 and half-way (current) use of opiate analgesic Z79.891 [facility] [address] [place] [phone] 04/14/2024 Baltazar Stynowick Radiculopathy, lumba r region M54.16 ; Sacroiliitis, not elsewhere classified M46.1 ; Radiculopathy, cervical region M54.12 ; Spondylosis without myelopathy or radiculopathy, lumbar region M47.816 ; Spinal stenosis, lumbar region with neurogenic claudication M48.062 ; Postlaminectomy syndrome, not elsewhere classified M96.1 ; Spondylosis without myelopathy or radiculopathy, cervical region M47.812 ; half-way (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.01 ; Other intervertebral disc degeneration, lumbar region M51.36 and continuous churn buttermaker (current) use of opiate analgesic Z79.891 [facility] [address] [address] 04/20/2024 Baltazar Stynowick Sacroiliitis, not elsewhere classified M46.1 [facility] [address] [place] [phone] 05/12/2024 Baltazar Stynowick Radiculopathy, lumba r region M54.16 ; Sacroiliitis, not elsewhere classified M46.1 ; Radiculopathy, cervical region M54.12 ; Spondylosis without myelopathy or radiculopathy, lumbar region M47.816 ; Spinal stenosis, lumbar region with neurogenic claudication M48.062 ; Postlaminectomy syndrome, not elsewhere classified M96.1 ; Spondylosis without myelopathy or radiculopathy, cervical region M47.812 ; half-way (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.01 ; Other intervertebral disc degeneration, lumbar region M51.36 and continuous churn buttermaker (current) use of opiate analgesic Z79.891 [facility] [address] [place] [phone] 06/16/2024 Baltazar Stynowick Radiculopathy, lumba r region M54.16 ; Radiculopathy, cervical region M54.12 ; Sacroiliitis, not elsewhere classified M46.1 ; Spondylosis without myelopathy or radiculopathy, lumbar region M47.816 ; Spinal stenosis, lumbar region with neurogenic claudication M48.062 ; Postlaminectomy syndrome, not elsewhere classified M96.1 ; Spondylosis without myelopathy or radiculopathy, cervical region M47.812 ; 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.01 ; Other intervertebral disc degeneration, lumbar region M51.36 ; half-way (current) use of opiate analgesic Z79.891 and Essential (primary) hypertension I10 [facility] [address] [address] 06/29/2024 Baltazar Stynowick Radiculopathy, cervical region M54.12 ; 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 and Radiculopathy, cervicothoracic region M54.13 [facility] [address] [address] 07/06/2024 Baltazar Stynowick Radiculopathy, cervical region M54.12 ; 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 and Spinal stenosis, cervical region M48.02 [facility] [address] [place] [address] [place] [address] 07/14/2024 Baltazar Stynowick Radiculopathy, lumba r region M54.16 ; Radiculopathy, cervical region M54.12 ; Sacroiliitis, not elsewhere classified M46.1 ; Spondylosis without myelopathy or radiculopathy, lumbar region M47.816 ; Spinal stenosis, lumbar region with neurogenic claudication M48.062 ; Postlaminectomy syndrome, not elsewhere classified M96.1 ; Spondylosis without myelopathy or radiculopathy, cervical region M47.812 ; half-way (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.01 ; Other intervertebral disc degeneration, lumbar region M51.36 ; continuous churn buttermaker (current) use of opiate analgesic Z79.891 and Essential (primary) hypertension I10 [facility] [address] [place] [address] [place] [address] 07/20/2024 Baltazar Stynowick Radiculopathy, cervical region M54.12 ; 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 and Spinal stenosis, cervical region M48.02 [facility] [address] [address] 07/21/2024 Baltazar Stynowick [facility] [address] [place] [address] [place] [address] 07/29/2024 Baltazar Stynowick Sacroiliitis, not elsewhere classified M46.1 [facility] [address] [place] [address] [place] [address] 08/18/2024 Baltazar Stynowick Sacroiliitis, not elsewhere classified M46.1 ; Radiculopathy, lumbar region M54.16 ; Postlaminectomy syndrome, not elsewhere classified M96.1 ; Radiculopathy, cervical region M54.12 ; Radiculopathy, cervicothoracic region M54.13 ; half-way (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.01 and half-way (current) use of opiate analgesic Z79.891 [facility] [address] [place] [address] 2024 Baltazar Stynowick Radiculopathy, lumba r region M54.16 ; Spinal stenosis, lumbar region with neurogenic claudication M48.062 and 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 [facility] [address] [place] [address] 09/01/2024 Baltazar Streggielandon [facility] [address] [place] [phone] 09/16/2024 Baltazar Stynowick Radiculopathy, lumba r region M54.16 ; Spinal stenosis, lumbar region with neurogenic claudication M48.062 ; 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 ; Postlaminectomy syndrome, not elsewhere classified M96.1 and Radiculopathy, cervicothoracic region M54.13 [facility] [address] [place] [phone] 10/06/2024 Baltazar Stynowick Radiculopathy, lumba r region M54.16 ; Radiculopathy, cervical region M54.12 ; Spinal stenosis, lumbar region with neurogenic claudication M48.062 ; 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 ; Postlaminectomy syndrome, not elsewhere classified M96.1 ; Radiculopathy, cervicothoracic region M54.13 and 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.01 [facility] [address] [place] [phone] 10/11/2024 Baltazarbhupinder Walkerlandon [facility] [address] [place] [phone] 10/26/2024 Baltazar Stynowick Radiculopathy, cervical region M54.12 ; Radiculopathy, cervicothoracic region M54.13 and Spinal stenosis, cervical region M48.02 ASSESSMENTS Encounter Date Diagnosis Assessment Notes Treatment Notes Treatment Clinical Notes Section Notes 12/28/2023 Radiculopathy, cervical region (ICD-10 - M54.12) [...] to fully comply with the above. [facility] PDMP were reviewed and were appropriate 04/12/2024 [...] to fully comply with the above. [facility] PDMP were reviewed and were appropriate 04/20/2024 Sacroiliitis, not elsewhere classified (ICD-10 - M46.1) 06/29/2024 Radiculopathy, cervical region (ICD-10 - M54.12) [...] fully comply with the above. The [place] PDMP were reviewed and were appropriate 2024 Radiculopathy, lumbar region (ICD-10 - M54.16) 2024 Spinal stenosis, lumbar region with neurogenic claudication (ICD-10 - M48.062) L4-L5 09/16/2024 Radiculopathy, lumbar region (ICD-10 - M54.16) 09/16/2024 Spinal stenosis, lumbar region with neurogenic claudication (ICD-10 - M48.062) 10/26/2024 Radiculopathy, cervical region (ICD-10 - M54.12) 10/26/2024 Radiculopathy, cervicothoracic region (ICD-10 - M54.13) 06/16/2024 Radiculopathy, cervical region (ICD-10 - M54.12) [...] fully comply with the above. The [place] PD[place] were reviewed and were appropriate 04/14/2024 [...] to fully comply with the above. [facility] PDMP were reviewed and were appropriate 02/22/2024 Radiculopathy, cervical region (ICD-10 - M54.12) 01/25/2024 Radiculopathy, cervical region (ICD-10 - M54.12) [...] fully comply with the above. The [place] PD[place] were reviewed and were appropriate 01/12/2024 Radiculopathy, cervical region (ICD-10 - M54.12) 01/12/2024 Connective tissue and disc stenosis of intervertebral foramina of upper extremity (ICD-10 - M99.77) 10/29/2023 Radiculopathy, cervical region (ICD-10 - M54.12) 10/06/2024 Radiculopathy, cervical region (ICD-10 - M54.12) [...] 10/06/2024 Radiculopathy, lumbar region (ICD-10 - M54.16) 08/18/2024 Radiculopathy, lumbar region (ICD-10 - M54.16) [...] fully comply with the above. The [place] PD[place] were reviewed and were appropriate 08/18/2024 Sacroiliitis, not elsewhere classified (ICD-10 - M46.1) 07/29/2024 Sacroiliitis, not elsewhere classified (ICD-10 - M46.1) 07/06/2024 Radiculopathy, cervical region (ICD-10 - M54.12) 07/06/2024 Connective tissue and disc stenosis of intervertebral foramina of upper extremity (ICD-10 - M99.77) 05/12/2024 Sacroiliitis, not elsewhere classified (ICD-10 - M46.1) 07/20/2024 Radiculopathy, cervical region (ICD-10 - M54.12) 07/20/2024 Connective tissue and disc stenosis of intervertebral foramina of upper extremity (ICD-10 - M99.77) 05/12/2024 Radiculopathy, lumbar region (ICD-10 - M54.16) [...] fully comply with the above. The [place] PD[place] were reviewed and were appropriate 03/17/2024 Sacroiliitis, not elsewhere classified (ICD-10 - [...] fully comply with the above. The [place] PD[place] were reviewed and were appropriate 03/16/2024 Radiculopathy, lumbar region (ICD-10 - M54.16) 03/16/2024 Spinal stenosis, lumbar region with neurogenic claudication (ICD-10 - M48.062) 11/26/2023 Radiculopathy, cervical region (ICD-10 - M54.12) [...] fully comply with the above. [facility] [place] PDMP were reviewed and were appropriate 11/25/2023 Spondylosis without myelopathy or radiculopathy, 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.816) 11/25/2023 Spondylosis without myelopathy or radiculopathy, lumbosacral region (ICD-10 - M47.817) 11/26/2023 Spondylosis without myelopathy or radiculopathy, 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.816) 03/16/2024 Osseous stenosis of neural canal of lumbar region (ICD-10 - M99.33) 10/06/2024 Spinal stenosis, lumbar region with neurogenic claudication (ICD-10 - M48.062) 05/12/2024 Radiculopathy, cervical region (ICD-10 - M54.12) 03/17/2024 Radiculopathy, cervical region (ICD-10 - M54.12) 07/06/2024 Spinal stenosis, cervical region (ICD-10 - M48.02) 07/20/2024 Spinal stenosis, cervical region (ICD-10 - M48.02) 08/18/2024 Postlaminectomy syndrome, not elsewhere classified (ICD-10 - M96.1) 10/29/2023 Radiculopathy, lumbar region (ICD-10 - M54.16) [...] fully comply with the above. The [place] PDMP were reviewed and were appropriate 10/29/2023 [...] is agreeable to proceeding at this time. 01/12/2024 Radiculopathy, cervicothoracic region (ICD-10 - M54.13) 01/25/2024 Spondylosis without myelopathy or radiculopathy, 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.816) 02/22/2024 Radiculopathy, lumbar region (ICD-10 - M54.16) [...] fully comply with the above. The [place] PDMP were reviewed and were appropriate 02/22/2024 [...] is agreeable to proceeding at this time. 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 07/14/2024 Sacroiliitis, not elsewhere classified (ICD-10 - [...] is agreeable to proceeding at this time. 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) 08/18/2024 Radiculopathy, cervical region (ICD-10 - M54.12) 05/12/2024 Spondylosis without myelopathy or radiculopathy, 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.816) 03/17/2024 Spondylosis without myelopathy or radiculopathy, 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.816) 11/26/2023 Sacroiliitis, not elsewhere classified (ICD-10 - M46.1) 03/17/2024 Spinal stenosis, lumbar region with neurogenic claudication (ICD-10 - M48.062) L4-L5 11/26/2023 Spinal stenosis, lumbar region with neurogenic claudication (ICD-10 - M48.062) L4-L5 05/12/2024 Spinal stenosis, lumbar region with neurogenic claudication (ICD-10 - M48.062) L4-L5 08/18/2024 Radiculopathy, cervicothoracic region (ICD-10 - M54.13) 10/06/2024 [...] fully comply with the above. The [place] PDMP were reviewed and were appropriate 10/29/2023 Spinal stenosis, lumbar region with neurogenic claudication (ICD-10 - M48.062) L4-L5 01/25/2024 Spinal stenosis, lumbar region with neurogenic claudication (ICD-10 - M48.062) L4-L5 04/14/2024 Spinal stenosis, lumbar region with neurogenic claudication (ICD-10 - M48.062) L4-L5 02/22/2024 Spinal stenosis, lumbar region with neurogenic claudication (ICD-10 - M48.062) L4-L5 06/16/2024 Spinal stenosis, lumbar region with neurogenic claudication (ICD-10 - M48.062) L4-L5 07/14/2024 Spinal stenosis, lumbar region with neurogenic claudication (ICD-10 - M48.062) L4-L5 09/16/2024 Radiculopathy, cervicothoracic region (ICD-10 - M54.13) 12/28/2023 Spinal stenosis, lumbar region with neurogenic claudication (ICD-10 - M48.062) L4-L5 04/12/2024 Spondylosis without myelopathy or radiculopathy, 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.816) 12/28/2023 Postlaminectomy syndrome, not elsewhere classified (ICD-10 - M96.1) Right L4 decompression 04/12/2024 Spinal stenosis, lumbar region with neurogenic claudication (ICD-10 - M48.062) L4-L5 07/14/2024 Postlaminectomy syndrome, not elsewhere classified (ICD-10 - M96.1) Right L4 decompression 04/14/2024 Postlaminectomy syndrome, not elsewhere classified (ICD-10 - M96.1) Right L4 decompression 06/16/2024 Postlaminectomy syndrome, not elsewhere classified (ICD-10 - M96.1) Right L4 decompression 02/22/2024 Postlaminectomy syndrome, not elsewhere classified (ICD-10 - M96.1) Right L4 decompression 01/25/2024 Postlaminectomy syndrome, not elsewhere classified (ICD-10 - M96.1) Right L4 decompression 10/29/2023 Postlaminectomy syndrome, not elsewhere classified (ICD-10 - M96.1) Right L4 decompression 08/18/2024 half-way (current) use of 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 (ICD-10 - Z79.01) [...] to notify their primary care physician and/or sled maker to 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 07/14/2024 half-way (current) use of 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 (ICD-10 - Z79.01) [...] to notify their primary care physician and/or sled maker to 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 10/29/2023 half-way (current) use of 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 (ICD-10 - Z79.01) 10/06/2024 half-way (current) use of 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 (ICD-10 - Z79.01) [...] to notify their primary care physician and/or sled maker to 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 11/26/2023 Other intervertebral disc degeneration, lumbar region (ICD-10 - M51.36) 05/12/2024 Other intervertebral disc degeneration, lumbar region (ICD-10 - M51.36) 03/17/2024 Other intervertebral disc degeneration, lumbar region (ICD-10 - M51.36) 10/29/2023 Other intervertebral disc degeneration, lumbar region (ICD-10 - M51.36) 02/22/2024 Other intervertebral disc degeneration, lumbar region (ICD-10 - M51.36) 01/25/2024 Other intervertebral disc degeneration, lumbar region (ICD-10 - M51.36) 04/14/2024 Other intervertebral disc degeneration, lumbar region (ICD-10 - M51.36) 06/16/2024 Other intervertebral disc degeneration, lumbar region (ICD-10 - M51.36) 07/14/2024 Other intervertebral disc degeneration, lumbar region (ICD-10 - M51.36) 12/28/2023 Other intervertebral disc degeneration, lumbar region (ICD-10 - M51.36) 04/12/2024 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 (ICD-10 - Z79.01) 04/12/2024 Other intervertebral disc degeneration, lumbar region (ICD-10 - M51.36) 12/28/2023 half-way (current) use of opiate analgesic (ICD-10 - Z79.891) 07/14/2024 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 DOMENIC initials ARNAV 11/26/2023 Other The above-named patient [...] SAFETY CONCERNS HAVE BEEN ADDRESSED. DOMENIC initials JW. 01/25/2024 Other The above-named patient [...] AND SAFETY CONCERNS HAVE BEEN ADDRESSED. DOMENIC ortizs ARNAV 08/18/2024 Other The patient was advised [...] AND SAFETY CONCERNS HAVE BEEN ADDRESSED. DOMENIC JALLOH 09/16/2024 Other The above-named patient was evaluated [...] with Patient and Medical Decision Makin minutes 10/26/2024 Other The patient voiced understanding of [...] Next Appt Details Provider Name:Baltazar Finn navarrete, 11/03/2024 08:30:00 AM, [address] [place], [address], Insurance Providers Payer Name Payer Address Payer Phone Subscriber Number Group Number Insured Name Patient Relationship to Insured Coverage Start Date Coverage End Date [facility] MEDICARE ADVANTAGE (PPO) [address] [address] [place] [address] [id number] LICHA MALAGON Self - patient is the insured 7 MEDICAL (GENERAL) HISTORY Medical History History ICD Code Hypertension Osteoarthritis CHF Surgical History Surgery Date(Month/Year) Coronary stent 05/31/07
--- OUTSIDE RECORDS SUMMARY | 2024-10-27 08:29 | XMS_ITS | Clinical Summary ---
Author Organization [facility] Address [address] [place] [address] Care Team Providers Care Boomswing Operator Name Role Phone Bhanu Hinojosa MD Primary Care Provider [phone] Allergies Active Allergy Reactions Criticality Noted Date [...] on file Legal Sex Female 5:52 AM PHYSICIAN ASSISTANT Gender Identity Not on file Sexual Orientation Not on file Last Filed Vital Signs Vital Sign Reading Time Taken Comments Blood Pressure 128/76 04/23/2010 1:18 PM PHYSICIAN ASSISTANT Pulse 64 04/23/2010 1:18 PM PHYSICIAN ASSISTANT Temperature 36.8 C (98.3 F) 04/23/2010 1:18 PM PHYSICIAN ASSISTANT Respiratory Rate 14 04/23/2010 1:18 PM PHYSICIAN ASSISTANT Oxygen Saturation - - Inhaled Oxygen Concentration - - Weight 64 kg (141 lb) 04/23/2010 1:18 PM PHYSICIAN ASSISTANT Height 157.5 cm (5' 2) 04/23/2010 1:18 PM PHYSICIAN ASSISTANT Body Mass Index 25.79 04/23/2010 1:18 PM PHYSICIAN ASSISTANT Plan of Treatment Health Maintenance Due Date Last Done Comments DTAP/TDAP/TD VACCINES (1 - Tdap) 09[birth year]01/1964 PNEUMOCOCCAL VACCINE 50+ YEARS (1 of 1 - PCV) 08/31/18 95 ZOSTER VACCINE (1 of 2) 1994 OSTEOPOROSIS SCREENING 2009 RSV VACCINE (60+ or ) (1 - 1-dose 75+ series) 09/01/2019 INFLUENZA VACCINE (#1) 2024 Insurance [facility] [place] [address] [facility] [employer] PPO [id number] [facility] Address[place] [phone] [place] [address] MEDICARE PART A AND B [facility] [place] [address] Care Teams Boomswing Operator Relationship Specialty Start Date End Date Bhanu Hinojosa MD [address] [place] [address] PCP - General 02/13/15
--- OUTSIDE RECORDS SUMMARY | 2024-10-27 08:29 | XMS_ITS | Clinical Summary ---
Author Organization [facility] Address [facility] [place] [address] Care Team Providers Care Claims Service Representative Name Role Phone Bhanu Hinojosa MD Primary Care Provider [phone] Allergies Active Allergy Reactions Criticality Noted Date [...] SUPPLY, DME,Indications: COPD (chronic obstructive pulmonary disease) ([facility]),Hypoxia 1 Device by Nasal route continuous. Nasal cannula. 2L at rest and 3L with activity. Portable Oxygen Concentrator with Pulse Settings. Stationary Concentrator. 1 Device 3 Active Active Problems Problem Noted Date Diagnosed Date Pneumonia 10/12/2022 COPD exacerbation ([facility]) 10/12/2022 Social History Tobacco Use Types Packs/Day [...] Health Maintenance Due Date Last Done Comments DTaP, Tdap and Td Vaccines ( 1 - Tdap) 09/01/1964 Annual Medicare Wellness Visit 2009 Dexa Scan (General) 2009 Zoster Vaccines (2 of 3) 03/07/2016 01/11/2016 RSV Immunization or 60+ Years (1 - 1-dose 75+ series) 09/01/2019 COVID-19 Vaccine (3 - 2024-2 6 season) 2024 06/15/2020, 05/18/2020 Pneumococcal Vaccine: 50+ Years Completed [...] appropriate support at home upon discharge Lifestyle Cece Agee RN Additional Health Concerns Infection Onset Date 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 10/13/[address] [place] [address] [facility] Advance Directives Documents on File Type Date Recorded 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
--- OUTSIDE RECORDS SUMMARY | 2024-10-27 08:29 | XMS_ITS | Clinical Summary ---
Author Organization [facility] Address [address] [place] [address] Care Team Providers Care C.O.D. Clerk Name Role Phone Unavailable Primary Care Provider Unavailabl e Source Comments [facility],non-owned Affiliates and Associated Physician Practices is amultiple site organization consisting of ambulatory clinics and hospital sitesin [place], [place], [place] and [place]. This disclosure is being madepursuant to the Care Everywhere program and may not contain all information available regarding this patient. Last updated 17.[facility] 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
== END 2024-10-27 08:23 | disposition home or self-care (01) ==
LOC: CHSIMG 08:24
PROVIDERS: PCP Internal Medicine; Visit Provider Otolaryngology
DX: E04.1 Nontoxic single thyroid nodule (principal)
CPT/HCPCS: 76536

== ENCOUNTER 2024-11-18 09:40 | Outpatient (CLI) | payer MEDICARE, SELFPAY ==
--- OUTSIDE RECORDS SUMMARY | 2024-09-16 04:45 | XMS_ITS ---
Author Organization [facility] Address [address] [place] [address] [place] [address] Care Team Providers Care Quantitative Manager Name Role Phone MARIMAR LUGO [facility] Primary Care Provider Baltazar Rivas Unavailable [phone] ALLERGIES Allergen (clinical drug ingredient) Drug/Non Drug [...] 1 tablet Oral Once a day Active Hoakc-2-ubsr Ethyl Esters 1 GM 2 capsules Oral [...] Date Provider Diagnosis [facility] [address] [facility] [place] [place] [address] 09/16/2024 Baltazar Parada Radiculopathy, lumba r region [...] to fully comply with the above. The [place] and [place] PDMP were reviewed and were appropriate 09/16/2024 [...] to fully comply with the above. The [place] PDMP were reviewed and were appropriate Other [...] Weeks OPV, Reas on: Provider Name:Baltazar navarrete, 11/23/2024 07:30:00 AM, [address] [place], [address], Provider Name:Baltazar navarrete, 12/02/2024 08:30:00 AM, [address] [facility] [place], [address], Progress Notes * Examination Category Sub-Category Detail [...] axial low back pain. Thigh thrust test, [place]'s and Gaenslen's are positive bilaterally. There is [...]
--- OUTSIDE RECORDS SUMMARY | 2024-10-06 04:30 | XMS_ITS ---
Author Organization [facility] Address [address] [place] [address] [place] Cifuentes [address] Care Team Providers Care Mail Order Sorter Name Role Phone MARIMAR LUGO [place] Primary Care Provider Baltazar Rivas Unavailable [phone] ALLERGIES Allergen (clinical drug ingredient) Drug/Non Drug [...] Right Low Back Pain, Left Lower Extremity Pain, Left = right neck pain, Left =right upper extremity pain MEDICATIONS Medication SIG (Take, Route, Frequency, Duration) Notes Start Date End Date Status valACYclovir HCl 1 GM 1 tablet Oral [...] severe pain for 30 days MAY FILL 10/15/24 10/06/2024 Active Montelukast Sodium 10 MG 1 tablet Oral Once a day Active Ventolin HFA 108 (90 Base) MCG/ACT 1 puff as needed Inhalation every 4 hrs Active Trelegy Ellipta 100-62.5-25 MCG/ACT 1 puff Inhalation Once a day Active Potassium Chloride ER 10 MEQ TAKE 1 TABLET BY MOUTH EVERY DAY Oral for 90 Active Furosemide 20 MG TAKE 1 TABLET BY MOUTH EVERY MORNING Oral for 90 Active Rosuvastatin Calcium 20 MG 1 tablet Oral Once a day Active Medrol 4 MG as directed Orally 05/13/2021 Active FLUoxetine HCl 20 MG 1 capsule Orally Once a day for 30 day(s) Active Esomeprazole Magnesium 40 MG 1 capsule Oral Once a day Active Selrw-0-czsu Ethyl Esters 1 GM 2 capsules Oral Twice a day Active Levothyroxine Sodium 50 MCG [...] 1 puff Inhalation Once a day Active Vitamin D 1000 UNIT 1 tablet Orally Once a day Active Ramipril 10 MG 1 capsule Orally Twice a day Active Albuterol Sulfate HFA 108 (90 Base) MCG/ACT 1 puff as needed Inhalation every 4 hrs Active hydrALAZINE HCl 25 MG 1 tablet with food Oral Four times a day Active SOCIAL HISTORY Tobacco Use: [...] drug abuse. 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 The [place] and [place] PDMP were reviewed and were appropriate 10/06/2024 Radiculopathy, cervicothoracic region (ICD-10 - M54.13) 10/06/2024 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 frame tender (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 of 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 [...] to notify their primary care physician and/or solidworks mechanical designer to 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 10/06/2024 Other The above-named patient was evaluated in [...] to 4x/day severe pain for 30 days 10/06/2024 MAY FILL 10/15/24 Treatment Notes Assessment Notes Radiculopathy, cervical region Schedule a cervical epidural steroid injection at [...] is agreeable to proceeding at this time. Postlaminectomy syndrome, no t elsewhere classified The [...] comply with the above. The [place] and [place] PDMP were reviewed and were appropriate 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 frame tender (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 of anticoagulant s The patient [...] to notify their primary care physician and/or solidworks mechanical designer to 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 Other The above-named patient was evaluated in [...] Makin minutes Next Appt Details Follow Up: VANDANA C7-T1, Reaso n: Provider Name:Baltazar Finn navarrete, 11/23/2024 07:30:00 AM, [address] [place], [address], Provider Name:Baltazar navarrete, 12/02/2024 08:30:00 AM, [address] [facility] [place], [address], Progress Notes * Examination Category Sub-Category Detail [...] axial low back pain. Thigh thrust test, [place]'s and Gaenslen's are positive bilaterally. There is [...]
--- OUTSIDE RECORDS SUMMARY | 2024-10-11 04:45 | XMS_ITS ---
Author Organization [facility] Address [address] [facility] [place] [address] Care Team Providers Care Deli Slicer Name Role Phone MARIMAR LUGO [facility] Primary Care Provider Unavaila Baltazar [place] Unavailable [phone] REASON FOR VISIT FOLLOW UP (LAST FILL 09/16/2024) Encounters Encounter Location Date Provider Diagnosis [facility] [address] [facility] [place] [address] 10/11/2024 Baltazar Parada PLAN OF TREATMENT Next Appt Details Provider Name:Baltazar navarrete, 11/23/2024 07:30:00 AM, [address] [facility] [address], [place], [address], Provider Name:Baltazar navarrete, 12/02/2024 08:30:00 AM, [address] [facility] [address], [place], [address],
--- OUTSIDE RECORDS SUMMARY | 2024-10-26 04:15 | XMS_ITS ---
Author Organization [facility] Address [address] [place] [address] [place] [address] Care Team Providers Care Nursing Home Administrator Name Role Phone MARIMAR LUGO [facility] Primary Care Provider Baltazar Rivas Unavailable [phone] ALLERGIES Allergen (clinical drug ingredient) Drug/Non Drug [...] Unknown Drug Allergy Active REASON FOR VISIT VANDANA (AFTER 10-21) (HOLD FISH OIL 10, ASA 6 DAYS) (NO ASC COPAY - has 20% co-ins) MEDICATIONS Medication SIG (Take, Route, Frequency, Duration) Notes Start Date End Date Status Nebivolol HCl 20 MG TAKE 1 TABLET BY MOUTH EVERY DAY Oral for 90 Active Percocet 10-325 MG 1 tablet as needed Orally up to 4x/day severe pain for 30 days MAY FILL 10/15/24 10/06/2024 Active Montelukast Sodium 10 MG 1 tablet Oral Once a day Active Furosemide 20 MG TAKE 1 TABLET BY MOUTH EVERY MORNING Oral for 90 Active Potassium Chloride ER 10 MEQ TAKE 1 TABLET BY MOUTH EVERY DAY Oral for 90 Active Esomeprazole Magnesium 40 MG 1 capsule Oral Once a day Active FLUoxetine HCl 20 MG 1 capsule Orally Once a day for 30 day(s) Active Medrol 4 MG as directed Orally 05/13/2021 Active Trelegy Ellipta 100-62.5-25 MCG/ACT 1 puff Inhalation Once a day Active Ventolin HFA 108 (90 Base) MCG/ACT 1 puff as needed Inhalation every 4 hrs Active Rosuvastatin Calcium 20 MG 1 tablet Oral Once a day Active Qigfp-6-capg Ethyl Esters 1 GM 2 capsules Oral Twice a day Active Propranolol HCl ER 60 MG 1 capsules orally twice a day Active Claritin 10 MG 1 [...] the morning Orally Once a day Active Ramipril 10 MG 1 capsule Orally Twice a day Active Albuterol Sulfate HFA 108 (90 Base) MCG/ACT 1 puff as needed Inhalation every 4 hrs Active valACYclovir HCl 1 GM 1 tablet Oral Once a day Active hydrALAZINE HCl 25 MG 1 tablet with food Oral Four times a day Active busPIRone HCl 10 MG 1 tablet Oral Twice a day Active Narcan 4 MG/0.1ML 1 actuation in one nostril x1, Nasally 2-3 minutes as needed until the patient is responsive or EMS arrives Active VITAL SIGNS Height 62in in 10/26/2024 Weight 121 lbs 10/26/2024 BMI 22.13 kg/m2 10/26/2024 Post procedure VS=BP , P , R Discharged home per ambulatory, in no acute distress. Encounters Encounter Location Date Provider Diagnosis [facility] SURGERY [address] [address] 10/26/2024 Baltazar Parada Radiculopathy, cervical region M54.12 ; Radiculopathy, cervicothoracic region M54.13 and Spinal stenosis, cervical region M48.02 ASSESSMENTS Encounter Date Diagnosis Assessment Notes Treatment Notes Treatment Clinical Notes Section Notes 10/26/2024 Radiculopathy, cervical region (ICD-10 - M54.12) 10/26/2024 Radiculopathy, cervicothoracic region (ICD-10 - M54.13) 10/26/2024 Spinal stenosis, cervical region (ICD-10 - M48.02) 10/26/2024 Other The patient voiced understanding of the [...] for infection: Implements aseptic technique, protects from cross-contaminati on, performs skin preparations. Pain/Discomfort: Patient verbalizes acceptable [...] BEEN ADDRESSED. RN initials Next Appt Details Follow Up: 11/03/24 F/U, Lorri on: Provider Name:Baltazar navarrete, 11/23/2024 07:30:00 AM, [address] [place] [address], [phone], Provider Name:Baltazar navarrete, 12/02/2024 08:30:00 AM, [address] [place] [address], [phone], Procedure Notes * Category Sub-Category Detail Notes Cervical Epidural Steroid In jection Under Fluoroscopy Anesthesia: Local without IV sedation Operative Technique: After the risks, be nefits, alternative treatment options and potential complications related [...] and standard ASA monitors were applied. The neck was prepped and draped in the usual sterile fashion with chlorhexidine 2%/IPA 70%. The C7-T1 interspace was identified under x-ray guidance and the skin and subcutaneous structures above it were anesthetized with 3 mL of 1% Preservative-Free lidocaine through a 25 g 1.5 inch needle. A 20 gauge 9 cm Touhy epidural needle was inserted under fluoroscopic guidance. Multiple AP and lateral views were taken to ensure correct needle tip placement. Using a RYLEE technique, 1 mL of Preservative-Free normal saline was injected into the posterior epidural space. After negative aspiration for blood, air or CSF, 2 mL of Omnipaque 240 contrast dye was injected for an epidurogram under live fluoroscopy (except in cases of contrast allergy) showing good spread within the epidural space. No intravascular or intrathecal spread was noted. A solution of 10 mg of Dexamethasone (10 mg/mL) plus 2 mL of Preservative-Free normal saline was mixed and after negative aspiration this solution was slowly injected into the epidural space without resistance. The needle was removed, the skin was cleaned and a band-aid was placed over the puncture site. The patient tolerated the procedure well, was able to ambulate without difficulty and was monitored for 20 minutes. Patient reports an 85% reduction in typical pain immediately postprocedure. The patient remained hemodynamically and neurologically stable. No apparent complications were observed. Postoperative instructions were reviewed with the patient. The patient was then discharged home in good condition with a local owner operator truck driver. X-ray time: 14 seconds Safe [facility] Practices First Critical Point Rroo ent identified by verbal and ID band. [...] time for fumes to dissipate. Confirm surgical call center team leader and roles. Anticipated critical events. Essential imaging [...] axial low back pain. Thigh thrust test, [place]'s and Gaenslen's are positive bilaterally. There is [...]
--- OUTSIDE RECORDS SUMMARY | 2024-11-03 03:30 | XMS_ITS ---
Author Organization [facility] Address [address] [place] [address] [place] [address] Care Team Providers Care Gage Designer Name Role Phone MARIMAR LUGO [facility] Primary Care Provider Baltazar Rivas Unavailable [phone] ALLERGIES Allergen (clinical drug ingredient) Drug/Non Drug [...] 4 MG as directed Orally 05/13/2021 Active Rtdgz-9-nrxs Ethyl Esters 1 GM 2 capsules Oral [...] Date Provider Diagnosis [facility] [address] [facility] [address] [place] [address] 11/03/2024 Baltazar Parada Radiculopathy, cervical region M54.12 ; Postlaminectomy syndrome, not elsewhere classified M96.1 ; Radiculopathy, lumbar region M54.16 ; Spinal stenosis, lumbar region with neurogenic claudication M48.062 ; 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 ; Radiculopathy, cervicothoracic region M54.13 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 The [place] PDMP were reviewed and [...] Follow Up: VANDANA, Reason: Provider Name:Baltazar navarrete, 11/23/2024 07:30:00 AM, [address] [place] [address], [phone], Provider Name:Baltazar navarrete, 12/02/2024 08:30:00 AM, [address] [place] [address], [phone], Progress Notes * Examination Category Sub-Category Detail [...] axial low back pain. Thigh thrust test, [place]'s and Gaenslen's are positive bilaterally. There is [...]
--- OUTSIDE RECORDS SUMMARY | 2024-11-18 09:46 | XMS_ITS | Clinical Summary ---
Author Organization [facility] Address [address] [place] [address] Care Team Providers Care Tenterer Name Role Phone Unavailable Primary Care Provider Unavailabl e Source Comments [facility],non-owned Affiliates and Associated Physician Practices is amultiple site organization consisting of ambulatory clinics and hospital sitesin [place], [place], [place] and [place]. This disclosure is being madepursuant to the Care Everywhere program and may not contain all information available regarding this patient. Last updated 17.[facility] [employer] Social History Tobacco Use Types Packs/Day Years Used Date Smoking Tobacco: Never Assessed Comments Unknown Sex and Gender Information Value Date Recorded Sex Assigned at Not on file Legal Sex Female 6:36 AM [employer] Gender Identity Not on file Sexual Orientation Not on file Plan of Treatment Health Maintenance Due Date Last Done Comments BONE DENSITY TESTING 1944 DTAP/TDAP/TD VACCINES (1 - Tdap) 09/01/1963 PNEUMOCOCCAL VACCINE 50+ (1 of 1 - PCV) 1994 ZOSTER VACCINE (1 of 2) 1994 Respiratory Syncytial Virus (RSV) Vaccine Pt: or over 60 yrs (1 - 1-dose 75+ series) 09/01/2019 DEPRESSION SCREENING 02/24/2024 MEDICARE AWV CALENDAR YEAR 2024 COVID-19 VACCINE (1 - 2023-2 5 season) 2024 INFLUENZA VACCINE (#1) 2024 HEPATITIS B [...] patient's age to complete this topic Insurance [facility] MANAGED MEDICARE ADV
--- OUTSIDE RECORDS SUMMARY | 2024-11-18 09:46 | XMS_ITS | Patient Health Record ---
Author Organization [facility] Address [address] [facility] [place] [address] Care Team Providers Care State Attorney Name Role Phone MARIMAR LUGO, [facility] Primary Care Provider Baltazar Rivas Unavailable [phone] ALLERGIES Allergen (clinical drug ingredient) Drug/Non Drug [...] Active RESULTS Component Value Reference Range Notes [facility] Results (Not yet reviewed by provider) Interpretation: Performing Lab:[id number] [facility] [address] [facility] [address] Anali Gutiérrez MD Notes/Report: Acetyl fentanyl: Fentanyl [...] 100 ng/mL Tramadol Quantification negative 100 ng/mL S-ssimcbvfh-cmcwpeuh Quantification negative 100 n g/mL K-Rzgxulbik-Zopcmqnp Quantification negative 100 n g/mL Alpha-Hydroxyalprazolam Quantification negative 20 ng/mL 9-Xdgyn-Ucxkaalvfr Quantification negative 20 ng/m L Lorazepam Quantification [...] Mitragynine (Kratom alkaloid) Quantification negative 1 ng/mL 4-UY-Iqfyrdrtlpg (Kratom alk aloid) Quantification negative 1 ng/mL Ethyl Glucuronide Quantification negative 500 ng/m L Ethyl Sulfate Quantification negative 500 ng/mL LOAG Results (Not yet reviewed by provider) Interpretation: Performing Lab:[id number] [facility], [address] [facility] [address] Anali Gutiérrez MD Notes/Report: Acetyl fentanyl: Fentanyl [...] 100 ng/mL Tramadol Quantification negative 100 ng/mL C-ckoscwhqx-namqylyh Quantification negative 100 n g/mL P-Ssoxmfach-Pqglegoi Quantification negative 100 n g/mL Alpha-Hydroxyalprazolam Quantification negative 20 ng/mL 6-Pwqoj-Frgvwyubvs Quantification negative 20 ng/m L Lorazepam Quantification [...] Mitragynine (Kratom alkaloid) Quantification negative 1 ng/mL 6-WJ-Vzplequtjax (Kratom alk aloid) Quantification negative 1 ng/mL Ethyl Glucuronide Quantification negative 500 ng/m L Ethyl Sulfate Quantification negative 500 ng/mL LOAG Results (Not yet reviewed by provider) Interpretation: Performing Lab:[id number] [employer], [address] [facility] [address] Anali Gutiérrez MD Notes/Report: Acetyl fentanyl: Fentanyl [...] 100 ng/mL Tramadol Quantification negative 100 ng/mL L-nkeyurmpc-jcpnueaf Quantification negative 100 n g/mL Q-Wkjglbygb-Xxfjzqpg Quantification negative 100 n g/mL Alpha-Hydroxyalprazolam Quantification negative 20 ng/mL 4-Lckcv-Sbsbumbwgv Quantification negative 20 ng/m L Lorazepam Quantification [...] Mitragynine (Kratom alkaloid) Quantification negative 1 ng/mL 7-EQ-Jqpvypiuaeg (Kratom alk aloid) Quantification negative 1 ng/mL Ethyl Glucuronide Quantification negative 500 ng/m L Ethyl Sulfate Quantification negative 500 ng/mL REASON FOR REFERRAL No Information MEDICATIONS Medication SIG (Take, Route, Frequency, Duration) Notes Start Date End Date Status Bjuyd-0-cuzs Ethyl Esters 1 GM 2 capsules Oral Twice a day Active Esomeprazole Magnesium 40 MG 1 capsule Oral Once a day Active valACYclovir HCl 1 GM 1 tablet Oral Once a day Active Propranolol HCl ER 60 MG 1 capsules orally twice a day Active Rosuvastatin Calcium 20 MG 1 tablet Oral Once a day Active Narcan 4 MG/0.1ML 1 actuation in one nostril x1, Nasally 2-3 minutes as needed until the patient is responsive or EMS arrives Active busPIRone HCl 10 MG 1 tablet Oral Twice a day Active Estradiol 2 MG 1 [...] as needed Inhalation every 4 hrs Active Percocet 10-325 MG 1 tablet as needed Orally up to 4x/day severe pain for 30 days MAY FILL 11/14/24 11/03/2024 Active Ramipril 10 MG 1 capsule Orally Twice a day Active Nebivolol HCl 20 MG TAKE 1 TABLET BY MOUTH EVERY DAY Oral for 90 Active hydrALAZINE HCl 25 MG 1 tablet with food Oral Four times a day Active Potassium Chloride ER 10 MEQ TAKE 1 TABLET BY MOUTH EVERY DAY Oral for 90 Active Montelukast Sodium 10 MG 1 tablet Oral Once a day Active Furosemide 20 MG TAKE 1 TABLET BY MOUTH EVERY MORNING Oral for 90 Active Trelegy Ellipta 100-62.5-25 MCG/ACT 1 puff Inhalation Once a day Active Ventolin HFA 108 (90 Base) MCG/ACT 1 puff as needed Inhalation every 4 hrs Active FLUoxetine HCl 20 MG 1 capsule Orally Once a day for 30 day(s) Active Medrol 4 MG as directed Orally 05/13/2021 Active SOCIAL HISTORY Tobacco Use: Social History [...] (G89.4) Active confirmed Chronic julián n syndrome (739709321) Problem Essential (primary) hypertension (I10) Active confirmed Essential hypertension (26779217) Problem 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) Active confirmed Localized, primary osteoarthritis of the pelvic region and thigh (374080497) Problem Pain in unspecified hip (M25.559) Active confirmed Arthralgia of the pelvic region and thigh (361344895) Problem Sacroiliitis, not elsewhere classified (M46.1) Active confirmed Solitary sacroiliitis (370970229) Problem Spondylosis without myelopathy or radiculopathy, cervical region (M47.812) Active confirmed Cervical spondylosis without myelopathy (726499943) Problem Spondylosis without myelopathy or radiculopathy, lumbar region (M47.816) Active confirmed Lumbosacral spondylosis without myelopathy (30345612) Problem Spondylosis without myelopathy or radiculopathy, lumbosacral region (M47.817) Active confirmed Lumbosacral spondylosis without myelopathy (disorder) (48316137) Problem Spinal stenosis, cervical region (M48.02) Active confirmed Spinal stenosis in cervical region (84591169) Problem Intervertebral disc disorders with radiculopathy, lumbar region (M51.16) Active confirmed Radiculopathy due to lumbar intervertebral disc disorder (12601904224192 5) Problem Other intervertebral disc degeneration, 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 confirmed Degeneration of lumbar intervertebral disc (46138916) Problem Radiculopathy, cervical region (M54.12) Active confirmed Cervical radiculopathy (73537977) Problem Radiculopathy, cervicothoracic region (M54.13) Active confirmed Cervical radiculopathy (74076027) Problem Radiculopathy, lumbar region (M54.16) Active confirmed Lumbar radiculopathy (620781472) Problem Trochanteric bursitis, unspecified hip (M70.60) Active confirmed Enthesopathy of hip region (90872924) Problem Postlaminectomy syndrome, not elsewhere classified (M96.1) Active confirmed Post-laminectom y syndrome (89384271) Right L4 decompression Problem Osseous stenosis of neural canal of lumbar region (M99.33) Active confirmed Spinal stenosis of lumbar region (98026742) Problem Osseous and subluxation stenosis of intervertebral foramina of lumbar region (M99.63) Active confirmed Spinal stenosis of lumbar region (78674505) Problem 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) Active confirmed Connective tissue and disc stenosis of intervertebral foramina (848649336) Problem FCI (current) use of 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 (Z79.01) Active confirmed Long-term current use of anticoagulant (071126389) 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 Blood pressure diastolic 88 mm Hg 11/03/2024 Height 62 in 11/03/2024 Blood pressure systolic 194 mm Hg 11/03/2024 Weight 121 lbs 11/03/2024 BMI 22.13 kg/m2 11/03/2024 Encounters Encounter Location Date Provider Diagnosis [facility] [place], [facility] [address] [place] [address] 11/25/2023 Baltazar Stynowick Spondylosis without myelopathy or radiculopathy, lumbar region M47.816 and Spondylosis without myelopathy or radiculopathy, lumbosacral region M47.817 [facility] [address] [place] [address] 11/26/2023 Baltazar Stynowick Radiculopathy, cervical region M54.12 ; Radiculopathy, lumbar region M54.16 ; Spondylosis without myelopathy or radiculopathy, lumbar region M47.816 ; Sacroiliitis, not elsewhere classified M46.1 ; Spinal stenosis, lumbar region with neurogenic claudication M48.062 ; Postlaminectomy syndrome, not elsewhere classified M96.1 ; Spondylosis without myelopathy or radiculopathy, cervical region M47.812 ; FCI (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.01 ; Other intervertebral disc degeneration, lumbar region M51.36 and FCI (current) use of opiate analgesic Z79.891 [facility] [place] [address] [place] [address] 11/26/2023 Baltazar Stynowick [facility] [address] [place] [address] [place] [address] 12/28/2023 Baltazar Stynowick Radiculopathy, cervical region M54.12 ; Radiculopathy, lumbar region M54.16 ; Spondylosis without myelopathy or radiculopathy, lumbar region M47.816 ; Sacroiliitis, not elsewhere classified M46.1 ; Spinal stenosis, lumbar region with neurogenic claudication M48.062 ; Postlaminectomy syndrome, not elsewhere classified M96.1 ; Spondylosis without myelopathy or radiculopathy, cervical region M47.812 ; FCI (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.01 ; Other intervertebral disc degeneration, lumbar region M51.36 and FCI (current) use of opiate analgesic Z79.891 [facility] [address] [place] [address] 01/12/2024 Baltazar Stynowick Radiculopathy, cervical region M54.12 ; 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 ; Radiculopathy, cervicothoracic region M54.13 and Spinal stenosis, cervical region M48.02 [facility] [address] [place] [address] [place] [address] 01/13/2024 Baltazar Stynowick [facility] [address] [place] [address] 01/25/2024 Baltazar Stynowick Radiculopathy, cervical region M54.12 ; Radiculopathy, lumbar region M54.16 ; Spondylosis without myelopathy or radiculopathy, lumbar region M47.816 ; Sacroiliitis, not elsewhere classified M46.1 ; Spinal stenosis, lumbar region with neurogenic claudication M48.062 ; Postlaminectomy syndrome, not elsewhere classified M96.1 ; Spondylosis without myelopathy or radiculopathy, cervical region M47.812 ; FCI (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.01 ; Other intervertebral disc degeneration, lumbar region M51.36 and rodent exterminator (current) use of opiate analgesic Z79.891 [facility] [address] [place] [address] 01/25/2024 Baltazar Stynowick [facility] [address] [place] [address] 02/22/2024 Baltazar Stynowick Radiculopathy, cervical region M54.12 ; Radiculopathy, lumbar region M54.16 ; Spondylosis without myelopathy or radiculopathy, lumbar region M47.816 ; Sacroiliitis, not elsewhere classified M46.1 ; Spinal stenosis, lumbar region with neurogenic claudication M48.062 ; Postlaminectomy syndrome, not elsewhere classified M96.1 ; Spondylosis without myelopathy or radiculopathy, cervical region M47.812 ; rodent exterminator (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.01 ; Other intervertebral disc degeneration, lumbar region M51.36 and FCI (current) use of opiate analgesic Z79.891 [facility] [place], [facility] [address] [address] 03/16/2024 Baltazar Stynowick Radiculopathy, lumba r region M54.16 ; Spinal stenosis, lumbar region with neurogenic claudication M48.062 and 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 [facility] [address] [place] [address] 03/17/2024 Baltazar Stynowick Radiculopathy, lumba r region M54.16 ; Sacroiliitis, not elsewhere classified M46.1 ; Radiculopathy, cervical region M54.12 ; Spondylosis without myelopathy or radiculopathy, lumbar region M47.816 ; Spinal stenosis, lumbar region with neurogenic claudication M48.062 ; Postlaminectomy syndrome, not elsewhere classified M96.1 ; Spondylosis without myelopathy or radiculopathy, cervical region M47.812 ; rodent exterminator (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.01 ; Other intervertebral disc degeneration, lumbar region M51.36 and rodent exterminator (current) use of opiate analgesic Z79.891 [facility] [place] [address] [address] 03/17/2024 Baltazar Stynowick [facility] [address] [place] [phone] 04/12/2024 Baltazar Stynowick Radiculopathy, lumba r region M54.16 ; Sacroiliitis, not elsewhere classified M46.1 ; Radiculopathy, cervical region M54.12 ; Spondylosis without myelopathy or radiculopathy, lumbar region M47.816 ; Spinal stenosis, lumbar region with neurogenic claudication M48.062 ; Postlaminectomy syndrome, not elsewhere classified M96.1 ; Spondylosis without myelopathy or radiculopathy, cervical region M47.812 ; rodent exterminator (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.01 ; Other intervertebral disc degeneration, lumbar region M51.36 and rodent exterminator (current) use of opiate analgesic Z79.891 [facility] [address] [place] [address] [place] [address] 04/14/2024 Baltazar Stynowick Radiculopathy, lumba r region M54.16 ; Sacroiliitis, not elsewhere classified M46.1 ; Radiculopathy, cervical region M54.12 ; Spondylosis without myelopathy or radiculopathy, lumbar region M47.816 ; Spinal stenosis, lumbar region with neurogenic claudication M48.062 ; Postlaminectomy syndrome, not elsewhere classified M96.1 ; Spondylosis without myelopathy or radiculopathy, cervical region M47.812 ; rodent exterminator (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.01 ; Other intervertebral disc degeneration, lumbar region M51.36 and rodent exterminator (current) use of opiate analgesic Z79.891 [facility] [place] [address] [place] [phone] 04/20/2024 Baltazar Stynowick Sacroiliitis, not elsewhere classified M46.1 [facility] [address] [place] [address] 05/12/2024 Baltazar Stynowick Radiculopathy, lumba r region M54.16 ; Sacroiliitis, not elsewhere classified M46.1 ; Radiculopathy, cervical region M54.12 ; Spondylosis without myelopathy or radiculopathy, lumbar region M47.816 ; Spinal stenosis, lumbar region with neurogenic claudication M48.062 ; Postlaminectomy syndrome, not elsewhere classified M96.1 ; Spondylosis without myelopathy or radiculopathy, cervical region M47.812 ; rodent exterminator (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.01 ; Other intervertebral disc degeneration, lumbar region M51.36 and FCI (current) use of opiate analgesic Z79.891 [facility] [address] [place] [phone] 06/16/2024 Baltazar Stynowick Radiculopathy, lumba r region M54.16 ; Radiculopathy, cervical region M54.12 ; Sacroiliitis, not elsewhere classified M46.1 ; Spondylosis without myelopathy or radiculopathy, lumbar region M47.816 ; Spinal stenosis, lumbar region with neurogenic claudication M48.062 ; Postlaminectomy syndrome, not elsewhere classified M96.1 ; Spondylosis without myelopathy or radiculopathy, cervical region M47.812 ; FCI (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.01 ; Other intervertebral disc degeneration, lumbar region M51.36 ; rodent exterminator (current) use of opiate analgesic Z79.891 and Essential (primary) hypertension 0 [facility] [place] [address] [place] [phone] 06/29/2024 Baltazar Stynowick Radiculopathy, cervical region M54.12 ; 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 and Radiculopathy, cervicothoracic region M54.13 [facility] [place] [address] [place] [address] 07/06/2024 Baltazar Stynowick Radiculopathy, cervical region M54.12 ; 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 and Spinal stenosis, cervical region M48.02 [facility] [address] [place] [address] [place] [address] 07/14/2024 Baltazar Stynowick Radiculopathy, lumba r region M54.16 ; Radiculopathy, cervical region M54.12 ; Sacroiliitis, not elsewhere classified M46.1 ; Spondylosis without myelopathy or radiculopathy, lumbar region M47.816 ; Spinal stenosis, lumbar region with neurogenic claudication M48.062 ; Postlaminectomy syndrome, not elsewhere classified M96.1 ; Spondylosis without myelopathy or radiculopathy, cervical region M47.812 ; rodent exterminator (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.01 ; Other intervertebral disc degeneration, lumbar region M51.36 ; rodent exterminator (current) use of opiate analgesic Z79.891 and Essential (primary) hypertension I10 [facility] [place] [address] [place] [address] 07/20/2024 Baltazar Stynowick Radiculopathy, cervical region M54.12 ; 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 and Spinal stenosis, cervical region M48.02 [facility] [place] [address] [place] [address] 07/21/2024 Baltazar Stynowick [facility] [address] [place] [address] [place] [address] 07/29/2024 Baltazar Stynowick Sacroiliitis, not elsewhere classified M46.1 [facility] [address] [place] [address] [place] [address] 08/18/2024 Baltazar Stynowick Sacroiliitis, not elsewhere classified M46.1 ; Radiculopathy, lumbar region M54.16 ; Postlaminectomy syndrome, not elsewhere classified M96.1 ; Radiculopathy, cervical region M54.12 ; Radiculopathy, cervicothoracic region M54.13 ; FCI (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.01 and FCI (current) use of opiate analgesic Z79.891 [facility] [place] [address] [place] [address] 2024 Baltazar Stynowick Radiculopathy, lumba r region M54.16 ; Spinal stenosis, lumbar region with neurogenic claudication M48.062 and 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 [facility] [place] [address] [place], [place] [address], [place] [address] 09/01/2024 Baltazar Stynowick [facility] [address] [place] [address] [place] [address] 09/16/2024 Baltazar Stynowick Radiculopathy, lumba r region M54.16 ; Spinal stenosis, lumbar region with neurogenic claudication M48.062 ; 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 ; Postlaminectomy syndrome, not elsewhere classified M96.1 and Radiculopathy, cervicothoracic region M54.13 [facility] [address] [place] [address] [place] [address] 10/06/2024 Baltazar Stynowick Radiculopathy, lumba r region M54.16 ; Radiculopathy, cervical region M54.12 ; Spinal stenosis, lumbar region with neurogenic claudication M48.062 ; 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 ; Postlaminectomy syndrome, not elsewhere classified M96.1 ; Radiculopathy, cervicothoracic region M54.13 and FCI (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.01 [facility] [address] [place] [address] [place] [address] 10/11/2024 Baltazar Stjesus [facility] [address] [place] [address] [place] [address] 10/26/2024 Baltazar Stynowick Radiculopathy, cervical region M54.12 ; Radiculopathy, cervicothoracic region M54.13 and Spinal stenosis, cervical region M48.02 [facility] [address] [place] [address] [place] [address] 11/03/2024 Baltazar Stynowick Radiculopathy, cervical region M54.12 ; Postlaminectomy syndrome, not elsewhere classified M96.1 ; Radiculopathy, lumbar region M54.16 ; Spinal stenosis, lumbar region with neurogenic claudication M48.062 ; 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 ; Radiculopathy, cervicothoracic region M54.13 and FCI (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.01 ASSESSMENTS Encounter Date Diagnosis Assessment Notes Treatment Notes Treatment Clinical Notes Section Notes 11/26/2023 Radiculopathy, cervical region (ICD-10 - M54.12) [...] to fully comply with the above. The [place] PDMP were reviewed and were appropriate 11/25/2023 Spondylosis without myelopathy or radiculopathy, 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.816) 11/25/2023 Spondylosis without myelopathy or radiculopathy, lumbosacral region (ICD-10 - M47.817) 12/28/2023 Radiculopathy, cervical region (ICD-10 - M54.12) [...] to fully comply with the above. The [facility] PDMP were reviewed and were appropriate 01/12/2024 [...] to fully comply with the above. The [facility] PDMP were reviewed and were appropriate [...] to fully comply with the above. The [place] were reviewed and were appropriate 09/16/2024 Radiculopathy, lumbar region (ICD-10 - M54.16) 09/16/2024 Spinal stenosis, lumbar region with neurogenic claudication (ICD-10 - M48.062) 2024 Radiculopathy, lumbar region (ICD-10 - M54.16) 2024 Spinal stenosis, lumbar region with neurogenic claudication (ICD-10 - M48.062) L4-L5 10/06/2024 Radiculopathy, cervical region (ICD-10 - M54.12) [...] 10/06/2024 Radiculopathy, lumbar region (ICD-10 - M54.16) 11/03/2024 Radiculopathy, cervical region (ICD-10 - M54.12) [...] to fully comply with the above. The [place] were reviewed and were appropriate 10/26/2024 Radiculopathy, cervical region (ICD-10 - M54.12) 10/26/2024 Radiculopathy, cervicothoracic region (ICD-10 - M54.13) 04/12/2024 Radiculopathy, lumbar region (ICD-10 - M54.16) [...] to fully comply with the above. The [facility] PDMP were reviewed and were appropriate 04/20/2024 Sacroiliitis, not elsewhere classified (ICD-10 - M46.1) 04/14/2024 Radiculopathy, lumbar region (ICD-10 - M54.16) [...] to fully comply with the above. The [facility] PDMP were reviewed and were appropriate 05/12/2024 Sacroiliitis, not elsewhere classified (ICD-10 - [...] to fully comply with the above. The [facility] PDMP were reviewed and were appropriate [...] to fully comply with the above. The [facility] PDMP were reviewed and were appropriate 07/14/2024 Radiculopathy, lumbar region (ICD-10 - M54.16) [...] to fully comply with the above. The [facility] PDMP were reviewed and were appropriate 06/29/2024 Radiculopathy, cervical region (ICD-10 - M54.12) 06/29/2024 Connective tissue and disc stenosis of intervertebral foramina of upper extremity (ICD-10 - M99.77) 07/06/2024 Radiculopathy, cervical region (ICD-10 - M54.12) 07/29/2024 Sacroiliitis, not elsewhere classified (ICD-10 - M46.1) 07/06/2024 Connective tissue and disc stenosis of intervertebral foramina of upper extremity (ICD-10 - M99.77) 07/20/2024 Radiculopathy, cervical region (ICD-10 - M54.12) 07/20/2024 Connective tissue and disc stenosis of intervertebral foramina of upper extremity (ICD-10 - M99.77) 08/18/2024 Sacroiliitis, not elsewhere classified (ICD-10 - [...] to fully comply with the above. The [place] PD[place] were reviewed and [...] to fully comply with the above. The [place] PD[place] were reviewed and were appropriate 03/16/2024 Osseous stenosis of neural canal of lumbar region (ICD-10 - M99.33) 03/17/2024 Radiculopathy, cervical region (ICD-10 - M54.12) 04/12/2024 Sacroiliitis, not elsewhere classified (ICD-10 - M46.1) 04/14/2024 Sacroiliitis, not elsewhere classified (ICD-10 - [...] 04/14/2024 Radiculopathy, cervical region (ICD-10 - M54.12) 05/12/2024 Radiculopathy, cervical region (ICD-10 - M54.12) 06/16/2024 Sacroiliitis, not elsewhere classified (ICD-10 - M46.1) 07/14/2024 Sacroiliitis, not elsewhere classified (ICD-10 - [...] 06/29/2024 Radiculopathy, cervicothoracic region (ICD-10 - M54.13) 07/06/2024 Spinal stenosis, cervical region (ICD-10 - M48.02) 07/20/2024 Spinal stenosis, cervical region (ICD-10 - M48.02) 08/18/2024 Postlaminectomy syndrome, not elsewhere classified (ICD-10 - M96.1) 09/16/2024 Osseous stenosis of neural canal of lumbar region (ICD-10 - M99.33) 2024 Osseous stenosis of neural canal of lumbar region (ICD-10 - M99.33) 10/06/2024 Spinal stenosis, lumbar region with neurogenic claudication (ICD-10 - M48.062) 11/03/2024 Radiculopathy, lumbar region (ICD-10 - M54.16) 10/26/2024 Spinal stenosis, cervical region (ICD-10 - M48.02) 01/25/2024 Spondylosis without myelopathy or radiculopathy, 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.816) 01/12/2024 Radiculopathy, cervicothoracic region (ICD-10 - M54.13) 11/26/2023 Spondylosis without myelopathy or radiculopathy, 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.816) 12/28/2023 Spondylosis without myelopathy or radiculopathy, 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.816) 02/22/2024 Sacroiliitis, not elsewhere classified (ICD-10 - M46.1) 11/03/2024 Spinal stenosis, lumbar region with neurogenic claudication (ICD-10 - M48.062) 01/25/2024 Sacroiliitis, not elsewhere classified (ICD-10 - M46.1) 10/06/2024 Osseous stenosis of neural canal of lumbar region (ICD-10 - M99.33) 01/12/2024 Spinal stenosis, cervical region (ICD-10 - M48.02) 09/16/2024 Postlaminectomy syndrome, not elsewhere classified (ICD-10 [...] to fully comply with the above. The [place] PDMP were reviewed and were appropriate 03/17/2024 Spondylosis without myelopathy or radiculopathy, 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.816) 08/18/2024 Radiculopathy, cervical region (ICD-10 - M54.12) 12/28/2023 Sacroiliitis, not elsewhere classified (ICD-10 - M46.1) 04/12/2024 Radiculopathy, cervical region (ICD-10 - M54.12) 07/14/2024 Spondylosis without myelopathy or radiculopathy, 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.816) 04/14/2024 Spondylosis without myelopathy or radiculopathy, 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.816) 06/16/2024 Spondylosis without myelopathy or radiculopathy, 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.816) 11/26/2023 Sacroiliitis, not elsewhere classified (ICD-10 - M46.1) 05/12/2024 Spondylosis without myelopathy or radiculopathy, lumbar [...] or radiculopathy, 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.816) 11/03/2024 Osseous stenosis of neural canal of [...] to fully comply with the above. The [place] PDMP were reviewed and were appropriate 02/22/2024 Spinal stenosis, lumbar region with neurogenic claudication (ICD-10 - M48.062) L4-L5 12/28/2023 Spinal stenosis, lumbar region with neurogenic claudication (ICD-10 - M48.062) L4-L5 03/17/2024 Spinal stenosis, lumbar region with neurogenic claudication (ICD-10 - M48.062) L4-L5 09/16/2024 Radiculopathy, cervicothoracic region (ICD-10 - M54.13) 11/26/2023 Spinal stenosis, lumbar region with neurogenic claudication (ICD-10 - M48.062) L4-L5 08/18/2024 Radiculopathy, cervicothoracic region (ICD-10 - M54.13) 02/22/2024 Postlaminectomy syndrome, not elsewhere classified (ICD-10 - M96.1) Right L4 decompression 03/17/2024 Postlaminectomy syndrome, not elsewhere classified (ICD-10 - M96.1) Right L4 decompression 04/12/2024 Spinal stenosis, lumbar region with neurogenic claudication (ICD-10 - M48.062) L4-L5 05/12/2024 Postlaminectomy syndrome, not elsewhere classified (ICD-10 [...] 10/06/2024 Radiculopathy, cervicothoracic region (ICD-10 - M54.13) 07/14/2024 Postlaminectomy syndrome, not elsewhere classified (ICD-10 - M96.1) Right L4 decompression 11/03/2024 Radiculopathy, cervicothoracic region (ICD-10 - M54.13) 08/18/2024 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) 03/17/2024 Spondylosis without myelopathy or radiculopathy, 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) 05/12/2024 Other intervertebral disc degeneration, lumbar region (ICD-10 - M51.36) 01/25/2024 Other intervertebral disc degeneration, lumbar region (ICD-10 - M51.36) 04/14/2024 Other intervertebral disc degeneration, lumbar region (ICD-10 - M51.36) 12/28/2023 Other intervertebral disc degeneration, lumbar region (ICD-10 - M51.36) 11/26/2023 Other intervertebral disc degeneration, lumbar region (ICD-10 - M51.36) 03/17/2024 [facility] (current) use of opiate analgesic (ICD-10 - Z79.891) 02/22/2024 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 Praada. I have discussed and reviewed all of [...] SAFETY CONCERNS HAVE BEEN ADDRESSED. RN initials SHUBHAM 09/16/2024 Other The above-named patient was evaluated [...] SAFETY CONCERNS HAVE BEEN ADDRESSED. RN initials 11/03/2024 Other The above-named patient was evaluated [...] MRI : Cervical Spine without Contrast ([id number]) 09/18/2022 [facility] 10/10/2022 [facility] 04/14/2022 [facility] 03/06/2023 [facility] 07/07/2023 [facility] 10/01/2023 [facility] 01/25/2024 [facility] 05/12/2024 [facility] 08/18/2024 Next Appt Details Provider Name:Baltazar navarrete, 11/23/2024 07:30:00 AM, [address] [facility], [place], [address], Provider Name:Baltazar navarrete, 12/02/2024 08:30:00 AM, [address] [facility] [place], [address], Insurance Providers Payer Name Payer Address Payer Phone Subscriber Number Group Number Insured Name Patient Relationship to Insured Coverage Start Date Coverage End Date [facility] MEDICARE ADVANTAGE (PPO) [address] [address] [place] [phone] [id number] LICHA MALAGON Self - patient is the insured 7 MEDICAL (GENERAL) HISTORY Medical History History ICD Code Hypertension Osteoarthritis CHF Surgical History Surgery Date(Month/Year) Coronary stent 05/31/07
--- OUTSIDE RECORDS SUMMARY | 2024-11-18 09:46 | XMS_ITS | Clinical Summary ---
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 Gender Identity Not on file Sexual Orientation Not on file Last Filed Vital Signs Vital Sign Reading Time Taken Comments Blood Pressure 128/76 04/23/2010 1:18 PM HOSPITAL SALES REPRESENTATIVE Pulse 64 04/23/2010 1:18 PM HOSPITAL SALES REPRESENTATIVE Temperature 36.8 C (98.3 F) 04/23/2010 1:18 PM HOSPITAL SALES REPRESENTATIVE Respiratory Rate 14 04/23/2010 1:18 PM HOSPITAL SALES REPRESENTATIVE Oxygen Saturation - - Inhaled Oxygen Concentration - - Weight 64 kg (141 lb) 04/23/2010 1:18 PM HOSPITAL SALES REPRESENTATIVE Height 157.5 cm (5' 2) 04/23/2010 1:18 PM HOSPITAL SALES REPRESENTATIVE Body Mass Index 25.79 04/23/2010 1:18 PM HOSPITAL SALES REPRESENTATIVE Plan of Treatment Health Maintenance Due Date Last Done Comments DTAP/TDAP/TD VACCINES (1 - Tdap) 09/01/1963 PNEUMOCOCCAL VACCINE 50+ YEARS (1 of 1 - PCV) 08/31/18 95 ZOSTER VACCINE (1 of 2) 1994 OSTEOPOROSIS SCREENING 2009 RSV VACCINE (60+ or ) (1 - 1-dose 75+ series) 09/01/2019 INFLUENZA VACCINE (#1) 2024 Insurance [facility] [place] [id number] [facility] OPTIONS PPO [id number] MEDICARE PART A AND B [facility] [place] [id number] Care Teams Machine Loader Relationship Specialty Start Date End Date Bhanu Hinojosa MD [address] [place] [address] PCP - General 02/13/15
--- OUTSIDE RECORDS SUMMARY | 2024-11-18 09:46 | XMS_ITS | Clinical Summary ---
Author Organization [facility] Address [facility] [place] [address] Care Team Providers Care Adjunct Mathematics Instructor Name Role Phone Bhanu Hinojosa MD Primary Care Provider [phone] Allergies Active Allergy Reactions Criticality Noted Date [...] DME,Indications: COPD (chronic obstructive pulmonary disease) ([facility]),Hypoxia 1 Device by Nasal route continuous. Nasal cannula. 2L at rest and 3L with activity. Portable Oxygen Concentrator with Pulse Settings. Stationary Concentrator. 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
[2024-11-19 15:04] LABS: Parathyroid Intact 45.5
== END 2024-11-18 09:41 | disposition home or self-care (01) ==
LOC: CHSLAB 09:44
PROVIDERS: PCP Internal Medicine; Visit Provider Otolaryngology
DX: D35.1 Benign neoplasm of parathyroid gland (principal)
CPT/HCPCS: 36415; 83970

== ENCOUNTER 2024-12-09 15:59 | Inpatient (IN) | payer MEDICARE, SELFPAY ==
--- OUTSIDE RECORDS SUMMARY | 2024-08-18 04:00 | XMS_ITS ---
Author Organization [facility] Address [address] [place] [address] [place] [id number] Care Team Providers Care Innersole Fitter Name Role Phone MARIMAR LUGO [facility] Primary Care Provider Baltazar Rivas Unavailable [phone] ALLERGIES Allergen (clinical drug ingredient) Drug/Non Drug [...] Duration) Notes Start Date End Date Status Rosuvastatin Calcium 20 MG 1 tablet Oral Once a day Active Claritin 10 MG 1 tablet Orally Once a day Active Levothyroxine Sodium 50 MCG 1 tablet on an empty stomach in the morning Orally Once a day Active Propranolol HCl ER 60 MG 1 capsules oral ly twice a day Active Estradiol 2 MG 1 tablet Oral Once a day Active Benadryl 25 MG 1 capsule as needed Orally every 8 hrs Active Anoro Ellipta 62.5-25 MCG/INH 1 puff Inhalation Once a day Active Aspirin EC 325 MG 1 tablet Orally Once a day Active Vitamin D 1000 UNIT 1 tablet Orally Once a day Active Ramipril 10 MG 1 capsule Orally Twi ce a day Active Albuterol Sulfate HFA 108 (90 Base) MCG/ACT 1 puff as needed Inhalation every 4 hrs Active hydrALAZINE HCl 25 MG 1 tablet with food Oral Four times a day Active Narcan 4 MG/0.1ML 1 actuation in one nostril x1, Nasally 2-3 minutes as needed until the patient is responsive or EMS arrives Active valACYclovir HCl 1 GM 1 tablet Oral Once a day Active busPIRone HCl 10 MG 1 tablet Oral Twice a day Active Percocet 10-325 MG 1 tablet as needed Orally up to 4x/day severe pain for 30 days 08/18/2024 Active Furosemide 20 MG TAKE 1 TABLET BY JULIETH TH EVERY MORNING Oral for 90 Active Montelukast Sodium 10 MG 1 tablet Oral Once a day Active Nebivolol HCl 20 MG TAKE 1 TABLET BY JULIETH TH EVERY DAY Oral for 90 Active Potassium Chloride ER 10 MEQ TAKE 1 TABL ET BY MOUTH EVERY DAY Oral for 90 Active Ventolin HFA 108 (90 Base) MCG/ACT 1 puff as needed Inhalation every 4 hrs Active Trelegy Ellipta 100-62.5-25 MCG/ACT 1 puff Inhalation Once a day Active Medrol 4 MG as directed Orally 05/13/2021 Active FLUoxetine HCl 20 MG 1 capsule Orally On ce a day for 30 day(s) Active Esomeprazole Magnesium 40 MG 1 capsule O ral Once a day Active [id number] Ethyl Esters 1 GM 2 capsules Oral Twice a day Active SOCIAL HISTORY Tobacco Use: [...] Additional Findings: Tobacco Non-User Current no n-smoker Section Notes: The patient is retired. She is . She quit smoking in 2007. She denies alcohol or drug abuse. VITAL SIGNS Blood pressure systolic 191 mm Hg 08/19/19 25 Blood pressure diastolic 87 mm Hg 025 Heart Rate 62 /min 08/18/2024 Respiratory Rate 17 /min 08/18/2024 Height 62 in 08/18/2024 Weight 120 lbs 08/18/2024 BMI 21.95 kg/m2 08/18/2024 Encounters Encounter Location Date Provider Diagnosis [facility] [address] [facility] [place] [id number] 08/18/2024 Baltazar Parada Sacroiliitis, not elsewhere classified M46.1 ; Radiculopathy, lumbar region M54.16 ; Postlaminectomy syndrome, not elsewhere classified M96.1 ; Radiculopathy, cervical region M54.12 ; Radiculopathy, cervicothoracic region M54.13 ; registered nurse (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.01 and registered nurse (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 of opiate analgesic Z79.891 ASSESSMENTS Encounter Date Diagnosis Assessment Notes Treatment Notes Treatment Clinical Notes Section Notes 08/18/2024 Sacroiliitis, not elsewhere classified (ICD-10 - M46.1) 08/18/2024 Radiculopathy, lumbar region (ICD-10 - M54.16) Schedule a bilateral L4-5 transforaminal epidural steroid injection. The risks of [...] comply with the above. 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 08/18/2024 senior living (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 of opiate analgesic (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 08/18/2024 Other The patient was advised to follow up with her primary care physician or emergency room regarding her high blood pressure. Patient verbalized understanding The above-named patient was evaluated in conjunction [...] This note was dictated by TOPHER Uriostegui Total time spent with patient and medical decision making 25 minutes PLAN OF TREATMENT Medication Medication Name Sig Start Date Stop Date Notes Percocet 10-325 MG 1 tablet as needed O rally up to 4x/day severe pain for 30 days 08/18/2024 Treatment Notes Assessment Notes Radiculopathy, lumbar region Schedule a bilateral L4-5 transforaminal epidural steroid injection. The risks of [...] comply with the above. The [place] and [place] PDMP were reviewed and were appropriate senior living (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 of anticoagulant s The patient was instructed to discontinue aspirin for 6 days and fish oil for 10 days prior to the procedure. I made the patient aware that they will be at an increased risk for a thromboembolic event during this time and they are willing to accept this risk. 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 senior living (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 of o piate analgesic The patient submitted a urine sample for drug screening to ensure compliance. Other The patient was advised to follow up with her primary care physician or emergency room regarding her high blood pressure. Patient verbalized understanding The above-named patient was evaluated in conjunction [...] This note was dictated by TOPHER Uriostegui Total time spent with patient and medical decision making 25 minutes Pending Test Test Name Order Date CT Scan : L-S Spine W/O Contrast 025 Next Appt Details Follow Up: Bilat L4-5 TFE, R torrie: Provider Name:Baltazar navarrete, 12/14/2024 08:00:00 AM, [address] [place], [address], Provider Name:Baltazar navarrete, 01/09/2025 09:00:00 AM, [address] [place], [address], Progress Notes * Examination Category Sub-Category Detail Notes Category Not es Examination/ Pre-Anesthesia Assessment General: The patient is alert and artem ented X 3 in moderate distress secondary to pain UDS 05/12/24 compliant HEENT: Normocephalic, atrau matic. PERRL. The oropharynx [...] axial low back pain. Thigh thrust test, Faber's and Gaenslen's are positive bilaterally. There is [...] of Present Illness) Category Sub-Category Detail Notes Category Not es Pain Management Radiographic Imaging Lumbar spin e [...] bilateral facet arthropathy. Mild bilateral neuroforaminal stenosis , Lumbar spine MRI without contrast 10/15/2015: L3-4: [...]
--- OUTSIDE RECORDS SUMMARY | 2024-08-31 04:30 | XMS_ITS ---
Author Organization [facility] Address [address] [place] [address] [place] [address] Care Team Providers Care Assistant Corporate Secretary Name Role Phone MARIMAR LUGO [facility] Primary Care Provider Baltazar Rivas Unavailable [phone] ALLERGIES Allergen (clinical drug ingredient) Drug/Non Drug [...] FOR VISIT Right > Left Low Back Pain, Right > Left Lower Extremity Pain MEDICATIONS Medication SIG (Take, Route, Frequency, Duration) Notes Start Date End Date Status Furosemide 20 MG TAKE 1 TABLET BY JULIETH TH EVERY MORNING Oral for 90 Active Potassium Chloride ER 10 MEQ TAKE 1 TABL ET BY MOUTH EVERY DAY Oral for 90 Active Nebivolol HCl 20 MG TAKE 1 TABLET BY JULIETH TH EVERY DAY Oral for 90 Active Percocet 10-325 MG 1 tablet as needed Orally up to 4x/day severe pain for 30 days 08/18/2024 Active Montelukast Sodium 10 MG 1 tablet Oral Once a day Active Esomeprazole Magnesium 40 MG 1 capsule O ral Once a day Active FLUoxetine HCl 20 MG 1 capsule Orally On ce a day for 30 day(s) Active Medrol 4 MG as directed Orally 05/13/2021 Active Trelegy Ellipta 100-62.5-25 MCG/ACT 1 puff Inhalation Once a day Active Ventolin HFA 108 (90 Base) MCG/ACT 1 puff as needed Inhalation every 4 hrs Active Claritin 10 MG 1 tablet Orally Once a day Active Estradiol 2 MG 1 tablet Oral Once a day Active Propranolol HCl ER 60 MG 1 capsules oral ly twice a day Active Rosuvastatin Calcium 20 MG 1 tablet Oral Once a day Active Uopky-8-ivsh Ethyl Esters 1 GM 2 capsules Oral Twice a day Active Vitamin D 1000 UNIT 1 tablet Orally Once a day Active Anoro Ellipta 62.5-25 MCG/INH 1 puff Inhalation Once a day Active Benadryl 25 MG 1 capsule as needed Orally every 8 hrs Active Aspirin EC 325 MG 1 tablet Orally Once a day Active Levothyroxine Sodium 50 MCG 1 tablet on an empty stomach in the morning Orally Once a day Active busPIRone HCl 10 MG 1 tablet Oral Twice a day Active valACYclovir HCl 1 GM 1 tablet Oral Once a day Active hydrALAZINE HCl 25 MG 1 tablet with food Oral Four times a day Active Albuterol Sulfate HFA 108 (90 Base) MCG/ACT 1 puff as needed Inhalation every 4 hrs Active Ramipril 10 MG 1 capsule Orally Twi ce a day Active Narcan 4 MG/0.1ML 1 actuation in one nostril x1, Nasally 2-3 minutes as needed until the patient is responsive or EMS arrives Active VITAL SIGNS Blood pressure systolic 171 mm Hg 09/01/19 25 Blood pressure diastolic 94 mm Hg 025 Heart Rate 67 /min 2024 Respiratory Rate 18 /min 2024 Height 62 in 2024 Weight 120 lbs 2024 BMI 21.95 kg/m2 2024 Oximetry 89 % 2024 Post Op Vitals: BP 186/84, H R 59, RR 18, Spo2 91% (on supplemental O2 via nasal cannula)Discharged to home with self, ambulatory with walker assistance at baseline, and in no acute distress. 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 Obtain informed consent: Bilateral Lumbar 4-5 Transforaminal Epidural Steroid Injection under fluoroscopy. Monitor [...] for infection: Implements aseptic technique, protects from cross-contaminatio n, performs skin preparations. Pain/Discomfort: Patient verbalizes acceptable level of pain relief prior to discharge and the ability to engage in desired activity. I HAVE REVIEWED THE PATIENT'S MEDICATION LIST AND HAVE RECONCILED THE ABOVE MEDICATIONS. PATIENT GOALS AND SAFETY CONCERNS HAVE BEEN ADDRESSED. RN initials JW PLAN OF TREATMENT Treatment Notes Assessment Notes Other The patient voiced understanding of the treatment plan and all questions were addressed. Obtain informed consent: Bilateral Lumbar 4-5 Transforaminal Epidural Steroid Injection under fluoroscopy. Monitor [...] SAFETY CONCERNS HAVE BEEN ADDRESSED. RN initials JW Next Appt Details Follow Up: F/U 09/16/24, Reas on: Provider Name:Baltazar navarrete, 12/14/2024 08:00:00 AM, [address] [place] [address], [phone], Provider Name:Baltazar navarrete, 01/09/2025 09:00:00 AM, [address] [place] [address], [phone], Procedure Notes * Category Sub-Category Detail Notes Transforaminal Epidural Steroid Injection Locati on Bilateral Levels L4-5 Anesthesia Local without IV sed ation Operative Technique After the risks, jorge efits, alternative treatment options and potential complications related to the procedure were discussed, informed consent was obtained. The specific risks of this procedure including pain, bleeding, [...] agreeable to proceeding at this time. The patient was placed in the prone position on the fluoroscopy table and standard ASA monitors were applied. The back was prepped and draped in the usual sterile fashion with chlorhexidine 2%/IPA 70%. The c-arm was obliqued and tilted to identify the left L4-5 neural foramen and a 23 gauge 3.5 inch spinal needle was inserted under fluoroscopic guidance towards the junction of the inferior endplate and superior articular process until the superior articular process was contacted. A lateral view was taken and the needle tip was advanced into the posterior aspect of the neuroforamen. The subcutaneous structures were anesthetized with 3 mL of 1% Preservative-Free lidocaine during needle placement. An AP view was taken and after negative aspiration for blood, air or CSF, 2 mLs of Omnipaque 240 contrast dye was injected under live fluoroscopy for an epidurogram showing good spread within the epidural space and along the selected nerve root (except in cases of contrast allergy). No intravascular or intrathecal spread was noted. A solution of 10 mg of Preservative-Free Dexamethasone (10 mg/mL), plus 3 mL of 0.25% Preservative-Free bupivacaine was mixed and after negative aspiration 2 mL of this solution was slowly injected into the epidural space. The c-arm was obliqued and tilted to identify the right L4-5 neural foramen and a 23 gauge 3.5 inch spinal needle was inserted under fluoroscopic guidance towards the junction of the inferior endplate and superior articular process until the superior articular process was contacted. A lateral view was taken and the needle tip was advanced into the posterior aspect of the neuroforamen. The subcutaneous structures were anesthetized with 3 mL of 1% Preservative-Free lidocaine during needle placement. An AP view was taken and after negative aspiration for blood, air or CSF, 2 mLs of Omnipaque 240 contrast dye was injected under live fluoroscopy for an epidurogram showing good spread within the epidural space and along the selected nerve root (except in cases of contrast allergy). No intravascular or intrathecal spread was noted. From the solution of 10 mg of Preservative-Free Dexamethasone (10 mg/mL), plus 3 mL of 0.25% Preservative-Free bupivacaine, 2 mL of this solution was slowly injected into the epidural space. The needles were removed, the skin was cleaned and band-aids were placed over the puncture sites. The patient tolerated the procedure well, was able to ambulate without difficulty and was monitored for 20 minutes. Patient reports an 80% reduction in typical pain immediately postprocedure. The patient remained hemodynamically and neurologically stable. No apparent complications were observed. Postoperative instructions were reviewed with the patient. 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 X-ray time: 17 seconds Safe Surgery Practices First Critical Point Roro ent identified by verbal and ID band. Surgical site marked. Assessement of allergies, airway and aspiration risk. Assessed if patient is on anticoagulant. Operataive Consent signed. Patient has discussed procedure with physician Татьяна Mark2024 9:19:40 AM > Second Critical Point TIME OUT: Confirm patient identity, procedure and surgical incision site. Patient in proper position and safety straps placed appropriately. ASA score: 3 Fire Risk Score:2 . Alcohol based prep solution had significant time for fumes to dissipate. Confirm surgical steam plant operator and roles. Anticipated critical events. Essential imaging displayed as appropriate. Fluoroscopy precautions taken if applicable. Equipment and supplies in room. Verify patient is not if applicable Татьяна Mark 2024 9:19:43 AM > Third Critical Point SAFE SURGERY PRACTI EFFIE-POST: [...] discharged ambulatory. Patient denies complaints or questions Татьяна Mark 2024 10:20:55 AM > Progress Notes * Examination Category Sub-Category Detail Notes Category Not es Examination/ Pre-Anesthesia Assessment General: The patient is alert and artem ented X 3 in moderate distress secondary to pain , The patient is alert and oriented X 3 in moderate distress secondary to pain UDS 05/12/24 compliant UDS 05/12/24 compliant HEENT: Normocephalic, atrau matic. PERRL. The oropharynx is clear , Normocephalic, atraumatic. PERRL. The oropharynx is clear Neck: There [...] the body of the trapezius muscles bilaterally , There is limited range of motion of the cervical spine to [...] bilaterally Heart: Regular rate and rhy thm , Regular rate and rhythm Chest: Clear to auscultatio n bilaterally , Clear to auscultation bilaterally Abdomen: Soft and benign , So ft and benign Musculoskeletal and Extremities: There i s tenderness to palpation over the bilateral L2-3 through L5-S1 facet joints. Extension and lateral rotation of the lumbar spine reproduces the patient's typical axial low back pain. Thigh thrust test, [place]'s and Gaenslen's are positive bilaterally. There is severe tenderness palpation over the Right sacroiliac joints. There is tenderness to palpation over the bilateral lumbar paraspinal muscles and palpable myofascial trigger points throughout. There is weakness and atrophy of the bilateral lumbar paraspinal muscles , There is tenderness to palpation over the bilateral L2-3 through L5-S1 facet joints. Extension and lateral rotation of the lumbar spine reproduces the patient's typical axial low back pain. Thigh thrust test, [place]'s and Gaenslen's are positive bilaterally. There is severe tenderness palpation over the Right sacroiliac joints. There is tenderness to palpation over the bilateral lumbar paraspinal muscles and palpable myofascial trigger points throughout. There is weakness and atrophy of the bilateral lumbar paraspinal muscles Neurological: There is positive st raight leg raising bilaterally, Spurling's sign is positive bilaterally , There is positive straight leg raising bilaterally, Spurling's sign is positive bilaterally Skin: Clean, dry and intac t. Midline low back and right buttock incision are well-healed , Clean, dry and intact. Midline low back and right buttock incision are well-healed Psychiatric: Mood and affect are normal , Mood and affect are normal History and [...]
--- OUTSIDE RECORDS SUMMARY | 2024-09-01 06:35 | XMS_ITS ---
Author Organization [facility] Address [address] [facility] [place] [address] Care Team Providers Care Enrollment Processor Name Role Phone AIMEE MINAYA MD Primary Care Provider UnavailBaltazar Buckley Unavailable [phone] REASON FOR VISIT Post Procedure Follow Up Call Encounters Encounter Location Date Provider Diagnosis [facility] [address] [place] [address] 09/01/2024 Baltazar Parada PLAN OF TREATMENT Next Appt Details Provider Name:Baltazar navarrete, 12/14/2024 08:00:00 AM, [address] [facility] [place], [place], [address], Provider Name:Baltazar navarrete, 01/09/2025 09:00:00 AM, [address] [facility] [place], [address],
--- OUTSIDE RECORDS SUMMARY | 2024-09-16 04:45 | XMS_ITS ---
Author Organization [facility] Address [address] [place] [address] [place] [address] Care Team Providers Care Computer Engineering Technician Name Role Phone MARIMAR LUGO [facility] Primary Care Provider Baltazar Rivas Unavailable [phone] ALLERGIES Allergen (clinical drug ingredient) Drug/Non Drug [...] Allergy Active REASON FOR VISIT Follow Up, Left > Right Low Back Pain, Left Lower Extremity Pain MEDICATIONS Medication SIG (Take, Route, Frequency, Duration) Notes Start Date End Date Status Furosemide 20 MG TAKE 1 TABLET BY JULIETH TH EVERY MORNING Oral for 90 Active Montelukast Sodium 10 MG 1 tablet Oral Once a day Active Percocet 10-325 MG 1 tablet as needed Orally up to 4x/day severe pain for 30 days 09/16/2024 Active Potassium Chloride ER 10 MEQ TAKE 1 TABL ET BY MOUTH EVERY DAY Oral for 90 Active Nebivolol HCl 20 MG TAKE 1 TABLET BY JULIETH TH EVERY DAY Oral for 90 Active Medrol 4 MG as directed Orally 05/13/2021 Active Trelegy Ellipta 100-62.5-25 MCG/ACT 1 puff Inhalation Once a day Active Ventolin HFA 108 (90 Base) MCG/ACT 1 puff as needed Inhalation every 4 hrs Active Esomeprazole Magnesium 40 MG 1 capsule O ral Once a day Active FLUoxetine HCl 20 MG 1 capsule Orally On ce a day for 30 day(s) Active Claritin 10 MG 1 tablet Orally Once a day Active Estradiol 2 MG 1 tablet Oral Once a day Active Rosuvastatin Calcium 20 MG 1 tablet Oral Once a day Active Unyuo-6-lptg Ethyl Esters 1 GM 2 capsules Oral Twice a day Active Propranolol HCl ER 60 MG 1 capsules oral ly twice a day Active Anoro Ellipta 62.5-25 MCG/INH 1 puff Inhalation Once a day Active Benadryl 25 MG 1 capsule as needed Orally every 8 hrs Active Aspirin EC 325 MG 1 tablet Orally Once a day Active Levothyroxine Sodium 50 MCG 1 tablet on an empty stomach in the morning Orally Once a day Active Vitamin D 1000 UNIT 1 tablet Orally Once a day Active hydrALAZINE HCl 25 MG 1 tablet with food Oral Four times a day Active Albuterol Sulfate HFA 108 (90 Base) MCG/ACT 1 puff as needed Inhalation every 4 hrs Active Ramipril 10 MG 1 capsule Orally Twi ce a day Active busPIRone HCl 10 MG 1 tablet Oral Twice a day Active valACYclovir HCl 1 GM 1 tablet Oral Once a day Active Narcan 4 MG/0.1ML 1 actuation in one nostril x1, Nasally 2-3 minutes as needed until the patient is responsive or EMS arrives Active SOCIAL HISTORY Tobacco Use: Social History [...] drug abuse. 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 ; Postlaminectomy syndrome, not elsewhere classified M96.1 and Radiculopathy, 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 The [place] and [place] PDMP were reviewed and were appropriate 09/16/2024 Radiculopathy, cervicothoracic region (ICD-10 - M54.13) 09/16/2024 Other The above-named patient was evaluated in [...] to 4x/day severe pain for 30 days 09/16/2024 Treatment Notes Assessment Notes Postlaminectomy syndrome, no t elsewhere classified The side effects of opioid analgesics including [...] to fully comply with the above. The [place] PDMP were reviewed and were appropriate Other The above-named patient was evaluated in [...] Makin minutes Next Appt Details Follow Up: 4 Weeks OPV, Reas on: Provider Name:Baltazar navarrete, 12/14/2024 08:00:00 AM, [address] [place], [address], Provider Name:Baltazar navarrete, 01/09/2025 09:00:00 AM, [address] [facility] [place], [address], Progress Notes * Examination Category Sub-Category Detail Notes Category Not es Examination/ Pre-Anesthesia Assessment General: The patient is alert and artem ented X 3 in moderate distress secondary to pain UDS 08/18/24 compliant HEENT: Normocephalic, atrau matic. PERRL. The [...] axial low back pain. Thigh thrust test, [place]'s and Gaenslen's are positive bilaterally. There is [...]
--- OUTSIDE RECORDS SUMMARY | 2024-10-06 04:30 | XMS_ITS ---
Author Organization [facility] Address [address] [place] [address] [place] Cifuentes [address] Care Team Providers Care Rack Pusher Name Role Phone MARIMAR LUGO [facility] Primary Care Provider Baltazar Rivas Unavailable [phone] ALLERGIES Allergen (clinical drug ingredient) Drug/Non Drug [...] 1 capsule Oral Once a day Active Gomnk-5-qnhb Ethyl Esters 1 GM 2 capsules Oral [...] Provider Diagnosis [facility] [address] [facility] [place] [address] 10/06/2024 Baltazar Parada Radiculopathy, lumba r region M54.16 ; Radiculopathy, cervical region M54.12 ; Spinal stenosis, lumbar region with neurogenic claudication M48.062 ; 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 The [place] and [place] PDMP were reviewed and were appropriate 10/06/2024 Radiculopathy, cervicothoracic region (ICD-10 - M54.13) 10/06/2024 USP (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 of 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 (ICD-10 - Z79.01) [...] to notify their primary care physician and/or applied technologist to obtain clearance prior to discontinuing this [...] to fully comply with the above. The [place] and [place] PDMP were reviewed and were appropriate USP (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 of anticoagulant s The patient [...] to notify their primary care physician and/or applied technologist to obtain clearance prior to discontinuing this [...] C7-T1, Reaso n: Provider Name:Baltazar Finn navarrete, 12/14/2024 08:00:00 AM, [address] [place], [address], Provider Name:Baltazar navarrete, 01/09/2025 09:00:00 AM, [address] [facility] [place], [address], Progress Notes * Examination Category Sub-Category Detail [...] axial low back pain. Thigh thrust test, [place]'s and Gaenslen's are positive bilaterally. There is [...]
--- OUTSIDE RECORDS SUMMARY | 2024-10-11 04:45 | XMS_ITS ---
Author Organization [facility] Address [address] [facility] [place] [address] Care Team Providers Care Four H Agent Name Role Phone MARIMAR LUGO [facility] Primary Care Provider Unavaila Baltazar Hawk Unavailable [phone] REASON FOR VISIT FOLLOW UP (LAST FILL 09/16/2024) Encounters Encounter Location Date Provider Diagnosis [facility] [address] [facility] [place] [address] 10/11/2024 Baltazar Parada PLAN OF TREATMENT Next Appt Details Provider Name:Baltazar navarrete, 12/14/2024 08:00:00 AM, [address] [facility] [address] [place], [address], Provider Name:Baltazar navarrete, 01/09/2025 09:00:00 AM, [address] [facility] [address], [place], [address],
--- OUTSIDE RECORDS SUMMARY | 2024-10-26 04:15 | XMS_ITS ---
Author Organization [facility] Address [address] [place] [address] [place] [address] Care Team Providers Care Carton Marker Machine Name Role Phone MARIMAR LUGO [facility] Primary Care Provider Baltazar Rivas Unavailable [phone] ALLERGIES Allergen (clinical drug ingredient) Drug/Non Drug [...] 1 tablet Oral Once a day Active Xrccf-8-kkgc Ethyl Esters 1 GM 2 capsules Oral [...] distress. Encounters Encounter Location Date Provider Diagnosis [facility] SURGERY [address] [place] [address] 10/26/2024 Baltazar Parada Radiculopathy, cervical region M54.12 [...] 11/03/24 F/U, Lorri on: Provider Name:Baltazar navarrete, 12/14/2024 08:00:00 AM, [address] [place] [address], [phone], Provider Name:Baltazar navarrete, 01/09/2025 09:00:00 AM, [address] [place] [address], [phone], Procedure Notes * Category Sub-Category Detail Notes [...] discharged home in good condition with a driver salesman. X-ray time: 14 seconds Safe Surgery Practices [...] time for fumes to dissipate. Confirm surgical body team member and roles. Anticipated critical events. [...] axial low back pain. Thigh thrust test, [place]'s and Gaenslen's are positive bilaterally. There is [...]
--- OUTSIDE RECORDS SUMMARY | 2024-11-03 03:30 | XMS_ITS ---
Author Organization [facility] Address [address] [place] [address] [place] [address] Care Team Providers Care Divinity Professor Name Role Phone MARIMAR LUGO [facility] Primary Care Provider Baltazar Rivas Unavailable [phone] ALLERGIES Allergen (clinical drug ingredient) Drug/Non Drug [...] Unknown Drug Allergy Active REASON FOR VISIT follow up, Right = Left low back pain MEDICATIONS Medication SIG (Take, Route, Frequency, Duration) Notes Start Date End Date Status Percocet 10-325 MG 1 tablet as needed Orally up to 4x/day severe pain for 30 days MAY FILL 11/14/24 11/03/2024 Active Nebivolol HCl 20 MG TAKE 1 TABLET BY MOUTH EVERY DAY Oral for 90 Active Potassium Chloride ER 10 MEQ TAKE 1 TABLET BY MOUTH EVERY DAY Oral for 90 Active Montelukast Sodium 10 MG 1 tablet Oral Once a day Active Furosemide 20 MG TAKE 1 TABLET BY MOUTH EVERY MORNING Oral for 90 Active Esomeprazole Magnesium 40 MG 1 capsule Oral Once a day Active Trelegy Ellipta 100-62.5-25 MCG/ACT 1 puff Inhalation Once a day Active Ventolin HFA 108 (90 Base) MCG/ACT 1 puff as needed Inhalation every 4 hrs Active FLUoxetine HCl 20 MG 1 capsule Orally Once a day for 30 day(s) Active Medrol 4 MG as directed Orally 05/13/2021 Active Qwgav-4-lycw Ethyl Esters 1 GM 2 capsules Oral [...] the morning Orally Once a day Active Benadryl 25 [...] 1 capsule Orally Twice a day Active valACYclovir HCl 1 [...] drug abuse. VITAL SIGNS Blood pressure systolic 194 mm Hg 11/04/19 25 Blood pressure diastolic 88 mm Hg 025 Heart Rate 63 /min 11/03/2024 Respiratory Rate 16 /min 11/03/2024 Height 62 in 11/03/2024 Weight 121 lbs 11/03/2024 BMI 22.13 kg/m2 11/03/2024 Encounters Encounter Location Date Provider Diagnosis [facility] [address] [place] [address] 11/03/2024 Baltazar Parada Radiculopathy, cervical region M54.12 ; Postlaminectomy syndrome, not elsewhere classified M96.1 ; Radiculopathy, lumbar region M54.16 ; Spinal stenosis, lumbar region with neurogenic claudication M48.062 ; 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 ; Radiculopathy, cervicothoracic region M54.13 and residential (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.01 ASSESSMENTS Encounter Date Diagnosis Assessment Notes Treatment Notes Treatment Clinical Notes Section Notes 11/03/2024 Radiculopathy, cervical region (ICD-10 - M54.12) Schedule a cervical epidural steroid injection. The risks of this [...] is agreeable to proceeding at this time. 11/03/2024 Postlaminectomy syndrome, not elsewhere classified (ICD-10 - [...] comply with the above. 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 The risks of this [...] comply with the above. The [place] and [place] PDMP were reviewed and were appropriate Other [...] Makin minutes Next Appt Details Follow Up: VANDANA, Reason: Provider Name:Baltazar navarrete, 12/14/2024 08:00:00 AM, [address] [place] [address], [phone], Provider Name:Baltazar navarrete, 01/09/2025 09:00:00 AM, [address] [place] [address], [phone], Progress Notes * Examination Category Sub-Category Detail [...] axial low back pain. Thigh thrust test, [place]'s and Gaenslen's are positive bilaterally. There is [...]
--- OUTSIDE RECORDS SUMMARY | 2024-11-23 02:30 | XMS_ITS ---
Author Organization [facility] Address [address] [place] [address] [place] C[place]uent[place] [id number] Care Team Providers Care Chimney Builder Helper Name Role Phone [facility] LUGO [facility] Primary Care Provider Baltazar Rivas Unavailable [phone] ALLERGIES Allergen (clinical drug ingredient) Drug/Non Drug [...] Drug Allergy Active REASON FOR VISIT Right = Left Neck Pain, Right = Left Upper Extremity Pain MEDICATIONS Medication SIG (Take, Route, [...] MOUTH EVERY MORNING Oral for 90 Active Montelukast [...] 1 capsule Oral Once a day Active Gkita-3-imvl Ethyl Esters 1 GM 2 capsules Oral [...] denies alcohol or drug abuse. VITAL SIGNS Respiratory Rate 16 /min 11/23/2024 Height 62 in 11/23/2024 Weight 121 lbs 11/23/2024 BMI 22.13 kg/m2 11/23/2024 Post Op Vitals: BP , HR , RR 16, Spo2 %Discharged to home with self, ambulatory without assistance at baseline, and in no acute distress. Encounters Encounter Location Date Provider Diagnosis [facility] [address] [place] [address] 11/23/2024 Baltazar Viramontesick Radiculopathy, cervical region M54.12 ; Radiculopathy, cervicothoracic region M54.13 and Spinal stenosis, cervical region M48.02 ASSESSMENTS Encounter Date Diagnosis Assessment Notes Treatment Notes Treatment Clinical Notes Section Notes 11/23/2024 Radiculopathy, cervical region (ICD-10 - M54.12) 11/23/2024 Radiculopathy, cervicothoracic region (ICD-10 - M54.13) 11/23/2024 Spinal stenosis, cervical region (ICD-10 - M48.02) 11/23/2024 Other The patient voiced understanding of the [...] RN initials Next Appt Details Follow Up: FU OPV 12/02, [place] son: Provider Name:Baltazar Finn navarrete, 12/14/2024 08:00:00 AM, [address] [place] [address], [phone], Provider Name:Baltazar Briseno reggie landon, 01/09/2025 09:00:00 AM, [address] [place] [address], [phone], Procedure Notes * Category Sub-Category Detail Notes [...] 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 X-ray time: 15 seconds Safe Surgery Practices First Critical Point [...] and safety straps placed appropriately. ASA score: _3_ Fire Risk Score:_1_ . Alcohol based prep solution had significant [...] axial low back pain. Thigh thrust test, [place]'s and [place]ens[place]'s are positive bilaterally. There is [...]
--- OUTSIDE RECORDS SUMMARY | 2024-12-02 03:30 | XMS_ITS ---
Author Organization [facility] Address [address] [place] [address] [place] [address] Care Team Providers Care Construction Sales Manager Name Role Phone MARIMAR LUGO [facility] Primary Care Provider Baltazar Rivas Unavailable [phone] ALLERGIES Allergen (clinical drug ingredient) Drug/Non Drug [...] severe pain for 30 days MAY FILL 12/13/24 12/02/2024 Active Potassium Chloride ER 10 MEQ TAKE [...] 1 tablet Oral Once a day Active Naktz-1-ahol Ethyl Esters 1 GM 2 capsules Oral Twice a day Active Estradiol 2 [...] the morning Orally Once a day Active hydrALAZINE HCl 25 MG 1 tablet with food Oral Four times a day Active Albuterol Sulfate HFA 108 (90 Base) MCG/ACT 1 puff as needed Inhalation every 4 hrs Active Ramipril 10 MG 1 capsule Orally Twice a day Active busPIRone HCl 10 MG [...] drug abuse. VITAL SIGNS Blood pressure systolic 187 mm Hg 12/03/19 25 Blood pressure diastolic 96 mm Hg 025 Heart Rate 61 /min 12/02/2024 Respiratory Rate 18 /min 12/02/2024 Height 62 in 12/02/2024 Weight 122 lbs 12/02/2024 BMI 22.31 kg/m2 12/02/2024 Encounters Encounter Location Date Provider Diagnosis [facility] [address] 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 The [place] and [place] PDMP were reviewed and were appropriate 12/02/2024 Spondylosis without myelopathy or radiculopathy, lumbar region [...] is agreeable to proceeding at this time. 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 12/02/2024 Spondylosis without myelopathy or radiculopathy, lumbosacral region (ICD-10 - M47.817) 12/02/2024 Other The above-named patient was evaluated in [...] to 4x/day severe pain for 30 days 12/02/2024 MAY FILL 12/13/24 Treatment Notes Assessment Notes Postlaminectomy syndrome, no [...] to fully comply with the above. The [place] and [place] PDMP were reviewed and were appropriate Spondylosis without myelopat hy or radiculopathy, lumbar region Schedule a bilateral L3-5 radiofrequency ablation for [...] is agreeable to proceeding at this time. 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 Other The above-named patient was evaluated in [...] minutes Next Appt Details Follow Up: bilateral L3-5 RF A, Reason: Provider Name:Baltazar navarrete, 12/14/2024 08:00:00 AM, [address] [facility] [place], [address], Provider Name:Baltazar navarrete, 01/09/2025 09:00:00 AM, [address] [facility] [place], [address], Progress Notes * Examination Category Sub-Category Detail [...] axial low back pain. Thigh thrust test, [place]'s and Gaenslen's are positive bilaterally. There is [...] neuroforaminal stenosis Assessment and Follow-up: Follow-up Plan docrolly ellen:: Yes
[2024-12-09] VITALS (12 sets, daily range): BP systolic 171–197; BP diastolic 78–115; PULSE 64–74; RESP 16–21; TEMP 36.3–37; O2SAT 91–96; BMI 20.4
--- NOTE | ~2024-12-09 | CT_ITS ---
EXAMINATION: CT brain wo con DATE: 12/09/2024 16:33 INDICATION: Anterior headache. Nausea and vomiting. TECHNIQUE: Computed tomography (CT) of the head was performed without intravenous contrast. The mA was adjusted according to patient size. Iterative reconstruction technique was employed. The dose-length product was 605.33 mGy-cm. COMPARISON: Head CT 04/20/2024 FINDINGS: There are scattered areas of low attenuation in the cerebral white matter. There is no intracranial hemorrhage, acute infarction, or abnormal intracranial mass lesion. The ventricles are normal in size. There are likely changes of ocular lens replacement surgeries. There is complete opacification of basilar sinus with thickening and sclerosis of the sinus araujo, consistent with chronic sinusitis. There is a small left mastoid effusion. IMPRESSION: 1. Stable extensive nonspecific cerebral white matter disease, which likely represents chronic small vessel ischemic disease. 2. Chronic sinusitis. Reviewed, dictated and finalized at location E. IMPRESSION: 1. Stable extensive nonspecific cerebral white matter disease, which likely rep resents chronic small vessel ischemic disease. 2. Chronic sinusitis.
--- NOTE | ~2024-12-09 | XR_ITS ---
EXAMINATION: XR chest 1V portable COMPARISON: No comparisons available. HISTORY: anterior headache, nausea, vomiting, HTN x2 days FINDINGS: Small left basilar infiltrate and effusion. Mild pulmonary venous congestion. No pneumothorax. Mild cardiomegaly. Mediastinal and hilar contours are within normal limits. Bony thorax no acute abnormality. Miscellaneous: Spinal canal catheter is noted. Impression: CHF. Small left lower lobe pneumonia Reviewed, dictated and finalized at location P. Impression: CHF. Small left lower lobe pneumonia
--- NOTE | ~2024-12-09 | XR_ITS ---
EXAMINATION: XR chest 2V DATE: 12/12/2024 06:27 INDICATION: Pneumonia. Congestive heart failure. TECHNIQUE: frontal and lateral views of the chest were obtained. COMPARISON: Chest radiograph dated 12/09/2024 FINDINGS: Hyperexpansion lungs consistent with moderate emphysema better appreciated on prior CT. Chronic mild biapical pleural-parenchymal scarring. Chronic left lower lobe collapse with associated bronchiectasis. No new airspace opacities, pulmonary edema, pleural effusion or pneumothorax. Heart size is normal. Spinal stimulator leads project of the central canal the mid thoracic spine with distal tip at the level of T7. IMPRESSION: 1. Chronic left lower lobe collapse with associated bronchiectasis. 2. Emphysema with additional mild biapical pleural-parenchymal scarring. Reviewed, dictated and finalized at location A.
--- OUTSIDE RECORDS SUMMARY | 2024-12-09 16:01 | XMS_ITS | Patient Health Record ---
Author Organization [facility] Address [address] [facility] [place] [phone] Care Team Providers Care Pilates Coordinator Name Role Phone MARIMAR LUGO, [facility] Primary Care Provider Baltazar Rivas Unavailable [phone] ALLERGIES Allergen (clinical drug ingredient) Drug/Non Drug [...] Active RESULTS Component Value Reference Range Notes [facility] Results (Not yet reviewed by provider) Interpretation: Performing Lab:[id number] [facility], [address] [address] [facility] [address] Anali Gutiérrez MD Notes/Report: Acetyl fentanyl: Fentanyl [...] 100 ng/mL Tramadol Quantification negative 100 ng/mL O-duqjihmth-xlmcevek Quantification negative 100 n g/mL B-Dtewwdydk-Vxolxplt Quantification negative 100 n g/mL Alpha-Hydroxyalprazolam Quantification negative 20 ng/mL 3-Hprrv-Wkjnibzmgp Quantification negative 20 ng/m L Lorazepam Quantification [...] Mitragynine (Kratom alkaloid) Quantification negative 1 ng/mL 1-LH-Igzwwbdkwvk (Kratom alk aloid) Quantification negative 1 ng/mL Ethyl Glucuronide Quantification negative 500 ng/m L Ethyl Sulfate Quantification negative 500 ng/mL [facility] Results (Not yet reviewed by provider) Interpretation: Performing Lab:[id number] [facility], [address] [address] [facility] [address] Anali Gutiérrez MD Notes/Report: Acetyl fentanyl: Fentanyl [...] 100 ng/mL Tramadol Quantification negative 100 ng/mL B-shazfyszb-wkblwyir Quantification negative 100 n g/mL H-Ekrdahyot-Qmyvsfaw Quantification negative 100 n g/mL Alpha-Hydroxyalprazolam Quantification negative 20 ng/mL 6-Zfhvb-Rechebqslh Quantification negative 20 ng/m L Lorazepam Quantification [...] Mitragynine (Kratom alkaloid) Quantification negative 1 ng/mL 2-XJ-Mojiskqjcwi (Kratom alk aloid) Quantification negative 1 ng/mL Ethyl Glucuronide Quantification negative 500 ng/m L Ethyl Sulfate Quantification negative 500 ng/mL [facility] Results (Not yet reviewed by provider) Interpretation: Performing Lab:[id number] [place], [address] [address] [facility] [address] Anali Gutiérrez MD Notes/Report: Acetyl fentanyl: Fentanyl [...] 100 ng/mL Tramadol Quantification negative 100 ng/mL Z-uchixzlzm-gbjxoekf Quantification negative 100 n g/mL R-Ziaqjbrpm-Sztbtyfd Quantification negative 100 n g/mL Alpha-Hydroxyalprazolam Quantification negative 20 ng/mL 4-Ovgfx-Qnllibbtre Quantification negative 20 ng/m L Lorazepam Quantification [...] Mitragynine (Kratom alkaloid) Quantification negative 1 ng/mL 9-OH-Mlthqsfjpyc (Kratom alk aloid) Quantification negative 1 ng/mL Ethyl Glucuronide Quantification negative 500 ng/m L Ethyl Sulfate Quantification negative 500 ng/mL [facility] Results (Not yet reviewed by provider) Interpretation: Performing Lab:[id number] [place], [address] [address] [facility] [address] Anali Gutiérrez MD Notes/Report: Acetyl fentanyl: Fentanyl Negative. Acetyl norfentanyl: Fentanyl Negative. Acr yl fentanyl: Fentanyl Negative. Carfentanil: Fentanyl Negative. Para-fluorofent anyl: Fentanyl Negative. Codeine Quantification negative 50 ng/mL Morphine Quantification negative 50 ng/mL Hydrocodone Quantification negative 50 ng/mL Norhydrocodone Quantification negative 50 ng/mL Hydromorphone Quantification negative 50 ng/mL Oxycodone Quantification positive-6260.671 50 ng/mL Noroxycodone Quantification positive-> 6400 50 ng/mL Oxymorphone Quantification positive-440.293 50 ng/mL Fentanyl Quantification negative 1 ng/mL Norfentanyl Quantification negative 8 ng/mL Methadone Quantification negative 100 ng/mL EDDP (Methadone metabolite) Quantification negative 100 ng/mL Tramadol Quantification negative 100 ng/mL C-byqfvyprn-bwrqmrel Quantification negative 100 n g/mL R-Jrxxpskwr-Gmmbskae Quantification negative 100 n g/mL Alpha-Hydroxyalprazolam Quantification negative 20 ng/mL 5-Ylglf-Qguyegeijk Quantification negative 20 ng/m L Lorazepam Quantification [...] Mitragynine (Kratom alkaloid) Quantification negative 1 ng/mL 7-VT-Tuhlemokdpo (Kratom alk aloid) Quantification negative 1 ng/mL Ethyl Glucuronide Quantification negative 500 ng/m L Ethyl Sulfate Quantification negative 500 ng/mL REASON FOR REFERRAL No Information MEDICATIONS Medication SIG (Take, Route, Frequency, Duration) Notes Start Date End Date Status Gjceu-6-owjl Ethyl Esters 1 GM 2 capsules Oral Twice a day Active Esomeprazole Magnesium 40 MG 1 capsule Oral Once a day Active Rosuvastatin Calcium 20 MG 1 tablet Oral Once a day Active Benadryl 25 MG 1 capsule as needed Orally every 8 hrs Active Aspirin EC 325 MG 1 tablet Orally Once a day Active Vitamin D 1000 UNIT 1 tablet Orally Once a day Active Anoro Ellipta 62.5-25 MCG/INH 1 puff Inhalation Once a day Active Estradiol 2 MG 1 tablet Oral Once a day Active Propranolol HCl ER 60 MG 1 capsules orally twice a day Active Levothyroxine Sodium 50 MCG 1 tablet on an empty stomach in the morning Orally Once a day Active Claritin 10 MG 1 tablet Orally Once a day Active Percocet 10-325 MG 1 tablet as needed Orally up to 4x/day severe pain for 30 days MAY FILL 12/13/24 12/02/2024 Active Ramipril 10 MG 1 capsule Orally [...] 4 MG as directed Orally 05/13/2021 Active busPIRone HCl 10 MG 1 tablet Oral Twice a day Active Potassium Chloride ER 10 MEQ TAKE 1 TABLET BY MOUTH EVERY DAY Oral for 90 Active valACYclovir HCl 1 GM 1 tablet [...] (G89.4) Active confirmed Chronic julián n syndrome (809891644) Problem Essential (primary) hypertension (I10) Active confirmed Essential hypertension (14252492) Problem 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) Active confirmed Localized, primary osteoarthritis of the pelvic region and thigh (141905562) Problem Pain in unspecified hip (M25.559) Active confirmed Arthralgia of the pelvic region and thigh (523657660) Problem Sacroiliitis, not elsewhere classified (M46.1) Active confirmed Solitary sacroiliitis (260811939) Problem Spondylosis without myelopathy or radiculopathy, cervical region (M47.812) Active confirmed Cervical spondylosis without myelopathy (797828694) Problem Spondylosis without myelopathy or radiculopathy, lumbar region (M47.816) Active confirmed Lumbosacral spondylosis without myelopathy (98297352) Problem Spondylosis without myelopathy or radiculopathy, lumbosacral region (M47.817) Active confirmed Lumbosacral spondylosis without myelopathy (disorder) (23024687) Problem Spinal stenosis, cervical region (M48.02) Active confirmed Spinal stenosis in cervical region (89000388) Problem Intervertebral disc disorders with radiculopathy, lumbar region (M51.16) Active confirmed Radiculopathy due to lumbar intervertebral disc disorder (49807533068664 5) Problem Other intervertebral disc degeneration, 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 confirmed Degeneration of lumbar intervertebral disc (63380692) Problem Radiculopathy, cervical region (M54.12) Active confirmed Cervical radiculopathy (71725645) Problem Radiculopathy, cervicothoracic region (M54.13) Active confirmed Cervical radiculopathy (15185285) Problem Radiculopathy, lumbar region (M54.16) Active confirmed Lumbar radiculopathy (391155833) Problem Trochanteric bursitis, unspecified hip (M70.60) Active confirmed Enthesopathy of hip region (71887979) Problem Postlaminectomy syndrome, not elsewhere classified (M96.1) Active confirmed Post-laminectom y syndrome (59320924) Right L4 decompression Problem Osseous stenosis of neural canal of lumbar region (M99.33) Active confirmed Spinal stenosis of lumbar region (65597560) Problem Osseous and subluxation stenosis of intervertebral foramina of lumbar region (M99.63) Active confirmed Spinal stenosis of lumbar region (00150061) Problem 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) Active confirmed Connective tissue and disc stenosis of intervertebral foramina (822842622) Problem 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 project 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 (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 of 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 (Z79.01) Active confirmed Long-term current use of anticoagulant (378753988) Problem correction (current) use of opiate analgesic (Z79.891) Active confirmed High risk drug monitoring status (311927034) Problem Spinal stenosis, lumbar region with neurogenic claudication (M48.062) Active confirmed Neurogenic claudication (267164347) L4-L5 VITAL SIGNS Heart Rate 61 /min 12/02/2024 Respiratory Rate 18 /min 12/02/2024 Oximetry 89 % 2024 Post Op Vitals: BP 186/84, HR 59, RR 18, Spo2 91% (on supplemental O2 via nasal cannula) Discharged to home with self, ambulatory with walker assistance at baseline, and in no acute distress. Blood pressure diastolic 96 mm Hg 12/02/2024 Height 62 in 12/02/2024 Blood pressure systolic 187 mm Hg 12/02/2024 Weight 122 lbs 12/02/2024 BMI 22.31 kg/m2 12/02/2024 Encounters Encounter Location Date Provider Diagnosis [facility] [address] [place] [phone] 12/28/2023 Baltazar Stynowick Radiculopathy, cervical region M54.12 ; Radiculopathy, lumbar region M54.16 ; Spondylosis without myelopathy or radiculopathy, lumbar region M47.816 ; Sacroiliitis, not elsewhere classified M46.1 ; Spinal stenosis, lumbar region with neurogenic claudication M48.062 ; Postlaminectomy syndrome, not elsewhere classified M96.1 ; Spondylosis without myelopathy or radiculopathy, cervical region M47.812 ; correction (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.01 ; Other intervertebral disc degeneration, lumbar region M51.36 and correction (current) use of opiate analgesic Z79.891 [facility] [address] [place] [phone] 01/12/2024 Baltazar Stynowick Radiculopathy, cervical region M54.12 ; 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 ; Radiculopathy, cervicothoracic region M54.13 and Spinal stenosis, cervical region M48.02 [facility] [address] [place] [phone] 01/13/2024 Baltazar Stynowick [facility] [address] [place] [phone] 01/25/2024 Baltazar Stynowick Radiculopathy, cervical region M54.12 ; Radiculopathy, lumbar region M54.16 ; Spondylosis without myelopathy or radiculopathy, lumbar region M47.816 ; Sacroiliitis, not elsewhere classified M46.1 ; Spinal stenosis, lumbar region with neurogenic claudication M48.062 ; Postlaminectomy syndrome, not elsewhere classified M96.1 ; Spondylosis without myelopathy or radiculopathy, cervical region M47.812 ; correction (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.01 ; Other intervertebral disc degeneration, lumbar region M51.36 and 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 project manager (current) use of opiate analgesic Z79.891 [facility] [address] [place] [address] [place] [address] 01/25/2024 Baltazar Stynowick [facility] [address] [place] [phone] 02/22/2024 Baltazar Stynowick Radiculopathy, cervical region M54.12 ; Radiculopathy, lumbar region M54.16 ; Spondylosis without myelopathy or radiculopathy, lumbar region M47.816 ; Sacroiliitis, not elsewhere classified M46.1 ; Spinal stenosis, lumbar region with neurogenic claudication M48.062 ; Postlaminectomy syndrome, not elsewhere classified M96.1 ; Spondylosis without myelopathy or radiculopathy, cervical region M47.812 ; 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 project manager (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.01 ; Other intervertebral disc degeneration, lumbar region M51.36 and correction (current) use of opiate analgesic Z79.891 [facility] [address] [place] [address] [place] [address] 03/16/2024 Baltazar Stynowick Radiculopathy, lumba r region M54.16 ; Spinal stenosis, lumbar region with neurogenic claudication M48.062 and 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 [facility] [address] [place] [phone] 03/17/2024 Baltazar Stynowick Radiculopathy, lumba r region M54.16 ; Sacroiliitis, not elsewhere classified M46.1 ; Radiculopathy, cervical region M54.12 ; Spondylosis without myelopathy or radiculopathy, lumbar region M47.816 ; Spinal stenosis, lumbar region with neurogenic claudication M48.062 ; Postlaminectomy syndrome, not elsewhere classified M96.1 ; Spondylosis without myelopathy or radiculopathy, cervical region M47.812 ; correction (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.01 ; Other intervertebral disc degeneration, lumbar region M51.36 and correction (current) use of opiate analgesic Z79.891 [facility] [address] [address] 03/17/2024 Baltazar Stynowick [facility] [address] [place] [phone] 04/12/2024 Baltazar Stynowick Radiculopathy, lumba r region M54.16 ; Sacroiliitis, not elsewhere classified M46.1 ; Radiculopathy, cervical region M54.12 ; Spondylosis without myelopathy or radiculopathy, lumbar region M47.816 ; Spinal stenosis, lumbar region with neurogenic claudication M48.062 ; Postlaminectomy syndrome, not elsewhere classified M96.1 ; Spondylosis without myelopathy or radiculopathy, cervical region M47.812 ; 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 project manager (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.01 ; Other intervertebral disc degeneration, lumbar region M51.36 and 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 project manager (current) use of opiate analgesic Z79.891 [facility] [address] [place] [phone] 04/14/2024 Baltazar Stynowick Radiculopathy, lumba r region M54.16 ; Sacroiliitis, not elsewhere classified M46.1 ; Radiculopathy, cervical region M54.12 ; Spondylosis without myelopathy or radiculopathy, lumbar region M47.816 ; Spinal stenosis, lumbar region with neurogenic claudication M48.062 ; Postlaminectomy syndrome, not elsewhere classified M96.1 ; Spondylosis without myelopathy or radiculopathy, cervical region M47.812 ; correction (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.01 ; Other intervertebral disc degeneration, lumbar region M51.36 and correction (current) use of opiate analgesic Z79.891 [facility] [address] [phone] 04/20/2024 Baltazar Ststanleyick Sacroiliitis, not elsewhere classified M46.1 [facility] [address] [place] [address] [place] [address] 05/12/2024 Baltazar Ststanleyick Radiculopathy, lumba r region M54.16 ; Sacroiliitis, not elsewhere classified M46.1 ; Radiculopathy, cervical region M54.12 ; Spondylosis without myelopathy or radiculopathy, lumbar region M47.816 ; Spinal stenosis, lumbar region with neurogenic claudication M48.062 ; Postlaminectomy syndrome, not elsewhere classified M96.1 ; Spondylosis without myelopathy or radiculopathy, cervical region M47.812 ; 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 project manager (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.01 ; Other intervertebral disc degeneration, lumbar region M51.36 and correction (current) use of opiate analgesic Z79.891 [facility] [address] [place] [address] [place] [address] 06/16/2024 Baltazar Stynowick Radiculopathy, lumba r region M54.16 ; Radiculopathy, cervical region M54.12 ; Sacroiliitis, not elsewhere classified M46.1 ; Spondylosis without myelopathy or radiculopathy, lumbar region M47.816 ; Spinal stenosis, lumbar region with neurogenic claudication M48.062 ; Postlaminectomy syndrome, not elsewhere classified M96.1 ; Spondylosis without myelopathy or radiculopathy, cervical region M47.812 ; 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 project manager (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.01 ; Other intervertebral disc degeneration, lumbar region M51.36 ; correction (current) use of opiate analgesic Z79.891 and Essential (primary) hypertension I10 [facility] [address] [address] 06/29/2024 Baltazar Parada Radiculopathy, cervical region M54.12 ; 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 and Radiculopathy, cervicothoracic region M54.13 [facility] [address] [place] [phone] 07/06/2024 Baltazar Stynowick Radiculopathy, cervical region M54.12 ; 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 and Spinal stenosis, cervical region M48.02 [facility] [address] [place] [address] [place] [address] 07/14/2024 Baltazar Stynowick Radiculopathy, lumba r region M54.16 ; Radiculopathy, cervical region M54.12 ; Sacroiliitis, not elsewhere classified M46.1 ; Spondylosis without myelopathy or radiculopathy, lumbar region M47.816 ; Spinal stenosis, lumbar region with neurogenic claudication M48.062 ; Postlaminectomy syndrome, not elsewhere classified M96.1 ; Spondylosis without myelopathy or radiculopathy, cervical region M47.812 ; correction (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.01 ; Other intervertebral disc degeneration, lumbar region M51.36 ; 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 project manager (current) use of opiate analgesic Z79.891 and Essential (primary) hypertension I10 [facility] [address] [place] [phone] 07/20/2024 Baltazar Stynowick Radiculopathy, cervical region M54.12 ; 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 and Spinal stenosis, cervical region M48.02 [facility] [address] [address] 07/21/2024 Baltazar Stynowick [facility] [address] [place] [phone] 07/29/2024 Baltazar Stynowick Sacroiliitis, not elsewhere classified M46.1 [facility] [address] [place] [address] [place] [address] 08/18/2024 Baltazar Stynowick Sacroiliitis, not elsewhere classified M46.1 ; Radiculopathy, lumbar region M54.16 ; Postlaminectomy syndrome, not elsewhere classified M96.1 ; Radiculopathy, cervical region M54.12 ; Radiculopathy, cervicothoracic region M54.13 ; 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 project manager (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.01 and 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 project manager (current) use of opiate analgesic Z79.891 [facility] [address] [place] [address], [place] [address] 2024 Baltazar Stynowick Radiculopathy, lumba r region M54.16 ; Spinal stenosis, lumbar region with neurogenic claudication M48.062 and 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 [facility] [address] [place] [address], [place] [phone] 09/01/2024 Baltazar Stynowick [facility] [address] [place] [address] [place] [address] 09/16/2024 Baltazar Stynowick Radiculopathy, lumba r region M54.16 ; Spinal stenosis, lumbar region with neurogenic claudication M48.062 ; 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 ; Postlaminectomy syndrome, not elsewhere classified M96.1 and Radiculopathy, cervicothoracic region M54.13 [facility] [address] [place] [address], [place] [address] 10/06/2024 Baltazar Stynowick Radiculopathy, lumba r region M54.16 ; Radiculopathy, cervical region M54.12 ; Spinal stenosis, lumbar region with neurogenic claudication M48.062 ; 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 ; Postlaminectomy syndrome, not elsewhere classified M96.1 ; Radiculopathy, cervicothoracic region M54.13 and correction (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.01 [facility] [address] [place] [address] [place] [address] 10/11/2024 Baltazar Stynick [facility] [address] [place] [address] [place] [address] 10/26/2024 Baltazar Stynowick Radiculopathy, cervical region M54.12 ; Radiculopathy, cervicothoracic region M54.13 and Spinal stenosis, cervical region M48.02 [facility] [address] [place] [address] [place] [address] 11/03/2024 Baltazar Stynowick Radiculopathy, cervical region M54.12 ; Postlaminectomy syndrome, not elsewhere classified M96.1 ; Radiculopathy, lumbar region M54.16 ; Spinal stenosis, lumbar region with neurogenic claudication M48.062 ; 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 ; Radiculopathy, cervicothoracic region M54.13 and 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 project manager (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.01 [facility] [address] [place] [phone] 11/23/2024 Baltazar Stynowick Radiculopathy, cervical region M54.12 ; Radiculopathy, cervicothoracic region M54.13 and Spinal stenosis, cervical region M48.02 [facility] [address] [place] [address] [place] [address] 12/02/2024 Baltazar Stynowick Postlaminectomy syndrome, not elsewhere classified M96.1 ; Spondylosis without myelopathy or radiculopathy, lumbar region M47.816 ; Radiculopathy, cervical region M54.12 ; Radiculopathy, lumbar region M54.16 ; Spinal stenosis, lumbar region with neurogenic claudication M48.062 ; 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 ; Radiculopathy, cervicothoracic region M54.13 ; 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 project manager (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.01 ; 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 project manager (current) use of opiate analgesic Z79.891 and Spondylosis without myelopathy or radiculopathy, lumbosacral region M47.817 ASSESSMENTS Encounter Date Diagnosis Assessment Notes Treatment Notes Treatment Clinical Notes Section Notes 06/29/2024 Connective tissue and disc stenosis of [...] comply with the above. The [place] PDMP were reviewed and were appropriate 07/29/2024 Sacroiliitis, not elsewhere classified (ICD-10 - M46.1) 09/16/2024 Radiculopathy, lumbar region (ICD-10 - M54.16) [...] comply with the above. The [place] PD[place] were reviewed and were appropriate 10/26/2024 Radiculopathy, cervical region (ICD-10 - M54.12) 10/26/2024 Radiculopathy, cervicothoracic region (ICD-10 - M54.13) 12/02/2024 Spondylosis without myelopathy or radiculopathy, lumbar [...] agreeable to proceeding at this time. 12/02/2024 Postlaminectomy syndrome, not elsewhere classified (ICD-10 [...] comply with the above. The [place] were reviewed and were appropriate 11/23/2024 Radiculopathy, cervical region (ICD-10 - M54.12) 11/23/2024 Radiculopathy, cervicothoracic region (ICD-10 - M54.13) 02/22/2024 Radiculopathy, cervical region (ICD-10 - M54.12) [...] comply with the above. The [place] were reviewed and were appropriate 03/16/2024 Radiculopathy, lumbar region (ICD-10 - M54.16) 01/25/2024 Radiculopathy, cervical region (ICD-10 - M54.12) 03/16/2024 Spinal stenosis, lumbar region with neurogenic [...] agreeable to proceeding at this time. 01/12/2024 Connective tissue and disc stenosis of intervertebral foramina of upper extremity (ICD-10 - M99.77) 03/17/2024 Radiculopathy, lumbar region (ICD-10 - M54.16) [...] to fully comply with the above. The [facility] PDMP were reviewed and were appropriate 04/12/2024 [...] to fully comply with the above. The [facility] PDMP were reviewed and were appropriate 01/12/2024 Radiculopathy, cervical region (ICD-10 - M54.12) 12/28/2023 Radiculopathy, lumbar region (ICD-10 - M54.16) [...] comply with the above. The [place] were reviewed and were appropriate 04/20/2024 Sacroiliitis, not elsewhere classified (ICD-10 - M46.1) 12/28/2023 Radiculopathy, cervical region (ICD-10 - M54.12) [...] to proceeding at this time. 04/14/2024 Radiculopathy, lumbar region (ICD-10 - M54.16) [...] to fully comply with the above. The [facility] PDMP were reviewed and were appropriate 05/12/2024 [...] to fully comply with the above. The [facility] PDMP were reviewed and were appropriate 06/16/2024 [...] to fully comply with the above. The [facility] PDMP were reviewed and were appropriate 07/14/2024 [...] to fully comply with the above. The [facility] PDMP were reviewed and were appropriate 06/29/2024 Radiculopathy, cervical region (ICD-10 - M54.12) 12/28/2023 Spondylosis without myelopathy or radiculopathy, 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.816) 01/12/2024 Radiculopathy, cervicothoracic region (ICD-10 - M54.13) 01/25/2024 Spondylosis without myelopathy or radiculopathy, 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.816) 02/22/2024 Spondylosis without myelopathy or radiculopathy, 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.816) 11/23/2024 Spinal stenosis, cervical region (ICD-10 - M48.02) 02/22/2024 Radiculopathy, lumbar region (ICD-10 - M54.16) [...] comply with the above. The [place] PDMP were reviewed and were appropriate 12/02/2024 Radiculopathy, cervical region (ICD-10 - M54.12) 03/16/2024 Osseous stenosis of neural canal of lumbar region (ICD-10 - M99.33) 10/26/2024 Spinal stenosis, cervical region (ICD-10 - M48.02) 11/03/2024 Radiculopathy, lumbar region (ICD-10 - M54.16) 03/17/2024 Radiculopathy, cervical region (ICD-10 - M54.12) 10/06/2024 Spinal stenosis, lumbar region with neurogenic claudication (ICD-10 - M48.062) 04/12/2024 Sacroiliitis, not elsewhere classified (ICD-10 - M46.1) 2024 Osseous stenosis of neural canal of lumbar region (ICD-10 - M99.33) 04/14/2024 Sacroiliitis, not elsewhere classified (ICD-10 - [...] 04/14/2024 Radiculopathy, cervical region (ICD-10 - M54.12) 09/16/2024 Osseous stenosis of neural canal of lumbar region (ICD-10 - M99.33) 08/18/2024 Postlaminectomy syndrome, not elsewhere classified (ICD-10 - M96.1) 05/12/2024 Radiculopathy, cervical region (ICD-10 - M54.12) 06/16/2024 Sacroiliitis, not elsewhere classified (ICD-10 - M46.1) 07/20/2024 Spinal stenosis, cervical region (ICD-10 - M48.02) 07/14/2024 Sacroiliitis, not elsewhere classified (ICD-10 - [...] Spinal stenosis, cervical region (ICD-10 - M48.02) 07/14/2024 Radiculopathy, cervical region (ICD-10 - M54.12) [...] Radiculopathy, cervicothoracic region (ICD-10 - M54.13) 05/12/2024 Spondylosis without myelopathy or radiculopathy, 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.816) 04/14/2024 Spondylosis without myelopathy or radiculopathy, 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.816) 04/12/2024 Radiculopathy, cervical region (ICD-10 - M54.12) 03/17/2024 Spondylosis without myelopathy or radiculopathy, 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.816) 02/22/2024 Sacroiliitis, not elsewhere classified (ICD-10 - M46.1) 01/25/2024 Sacroiliitis, not elsewhere classified (ICD-10 - M46.1) 01/12/2024 Spinal stenosis, cervical region (ICD-10 - M48.02) 12/28/2023 Sacroiliitis, not elsewhere classified (ICD-10 - M46.1) 12/02/2024 Radiculopathy, lumbar region (ICD-10 - M54.16) 11/03/2024 [...] to fully comply with the above. The [facility] PDMP were reviewed and were appropriate 08/18/2024 Radiculopathy, cervical region (ICD-10 - M54.12) 07/14/2024 Spondylosis without myelopathy or radiculopathy, 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.816) 06/16/2024 Spondylosis without myelopathy or radiculopathy, 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.816) 12/28/2023 Spinal stenosis, lumbar region with neurogenic claudication (ICD-10 - M48.062) L4-L5 10/06/2024 Postlaminectomy syndrome, not elsewhere classified (ICD-10 [...] to fully comply with the above. 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) 12/02/2024 Spinal stenosis, lumbar region with neurogenic claudication (ICD-10 - M48.062) 05/12/2024 Spinal stenosis, lumbar region with neurogenic claudication (ICD-10 - M48.062) L4-L5 04/12/2024 Spondylosis without myelopathy or radiculopathy, 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.816) 03/17/2024 Spinal stenosis, lumbar region with neurogenic claudication (ICD-10 - M48.062) L4-L5 07/14/2024 Spinal stenosis, lumbar region with neurogenic claudication (ICD-10 - M48.062) L4-L5 02/22/2024 Spinal stenosis, lumbar region with neurogenic claudication (ICD-10 - M48.062) L4-L5 01/25/2024 Spinal stenosis, lumbar region with neurogenic claudication (ICD-10 - M48.062) L4-L5 09/16/2024 Radiculopathy, cervicothoracic region (ICD-10 - M54.13) 08/18/2024 Radiculopathy, cervicothoracic region (ICD-10 - M54.13) 08/18/2024 correction (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) 04/12/2024 Spinal stenosis, lumbar region with neurogenic claudication (ICD-10 - M48.062) L4-L5 12/28/2023 Postlaminectomy syndrome, not elsewhere classified (ICD-10 - M96.1) Right L4 decompression 03/17/2024 Postlaminectomy syndrome, not elsewhere classified (ICD-10 - M96.1) Right L4 decompression 01/25/2024 Postlaminectomy syndrome, not elsewhere classified (ICD-10 - M96.1) Right L4 decompression 07/14/2024 Postlaminectomy syndrome, not elsewhere classified (ICD-10 - M96.1) Right L4 decompression 04/12/2024 Postlaminectomy syndrome, not elsewhere classified (ICD-10 - M96.1) Right L4 decompression 08/18/2024 correction (current) use of opiate analgesic (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 (ICD-10 - Z79.01) 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) 12/28/2023 Spondylosis without myelopathy or radiculopathy, 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 06/16/2024 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 02/22/2024 correction (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 07/14/2024 Other intervertebral disc degeneration, lumbar region (ICD-10 - M51.36) 06/16/2024 Other intervertebral disc degeneration, lumbar region (ICD-10 - M51.36) 05/12/2024 Other intervertebral disc degeneration, lumbar region (ICD-10 - M51.36) 04/14/2024 Other intervertebral disc degeneration, lumbar region (ICD-10 - M51.36) 04/12/2024 correction (current) use of 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 (ICD-10 - Z79.01) 03/17/2024 Other intervertebral disc degeneration, lumbar region (ICD-10 - M51.36) 12/28/2023 Other intervertebral disc degeneration, lumbar region (ICD-10 - M51.36) 02/22/2024 Other intervertebral disc degeneration, lumbar region (ICD-10 - M51.36) 01/25/2024 Other intervertebral disc degeneration, lumbar region (ICD-10 - M51.36) 12/02/2024 Spondylosis without myelopathy or radiculopathy, lumbosacral region (ICD-10 - M47.817) 12/28/2023 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 06/16/2024 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 project manager (current) use of opiate analgesic (ICD-10 - Z79.891) 07/14/2024 correction (current) use of opiate analgesic (ICD-10 - Z79.891) 04/12/2024 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 project manager (current) use of opiate analgesic (ICD-10 - Z79.891) 07/14/2024 Essential (primary) hypertension (ICD-10 - I10) 06/16/2024 Essential (primary) hypertension (ICD-10 - I10) The patient was advised to follow up with their primary care physician regarding their hypertension 12/28/2023 Other The above-named patient was evaluated [...] SAFETY CONCERNS HAVE BEEN ADDRESSED. RN initials JE 08/18/2024 Other The patient was advised to [...] with Patient and Medical Decision Makin minutes 11/23/2024 Other The patient voiced understanding of [...] SAFETY CONCERNS HAVE BEEN ADDRESSED. RN initials 12/02/2024 Other The above-named patient was evaluated [...] MRI : Cervical Spine without Contrast (7 5310) 09/18/2022 [facility] 10/10/2022 [facility] 04/14/2022 [facility] 03/06/2023 [facility] 07/07/2023 [facility] 10/01/2023 [facility] 01/25/2024 [facility] 05/12/2024 [facility] 08/18/2024 [facility] 12/02/2024 Next Appt Details Provider Name:Baltazar navarrete, 12/14/2024 08:00:00 AM, [address] [place], [address], Provider Name:Baltazar navarrete, 01/09/2025 09:00:00 AM, [address] [facility], [place], [address], Insurance Providers Payer Name Payer Address Payer Phone Subscriber Number Group Number Insured Name Patient Relationship to Insured Coverage Start Date Coverage End Date [facility] MEDICARE ADVANTAGE (PPO) [address] [address] [place] [address] [id number] LICHA MALAGON Self - patient is the insured 7 MEDICAL (GENERAL) HISTORY Medical History History ICD Code Hypertension Osteoarthritis CHF Surgical History Surgery Date(Month/Year) Coronary stent 05/31/07
--- OUTSIDE RECORDS SUMMARY | 2024-12-09 16:02 | XMS_ITS | Data Portability ---
Author Organization [facility] Main Office Address [address] [place] [address] Care Team Providers Care Medic Technician Name Role Phone AIMEE MINAYA Primary Care Provider [phone] Assessment No assessment recorded. Plan of Treatment [...] By Organization Details Last Modified Time 12/03/2023 [id number] u led out surgery and she will return for an ultrasound in 1 year [email or web address] Not available 12/03/2023 14:30:23 Reason for Referral None Reported. Results Created Date Observation Date Name Description Value Unit Range Abnormal Flag Note LastModifiedBy Organization Detail LastModifiedTime 09/04/19 24 US, thyro id No observ ation record ed. [email or web address] Not Available 2023 10:02:56 10/15/19 24 10/15/2023 fine needl e aspir ation , ultra sound guide d, thyro id (PROC ) No observ ation record ed. [address], [address], 10/15/2023 17:07:01 10/15/19 24 10/15/2023 fine needl e aspir ation , ultra sound guide d, thyro id (PROC ) No observ ation record ed. [address], [address], 10/15/2023 17:06:44 11/05/19 25 11/04/2024 US, thyro id No observ ation record ed. [facility] [address] [place], [address], 11/04/2024 11:19:37 11/16/19 25 11/15/2024 US, thyro id No observ ation record ed. [facility] [address] [place], [address], 11/15/2024 10:34:22 11/16/19 25 11/15/2024 US, thyro id No observ ation record ed. [facility] [address] [place], [address], 11/15/2024 10:36:08 Result Notes None recorded. 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 Procedures Surgical History Date Name Laterality Status Provider Name and Address Organization Details Recorded Time tonsillectomy completed So Sesar [facility] [employer] [facility] 08/25/2023 09:45:44 Imaging Results None recorded. Procedure Notes None recorded. Medical Equipment None Reported. Allergies Allergen ID Allergen Name Allergen Category Reaction Reaction Severity Criticality Documentation Date Start Date Code Code System Note Provider Name and Address Organization Details Recorded Time 03881 amlodipin e medicatio n edema Not available Not available 08/19/2023 94037 RxNorm DOMENIC Patel, [facility] [employer] [facility] 4 16:57:04 89777 diltiazem hydrochlo ride medicatio n edema Not available Not available 08/19/202374182 1 RxNorm DOMENIC Patel, [facility] [employer] [facility] 4 16:57:14 28524 iodine medicatio n Not available Not available Not available 08/19/2023 5933 RxNorm Yareli Stanton RN null, [facility] 16:57:23 85584 Product containin g penicilli n (product) medicatio n Not available Not available Not available 08/19/2023 59382 8001 SNOMED Yareli Stanton RN null, [facility] 16:57:31 27985 doxazosin medicatio n Not available Not available Not available 08/19/2023 15018 RxNorm weakn ess of lower limbs Yareli Stanton RN null, [facility] 16:57:45 Medications Name Sig Start Date Stop [...] Address Organization Details Last Updated DateTime 08/26/2023 98495.89 g 22.8 kg/m2 157.48 cm 98 [degF] Yareli Stanton RN [facility] 08/26/2023 12:01:19 Date Recorded Body height Body temperature Provider N camila and Address Organization Details Last Updated DateTime 12/03/2023 157.48 cm 97.8 [degF] Yareli Stanton RN [facility] 12/03/2023 14:01:45 Social History None recorded. Functional Status Question Answer Note LastModified by Organizat ion Details LastModified Time Do you or have you ever used any other forms of tobacco or nicotine? Yes [email or web address] Information not available 08/25/2023 What is your level of alcohol consumption? None [email or web address] Information not available 08/25/2023 Do you or have you ever used smokeless tobacco? Former smokeless tobacco user [email or web address] Information not available 08/25/2023 Mental Status None [...] HAVE YOU BEEN HOSPITALIZED OR SEEN IN [facility] ER IN THE PAST YEAR ? [...] Diagnosis SNOMED-CT Code Diagnosis ICD10 Code Diagnosis IMO Codes Diagnosis Note [id number] Noman Britton MD [facility] [employer] [address] [place] [address] 08/26/2023 11:26:28 08/28/2023 11:11:12 Thyroid nodule 403120677 E04.1 [id number] Noman Britton MD [facility] [employer] [address] [place] [address] 12/03/2023 13:50:13 12/04/2023 10:48:58 Thyroid nodule 969068736 E04.1 Health Concerns Section Related Observation LastModified by Organization Detai ls LastModified Time None Recorded Concern Status LastModified by Organization Details LastModified Time None Recorded Advance Directives Directive None Recorded Payers Insurance Date Sequence Insurance Name Policy Number Policy Wu Covered Member ID Wu Member ID Guarantor Name 12/03/2023 1 [facility] [id number] Radha Andrade [id number] Radha Andrade Notes Date Note Type Note [...] needle biopsy Noman Britton MD [address], [place], [address], [facility] [employer] [facility] 08/26/2023 12:15:00 12/03/2023 text/html this patient went for needle biopsy but the radiologist decided that the carotid artery was too close to the nodule and declined complete the biopsy. The patient reports she is having absolutely no trouble with the nodule and she is now on supplemental oxygen Noman Britton MD [address], [facility] [address], [place], [address], [employer] [facility] [employer] [facility] 12/03/2023 14:30:43 OBGyn Episode No OBEpisode recorded.
--- OUTSIDE RECORDS SUMMARY | 2024-12-09 16:03 | XMS_ITS | Clinical Summary ---
Author Organization [facility] Address [address] [place] [address] Care Team Providers Care Roll Repairer Name Role Phone Unavailable Primary Care Provider Unavailabl e Source Comments [facility],non-owned Affiliates and Associated Physician Practices is amultiple site organization consisting of ambulatory clinics and hospital sitesin [place], [place], [place] and [place]. This disclosure is being madepursuant to the Care Everywhere program and may not contain all information available regarding this patient. 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
--- OUTSIDE RECORDS SUMMARY | 2024-12-09 16:03 | XMS_ITS | Clinical Summary ---
Author Organization [facility] Address [facility] [place] [address] Care Team Providers Care Airfreight Loading Supervisor Name Role Phone Bhanu Hinojosa MD Primary Care Provider [phone] Allergies Active Allergy Reactions Criticality Noted Date [...] COPD (chronic obstructive pulmonary disease) ([facility]),Hypoxia 1 Device by Nasal route continuous. Nasal cannula. 2L at rest and 3L with activity. Portable Oxygen Concentrator with Pulse Settings. Stationary Concentrator. 1 Device 3 Active Active Problems Problem Noted Date Diagnosed Date Pneumonia 10/12/2022 COPD exacerbation 10/12/2022 Social History Tobacco Use Types Packs/Day [...] Done Comments DTaP, Tdap and Td Vaccines (1 - Tdap) 09/01/1964 Annual Medicare Wellness Visit 2009 Dexa Scan (General) 2009 Zoster Vaccines (2 of 3) 03/07/2016 01/11/2016 RSV Immunization or 60+ Years (1 - 1-dose 75+ series) 09/01/2019 COVID-19 Vaccine (3 - season) 2024 06/15/2020, 05/18/2020 Influenza Adult (#1) 2024 12/03/2016, 12/06/2015, 11/28/2014, Additional history exists Pneumococcal Vaccine: 50+ Years Completed 10/29/2015, 05/25/2012 [...] Date 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 10/13/2022 Insurance [facility] MEDICARE Advance Directives Documents on File Type Date Recorded 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
--- OUTSIDE RECORDS SUMMARY | 2024-12-09 16:03 | XMS_ITS | Clinical Summary ---
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 Gender Identity Not on file Sexual Orientation Not on file Last Filed Vital Signs Vital Sign Reading Time Taken Comments Blood Pressure 128/76 04/23/2010 1:18 PM COAL TRAMMER Pulse 64 04/23/2010 1:18 PM COAL TRAMMER Temperature 36.8 C (98.3 F) 04/23/2010 1:18 PM COAL TRAMMER Respiratory Rate 14 04/23/2010 1:18 PM COAL TRAMMER Oxygen Saturation - - Inhaled Oxygen Concentration - - Weight 64 kg (141 lb) 04/23/2010 1:18 PM COAL TRAMMER Height 157.5 cm (5' 2) 04/23/2010 1:18 PM COAL TRAMMER Body Mass Index 25.79 04/23/2010 1:18 PM COAL TRAMMER Plan of Treatment Health Maintenance Due Date Last Done Comments DTAP/TDAP/TD VACCINES (1 - Tdap) 09[birth year]01/1964 PNEUMOCOCCAL VACCINE 50+ YEARS (1 of 1 - PCV) 08/31/18 95 ZOSTER VACCINE (1 of 2) 1994 OSTEOPOROSIS SCREENING 2009 RSV VACCINE (60+ or ) (1 - 1-dose 75+ series) 09/01/2019 INFLUENZA VACCINE (#1) 2024 Insurance [facility] [place] [id number] [facility] OPTIONS PPO [id number] [facility] Address: [id number] [place] [address] MEDICARE PART A AND B [facility] [id number] Care Teams Shopfitter Relationship Specialty Start Date End Date Bhanu Hinojosa MD [address] [place] [address] PCP - General 02/13/15
--- NOTE | 2024-12-09 16:04 | ECG_ITS ---
Test Date: 2024-12-09 16:34:56 Measurements Intervals [place] Rate: 64 P: 77 MN: 154 QRS: 70 QRSD: 181 T: -45 QT: 497 QTc: 515 Interpretive Statements SINUS RHYTHM WITH SINUS ARRHYTHMIA INDETERMINATE AXIS RIGHT BUNDLE BRANCH BLOCK BASELINE ARTIFACT- I, II, AVR, AVL, AVF, V5-V6 ABNORMAL ECG Compared to ECG 04/20/2024 09:18:47 NO SIGNIFICANT CHANGE Electronically Signed On 12-09-2024 19:36:02 CDT by Edgar Stephenson D.O.
--- NOTE | 2024-12-09 16:04 | ED.NAVMDI ---
HPI - Nausea/Vomiting/Diarrhea General Chief complaint: Nausea/Vomiting/Diarrhea Stated complaint: htn. headache Time Seen by Provider: 12/09/24 16:01 Source: patient Mode of arrival: ambulatory Limitations: no limitations History of Present Illness HPI Narrative: Patient is an 79-year-old female with nausea and vomiting today after realizing her blood pressure is very elevated at this time. She has known hypertension. She recently was started on hydralazine 3 times a day but she is only taking twice a day. Patient has associated headache. MD elicited complaint: nausea and vomiting Pertinent past history: other (Hypertension, hyperlipidemia, chronic pain, hypothyroid, edema/CHF) Onset (ago): day(s) (1) Description of vomiting: watery Description of diarrhea: other (No diarrhea) Associated nausea: Yes Associated abdominal pain: No Location of pain: other (Head) Radiation: diffuse Pain consistency: constant Severity: moderate Pain scale (0-10): 5 Quality: aching Exacerbating factors: other (Elevated blood pressure) Relieving factors: none Context: other (Patient has hypertension and recent addition of hydralazine and she is here with nausea vomiting and associated headache with elevated blood pressure) Associated symptoms: headaches and nausea/vomiting Treatment prior to arrival: other (Home medications) Related Data Home Medications ?Medication ?Instructions ?Recorded ?Confirmed ?Last Taken ?Type aspirin 325 mg tablet 325 mg PO DAILY 04/01/19 11/04/24 08/14/22 09:41 History esomeprazole magnesium 40 mg 40 mg PO DAILY 04/01/19 11/04/24 Unknown History capsule,delayed release levothyroxine 50 mcg tablet 75 mcg PO DAILY 04/01/19 11/04/24 08/14/22 09:42 History meclizine 25 mg tablet 25 mg PO TID PRN Vertigo 04/01/19 11/04/24 Unknown History oxycodone-acetaminophen 10 mg-325 1 tablet PO Q6H PRN Pain 10/03/19 11/04/24 08/14/22 09:41 History mg tablet hydroxyzine HCl 25 mg tablet 25 mg PO TID PRN Allergy Symptoms 07/31/22 11/04/24 Unknown History cholecalciferol (vitamin D3) 25 25 mcg PO DAILY 10/10/22 11/04/24 Unknown History mcg (1,000 unit) tablet (Vitamin D3) multivitamin 1 tablet PO DAILY 10/10/22 11/04/24 Unknown History fexofenadine 180 mg tablet 180 mg PO DAILY PRN allergies 12/09/24 12/09/24 Unknown History (Jagruti Allergy) fluoxetine 40 mg capsule 40 mg PO QPM 12/09/24 12/09/24 Unknown History fluticasone fur. 100 mcg-umeclid 1 inh inhalation DAILY 12/09/24 12/09/24 Unknown History 62.5 mcg-vilant 25 mcg inhalat.powder (Trelegy Ellipta) magnesium 250 mg tablet 250 mg PO DAILY 12/09/24 12/09/24 Unknown History Allergies Allergy/AdvReac Type Severity Reaction Status Date / Time iodine Allergy Severe Hives / Verified 12/09/24 16:12 Red Face amlodipine Allergy Unknown Unknown Verified 12/09/24 16:12 clindamycin Allergy Unknown Nausea Verified 12/09/24 16:12 diltiazem Allergy Unknown Unknown Verified 12/09/24 16:12 Iodine and Iodide Containing Allergy Unknown Unknown Verified 12/09/24 16:12 Produc nickel Allergy Unknown Rash Verified 12/09/24 16:12 Penicillins Allergy Unknown Unknown Verified 12/09/24 16:12 doxazosin AdvReac Severe Weakness Verified 12/09/24 16:12 SHELLFISH Allergy Severe Vomiting Uncoded 04/20/24 08:55 ethex Allergy Intermediate Weakness Uncoded 12/09/24 16:12 Review of Systems Review of Systems: All systems reviewed & are unremarkable except as noted in HPI and below Constitutional: Constitutional: Reports no additional constitutional complaints Eyes: Eyes: Reports no additional eye complaints ENT: Reports system reviewed and no additional complaints, except as documented Cardiovascular: Cardiovascular: Reports no additional cardiovascular complaints Respiratory: Respiratory: Reports no additional respiratory complaints Gastrointestinal: Gastrointestinal: Reports no additional gastrointestinal complaints Genitourinary: Genitourinary: Reports no additional female genitourinary complaints Musculoskeletal: Musculoskeletal: Reports no additional musculoskeletal complaints Integumentary/Breasts: Skin/Breast: Reports system reviewed and no additional complaints, except as docu Neurologic: Reports system reviewed and no additional complaints, except as documented Psychiatric: Psychiatric: Reports no additional psychiatric complaints Endocrine: Endocrine: Reports no additional endocrine complaints Hematologic/Lymphatic: Hematologic/Lymphatic: Reports no additional hematologic/lymphatic complaints Allergic/Immunologic: Allergic/Immunologic: Reports no additional allergic/immunologic complaints PMFSH Past Medical History Medical History Pneumonia Congestive heart failure Family history of colon cancer in mother Iron deficiency anemia Chronic, continuous use of opioids Hypothyroidism CAD in [place] artery Chest pain at rest Chronic obstructive pulmonary disease, unspecified Dyslipidemia Essential hypertension Surgical History Surgical History Status post insertion of spinal cord stimulator Hx of heart artery stent History of appendectomy History of hysterectomy History of tonsillectomy Family History Family History Father , Heart attack @ 74 Family history of coronary artery disease Family history of sudden Mother , Cancer @ 74 Colon cancer Liver cancer Uterine cancer Unknown , Maternal family long line of cancer Paternal family long line of heart disease No problems noted. Social History Social History Social History: Patient elects her daughter to be her surrogate. 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cco smoke exposure: No Smoking end date: 11/25/07 Alcohol intake: never Substance use: never Substance use type: does not use Lack of Transportation: No Lack of Food: Never True Current Housing: I Have Housing Concerned About Future Housing: No Difficulty Paying Gas/Electric Bills: No Difficulty Paying for Meds: No Currently Unemployed: No Education: Trade/Vocational Certificate Difficulty w/ Childcare or Family Care: No Living arrangements: alone 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 Gender identity (if verbalized by the patient): Female Sexual Orientation (if Verbalized by the Patient): Straight or Heterosexual Spiritual care concerns: No Agree to blood products: Yes Exam Const: General: healthy appearing Nutritional Appearance: well nourished Orientation/consciousness: patient oriented x3 HENMT: Head: normal to inspection Ears: external ears normal Face/Nose/Sinus: Normal external nose present Eyes: Conjunctivae: conjunctivae normal Cornea: corneas normal Pupils: Equal, round and reactive pupils present Neck: Neck: normal visual inspection Chest: Chest palpation & inspection: normal inspection of the chest Resp: Effort & Inspection: normal respiratory effort and not labored Auscultation: clear to auscultation bilaterally and no crackles Cardio: Rate: regular rate Rhythm: regular rhythm Heart sounds: no murmurs GI: Inspection: non-distended GI Palp: Yes Soft to palpation and No Tenderness to palpation present (GI) Auscultation: normal bowel sounds : General: Yes bladder normal to palpation Back/Spine/Pelvis: Back: no CVA tenderness Skin: General skin exam: normal color Rashes: no rashes Wounds: no wounds Neuro: General: patient oriented x3, moves all extremities and no meningeal signs Other: Fast exam negative, NIH is 0, GCS 15 Extrem: General: normal to inspection, no clubbing, cyanosis or edema and no pedal edema Psych: Mental Status: mental status grossly normal Affect: normal affect Attitude: cooperative Course Vital Signs Vital signs: Vital Signs Temperature 36.3 C L 12/09/24 16:00 Pulse Rate 68 12/09/24 16:00 Respiratory Rate 18 12/09/24 16:00 Blood Pressure 196/115 H 12/09/24 16:00 Pulse Oximetry 94 12/09/24 16:00 Oxygen Delivery Nasal Cannula 12/09/24 16:00 Oxygen Flow Rate 3 12/09/24 16:00 Temperature 36.3 C L 12/09/24 16:00 Pulse Rate 67 12/09/24 17:36 Respiratory Rate 17 12/09/24 17:36 Blood Pressure 184/96 H 12/09/24 17:36 Pulse Oximetry 96 12/09/24 17:36 Oxygen Delivery Nasal Cannula 12/09/24 17:36 Oxygen Flow Rate 3 12/09/24 17:36 MDM - Nausea/Vomiting/Diarrhea MDM Narrative Medical decision making narrative: Patient is an 79-year-old female with elevated blood pressure and associated headache with nausea and vomiting for the day. We will treat this as hypertensive urgency. Check labs. Cardiac workup. We will admit the patient to this facility for further evaluation and treatment. I discussed the case with the hospitalist. Lab Data Attestation: I reviewed the patient's lab results. 12/09/24 16:15 12/09/24 16:15 Labs: Lab Results 12/09/24 Range/Units 16:15 WBC 5.7 (4.8-10.8) K/mm3 RBC 4.12 L (4.20-5.40) M/mm3 Hgb 12.0 (11.7-13.8) g/dL Hct 37.1 (35.0-42.0) % MCV 90.0 (78.0-102.0) fL MCH 29.1 (27.0-31.0) pg MCHC 32.3 (32-36) g/dL RDW 14.7 H (11.6-14.4) % Plt Count 214 (150-420) K/mm3 MPV 9.4 (9.2-11.8) fl Immature Gran % (Auto) 0.2 H (0.0-0.0) % Neut % (Auto) 74.9 H (50.0-70.0) % Lymph % (Auto) 16.1 L (18.0-42.0) % [place] % (Auto) 4.6 (2.0-11.0) % Eos % (Auto) 3.3 (1.0-6.0) % Baso % (Auto) 0.9 (0.0-1.0) % Lymph # (Auto) 0.92 L (1.10-4.50) K/mm3 [place] # (Auto) 0.26 (0.10-0.90) K/mm3 Eos # (Auto) 0.19 (0.02-0.50) K/mm3 Baso # (Auto) 0.05 (0.00-0.10) K/mm3 Abs Immat Gran (auto) 0.01 H (0.00-0.00) K/mm3 Absolute Neuts (auto) 4.27 (1.70-7.20) K/mm3 Absolute Nucleated RBC 0.00 (0.00-0.00) K/mm3 Nucleated RBC % 0.0 (0-0.0) % PT 11.1 (9.50-12.1) Seconds INR 1.0 APTT 26.9 (23.9-30.70) Sec Sodium 137 (137-145) mmol/L Potassium 3.2 L (3.4-5.0) mmol/L Chloride 100 (98-107) mmol/L Carbon Dioxide 29 (22-30) mmol/L Anion Gap 8 (4-12) mmol/L BUN 6 L (7-17) mg/dL Creatinine 0.49 L (0.7-1.0) mg/dL Estim Creat Clear Calc 58 ml/min Estimated GFR > 60 (59 - ) Glucose 120 H (65-110) mg/dL Calculated Osmolality 282 L (285-295) mOsm/kg Calcium 9.3 (8.4-10.2) mg/dL Total Bilirubin 1.1 (0.2-1.3) mg/dL AST 25 (14-36) U/L ALT 12 (6-35) U/L Alkaline Phosphatase 99 (38-126) U/L Troponin I < 0.012 (0.000-0.034) ng/mL NT-Pro-B Natriuret Pep 1450 H (19.9-100) pg/mL Total Protein 8.8 H (6.3-8.2) g/dL Albumin 4.1 (3.5-5.1) g/dL Lipase 76 (23-300) U/L Imaging Data Attestation: I personally reviewed and interpreted this imaging study as follows: Radiologist's impression: Chest x-ray shows CHF pattern and left lower lobe pneumonia CT scan of the head is negative for acute process ECG Data EKG #1: Attestation: I personally reviewed and interpreted this ECG as follows: ECG completion date: 12/09/24 ECG completion time: 16:32 EKG Interpretation: normal rate, sinus rhythm, no ectopy, ST depression, widened QRS, RBBB, normal QT and left axis Discharge Plan Discharge Clinical Impression: Pneumonia, CHF exacerbation, Hypertensive urgency Patient Disposition: Acute Care [facility] Condition: Stable Time of Disposition: 17:10
--- NOTE | 2024-12-09 16:13 | PC.NURSE ---
pt taken down to radiology
[2024-12-09 16:19] LABS: Hematocrit 37.1 % (35.0-42.0); Hemoglobin 12.0 g/dL (11.7-13.8); Immature Granulocyte Percent A 0.2 % (0.0-0.0); Lymphocytes Absolute Auto 0.92 K/mm3 (1.10-4.50); Mean Corpuscular HGB Conc 32.3 g/dL (32-36); Mean Corpuscular Hemoglobin 29.1 pg (27.0-31.0); Mean Corpuscular Volume 90.0 fL (78.0-102.0); Nucleated Red Blood Cells Absolute Auto 0.00 K/mm3 (0.00-0.00); Nucleated Red Blood Cells Perc 0.0 % (0-0.0); Platelet Count Result 214 K/mm3 (150-420); Red Blood Count 4.12 M/mm3 (4.20-5.40); White Blood Count 5.7 K/mm3 (4.8-10.8)
[2024-12-09 16:31] LABS: Alanine Aminotransferase 12 U/L (6-35); Albumin Level 4.1 g/dL (3.5-5.1); Alkaline Phosphatase 99 U/L (38-126); Anion Gap 8 mmol/L (4-12); Aspartate Amino Transferase 25 U/L (14-36); Bilirubin,Total 1.1 mg/dL (0.2-1.3); Blood Urea Nitrogen 6 mg/dL (7-17); Calcium 9.3 mg/dL (8.4-10.2); Carbon Dioxide 29 mmol/L (22-30); Chloride 100 mmol/L (98-107); Estimated CRCL calculation 58 ml/min; Estimated Glomerular Filt Rate > 60; Glucose 120 mg/dL (65-110); Lipase 76 U/L (23-300); Osmolality Calculated 282 mOsm/kg (285-295); Potassium 3.2 mmol/L (3.4-5.0); Sodium 137 mmol/L (137-145); Total Protein 8.8 g/dL (6.3-8.2)
[2024-12-09 16:33] LABS: INR 1.0; Partial Thromboplastin Time 26.9 Sec (23.9-30.70); Prothrombin Time 11.1 Seconds (9.50-12.1)
--- NOTE | 2024-12-09 16:40 | PC.NURSE ---
patient back in room from CT. will administer labetalol.
[2024-12-09 16:43] LABS: NT Pro B Type Natriuretic Pept 1450 pg/mL (19.9-100); Troponin I < 0.012 ng/mL (0.000-0.034)
[2024-12-09] MEDS: POTASSIUM CHLORIDE 20 MEQ PACKET (FOR LIQUID) PO (16:54)
[2024-12-09] MEDS: FUROSEMIDE INJ 20 MG/2 ML VIAL 10 MG IV PUSH (16:55)
[2024-12-09] MEDS: levoFLOXacin 500 MG/D5W 100 ML 500 MG/100 ML BAG 100 MG IVPB (17:00)
--- NOTE | 2024-12-09 17:24 | PC.NURSE ---
ERP Dr. Villanueva spoke with hospitalist about patient.
--- NOTE | 2024-12-09 18:35 | PC.NURSE ---
1740 Patient arrived to unit on stretcher and was admitted to room 205 for observation with telemetry. Patient able to transfer from stretcher to bed with 1 assist gait belt pivot. Patient educated on use of call light and bed controls. Patient and family educated on use of rapid response, visiting hours and general hospital policies. Patient and family voiced understanding. Blue folder given to patient to review.
[2024-12-09] MEDS: HYDROcodone/acetaminophen (*CRX) 5-325 MG TABLET 1 TAB PO (20:29)
[2024-12-09] MEDS: POTASSIUM CHLORIDE 10 MEQ ER TABLET PO (20:29)
[2024-12-10] VITALS (11 sets, daily range): BP systolic 153–180; BP diastolic 52–71; PULSE 59–75; RESP 16–20; TEMP 36.9–37.4; O2SAT 95–97
[2024-12-10] MEDS: HYDROcodone/acetaminophen (*CRX) 5-325 MG TABLET 1 TAB PO ×4 (03:33→21:17)
[2024-12-10] MEDS: LEVOTHYROXINE SODIUM 75 MCG TABLET PO (06:26)
[2024-12-10 06:48] LABS: Hematocrit 32.6 % (35.0-42.0); Hemoglobin 10.4 g/dL (11.7-13.8); Immature Granulocyte Percent A 0.4 % (0.0-0.0); Lymphocytes Absolute Auto 0.81 K/mm3 (1.10-4.50); Mean Corpuscular HGB Conc 31.9 g/dL (32-36); Mean Corpuscular Hemoglobin 28.3 pg (27.0-31.0); Mean Corpuscular Volume 88.8 fL (78.0-102.0); Nucleated Red Blood Cells Absolute Auto 0.00 K/mm3 (0.00-0.00); Nucleated Red Blood Cells Perc 0.0 % (0-0.0); Platelet Count Result 211 K/mm3 (150-420); Red Blood Count 3.67 M/mm3 (4.20-5.40); White Blood Count 4.8 K/mm3 (4.8-10.8)
[2024-12-10 07:02] LABS: Alanine Aminotransferase 10 U/L (6-35); Albumin Level 3.5 g/dL (3.5-5.1); Alkaline Phosphatase 93 U/L (38-126); Anion Gap 8 mmol/L (4-12); Aspartate Amino Transferase 23 U/L (14-36); Bilirubin,Total 1.1 mg/dL (0.2-1.3); Blood Urea Nitrogen 7 mg/dL (7-17); Calcium 9.2 mg/dL (8.4-10.2); Carbon Dioxide 31 mmol/L (22-30); Chloride 96 mmol/L (98-107); Estimated CRCL calculation 53 ml/min; Estimated Glomerular Filt Rate > 60; Glucose 100 mg/dL (65-110); Osmolality Calculated 278 mOsm/kg (285-295); Potassium 3.4 mmol/L (3.4-5.0); Sodium 135 mmol/L (137-145); Total Protein 7.0 g/dL (6.3-8.2)
[2024-12-10] MEDS: FLUTICASONE/UMECLIDIN/VILANTER 100-62.5-25 MCG ELLIPTA 1 PUFF INHALATION (08:03)
[2024-12-10] MEDS: NEBIVOLOL HCL 5 MG TABLET 20 MG PO (08:04)
[2024-12-10] MEDS: ASPIRIN 325 MG ENTERIC TABLET PO (08:04)
[2024-12-10] MEDS: PANTOPRAZOLE 40 MG TABLET PO (08:07)
[2024-12-10] MEDS: FUROSEMIDE INJ 20 MG/2 ML VIAL 10 MG IV PUSH (08:07)
[2024-12-10] MEDS: ENOXAPARIN 40 MG/0.4 ML SYRINGE SUB-Q (08:10)
[2024-12-10] MEDS: POTASSIUM CHLORIDE 10 MEQ ER TABLET BY MOUTH (09:38)
[2024-12-10] MEDS: MAGNESIUM OXIDE 400 MG TABLET PO (09:38)
[2024-12-10] MEDS: ROSUVASTATIN 10 MG TABLET 20 MG BY MOUTH (09:38)
[2024-12-10] MEDS: OMEGA 3 POLYUNSAT FATTY ACIDS 1 GM CAP BY MOUTH ×2 (09:38→16:32)
[2024-12-10] MEDS: CHOLECALCIFEROL (VITAMIN D3) 25 MCG (1,000 UNITS) TABLET PO (09:38)
[2024-12-10] MEDS: MULTIVITAMINS THERAPEUTIC TAB (*BKC) 1 TABLET PO (09:39)
--- NOTE | 2024-12-10 10:41 | PM.IMHP ---
H&P: HPI History of Present Illness Date/Time: 12/10/24 10:41 Chief Complaint: Patient is a 79 year old female with PMH of HTN, HLD, hypothyroidism, chronic pain, iron deficiency anemia, CAD, COPD (on chronic o2 3-4L at home) and CHF. Patient presented to the ER with complaints of nausea, vomiting and elevated blood pressure. Patient reports she has a headache that is associated with the elevated blood pressure. In the ER the patient's lab work showed Hgb 12, k 3.2, BNP 1450, troponin negative, UA negative for infection. Head CT without acute findings. CXR showed left basilar infiltrate and mild CHF. Patient was started on IV azithromycin and IV ceftriaxone. Patient was given IV furosemide 10 mg. Patient was given IV labetalol for blood pressure control. Patient was admitted for further evaluation and treatment. Review of Systems Review of Systems: All systems reviewed & are unremarkable except as noted in HPI and below PMFSH Past Medical History Medical History Pneumonia Congestive heart failure Family history of colon cancer in mother Iron deficiency anemia Chronic, continuous use of opioids Hypothyroidism CAD in [place] artery Chest pain at rest Chronic obstructive pulmonary disease, unspecified Dyslipidemia Essential hypertension Surgical History Surgical History Status post insertion of spinal cord stimulator Hx of heart artery stent History of appendectomy History of hysterectomy History of tonsillectomy Family History Family History Father , Heart attack @ 74 Family history of coronary artery disease Family history of sudden Mother , Cancer @ 74 Colon cancer Liver cancer Uterine cancer Unknown , Maternal family long line of cancer Paternal family long line of heart disease No problems noted. Social History Social History Social History: Patient elects her daughter to be her surrogate. 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cco smoke exposure: No Smoking end date: 11/25/07 Alcohol intake: never Substance use: never Substance use type: does not use Lack of Transportation: No Lack of Food: Never True Current Housing: I Have Housing Concerned About Future Housing: No Difficulty Paying Gas/Electric Bills: No Difficulty Paying for Meds: No Currently Unemployed: No Education: Trade/Vocational Certificate Difficulty w/ Childcare or Family Care: No Living arrangements: alone 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 Gender identity (if verbalized by the patient): Female Sexual Orientation (if Verbalized by the Patient): Straight or Heterosexual Spiritual care concerns: No Agree to blood products: Yes Meds Home Medications and Allergies Home Medications ?Medication ?Instructions ?Recorded ?Confirmed ?Type aspirin 325 mg tablet 325 mg PO DAILY 04/01/19 12/09/24 History esomeprazole magnesium 40 mg 40 mg PO DAILY 04/01/19 12/09/24 History capsule,delayed release levothyroxine 50 mcg tablet 75 mcg PO DAILY 04/01/19 12/09/24 History meclizine 25 mg tablet 25 mg PO TID PRN Vertigo 04/01/19 12/09/24 History oxycodone-acetaminophen 10 mg-325 1 tablet PO Q6H PRN Pain 10/03/19 12/09/24 History mg tablet hydroxyzine HCl 25 mg tablet 25 mg PO TID PRN Allergy Symptoms 07/31/22 12/09/24 History comp.stocking,knee,long,medium #6 ea 08/04/22 12/09/24 Rx cholecalciferol (vitamin D3) 25 25 mcg PO DAILY 10/10/22 12/09/24 History mcg (1,000 unit) tablet (Vitamin D3) multivitamin 1 tablet PO DAILY 10/10/22 12/09/24 History omega-3 acid ethyl esters 1 gram See Rx Instructions .Route 03/26/23 12/09/24 Rx capsule .COMPLEX #180 caps rosuvastatin 20 mg tablet See Rx Instructions .Route 04/04/24 12/09/24 Rx .COMPLEX #90 tabs potassium chloride 10 mEq See Rx Instructions .Route 04/14/24 12/09/24 Rx tablet,extended release .COMPLEX #90 tabs albuterol sulfate 90 mcg/actuation 2 inh inhalation Q4-6H PRN 05/06/24 12/09/24 Rx aerosol inhaler (Ventolin HFA) shortness of breath #8.5 grams nebivolol 20 mg tablet (Bystolic) 20 mg PO DAILY #90 tabs 05/16/24 12/09/24 Rx furosemide 20 mg tablet See Rx Instructions .Route 07/19/24 12/09/24 Rx .COMPLEX #90 tabs ramipril 10 mg capsule 10 mg PO DAILY #90 caps 08/29/24 12/09/24 Rx roflumilast 500 mcg tablet 500 mcg PO DAILY #30 tabs 12/02/24 12/10/24 Rx Held on 12/10/24. Instructions: Patient no longer taking hydralazine 50 mg tablet 50 mg PO TID #90 tabs 12/07/24 12/09/24 Rx fexofenadine 180 mg tablet 180 mg PO DAILY PRN allergies 12/09/24 12/09/24 History (Jagruti Allergy) fluoxetine 40 mg capsule 40 mg PO QPM 12/09/24 12/09/24 History fluticasone fur. 100 mcg-umeclid 1 inh inhalation DAILY 12/09/24 12/09/24 History 62.5 mcg-vilant 25 mcg inhalat.powder (Trelegy Ellipta) magnesium 250 mg tablet 250 mg PO DAILY 12/09/24 12/09/24 History Allergies Allergy/AdvReac Type Severity Reaction Status Date / Time iodine Allergy Severe Hives / Verified 12/09/24 16:12 Red Face amlodipine Allergy Unknown Unknown Verified 12/09/24 16:12 clindamycin Allergy Unknown Nausea Verified 12/09/24 16:12 diltiazem Allergy Unknown Unknown Verified 12/09/24 16:12 Iodine and Iodide Containing Allergy Unknown Unknown Verified 12/09/24 16:12 Produc nickel Allergy Unknown Rash Verified 12/09/24 16:12 Penicillins Allergy Unknown Unknown Verified 12/09/24 16:12 doxazosin AdvReac Severe Weakness Verified 12/09/24 16:12 SHELLFISH Allergy Severe Vomiting Uncoded 04/20/24 08:55 ethex Allergy Intermediate Weakness Uncoded 12/09/24 16:12 Vital Signs Vital Signs - 24 hr 12/09/24 16:00 12/09/24 16:15 12/09/24 16:30 Temperature 97.3 F L Pulse Rate 68 73 64 Respiratory Rate 18 19 17 Blood Pressure 196/115 H 191/80 H 197/79 H Pulse Oximetry 94 95 96 Oxygen Delivery Nasal Cannula Nasal Cannula Nasal Cannula Oxygen Flow Rate 3 2 3 12/09/24 16:47 12/09/24 17:00 12/09/24 17:15 Temperature Pulse Rate 68 71 66 Respiratory Rate 19 16 21 H Blood Pressure 184/96 H Pulse Oximetry 96 95 96 Oxygen Delivery Nasal Cannula Oxygen Flow Rate 3 12/09/24 17:18 12/09/24 17:36 12/09/24 17:36 Temperature Pulse Rate 68 67 67 Respiratory Rate 21 H 17 Blood Pressure 191/92 H 194/78 H 184/96 H Pulse Oximetry 95 96 Oxygen Delivery Nasal Cannula Nasal Cannula Oxygen Flow Rate 3 3 12/09/24 18:26 12/09/24 19:37 12/09/24 20:30 Temperature 98.6 F Pulse Rate 74 Respiratory Rate 20 Blood Pressure 171/88 H 178/86 H Pulse Oximetry 91 93 Oxygen Delivery Nasal Cannula Nasal Cannula Oxygen Flow Rate 3 3 12/10/24 00:00 12/10/24 03:07 12/10/24 03:36 Temperature Pulse Rate 69 59 L Respiratory Rate Blood Pressure 169/71 H Pulse Oximetry Oxygen Delivery Oxygen Flow Rate 12/10/24 07:30 12/10/24 08:00 12/10/24 08:00 Temperature 99.4 F Pulse Rate 65 66 75 Respiratory Rate 20 20 Blood Pressure 180/71 H Pulse Oximetry 97 97 Oxygen Delivery Room Air Room Air Oxygen Flow Rate 12/10/24 08:04 Temperature Pulse Rate 66 Respiratory Rate Blood Pressure Pulse Oximetry Oxygen Delivery Oxygen Flow Rate Exam Const: General: comfortable and no acute distress HENMT: Face/Nose/Sinus: Normal nares present Mouth: Yes moist mucous membranes Eyes: General: appearance normal, both eyes and all related structures Sclera: sclerae normal Neck: Neck: supple Resp: Effort & Inspection: normal respiratory effort Auscultation: diminished lung sounds Cardio: Rate: regular rate Rhythm: regular rhythm GI: GI Palp: Yes Soft to palpation Auscultation: normal bowel sounds Skin: General skin exam: normal color and no rashes or lesions noted Neuro: General: gait normal Speech: normal speech Motor exam (neuro): 5/5 motor strength present throughout Sensory Exam: normal sensation Extrem: General: normal to inspection Psych: Mental Status: mental status grossly normal Affect: normal affect H&P: Results Labs Labs: Short CBC 10/17/25 10/18/25 Range/Units 16:15 06:32 WBC 5.7 4.8 (4.8-10.8) K/mm3 Hgb 12.0 10.4 L (11.7-13.8) g/dL Hct 37.1 32.6 L (35.0-42.0) % Plt Count 214 211 (150-420) K/mm3 BMP 12/09/24 12/10/24 16:15 06:32 Sodium 137 135 L Potassium 3.2 L 3.4 Chloride 100 96 L Carbon Dioxide 29 31 H BUN 6 L 7 Creatinine 0.49 L 0.54 L Glucose 120 H 100 Calcium 9.3 9.2 Cardiac Enzymes 12/09/24 Range/Units 16:15 Troponin I < 0.012 (0.000-0.034) ng/mL Liver Function 12/09/24 12/10/24 Range/Units 16:15 06:32 Total Bilirubin 1.1 1.1 (0.2-1.3) mg/dL AST 25 23 (14-36) U/L ALT 12 10 (6-35) U/L Alkaline Phosphatase 99 93 (38-126) U/L Albumin 4.1 3.5 (3.5-5.1) g/dL Assessment and Plan Assessment and plan (1) Hypertensive urgency: Code(s): I16.0 - Hypertensive urgency Status: Acute Assessment and Plan: Patient presented to the ER with BP of 196/115 patient reports an associated headache Head CT negative for acute findings s/p IV labetalol in the ED PO clonidine PRN continue lisinopril (replaces ramipril) continue Bystolic continue hydralazine 50 mg TID monitor BP and adjust as indicated (2) CHF exacerbation: Qualifiers: Heart failure type: unspecified Qualified Code(s): I50.9 - Heart failure, unspecified Code(s): I50.9 - Heart failure, unspecified Status: Acute Assessment and Plan: Chest x-ray with mild CHF, BNP elevated continue furosemide 10 mg IV daily fluid restriction AM labs (3) Pneumonia: Qualifiers: Laterality: left Lung location: lower lobe of lung Pneumonia type: due to unspecified organism Qualified Code(s): J18.9 - Pneumonia, unspecified organism Code(s): J18.9 - Pneumonia, unspecified organism Status: Acute Assessment and Plan: chest x-ray with left basilar infiltrate continue IV azithromycin continue IV ceftriaxone AM labs (4) Hypokalemia: Code(s): E87.6 - Hypokalemia Status: Acute Assessment and Plan: s/p replacement in the ED AM labs (5) Chronic respiratory failure with hypoxia: Code(s): J96.11 - Chronic respiratory failure with hypoxia Status: Acute Assessment and Plan: patient uses o2 at home 3-4L monitor (6) Chronic obstructive pulmonary disease, unspecified: Qualifiers: COPD type: COPD with acute exacerbation Qualified Code(s): J44.1 - Chronic obstructive pulmonary disease with (acute) exacerbation Code(s): J44.9 - Chronic obstructive pulmonary disease, unspecified Status: Acute Assessment and Plan: no exacerbation noted continue inhalers monitor respiratory status (7) Iron deficiency anemia: Code(s): D50.9 - Iron deficiency anemia, unspecified Status: Acute Assessment and Plan: Hgb on admission is 12 monitor H&H not on iron supplement at home (8) CAD in [place] artery: Code(s): I25.10 - Atherosclerotic heart disease of [place] coronary artery without angina pectoris Status: Acute Assessment and Plan: denies chest pain continue aspirin continue rosuvastatin (9) Dyslipidemia: Code(s): E78.5 - Hyperlipidemia, unspecified Status: Acute Assessment and Plan: continue rosuvastatin Quality VTE Prophylaxis VTE prophylaxis: pharmacologic ordered
[2024-12-10] MEDS: levoFLOXacin 500 MG/D5W 100 ML 500 MG/100 ML BAG 100 MG IVPB (16:31)
[2024-12-10 18:11] LABS: Add Urine Microscopic? NO; Appearance Urine Clear (Clear); Glucose Urine UA Negative (Negative); Leukocyte Esterase Ur Negative LEU/UL (Negative); Nitrate Urine Negative (Negative); Specific Grav Ur 1.010 (1.010-1.020)
[2024-12-10] MEDS: MECLIZINE HCL 25 MG TABLET PO (21:17)
[2024-12-11] VITALS (8 sets, daily range): BP systolic 155–172; BP diastolic 57–73; PULSE 65–82; RESP 18; TEMP 37.2–37.4; O2SAT 95–97
[2024-12-11] MEDS: HYDROcodone/acetaminophen (*CRX) 5-325 MG TABLET 1 TAB PO ×5 (06:34→22:25)
[2024-12-11] MEDS: LEVOTHYROXINE SODIUM 75 MCG TABLET PO (06:34)
[2024-12-11] MEDS: FLUTICASONE/UMECLIDIN/VILANTER 100-62.5-25 MCG ELLIPTA 1 PUFF INHALATION (08:16)
[2024-12-11] MEDS: ENOXAPARIN 40 MG/0.4 ML SYRINGE SUB-Q (08:16)
[2024-12-11] MEDS: OMEGA 3 POLYUNSAT FATTY ACIDS 1 GM CAP BY MOUTH ×2 (08:17→17:28)
[2024-12-11] MEDS: PANTOPRAZOLE 40 MG TABLET PO (08:17)
[2024-12-11] MEDS: MECLIZINE HCL 25 MG TABLET PO (08:17)
[2024-12-11] MEDS: FUROSEMIDE INJ 20 MG/2 ML VIAL 10 MG IV PUSH (08:17)
[2024-12-11] MEDS: CHOLECALCIFEROL (VITAMIN D3) 25 MCG (1,000 UNITS) TABLET PO (08:17)
[2024-12-11] MEDS: NEBIVOLOL HCL 5 MG TABLET 20 MG PO (08:17)
[2024-12-11] MEDS: ROSUVASTATIN 10 MG TABLET 20 MG BY MOUTH (08:18)
[2024-12-11] MEDS: ASPIRIN 325 MG ENTERIC TABLET PO (08:18)
[2024-12-11] MEDS: MULTIVITAMINS THERAPEUTIC TAB (*BKC) 1 TABLET PO (08:18)
[2024-12-11] MEDS: POTASSIUM CHLORIDE 10 MEQ ER TABLET BY MOUTH (08:18)
[2024-12-11] MEDS: MAGNESIUM OXIDE 400 MG TABLET PO (08:18)
--- NOTE | 2024-12-11 12:02 | P.PNIM_ITS ---
Progress Note: A&P Assessment and Plan (1) Hypertensive urgency: Code(s): I16.0 - Hypertensive urgency Status: Acute Assessment and Plan: Patient presented to the ER with BP of 196/115 patient reports an associated headache Head CT negative for acute findings s/p IV labetalol in the ED PO clonidine PRN continue lisinopril (replaces ramipril), increase to 40 mg PO daily continue Bystolic hydralazine increased to 75 mg PO TID monitor BP and adjust as indicated (2) CHF exacerbation: Qualifiers: Heart failure type: unspecified Qualified Code(s): I50.9 - Heart failure, unspecified Code(s): I50.9 - Heart failure, unspecified Status: Acute Assessment and Plan: Chest x-ray with mild CHF, BNP elevated continue furosemide 10 mg IV daily, switch to PO fluid restriction AM labs (3) Pneumonia: Qualifiers: Laterality: left Lung location: lower lobe of lung Pneumonia type: due to unspecified organism Qualified Code(s): J18.9 - Pneumonia, unspecified organism Code(s): J18.9 - Pneumonia, unspecified organism Status: Acute Assessment and Plan: chest x-ray with left basilar infiltrate continue IV azithromycin continue IV ceftriaxone AM labs Reapeat CXR in am (4) Hypokalemia: Code(s): E87.6 - Hypokalemia Status: Acute Assessment and Plan: s/p replacement in the ED AM labs (5) Chronic respiratory failure with hypoxia: Code(s): J96.11 - Chronic respiratory failure with hypoxia Status: Acute Assessment and Plan: patient uses o2 at home 3-4L monitor (6) Chronic obstructive pulmonary disease, unspecified: Qualifiers: COPD type: COPD with acute exacerbation Qualified Code(s): J44.1 - Chr onic obstructive pulmonary disease with (acute) exacerbation Code(s): J44.9 - Chronic obstructive pulmonary disease, unspecified Status: Acute Assessment and Plan: no exacerbation noted continue inhalers monitor respiratory status (7) Iron deficiency anemia: Code(s): D50.9 - Iron deficiency anemia, unspecified Status: Acute Assessment and Plan: Hgb on admission is 12 monitor H&H not on iron supplement at home (8) CAD in [place] artery: Code(s): I25.10 - Atherosclerotic heart disease of [place] coronary artery without angina pectoris Status: Acute Assessment and Plan: denies chest pain continue aspirin continue rosuvastatin (9) Dyslipidemia: Code(s): E78.5 - Hyperlipidemia, unspecified Status: Acute Assessment and Plan: continue rosuvastatin Subjective Date/time seen: 12/11/24 12:02 Interval history: Patient seen for a follow up visit. Patient sitting up in bed, in no acute distress. Patient reports feeling like chest is congested, start Mucinex. Patient's blood pressure still elevated, we will give an extra dose of 20 mg lisinopirl and increase lisinopril to 40 mg PO daily. Patient still reports a headache, continue Tylenol and [place] PRN. continues on oxygen 3-4L by [place]. Review of Systems Review of Systems: All systems reviewed & are unremarkable except as noted in HPI and below Exam Const: General: comfortable and no acute distress HENMT: Face/Nose/Sinus: Normal nares present Mouth: Yes moist mucous membranes Eyes: General: appearance normal, both eyes and all related structures Sclera: sclerae normal Neck: Neck: supple Resp: Effort & Inspection: normal respiratory effort Auscultation: diminished lung sounds Cardio: Rate: regular rate Rhythm: regular rhythm GI: Auscultation: normal bowel sounds Skin: General skin exam: normal color and no rashes or lesions noted Neuro: General: gait normal Speech: normal speech Motor exam (neuro): 5/5 motor strength present throughout Sensory Exam: normal sensation Extrem: General: normal to inspection Psych: Mental Status: mental status grossly normal Affect: normal affect Objective Data Vital Signs Vital Signs: Vital Signs - 24 hr 12/10/24 16:00 12/10/24 16:00 12/10/24 20:00 Temperature 99.2 F Pulse Rate 68 69 69 Respiratory Rate 17 Blood Pressure 153/52 H Pulse Oximetry 95 Oxygen Delivery Nasal Cannula Oxygen Flow Rate 3 12/10/24 23:45 12/10/24 23:45 12/11/24 04:00 Temperature 98.4 F Pulse Rate 64 63 65 Respiratory Rate 16 Blood Pressure 166/62 H Pulse Oximetry 96 Oxygen Delivery Nasal Cannula Oxygen Flow Rate 4 12/11/24 08:00 12/11/24 08:00 12/11/24 08:00 Temperature 99.3 F Pulse Rate 73 82 82 Respiratory Rate 18 18 Blood Pressure 168/61 H Pulse Oximetry 95 95 Oxygen Delivery Nasal Cannula Nasal Cannula Oxygen Flow Rate 3 3 12/11/24 08:17 Temperature Pulse Rate 65 Respiratory Rate Blood Pressure Pulse Oximetry Oxygen Delivery Oxygen Flow Rate Intake/Output Intake/Output: Intake & Output 12/08/24 12/09/24 12/10/24 12/11/24 23:59 23:59 23:59 23:59 Intake Total 100 1440 500 Balance 100 1440 500 Meds/Results Medications: Active Medications Generic Name Dose Route Start Last Admin Trade Name Freq PRN Reason Stop Dose Admin Acetaminophen 650 mg 12/09/24 19:26 Acetaminophen 325 Mg Tablet PO Q4H PRN Mild Pain (1-3) or Fever Hydrocodone Bitart/Acetaminophen 1 tab 12/09/24 19:26 12/11/24 10:11 Hydrocodone/Acetaminophen (*Crx) 5-325 Mg Tablet PO 1 tab Q4H PRN Administration Moderate Pain (4-6) Albuterol 2 puff 12/09/24 19:37 Albuterol Sulfate (*Sp) Inhaler INHALATION Q4-6H PRN Shortness Of Breath Aspirin 325 mg 12/10/24 09:00 12/11/24 08:18 Aspirin 325 Mg Enteric Tablet PO 325 mg QAM PASCUAL Administration Clonidine HCl 0.1 mg 12/09/24 19:26 12/09/24 20:45 Clonidine Hcl 0.1 Mg Tablet PO 0.1 mg Q6H PRN Administration Blood Pressure - High Enoxaparin Sodium 40 mg 12/10/24 09:00 12/11/24 08:16 Enoxaparin 40 Mg/0.4 Ml Syringe SUB-Q 40 mg DAILY PASCUAL Administration Fish Oil 1 gm 12/10/24 10:00 12/11/24 08:17 [place] 3 Polyunsat Fatty Acids 1 Gm Cap BY MOUTH 1 gm BID PASCUAL Administration Fluoxetine HCl 40 mg 12/10/24 18:00 12/10/24 16:32 Fluoxetine Hcl 20 Mg Capsule PO 40 mg QPM PASCUAL Administration Fluticasone/Umeclidinium/Vilanterol 1 puff 12/10/24 09:00 12/11/24 08:16 Fluticasone/Umeclidin/Vilanter 100-62.5-25 Mcg Ellipta INHALATION 1 puff DAILYRT PASCUAL Administration Furosemide 10 mg 12/10/24 09:00 12/11/24 08:17 Furosemide Inj 20 Mg/2 Ml Vial IV PUSH 10 mg DAILY PASCUAL Administration Hydralazine HCl 75 mg 12/11/24 07:45 12/11/24 08:17 Hydralazine Hcl 25 Mg Tablet PO 75 mg Q8HR PASCUAL Administration Levofloxacin/Dextrose 500 mg in 100 mls @ 100 mls/hr 12/10/24 17:00 12/10/24 17:31 Levaquin 500 Mg/D5w 100 Ml IVPB Infused Q24H PASCUAL Infusion Levothyroxine Sodium 75 mcg 12/10/24 06:30 12/11/24 06:34 Levothyroxine Sodium 75 Mcg Tablet PO 75 mcg DAILY@0630 PASCUAL Administration Lisinopril 20 mg 12/10/24 09:00 12/11/24 08:18 Lisinopril 20 Mg Tablet PO 20 mg QAM PASCUAL Administration Magnesium Oxide 400 mg 12/10/24 10:00 12/11/24 08:18 Magnesium Oxide 400 Mg Tablet PO 400 mg DAILY PASCUAL Administration Meclizine HCl 25 mg 12/10/24 09:09 12/11/24 08:17 Meclizine Hcl 25 Mg Tablet PO 25 mg TID PRN Administration Vertigo Multivitamins Therapeutic 1 tablet 12/10/24 10:00 12/11/24 08:18 Multivitamins Therapeutic Tab (*Bkc) PO 1 tablet DAILY PASCUAL Administration Nebivolol 20 mg 12/10/24 09:00 12/11/24 08:17 Nebivolol Hcl 5 Mg Tablet PO 20 mg DAILY PASCUAL Administration Ondansetron HCl 4 mg 12/09/24 19:26 Ondansetron Inj 4 Mg/2 Ml Vial IV PUSH Q6H PRN Nausea And Vomiting Pantoprazole Sodium 40 mg 12/10/24 09:00 12/11/24 08:17 Pantoprazole 40 Mg Tablet PO 40 mg QAM PASCUAL Administration Potassium Chloride 10 meq 12/10/24 10:00 12/11/24 08:18 Potassium Chloride 10 Meq Er Tablet BY MOUTH 10 meq DAILY PASCUAL Administration Roflumilast 500 mcg 12/10/24 09:00 12/10/24 09:24 Roflumilast 250 Mcg Tablet BY MOUTH Not Given On Hold: 12/10/24 09:30 DAILY PASCUAL Comment: Pt states she was told not to take this home med . It was entered as taking but that was not correct. Rosuvastatin Calcium 20 mg 10/18/25 10:00 12/11/24 08:18 Rosuvastatin 10 Mg Tablet BY MOUTH 20 mg DAILY PASCUAL Administration Vitamin D 25 mcg 12/10/24 10:00 12/11/24 08:17 Cholecalciferol (Vitamin D3) 25 Mcg (1,000 Units) Tablet PO 25 mcg DAILY PASCUAL Administration Radiology Results: ITS Impressions Head CT 12/09/24 16:36 IMPRESSION: 1. Stable extensive nonspecific cerebral white matter disease, which likely represents chronic small vessel ischemic disease. 2. Chronic sinusitis. Chest X-Ray 12/09/24 16:37 Impression: CHF. Small left lower lobe pneumonia Labs Labs: Laboratory Results - last 24 hr 12/09/24 16:05 Urine Color Light yellow Urine Appearance Clear Urine pH 6.0 Ur Specific [place] 1.010 Urine Protein Negative Urine Glucose (UA) Negative Urine Ketones 1+ H Ur Blood (Man) Negative Urine Nitrate Negative Urine Bilirubin Negative Urine Urobilinogen 1.0 Leukocyte Esterase Rfl Negative Quality VTE Prophylaxis VTE prophylaxis: pharmacologic ordered
[2024-12-11] MEDS: levoFLOXacin 500 MG/D5W 100 ML 500 MG/100 ML BAG 100 MG IVPB (16:30)
[2024-12-11] MEDS: SACCHAROMYCES BOULARDII 250 MG CAPSULE PO (17:28)
[2024-12-11] MEDS: guaiFENesin 12 HR 600 MG TABCR 1200 MG PO (21:23)
--- NOTE | 2024-12-11 22:21 | PC.NURSE ---
Patient was given PRN [place] for a headache rated @ 4 @ 2122. Upon reassessment patient reports headache has gotten worse and now rates it @ 8. BP taken and is 155/57. Fanta Ramirez NP notified with new order received for one time dose of an extra [place].
[2024-12-12] VITALS (8 sets, daily range): BP systolic 127–187; BP diastolic 46–76; PULSE 64–76; RESP 16–18; TEMP 36.8–37.7; O2SAT 93–97
[2024-12-12] MEDS: HYDROcodone/acetaminophen (*CRX) 5-325 MG TABLET 1 TAB PO ×4 (02:03→22:21)
--- NOTE | 2024-12-12 02:07 | PC.NURSE ---
Patient's headache is back. PRN [place] given @ this time along with a warm blanket to put over eyes/head.
[2024-12-12] MEDS: LEVOTHYROXINE SODIUM 75 MCG TABLET PO (06:02)
[2024-12-12 06:08] LABS: Hematocrit 35.3 % (35.0-42.0); Hemoglobin 11.6 g/dL (11.7-13.8); Immature Granulocyte Percent A 0.2 % (0.0-0.0); Lymphocytes Absolute Auto 1.03 K/mm3 (1.10-4.50); Mean Corpuscular HGB Conc 32.9 g/dL (32-36); Mean Corpuscular Hemoglobin 29.4 pg (27.0-31.0); Mean Corpuscular Volume 89.4 fL (78.0-102.0); Nucleated Red Blood Cells Absolute Auto 0.00 K/mm3 (0.00-0.00); Nucleated Red Blood Cells Perc 0.0 % (0-0.0); Platelet Count Result 209 K/mm3 (150-420); Red Blood Count 3.95 M/mm3 (4.20-5.40); White Blood Count 5.4 K/mm3 (4.8-10.8)
[2024-12-12 06:20] LABS: Alanine Aminotransferase 10 U/L (6-35); Albumin Level 3.8 g/dL (3.5-5.1); Alkaline Phosphatase 88 U/L (38-126); Anion Gap 7 mmol/L (4-12); Aspartate Amino Transferase 22 U/L (14-36); Bilirubin,Total 0.7 mg/dL (0.2-1.3); Blood Urea Nitrogen 9 mg/dL (7-17); Calcium 8.9 mg/dL (8.4-10.2); Carbon Dioxide 31 mmol/L (22-30); Chloride 95 mmol/L (98-107); Estimated CRCL calculation 49 ml/min; Estimated Glomerular Filt Rate > 60; Glucose 98 mg/dL (65-110); Osmolality Calculated 274 mOsm/kg (285-295); Potassium 3.3 mmol/L (3.4-5.0); Sodium 133 mmol/L (137-145); Total Protein 7.1 g/dL (6.3-8.2)
[2024-12-12] MEDS: ONDANSETRON INJ 4 MG/2 ML VIAL IV PUSH (07:29)
[2024-12-12] MEDS: MAGNESIUM OXIDE 400 MG TABLET PO (08:18)
[2024-12-12] MEDS: ROSUVASTATIN 10 MG TABLET 20 MG BY MOUTH (08:18)
[2024-12-12] MEDS: FUROSEMIDE 20 MG TABLET BY MOUTH (08:18)
[2024-12-12] MEDS: POTASSIUM CHLORIDE 10 MEQ ER TABLET BY MOUTH (08:18)
[2024-12-12] MEDS: OMEGA 3 POLYUNSAT FATTY ACIDS 1 GM CAP BY MOUTH ×2 (08:18→17:18)
[2024-12-12] MEDS: guaiFENesin 12 HR 600 MG TABCR 1200 MG PO ×2 (08:18→20:28)
[2024-12-12] MEDS: CHOLECALCIFEROL (VITAMIN D3) 25 MCG (1,000 UNITS) TABLET PO (08:19)
[2024-12-12] MEDS: ACETAMINOPHEN 325 MG TABLET 650 MG PO (08:19)
[2024-12-12] MEDS: ASPIRIN 325 MG ENTERIC TABLET PO (08:19)
[2024-12-12] MEDS: PANTOPRAZOLE 40 MG TABLET PO (08:19)
[2024-12-12] MEDS: MULTIVITAMINS THERAPEUTIC TAB (*BKC) 1 TABLET PO (08:19)
[2024-12-12] MEDS: ENOXAPARIN 40 MG/0.4 ML SYRINGE SUB-Q (08:21)
[2024-12-12] MEDS: FLUTICASONE/UMECLIDIN/VILANTER 100-62.5-25 MCG ELLIPTA 1 PUFF INHALATION (08:21)
[2024-12-12] MEDS: NEBIVOLOL HCL 5 MG TABLET 20 MG PO (10:49)
[2024-12-12] MEDS: SACCHAROMYCES BOULARDII 250 MG CAPSULE PO ×2 (11:32→17:18)
[2024-12-12] MEDS: NEBIVOLOL HCL 5 MG TABLET 10 MG PO (13:37)
[2024-12-12] MEDS: levoFLOXacin 500 MG/D5W 100 ML 500 MG/100 ML BAG 100 MG IVPB (17:17)
--- NOTE | 2024-12-12 18:29 | P.PNIM_ITS ---
Progress Note: A&P Assessment and Plan (1) Hypertensive urgency: Code(s): I16.0 - Hypertensive urgency Status: Acute Assessment and Plan: Patient presented to the ER with BP of 196/115 patient reports an associated headache Head CT negative for acute findings s/p IV labetalol in the ED PO clonidine PRN continue lisinopril (replaces ramipril), increase to 40 mg PO daily continue Bystolic, increase to 30 mg PO daily hydralazine increased to 75 mg PO TID monitor BP and adjust as indicated (2) CHF exacerbation: Qualifiers: Heart failure type: unspecified Qualified Code(s): I50.9 - Heart failure, unspecified Code(s): I50.9 - Heart failure, unspecified Status: Acute Assessment and Plan: Chest x-ray with mild CHF, BNP elevated continue furosemide 10 mg IV daily, switch to PO fluid restriction AM labs (3) Pneumonia: Qualifiers: Laterality: left Lung location: lower lobe of lung Pneumonia type: due to unspecified organism Qualified Code(s): J18.9 - Pneumonia, unspecified organism Code(s): J18.9 - Pneumonia, unspecified organism Status: Acute Assessment and Plan: chest x-ray with left basilar infiltrate continue IV Levaquin AM labs Reapeat CXR improved switch to PO abx tomorrow (4) Hypokalemia: Code(s): E87.6 - Hypokalemia Status: Acute Assessment and Plan: s/p replacement in the ED AM labs (5) Chronic respiratory failure with hypoxia: Code(s): J96.11 - Chronic respiratory failure with hypoxia Status: Acute Assessment and Plan: patient uses o2 at home 3-4L monitor (6) Chronic obstructive pulmonary disease, unspecified: Qualifiers: COPD type: COPD with acute exacerbation Qualified Code(s): J44.1 - Chronic obstructive pulmonary disease with (acute) exacerbation Code(s): J44.9 - Chronic obstructive pulmonary disease, unspecified Status: Acute Assessment and Plan: no exacerbation noted continue inhalers monitor respiratory status (7) Iron deficiency anemia: Code(s): D50.9 - Iron deficiency anemia, unspecified Status: Acute Assessment and Plan: Hgb on admission is 12 monitor H&H not on iron supplement at home (8) CAD in [place] artery: Code(s): I25.10 - Atherosclerotic heart disease of [place] coronary artery without angina pectoris Status: Acute Assessment and Plan: denies chest pain continue aspirin continue rosuvastatin (9) Dyslipidemia: Code(s): E78.5 - Hyperlipidemia, unspecified Status: Acute Assessment and Plan: continue rosuvastatin (10) Migraine: Code(s): G43.909 - Migraine, unspecified, not intractable, without status migrainosus Status: Acute Assessment and Plan: patient reports a history of migraines she has had headaches since prior to admission she reports tylenol did not help s/p extra dose of [place] yesterday with some relief avoid triptans due to history of CAD with stent placement and uncontrolled HTN give one time dose of IV toradol Subjective Date/time seen: 12/12/24 18:29 Interval history: Patient seen for a follow up visit. Patient's blood pressure still elevated. Increase patients bystolic to 30 mg PO daily. Patient still reports a headache with no relief even after extra dose of [place] yesterday. Patient denies dyspnea. o2 at 3-4 liters which is her home dose. Plan to switch IV antibiotics to PO tomorrow. Plan for discharge home tomorrow if blood pressure improved. Give patient one time dose of IV toradol for migraine headache. Review of Systems Review of Systems: All systems reviewed & are unremarkable except as noted in HPI and below Exam Const: General: comfortable and no acute distress HENMT: Face/Nose/Sinus: Normal nares present Mouth: Yes moist mucous membranes Eyes: General: appearance normal, both eyes and all related structures Sclera: sclerae normal Neck: Neck: supple Resp: Effort & Inspection: normal respiratory effort Auscultation: diminished lung sounds Cardio: Rate: regular rate Rhythm: regular rhythm GI: Auscultation: normal bowel sounds Skin: General skin exam: normal color and no rashes or lesions noted Neuro: General: gait normal Speech: normal speech Motor exam (neuro): 5/5 motor strength present throughout Sensory Exam: normal sensation Extrem: General: normal to inspection Psych: Mental Status: mental status grossly normal Affect: normal affect Objective Data Vital Signs Vital Signs: Vital Signs - 24 hr 12/11/24 20:00 12/11/24 22:36 12/12/24 00:00 Temperature Pulse Rate 66 64 Respiratory Rate Blood Pressure 155/57 H Pulse Oximetry Oxygen Delivery Oxygen Flow Rate 12/12/24 00:00 12/12/24 04:00 12/12/24 08:00 Temperature 98.5 F 98.3 F Pulse Rate 64 72 64 Respiratory Rate 16 18 Blood Pressure 158/67 H 187/76 H Pulse Oximetry 97 96 Oxygen Delivery Nasal Cannula Room Air Oxygen Flow Rate 3 12/12/24 08:00 12/12/24 08:00 12/12/24 12:00 Temperature Pulse Rate 64 67 Respiratory Rate Blood Pressure Pulse Oximetry 95 Oxygen Delivery Nasal Cannula Oxygen Flow Rate 2 12/12/24 12:30 12/12/24 16:00 12/12/24 16:00 Temperature 100 F H Pulse Rate 66 76 Respiratory Rate 18 Blood Pressure 166/73 H 127/46 L Pulse Oximetry 96 Oxygen Delivery Nasal Cannula Oxygen Flow Rate 2 Intake/Output Intake/Output: Intake & Output 12/09/24 12/10/24 12/11/24 12/12/24 23:59 23:59 23:59 23:59 Intake Total 100 1440 1320 950 Balance 100 1440 1320 950 Meds/Results Medications: Active Medications Generic Name Dose Route Start Last Admin Trade Name Freq PRN Reason Stop Dose Admin Acetaminophen 650 mg 12/09/24 19:26 12/12/24 08:19 Acetaminophen 325 Mg Tablet PO 650 mg Q4H PRN Administration Mild Pain (1-3) or Fever Hydrocodone Bitart/Acetaminophen 1 tab 12/09/24 19:26 12/12/24 16:03 Hydrocodone/Acetaminophen (*Crx) 5-325 Mg Tablet PO 1 tab Q4H PRN Administration Moderate Pain (4-6) Albuterol 2 puff 12/09/24 19:37 Albuterol Sulfate (*Sp) Inhaler INHALATION Q4-6H PRN Shortness Of Breath Aspirin 325 mg 12/10/24 09:00 12/12/24 08:19 Aspirin 325 Mg Enteric Tablet PO 325 mg QAM PASCUAL Administration Clonidine HCl 0.1 mg 12/09/24 19:26 12/09/24 20:45 Clonidine Hcl 0.1 Mg Tablet PO 0.1 mg Q6H PRN Administration Blood Pressure - High Enoxaparin Sodium 40 mg 12/10/24 09:00 12/12/24 08:21 Enoxaparin 40 Mg/0.4 Ml Syringe SUB-Q 40 mg DAILY PASCUAL Administration Fish Oil 1 gm 12/10/24 10:00 12/12/24 17:18 [place] 3 Polyunsat Fatty Acids 1 Gm Cap BY MOUTH 1 gm BID PASCUAL Administration Fluoxetine HCl 40 mg 12/10/24 18:00 12/12/24 17:18 Fluoxetine Hcl 20 Mg Capsule PO 40 mg QPM PASCUAL Administration Fluticasone/Umeclidinium/Vilanterol 1 puff 12/10/24 09:00 12/12/24 08:21 Fluticasone/Umeclidin/Vilanter 100-62.5-25 Mcg Ellipta INHALATION 1 puff DAILYRT PASCUAL Administration Furosemide 20 mg 12/12/24 09:00 12/12/24 08:18 Furosemide 20 Mg Tablet BY MOUTH 20 mg DAILY PASCUAL Administration Guaifenesin 1,200 mg 12/11/24 21:00 12/12/24 08:18 Guaifenesin 12 Hr 600 Mg Tabcr PO 1,200 mg Q12HR PASCUAL Administration Hydralazine HCl 75 mg 12/11/24 07:45 12/12/24 13:38 Hydralazine Hcl 25 Mg Tablet PO 75 mg Q8HR PASCUAL Administration Levofloxacin/Dextrose 500 mg in 100 mls @ 100 mls/hr 12/10/24 17:00 12/12/24 17:17 Levaquin 500 Mg/D5w 100 Ml IVPB 100 mls/hr Q24H PASCUAL Administration Levothyroxine Sodium 75 mcg 12/10/24 06:30 12/12/24 06:02 Levothyroxine Sodium 75 Mcg Tablet PO 75 mcg DAILY@0630 PASCUAL Administration Lisinopril 40 mg 12/12/24 09:00 12/12/24 08:18 Lisinopril 20 Mg Tablet PO 40 mg QAM PASCUAL Administration Magnesium Oxide 400 mg 12/10/24 10:00 12/12/24 08:18 Magnesium Oxide 400 Mg Tablet PO 400 mg DAILY PASCUAL Administration Meclizine HCl 25 mg 12/10/24 09:09 12/11/24 08:17 Meclizine Hcl 25 Mg Tablet PO 25 mg TID PRN Administration Vertigo Multivitamins Therapeutic 1 tablet 12/10/24 10:00 12/12/24 08:19 Multivitamins Therapeutic Tab (*Bkc) PO 1 tablet DAILY PASCUAL Administration Nebivolol 30 mg 12/13/24 09:00 Nebivolol Hcl 5 Mg Tablet PO DAILY PASCUAL Ondansetron HCl 4 mg 12/09/24 19:26 12/12/24 07:29 Ondansetron Inj 4 Mg/2 Ml Vial IV PUSH 4 mg Q6H PRN Administration Nausea And Vomiting Pantoprazole Sodium 40 mg 12/10/24 09:00 12/12/24 08:19 Pantoprazole 40 Mg Tablet PO 40 mg QAM PASCUAL Administration Potassium Chloride 10 meq 12/10/24 10:00 12/12/24 08:18 Potassium Chloride 10 Meq Er Tablet BY MOUTH 10 meq DAILY PASCUAL Administration Roflumilast 500 mcg 12/10/24 09:00 12/10/24 09:24 Roflumilast 250 Mcg Tablet BY MOUTH Not Given On Hold: 12/10/24 09:30 DAILY [facility] Comment: Pt states she was told not to take this home med . It was entered as taking but that was not correct. Rosuvastatin Calcium 20 mg 12/10/24 10:00 12/12/24 08:18 Rosuvastatin 10 Mg Tablet BY MOUTH 20 mg DAILY PASCUAL Administration Saccharomyces Boulardii 250 mg 12/11/24 17:00 12/12/24 17:18 Saccharomyces Boulardii 250 Mg Capsule PO 250 mg BID PASCUAL Administration Vitamin D 25 mcg 12/10/24 10:00 12/12/24 08:19 Cholecalciferol (Vitamin D3) 25 Mcg (1,000 Units) Tablet PO 25 mcg DAILY PASCUAL Administration Radiology Results: ITS Impressions Head CT 12/09/24 16:36 IMPRESSION: 1. Stable extensive nonspecific cerebral white matter disease, which likely represents chronic small vessel ischemic disease. 2. Chronic sinusitis. Chest X-Ray 12/12/24 08:01 IMPRESSION: 1. Chronic left lower lobe collapse with associated bronchiectasis. 2. Emphysema with additional mild biapical pleural-parenchymal scarring. Labs Labs: Laboratory Results - last 24 hr 12/12/24 05:42 WBC 5.4 RBC 3.95 L Hgb 11.6 L Hct 35.3 MCV 89.4 MCH 29.4 MCHC 32.9 RDW 14.6 H Plt Count 209 MPV 9.2 Immature Gran % (Auto) 0.2 H Neut % (Auto) 70.0 Lymph % (Auto) 19.2 [place] % (Auto) 7.8 Eos % (Auto) 2.1 Baso % (Auto) 0.7 Lymph # (Auto) 1.03 L [place] # (Auto) 0.42 Eos # (Auto) 0.11 Baso # (Auto) 0.04 Abs Immat Gran (auto) 0.01 H Absolute Neuts (auto) 3.75 Absolute Nucleated RBC 0.00 Nucleated RBC % 0.0 Sodium 133 L Potassium 3.3 L Chloride 95 L Carbon Dioxide 31 H Anion Gap 7 BUN 9 Creatinine 0.58 L Estim Creat Clear Calc 49 Estimated GFR > 60 Glucose 98 Calculated Osmolality 274 L Calcium 8.9 Total Bilirubin 0.7 AST 22 ALT 10 Alkaline Phosphatase 88 Total Protein 7.1 Albumin 3.8 Quality VTE Prophylaxis VTE prophylaxis: pharmacologic ordered
[2024-12-12] MEDS: KETOROLAC 30 MG/ML VIAL (*BKC) IV PUSH (20:26)
[2024-12-13] VITALS (8 sets, daily range): BP systolic 141–175; BP diastolic 65–87; PULSE 63–79; RESP 16–20; TEMP 37.2–37.3; O2SAT 92
[2024-12-13 05:45] LABS: Hematocrit 35.2 % (35.0-42.0); Hemoglobin 11.6 g/dL (11.7-13.8); Immature Granulocyte Percent A 0.4 % (0.0-0.0); Lymphocytes Absolute Auto 1.26 K/mm3 (1.10-4.50); Mean Corpuscular HGB Conc 33.0 g/dL (32-36); Mean Corpuscular Hemoglobin 29.1 pg (27.0-31.0); Mean Corpuscular Volume 88.2 fL (78.0-102.0); Nucleated Red Blood Cells Absolute Auto 0.00 K/mm3 (0.00-0.00); Nucleated Red Blood Cells Perc 0.0 % (0-0.0); Platelet Count Result 219 K/mm3 (150-420); Red Blood Count 3.99 M/mm3 (4.20-5.40); White Blood Count 5.3 K/mm3 (4.8-10.8)
[2024-12-13 05:58] LABS: Alanine Aminotransferase 11 U/L (6-35); Albumin Level 3.6 g/dL (3.5-5.1); Alkaline Phosphatase 84 U/L (38-126); Anion Gap 6 mmol/L (4-12); Aspartate Amino Transferase 27 U/L (14-36); Bilirubin,Total 0.6 mg/dL (0.2-1.3); Blood Urea Nitrogen 10 mg/dL (7-17); Calcium 9.0 mg/dL (8.4-10.2); Carbon Dioxide 32 mmol/L (22-30); Chloride 93 mmol/L (98-107); Estimated CRCL calculation 43 ml/min; Estimated Glomerular Filt Rate > 60; Glucose 102 mg/dL (65-110); Osmolality Calculated 271 mOsm/kg (285-295); Potassium 3.4 mmol/L (3.4-5.0); Sodium 131 mmol/L (137-145); Total Protein 7.2 g/dL (6.3-8.2)
[2024-12-13] MEDS: LEVOTHYROXINE SODIUM 75 MCG TABLET PO (06:25)
[2024-12-13] MEDS: CHOLECALCIFEROL (VITAMIN D3) 25 MCG (1,000 UNITS) TABLET PO (08:16)
[2024-12-13] MEDS: ENOXAPARIN 40 MG/0.4 ML SYRINGE SUB-Q (08:16)
[2024-12-13] MEDS: NEBIVOLOL HCL 5 MG TABLET 30 MG PO (08:17)
[2024-12-13] MEDS: ROSUVASTATIN 10 MG TABLET 20 MG BY MOUTH (08:18)
[2024-12-13] MEDS: ASPIRIN 325 MG ENTERIC TABLET PO (08:18)
[2024-12-13] MEDS: FUROSEMIDE 20 MG TABLET BY MOUTH (08:18)
[2024-12-13] MEDS: MAGNESIUM OXIDE 400 MG TABLET PO (08:18)
[2024-12-13] MEDS: MULTIVITAMINS THERAPEUTIC TAB (*BKC) 1 TABLET PO (08:18)
[2024-12-13] MEDS: PANTOPRAZOLE 40 MG TABLET PO (08:19)
[2024-12-13] MEDS: POTASSIUM CHLORIDE 10 MEQ ER TABLET BY MOUTH (08:19)
[2024-12-13] MEDS: SACCHAROMYCES BOULARDII 250 MG CAPSULE PO (08:19)
[2024-12-13] MEDS: guaiFENesin 12 HR 600 MG TABCR 1200 MG PO (08:19)
[2024-12-13] MEDS: FLUTICASONE/UMECLIDIN/VILANTER 100-62.5-25 MCG ELLIPTA 1 PUFF INHALATION (08:20)
[2024-12-13] MEDS: OMEGA 3 POLYUNSAT FATTY ACIDS 1 GM CAP BY MOUTH (08:20)
--- NOTE | 2024-12-13 12:53 | P.DS_ITS ---
DS: Admitting Diagnosis Discharge Date 12/13/2024 Admitting Diagnosis hypertensive urgency DS: Discharge Diagnosis Discharge Diagnosis (1) Hypertensive urgency: Code(s): I16.0 - Hypertensive urgency Status: Acute Assessment and Plan: Patient presented to the ER with BP of 196/115 patient reports an associated headache Head CT negative for acute findings s/p IV labetalol in the ED PO clonidine PRN continue lisinopril (replaces ramipril), increase to 40 mg PO daily continue Bystolic, increase to 30 mg PO daily hydralazine increased to 75 mg PO TID monitor BP and adjust as indicated (2) CHF exacerbation: Qualifiers: Heart failure type: unspecified Qualified Code(s): I50.9 - Heart failure, unspecified Code(s): I50.9 - Heart failure, unspecified Status: Acute Assessment and Plan: Chest x-ray with mild CHF, BNP elevated continue furosemide 10 mg IV daily, switch to PO fluid restriction repeat CXR on 12/12 did not show CHF (3) Pneumonia: Qualifiers: Laterality: left Lung location: lower lobe of lung Pneumonia type: due to unspecified organism Qualified Code(s): J18.9 - Pneumonia, unspecified organism Code(s): J18.9 - Pneumonia, unspecified organism Status: Acute Assessment and Plan: chest x-ray with left basilar infiltrate continue IV Levaquin AM labs Reapeat CXR improved switch to PO abx on discharge (4) Hypokalemia: Code(s): E87.6 - Hypokalemia Status: Acute Assessment and Plan: s/p replacement in the ED (5) Chronic respiratory failure with hypoxia: Code(s): J96.11 - Chronic respiratory failure with hypoxia Status: Acute Assessment and Plan: patient uses o2 at home 3-4L monitor (6) Chronic obstructive pulmonary disease, unspecified: Qualifiers: COPD type: COPD with acute exacerbation Qualified Code(s): J44.1 - Chronic obstructive pulmonary disease with (acute) exacerbation Code(s): J44.9 - Chronic obstructive pulmonary disease, unspecified Status: Acute Assessment and Plan: no exacerbation noted continue inhalers monitor respiratory status (7) Iron deficiency anemia: Code(s): D50.9 - Iron deficiency anemia, unspecified Status: Acute Assessment and Plan: Hgb on admission is 12 monitor H&H not on iron supplement at home (8) CAD in [place] artery: Code(s): I25.10 - Atherosclerotic heart disease of [place] coronary artery without angina pectoris Status: Acute Assessment and Plan: denies chest pain continue aspirin continue rosuvastatin (9) Dyslipidemia: Code(s): E78.5 - Hyperlipidemia, unspecified Status: Acute Assessment and Plan: continue rosuvastatin (10) Migraine: Code(s): G43.909 - Migraine, unspecified, not intractable, without status migrainosus Status: Acute Assessment and Plan: patient reports a history of migraines she has had headaches since prior to admission she reports tylenol did not help s/p extra dose of [place] yesterday with some relief avoid triptans due to history of CAD with stent placement and uncontrolled HTN give one time dose of IV toradol patient reports migraine improved after IV toradol discusse marianne patient to ask her PCP to trial Fioricet PRN as outpatient, information given on DC instructions as well DS: Summary Hospital Course Reason for hospitalization: hypertensive urgency Hospital Course: Patient is a 79 year old female with PMH of HTN, HLD, hypothyroidism, chronic pain, iron deficiency anemia, CAD, COPD (on chronic o2 3-4L at home) and CHF. Patient presented to the ER with complaints of nausea, vomiting and elevated blood pressure. Patient reports she has a headache that is associated with the elevated blood pressure. In the ER the patient's lab work showed Hgb 12, k 3.2, BNP 1450, troponin negative, UA negative for infection. Head CT without acute findings. CXR showed left basilar infiltrate and mild CHF. Patient was started on IV azithromycin and IV ceftriaxone. Patient was given IV furosemide 10 mg. Patient was given IV labetalol. after admission patient's antibiotics were changed to IV Levaquin due to her QTC. Patient required multiple blood pressure medication adjustments due to continued hypertensive urgency during her admission. Patient has CHF exacerbation treated with IV furosemide which was then switched to oral. Patient remained on a fluid restriction. Patient had a repeat chest x-ray which did not show pulmonary venous congestion. Patient's pneumonia was treated with IV Levaquin and repeat chest x-ray showed improvement. patient was switched to p.o. Levaquin x3 more days on discharge. patient reported a migraine at the time of admission and p.r.n. Tylenol was not helping. P.r.n. Rosie tried with some relief. In have waited triptans due to history of CAD with stent placement and uncontrolled hypertension. Patient given a 1 time dose of IV Toradol with relief of migraine. Discussed with patient to ask PCP to trial Fioricet as outpatient as this medication is not on our formulary. Patient's blood pressure improved and patient was discharged home. Patient will continue to check her blood pressure 3 times per day at home and keep a log for her PCP. Patient instructed follow-up with her PCP within 1- 2 weeks of discharge. Patient also instructed to follow up with her outpatient professor of physical education. Patient was discharged home. Time Spent with Patient Time attestation: Total time spent providing and/or coordinating discharge services: 35 Minutes Exam Const: General: comfortable and no acute distress HENMT: Face/Nose/Sinus: Normal nares present Mouth: Yes moist mucous membranes Eyes: General: appearance normal, both eyes and all related structures Sclera: sclerae normal Neck: Neck: supple Resp: Effort & Inspection: normal respiratory effort Auscultation: diminished lung sounds Cardio: Rate: regular rate Rhythm: regular rhythm GI: Auscultation: normal bowel sounds Skin: General skin exam: normal color and no rashes or lesions noted Neuro: General: gait normal Speech: normal speech Motor exam (neuro): 5/5 motor strength present throughout Sensory Exam: normal sensation Extrem: General: normal to inspection Psych: Mental Status: mental status grossly normal Affect: normal affect DS: Data Data Completed and Pending Labs on day of discharge: Labs from last 24 hours 12/13/24 05:35 WBC 5.3 RBC 3.99 L Hgb 11.6 L Hct 35.2 MCV 88.2 MCH 29.1 MCHC 33.0 RDW 14.3 Plt Count 219 MPV 9.0 L Immature Gran % (Auto) 0.4 H Neut % (Auto) 64.3 Lymph % (Auto) 23.6 [place] % (Auto) 8.2 Eos % (Auto) 2.8 Baso % (Auto) 0.7 Lymph # (Auto) 1.26 [place] # (Auto) 0.44 Eos # (Auto) 0.15 Baso # (Auto) 0.04 Abs Immat Gran (auto) 0.02 H Absolute Neuts (auto) 3.43 Absolute Nucleated RBC 0.00 Nucleated RBC % 0.0 Sodium 131 L Potassium 3.4 Chloride 93 L Carbon Dioxide 32 H Anion Gap 6 BUN 10 Creatinine 0.68 L Estim Creat Clear Calc 43 Estimated GFR > 60 Glucose 102 Calculated Osmolality 271 L Calcium 9.0 Total Bilirubin 0.6 AST 27 ALT 11 Alkaline Phosphatase 84 Total Protein 7.2 Albumin 3.6 Preliminary micro results at discharge 12/09/24 17:02 Blood Culture - Preliminary Blood 12/09/24 17:02 Blood Culture - Preliminary Blood Discharge Plan Discharge Attending physician on discharge: Tremayne Morales Consulting providers: Fanta Ramirez; Gregory Cr V.; Bradford Bowen; Edgar Stephenson; Will Wynne Discharging Clinician: Fanta Ramirez Patient Disposition: Home Activity: as tolerated Diet: heart healthy and low sodium Discharge Instructions: Please discuss migraine treatment with your PCP (one option is Fioricet) Please limit your fluid intake to 1500 mL per day Please continue to monitor your blood pressure three times per day and follow up with Dr. Stephenson for further medication adjustments. Patient Instructions: Antibiotic Form, Hydralazine (By mouth), Levofloxacin (By mouth), Heart Failure (DC), Fall Prevention for Older Adults (DC) Patient Language: Nepalese Stand Alone Forms: General Discharge Information Follow-up/Referrals: Edgar Stephenson DO [Physician, Cardiology] Referral Note: call for an appointment to be seen within 1-2 weeks of discharge Bhanu Hinojosa MD [Primary Care Provider, Internal Medicine] Referral Note: Call for an appt to be seen within 1-2 weeks of discharge Discharge Medications: New Saccharomyces boulardii [Florastor] 250 mg Capsule 250 mg PO BID Qty: 28 0RF levofloxacin 500 mg tablet 500 mg PO DAILY Qty: 3 0RF lisinopril 40 mg tablet 40 mg PO DAILY Qty: 30 0RF nebivolol [Bystolic] 10 mg tablet 30 mg PO DAILY 30 Days Qty: 90 0RF Continued multivitamin Tablet 1 tablet PO DAILY cholecalciferol (vitamin D3) [Vitamin D3] 25 mcg (1,000 unit) Tablet 25 mcg PO DAILY fexofenadine [Jagruti Allergy] 180 mg tablet 180 mg PO DAILY PRN (Reason: allergies) fluoxetine 40 mg capsule 40 mg PO QPM magnesium 250 mg tablet 250 mg PO DAILY Trelegy Ellipta 100-62.5-25 mcg blister with device 1 inh inhalation DAILY hydroxyzine HCl 25 mg tablet 25 mg PO TID PRN (Reason: Allergy Symptoms) Rx Instructions: 0.5-1 tab TID prn (DME) comp.stocking,knee,long,medium Misc See Rx Instructions .Route Qty: 6 0RF Rx Instructions: 30mmHg to be worn during the day aspirin 325 mg tablet 325 mg PO DAILY esomeprazole magnesium 40 mg capsule,delayed release(DR/EC) 40 mg PO DAILY levothyroxine 50 mcg tablet 75 mcg PO DAILY meclizine 25 mg tablet 25 mg PO TID PRN (Reason: Vertigo) oxycodone-acetaminophen 10-325 mg tablet 1 tablet PO Q6H PRN (Reason: Pain) albuterol sulfate [Ventolin HFA] 90 mcg/actuation HFA aerosol inhaler 2 inh inhalation Q4-6H PRN (Reason: shortness of breath) Qty: 8.5 3RF rosuvastatin 20 mg tablet See Rx Instructions .ROUTE .COMPLEX Qty: 90 2RF Dose Instruction: TAKE 1 TABLET BY MOUTH DAILY Rx Instructions: TAKE 1 TABLET BY MOUTH DAILY potassium chloride 10 mEq tablet extended release See Rx Instructions .ROUTE .COMPLEX Qty: 90 2RF Dose Instruction: TAKE 1 TABLET BY MOUTH EVERY DAY Rx Instructions: TAKE 1 TABLET BY MOUTH EVERY DAY furosemide 20 mg tablet See Rx Instructions .ROUTE .COMPLEX Qty: 90 2RF Dose Instruction: TAKE 1 TABLET BY MOUTH EVERY MORNING Rx Instructions: TAKE 1 TABLET BY MOUTH EVERY MORNING roflumilast 500 mcg tablet 500 mcg PO DAILY Qty: 30 5RF Discontinued nebivolol [Bystolic] 20 mg tablet 20 mg PO DAILY Qty: 90 2RF ramipril 10 mg capsule 10 mg PO DAILY Qty: 90 2RF hydralazine 50 mg tablet 50 mg PO TID Qty: 90 5RF No Action Nurtec ODT 75 mg tablet,disintegrating 75 mg PO DAILY hydralazine 50 mg tablet 75 mg PO BID 30 Days Qty: 90 0RF omega-3 acid ethyl esters 1 gram capsule See Rx Instructions .ROUTE .COMPLEX Qty: 180 2RF Dose Instruction: TAKE 1 CAPSULE BY MOUTH TWICE A DAY Rx Instructions: TAKE 1 CAPSULE BY MOUTH TWICE A DAY Date of admission: 12/12/24 13:44 Primary Care Provider: Bhanu Hinojosa Admitting Provider: Tremayne Morales Attending physician on admission: Tremayne Morales Condition: Stable Quality VTE Prophylaxis VTE prophylaxis: pharmacologic ordered
[2024-12-13] MEDS: HYDROcodone/acetaminophen (*CRX) 5-325 MG TABLET 1 TAB PO (13:14)
--- NOTE | 2024-12-13 14:00 | PC.NURSE ---
Discharge orders, medication and adverse reaction explained, education given on falls and medications. Patient voiced understanding and has no questions at this time. Pt informs her daughter is a nurse and knows the meds and how to set them up. Educated patient that is daughter has questions for her to call the floor and we would explain all details to her. Patient agrees. Patient exits via WC to family car at 1355 to home.
--- NOTE | 2024-12-14 09:46 | PC.NURSE ---
Discharge call back attemptd, no answer
--- NOTE | 2024-12-14 12:46 | PC.NURSE ---
returned call, states blood pressure is going up and down, advised to return to ED for blood pressure concerns or to make appointment with Dr Hinojosa to discuss medications for blood pressure.
== END 2024-12-13 13:55 | disposition home or self-care (01) | DRG 304 ==
LOC: CHSED 17:10 → CHS2ND 17:19
PROVIDERS: Nurse Practitioner Adult Health; Admitting Provider Internal Medicine; Emergency Provider Emergency Medicine; PCP Internal Medicine; Visit Provider Internal Medicine
DX: I16.0 Hypertensive urgency (principal); J18.9 Pneumonia, unspecified organism; J96.11 Chronic respiratory failure with hypoxia; J44.0 Chronic obstructive pulmonary disease with (acute) lower respiratory infection; I11.0 Hypertensive heart disease with heart failure; I50.9 Heart failure, unspecified; D50.9 Iron deficiency anemia, unspecified; E87.6 Hypokalemia; E78.5 Hyperlipidemia, unspecified; G43.909 Migraine, unspecified, not intractable, without status migrainosus; I25.10 Atherosclerotic heart disease of native coronary artery without angina pectoris; Z95.5 Presence of coronary angioplasty implant and graft
CPT/HCPCS: 36415; 70450; 71045; 71046; 80053; 81003; 83605; 83690; 83880; 84484; 85025; 85610; 85730; 87040; 93005; 96365; 96366; 96374; 96375; 96376; 97161; 97165; 97535; 99285; A9270; G0378; J1650; J1885; J1938; J1956; J2405